=== PATIENT | male | born 1980 | race Caucasian/White ===

== ENCOUNTER 2017-11-12 16:03 | Inpatient (IN) | payer SELFPAY ==
[~2017-11-12] VITALS: Ht 175.3 cm; Wt 97.2 kg
[2017-11-12] VITALS (12 sets, daily range): BP systolic 126–146; BP diastolic 72–91
--- NOTE | 2017-11-12 16:19 | ED General ---
General Stated Complaint: COUGH/SOB/VOMITING Source of Information: Patient, Family Exam Limitations: No Limitations History of Present Illness Time Seen by Provider: 16:19 Initial Comments The patient is a 37-year-old white male who presents with a complaint of recurrent vomiting over the past 2 weeks. He had assumed he would eventually get better than this. There has been no fever. There has been no diarrhea. His arrival vital signs showed a heart rate of 150+. EKG showed this to appeared to be sinus on the basis of notching in the T-wave in lead 2. He has not been aware of pounding in his chest but reported dyspnea on minimal exertion. Timing/Duration: Other (2 weeks) Associated Systoms: Nausea/Vomiting, Shortness of Air, Weakness Allergies and Home Medications Allergies Coded Allergies: No Known Drug Allergies (Unverified , 11/12/17) Home Medications No Active Prescriptions or Reported Meds Constitutional: see HPI EENTM: no symptoms reported Respiratory: cough, short of breath Cardiovascular: see HPI Gastrointestinal: loss of appetite, nausea, vomiting Musculoskeletal: muscle weakness Skin: no symptoms reported Psychiatric/Neurological: No Symptoms Reported Hematologic/Lymphatic: No Symptoms Reported Immunological/Allergic: no symptoms reported Past Dtpnrxc-Jsxmky-Lvljki Hx Patient Social History Recent Foreign Travel: No Contact w/Someone Who Travel: No Physical Exam Vital Signs Vital Sign - Last 12Hours 11/12/17 11/12/17 16:45 23:43 Temp 97.9 Pulse 177 Resp 24 B/P (MAP) 128/76 (93) Pulse Ox 99 O2 Delivery Room Air O2 Flow Rate 2.00 Capillary Refill : General Appearance: Moderate Distress, Other (pale and diaphoretic) Eyes: Bilateral Eye Normal Inspection HEENT: Normal ENT Inspection Neck: Normal Inspection Respiratory: Other (hyperventilating) Cardiovascular: Tachycardia Gastrointestinal: Normal Bowel Sounds, No Organomegaly, No Pulsatile Mass, Non Tender, Soft Back: Normal Inspection, No CVA Tenderness, No Vertebral Tenderness Extremity: Normal Capillary Refill, Normal Inspection, Normal Range of Motion, Non Tender, No Calf Tenderness, No Pedal Edema Neurologic/Psychiatric: Alert, Oriented x3, No Motor/Sensory Deficits, Normal Mood/Affect Skin: Normal Color, Warm/Dry Lymphatic: No Adenopathy Focused Exam Evaluation Lactate Level Laboratory Tests 11/12/17 17:15: Lactic Acid Level 1.81 Lactic Acid Level Progress/Results/Core Measures Suspected Sepsis SIRS Temperature: Pulse: Respiratory Rate: Laboratory Tests 11/13/17 04:21: White Blood Count 18.2H 11/14/17 05:45: White Blood Count 12.1H 11/15/17 10:55: White Blood Count 7.1 Blood Pressure / Mean: Laboratory Tests 11/12/17 17:15: Lactic Acid Level 1.81 Laboratory Tests 11/12/17 16:20: Total Bilirubin 0.5 11/13/17 04:21: Platelet Count 299 11/14/17 00:30: Creatinine 0.68 11/14/17 05:45: Platelet Count 228, Creatinine 0.63 11/15/17 10:55: Creatinine 0.59L, Platelet Count 225, Total Bilirubin 0.6 Results/Orders Lab Results Laboratory Tests Test 11/13/17 14:03 11/13/17 15:10 11/13/17 16:07 11/13/17 16:13 Range/Units Glucometer 186 H 181 H 175 H 70-110 MG/DL Sodium Level 142 135-145 MMOL/L Potassium Level 3.9 3.6-5.0 MMOL/L Chloride Level 111 H 98-107 MMOL/L Carbon Dioxide Level 22 21-32 MMOL/L Anion Gap 9 5-14 MMOL/L Blood Urea Nitrogen 9 7-18 MG/DL Creatinine 0.73 0.60-1.30 MG/DL Estimat Glomerular Filtration Rate > 60 BUN/Creatinine Ratio 12 Glucose Level 145 H 70-105 MG/DL Calcium Level 10.0 8.5-10.1 MG/DL Test 11/13/17 17:29 11/13/17 18:29 11/13/17 19:28 11/13/17 20:27 Range/Units Glucometer 158 H 177 H 245 H 227 H 70-110 MG/DL Test 11/13/17 21:26 11/13/17 22:31 11/13/17 23:32 11/14/17 00:30 Range/Units Glucometer 205 H 184 H 191 H 70-110 MG/DL Sodium Level 141 135-145 MMOL/L Potassium Level 3.7 3.6-5.0 MMOL/L Chloride Level 110 H 98-107 MMOL/L Carbon Dioxide Level 23 21-32 MMOL/L Anion Gap 8 5-14 MMOL/L Blood Urea Nitrogen 7 7-18 MG/DL Creatinine 0.68 0.60-1.30 MG/DL Estimat Glomerular Filtration Rate > 60 BUN/Creatinine Ratio 10 Glucose Level 131 H 70-105 MG/DL Calcium Level 9.9 8.5-10.1 MG/DL Test 11/14/17 00:31 11/14/17 01:06 11/14/17 02:07 11/14/17 03:10 Range/Units Glucometer 141 H 133 H 160 H 144 H 70-110 MG/DL Test 11/14/17 03:37 11/14/17 04:35 11/14/17 05:03 11/14/17 05:45 Range/Units Glucometer 146 H 147 H 183 H 70-110 MG/DL White Blood Count 12.1 H 4.3-11.0 10^3/uL Red Blood Count 4.29 L 4.35-5.85 10^6/uL Hemoglobin 12.7 L 13.3-17.7 G/DL Hematocrit 36 L 40-54 % Mean Corpuscular Volume 83 80-99 FL Mean Corpuscular Hemoglobin 30 25-34 PG Mean Corpuscular Hemoglobin Concent 36 32-36 G/DL Red Cell Distribution Width 12.6 10.0-14.5 % Platelet Count 228 130-400 10^3/uL Mean Platelet Volume 10.2 7.4-10.4 FL Neutrophils (%) (Auto) 72 42-75 % Lymphocytes (%) (Auto) 18 12-44 % Monocytes (%) (Auto) 9 0-12 % Eosinophils (%) (Auto) 1 0-10 % Basophils (%) (Auto) 0 0-10 % Neutrophils # (Auto) 8.7 H 1.8-7.8 X 10^3 Lymphocytes # (Auto) 2.2 1.0-4.0 X 10^3 Monocytes # (Auto) 1.1 H 0.0-1.0 X 10^3 Eosinophils # (Auto) 0.1 0.0-0.3 10^3/uL Basophils # (Auto) 0.0 0.0-0.1 10^3/uL Sodium Level 142 135-145 MMOL/L Potassium Level 3.5 L 3.6-5.0 MMOL/L Chloride Level 109 H 98-107 MMOL/L Carbon Dioxide Level 24 21-32 MMOL/L Anion Gap 9 5-14 MMOL/L Blood Urea Nitrogen 5 L 7-18 MG/DL Creatinine 0.63 0.60-1.30 MG/DL Estimat Glomerular Filtration Rate > 60 BUN/Creatinine Ratio 8 Glucose Level 173 H 70-105 MG/DL Hemoglobin A1c 10.7 H 4.5-6.2 % Calcium Level 10.0 8.5-10.1 MG/DL Phosphorus Level 2.8 2.3-4.7 MG/DL Magnesium Level 1.1 L 1.8-2.4 MG/DL Test 11/14/17 06:18 11/14/17 07:01 11/14/17 08:12 11/14/17 10:28 Range/Units Glucometer 226 H 165 H 160 H 138 H 70-110 MG/DL Test 11/14/17 14:39 11/14/17 19:50 11/14/17 23:59 11/15/17 05:37 Range/Units Glucometer 272 H 228 H 282 H 242 H 70-110 MG/DL Test 11/15/17 10:36 11/15/17 10:55 Range/Units Glucometer 277 H 70-110 MG/DL White Blood Count 7.1 4.3-11.0 10^3/uL Red Blood Count 4.53 4.35-5.85 10^6/uL Hemoglobin 13.3 13.3-17.7 G/DL Hematocrit 38 L 40-54 % Mean Corpuscular Volume 83 80-99 FL Mean Corpuscular Hemoglobin 29 25-34 PG Mean Corpuscular Hemoglobin Concent 36 32-36 G/DL Red Cell Distribution Width 12.4 10.0-14.5 % Platelet Count 225 130-400 10^3/uL Mean Platelet Volume 10.4 7.4-10.4 FL Neutrophils (%) (Auto) 66 42-75 % Lymphocytes (%) (Auto) 22 12-44 % Monocytes (%) (Auto) 12 0-12 % Eosinophils (%) (Auto) 1 0-10 % Basophils (%) (Auto) 0 0-10 % Neutrophils # (Auto) 4.6 1.8-7.8 X 10^3 Lymphocytes # (Auto) 1.5 1.0-4.0 X 10^3 Monocytes # (Auto) 0.8 0.0-1.0 X 10^3 Eosinophils # (Auto) 0.1 0.0-0.3 10^3/uL Basophils # (Auto) 0.0 0.0-0.1 10^3/uL Sodium Level 141 135-145 MMOL/L Potassium Level 3.7 3.6-5.0 MMOL/L Chloride Level 103 98-107 MMOL/L Carbon Dioxide Level 28 21-32 MMOL/L Anion Gap 10 5-14 MMOL/L Blood Urea Nitrogen 10 7-18 MG/DL Creatinine 0.59 L 0.60-1.30 MG/DL Estimat Glomerular Filtration Rate > 60 BUN/Creatinine Ratio 17 Glucose Level 310 H 70-105 MG/DL Calcium Level 9.4 8.5-10.1 MG/DL Total Bilirubin 0.6 0.1-1.0 MG/DL Aspartate Amino Transf (AST/SGOT) 12 5-34 U/L Alanine Aminotransferase (ALT/SGPT) 15 0-55 U/L Alkaline Phosphatase 71 40-136 U/L Total Protein 6.1 L 6.4-8.2 GM/DL Albumin 2.9 L 3.2-4.5 GM/DL Micro Results Microbiology 11/13/17 MRSA Screen - Final, Complete MRSA not isolated My Orders Orders - MIKO MCINTYRE MD Diabetes Education (11/14/17 14:46) Cpoe Transfer Order Process (11/14/17 14:53) Insulin Aspart (Novolog) (Novolog (Charg (11/14/17 16:00) Ns Iv 1000 Ml (Sodium Chloride 0.9%) (11/14/17 15:36) Transfer - Room Transfer (11/14/17 16:49) Medications Given in ED Vital Signs/I&O Vital Sign - Last 12Hours 11/15/17 11/15/17 04:00 08:30 Temp 97.7 97.2 Pulse 88 85 Resp 16 16 B/P (MAP) 155/84 (107) 143/94 (110) Pulse Ox 95 97 O2 Delivery Room Air Room Air Capillary Refill : Departure Communication (Admissions) Progress Notes The white count is 33,000. Hemoglobin is 17. Blood sugar is 457 and CO2 is 7. These are consistent with diabetic ketoacidosis and consistent with his symptom complex as well. Discussed with Dr. Manzo at 1724 and the patient will be admitted to the ICU. Impression Impression: Primary Impression: diabetic ketoacidosis Disposition: 09 ADMITTED INPATIENT Condition: Stable/Unchanged Admissions Decision to Admit Reason: Admit from ER (General) Decision to Admit/Date: Nov 12, 2017 Time/Decision to Admit Time: 17:33 Departure-Patient Inst. Referrals: NO,LOCAL PHYSICIAN (PCP/Family) Primary Care Physician Scripts No Active Prescriptions or Reported Meds MIKO MCINTYRE MD Nov 12, 2017 16:19
[2017-11-12] MEDS ORDERED: NS IV 1000 ML 1,000 ML ONE ×3 (16:24→21:07)
[2017-11-12] MEDS ORDERED: ADENOSINE 6 MG/2 ML (ADENOCARD) VIAL IV ONE (16:25)
[2017-11-12] MEDS ORDERED: meTOprolol 5 MG/5 ML (LOPRESSOR) VIAL ONE (16:31)
[2017-11-12 16:45] LABS: BASOPHILS % (AUTO) 0 % (0-10); EOSINOPHILS % (AUTO) 0 % (0-10); HEMATOCRIT 50 % (40-54); HEMOGLOBIN 17.2 G/DL (13.3-17.7); LYMPHOCYTES # (AUTO) 1.2 X 10^3 (1.0-4.0); LYMPHOCYTES % (AUTO) 4 % (12-44); MEAN CORPUSCULAR HEMOGLOBIN 29 PG (25-34); MEAN CORPUSCULAR HGB CONC 35 G/DL (32-36); MEAN CORPUSCULAR VOLUME 84 FL (80-99); MEAN PLATELET VOLUME 11.1 FL (7.4-10.4); MONOCYTES # (AUTO) 3.3 X 10^3 (0.0-1.0); MONOCYTES % (AUTO) 10 % (0-12); NEUTROPHILS # (AUTO) 28.2 X 10^3 (1.8-7.8); NEUTROPHILS % (AUTO) 86 % (42-75); PLATELET COUNT 430 10^3/uL (130-400); RED BLOOD COUNT 5.91 10^6/uL (4.35-5.85); RED CELL DISTRIBUTION WIDTH 13.3 % (10.0-14.5)
[2017-11-12 16:49] LABS: WHITE BLOOD COUNT 32.7 10^3/uL (4.3-11.0)
[2017-11-12 17:07] LABS: ALBUMIN 4.1 GM/DL (3.2-4.5); BILIRUBIN,TOTAL 0.5 MG/DL (0.1-1.0); CALCIUM 11.7 MG/DL (8.5-10.1); CREATININE SERUM 1.58 MG/DL (0.60-1.30); POTASSIUM 4.3 MMOL/L (3.6-5.0)
[2017-11-12 17:08] LABS: BAND NEUTROPHILS 5 %; BASOPHILS % (MANUAL) 0 %; EOSINOPHILS % (MANUAL) 0 %; LYMPHOCYTES % (MANUAL) 5 %; MONOCYTES % (MANUAL) 9 %; NEUTROPHILS % (MANUAL) 81 %; RBC MORPH NORMAL
[2017-11-12] MEDS ORDERED: inSUlin REGULAR TPN/DRIP ONLY 250 UNITS in NORMAL SALINE 250 ML IV SCH (17:45)
--- NOTE | 2017-11-12 17:53 | Diagnostic Imaging Report ---
INDICATION: Cough and congestion, shortness of breath. COMPARISON: None. FINDINGS: Single view of the chest demonstrates clear lungs bilaterally. The heart is normal. There is no pneumothorax. Osseous structures normal. IMPRESSION: Negative chest. Dictated by: Dictated on workstation # [id number]
[2017-11-12] MEDS ORDERED: cefTRIAXone INJECTION 1,000 MG in NS (IVPB) 50 ML IV ONE (18:00)
[2017-11-12] MEDS ORDERED: NS (IVPB) 250 ML ONE (18:11)
[2017-11-12] MEDS ORDERED: inSUlin (REGULAR) HUMAN 1 UNIT/0.01 ML (CHARGE PER UNIT) ONE (18:12)
[2017-11-12] MEDS ORDERED: ONDANSETRON 4 MG/2 ML (SDV) Z0FRAN IVP ONE (18:30)
[2017-11-12] MEDS ORDERED: 1/2 NS W/KCL 20 MEQ/L 1,000 ML IV ONE (19:55)
[2017-11-12 20:30] LABS: CALCIUM 10.8 MG/DL (8.5-10.1); CREATININE SERUM 1.39 MG/DL (0.60-1.30); POTASSIUM 4.4 MMOL/L (3.6-5.0)
[2017-11-12] MEDS ORDERED: SODIUM BICARB 8.4% 50 MEQ/50 ML (ABBOTT) SYR ONE (21:06)
[2017-11-12] MEDS ORDERED: NS IV 1000 ML 1,000 ML IV SCH (21:15)
[2017-11-12] MEDS ORDERED: SODIUM BICARB 8.4% 50 MEQ/50 ML (ABBOTT) SYR IV ONE ×2 (21:15→21:30)
[2017-11-12] MEDS: REGULAR inSUlin DRIP 250 UNITS/NS 250 ML IV SCH ×2 (21:26)
[2017-11-12] MEDS: D5 1/2 NS W/KCL 20 MEQ/L 1,000 ML IV SCH (21:26)
[2017-11-12] MEDS: DEXTROSE 10% IV SOLUTION 1,000 ML IV SCH (21:26)
[2017-11-12] MEDS: 1/2 NS W/KCL 20 MEQ/L 1,000 ML IV SCH (21:26)
[2017-11-12] MEDS: POTASSIUM CL 10MEQ/50ML IVPB X 4 (TOTAL 40 MEQ) IV SCH ×2 (22:46→22:47)
[2017-11-13] VITALS (23 sets, daily range): BP systolic 109–166; BP diastolic 69–108
[2017-11-13] MEDS: D5 1/2 NS W/KCL 20 MEQ/L 1,000 ML IV SCH ×6 (00:26→21:59)
[2017-11-13] MEDS: 1/2 NS W/KCL 20 MEQ/L 1,000 ML IV SCH ×5 (01:53→21:30)
[2017-11-13 02:37] LABS: BUN/CREATININE RATIO 10; CALCIUM 10.5 MG/DL (8.5-10.1); CARBON DIOXIDE 15 MMOL/L (21-32); CHLORIDE 111 MMOL/L (98-107); CREATININE SERUM 1.23 MG/DL (0.60-1.30); GFR ESTIMATED > 60; GLUCOSE 243 MG/DL (70-105); POTASSIUM 3.4 MMOL/L (3.6-5.0); SODIUM 143 MMOL/L (135-145)
[2017-11-13 04:46] LABS: BASOPHILS % (AUTO) 0 % (0-10); EOSINOPHILS % (AUTO) 0 % (0-10); HEMATOCRIT 39 % (40-54); HEMOGLOBIN 13.8 G/DL (13.3-17.7); LYMPHOCYTES # (AUTO) 1.3 X 10^3 (1.0-4.0); LYMPHOCYTES % (AUTO) 7 % (12-44); MEAN CORPUSCULAR HEMOGLOBIN 29 PG (25-34); MEAN CORPUSCULAR HGB CONC 35 G/DL (32-36); MEAN CORPUSCULAR VOLUME 83 FL (80-99); MEAN PLATELET VOLUME 10.3 FL (7.4-10.4); MONOCYTES % (AUTO) 11 % (0-12); NEUTROPHILS # (AUTO) 14.8 X 10^3 (1.8-7.8); NEUTROPHILS % (AUTO) 81 % (42-75); PLATELET COUNT 299 10^3/uL (130-400); RED BLOOD COUNT 4.72 10^6/uL (4.35-5.85); WHITE BLOOD COUNT 18.2 10^3/uL (4.3-11.0)
[2017-11-13 05:08] LABS: MAGNESIUM 1.4 MG/DL (1.8-2.4); PHOSPHORUS 1.7 MG/DL (2.3-4.7)
[2017-11-13] MEDS ORDERED: ACETAMINOPHEN 325 MG TABLET/CAPLET (TYLENOL) ONE (05:25)
[2017-11-13] MEDS: ACETAMINOPHEN 325 MG TABLET/CAPLET (TYLENOL) PO PRN ×2 (05:28→14:00)
[2017-11-13] MEDS ORDERED: HYDROcodone/APAP 10 MG/325 MG (LORTAB) TAB PO PRN (05:30)
[2017-11-13] MEDS: POTASSIUM CL 10MEQ/50ML IVPB 50 ML IV SCH (05:30)
[2017-11-13] MEDS ORDERED: KCL 20 MEQ TAB (K-DUR) PO ONE (05:30)
[2017-11-13] MEDS: KCL 20 MEQ TAB (K-DUR) PO SCH (05:30)
[2017-11-13] MEDS: MAGNESIUM 1 GM/100 ML IVPB 100 ML IV SCH ×3 (05:30→06:48)
[2017-11-13 06:11] LABS: BUN/CREATININE RATIO 12; CARBON DIOXIDE 19 MMOL/L (21-32); CHLORIDE 112 MMOL/L (98-107); CREATININE SERUM 0.92 MG/DL (0.60-1.30); GFR ESTIMATED > 60; GLUCOSE 201 MG/DL (70-105); POTASSIUM 3.5 MMOL/L (3.6-5.0); SODIUM 145 MMOL/L (135-145)
[2017-11-13] MEDS ORDERED: INFLUENZA TRIvalent 2017-2018 0.5 ML/45 MCG SYR IM ONE (08:15)
[2017-11-13] MEDS: DEXTROSE 10% IV SOLUTION 1,000 ML IV SCH ×2 (08:17→17:51)
[2017-11-13 08:59] LABS: BUN/CREATININE RATIO 12; CARBON DIOXIDE 20 MMOL/L (21-32); CHLORIDE 113 MMOL/L (98-107); CREATININE SERUM 0.85 MG/DL (0.60-1.30); POTASSIUM 3.6 MMOL/L (3.6-5.0); SODIUM 141 MMOL/L (135-145)
[2017-11-13 09:00] LABS: CALCIUM 10.1 MG/DL (8.5-10.1); GFR ESTIMATED > 60; GLUCOSE 217 MG/DL (70-105)
--- NOTE | 2017-11-13 09:23 | Diagnostic Imaging Report ---
INDICATION: Diabetic ketoacidosis Comparison made to the previous study from 11/12/2017. FINDINGS: Lungs remain clear without focal infiltrate or consolidation. There is no effusion. There is no pneumothorax. Heart size and mediastinal contours appear appropriate without evidence of failure. There is no acute osseous abnormality. IMPRESSION: 1. No radiographic evidence of an acute cardiopulmonary process. Dictated by: Dictated on workstation # [id number]
--- NOTE | 2017-11-13 13:21 | History & Physical-Hospitalist ---
HPI History of Present Illness: HPI/Chief Complaint CC: New onset DKA with profound dehydration and tachycardia HPI: This is a 37-year-old white male that historically was very healthy and did not require any type of physician establishment who presents to the ER yesterday with reports of nausea and vomiting for the past 2 weeks and such significant declined that his brother insisted on bringing him to the ER patient was found to have tachycardia of 150 blood sugar 457 and bicarbonate of 7 with a white count of 33,000 indicating a profound severe presentation of DKA in need of insulin drip and IV fluid resuscitation. At this current time he remains afebrile but does not appear to be any type of infectious process and the elevated white count appears to be stress response from DKA. Overall he feels better but not the best still slightly nauseated but he is hungry so he would like to advance his diet. We will maintain insulin drip although bicarbonate is 20 I suspect that this is a long-standing acidosis for the last 2 weeks and will be very careful about discontinuing insulin drip before clearance of all acidosis has occurred while he is back to oral intake. 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) Alcohol Use: Denies Use Recreational Drug Use: No Smoking Status: Never a Smoker Physical Abuse Screen: No Sexual Abuse: No Recent Foreign Travel: No Contact w/other who traveled: No Recent Hopitalizations: No Recent Infectious Disease Expo: No Seasonal Allergies Seasonal Allergies: No Surgeries No Respiratory Yes Sleep Apnea Currently Using CPAP: Yes Cardiovascular No Neurological No Genitourinary No Gastrointestinal No Musculoskeletal No Endocrine History of Endocrine Disorders: No HEENT History of HEENT Disorders: No Cancer No Psychosocial History of Psychiatric Problem: No Integumentary History of Skin or Integumenta: No Blood Transfusions History of Blood Disorders: No Review of Systems Constitutional: see HPI, chills, dizziness, weakness EENTM: no symptoms reported Respiratory: no symptoms reported Cardiovascular: no symptoms reported Gastrointestinal: nausea, vomiting Genitourinary: decreased output Musculoskeletal: no symptoms reported Skin: no symptoms reported Psychiatric/Neurological: No Symptoms Reported All Other Systems Reviewed Negative Unless Noted: Yes Physical Exam Physical Exam Vital Signs Vital Sign - Last 12Hours 11/12/17 11/12/17 16:45 23:43 Temp 97.9 Pulse 177 Resp 24 B/P (MAP) 128/76 (93) Pulse Ox 99 O2 Delivery Room Air O2 Flow Rate 2.00 Capillary Refill : Less Than 3 Seconds General Appearance: No Apparent Distress, WD/WN, Chronically ill, Obese Eyes: Bilateral Eye Normal Inspection, Bilateral Eye PERRL HEENT: PERRL/EOMI, Normal ENT Inspection, Pharynx Normal Neck: Full Range of Motion, Normal Inspection, Non Tender, Supple, Carotid Bruit Respiratory: Chest Non Tender, Lungs Clear, Normal Breath Sounds, No Accessory Muscle Use, No Respiratory Distress Cardiovascular: Regular Rate, Rhythm, No Edema, No Gallop, No JVD, No Murmur, Normal Peripheral Pulses Gastrointestinal: Normal Bowel Sounds, No Organomegaly, No Pulsatile Mass, Non Tender, Soft Back: Normal Inspection, No CVA Tenderness, No Vertebral Tenderness Extremity: Normal Capillary Refill, Normal Inspection, Normal Range of Motion, Non Tender, No Calf Tenderness, No Pedal Edema Neurologic/Psychiatric: Alert, Oriented x3, No Motor/Sensory Deficits, Depressed Affect Skin: Normal Color, Warm/Dry Lymphatic: No Adenopathy Results Results/Procedures Lab Laboratory Tests 11/12/17 16:20 11/12/17 20:00 11/13/17 00:01 11/13/17 04:21 11/13/17 08:28 Assessment/Plan Admission Diagnosis Assessment: New onset diabetes and presenting as severe DKA with tachycardia and severe dehydration Assessment and Plan Plan: Advance diet Maintain insulin drip due to severity of acidosis and 2 weeks of severe dehydration with acidosis high risk for converting back to DKA Monitor labs Monitor potassium Monitor closely Clinical Quality Measures DVT/VTE Risk/Contraindication: Risk Factor Score Per Nursin RFS Level Per Nursing on Admit: 3=High KEREN MANZO DO Nov 13, 2017 13:21
[2017-11-13] MEDS: REGULAR inSUlin DRIP 250 UNITS/NS 250 ML IV SCH ×2 (14:43)
[2017-11-13 16:47] LABS: BUN/CREATININE RATIO 12; CARBON DIOXIDE 22 MMOL/L (21-32); CHLORIDE 111 MMOL/L (98-107); CREATININE SERUM 0.73 MG/DL (0.60-1.30); GFR ESTIMATED > 60; GLUCOSE 145 MG/DL (70-105); POTASSIUM 3.9 MMOL/L (3.6-5.0); SODIUM 142 MMOL/L (135-145)
[2017-11-14] VITALS (18 sets, daily range): BP systolic 135–168; BP diastolic 82–107
[2017-11-14] MEDS: DEXTROSE 10% IV SOLUTION 1,000 ML IV SCH ×2 (01:12→14:44)
[2017-11-14 01:15] LABS: BUN/CREATININE RATIO 10; CALCIUM 9.9 MG/DL (8.5-10.1); CARBON DIOXIDE 23 MMOL/L (21-32); CHLORIDE 110 MMOL/L (98-107); CREATININE SERUM 0.68 MG/DL (0.60-1.30); GFR ESTIMATED > 60; GLUCOSE 131 MG/DL (70-105); POTASSIUM 3.7 MMOL/L (3.6-5.0); SODIUM 141 MMOL/L (135-145)
[2017-11-14] MEDS: ACETAMINOPHEN 325 MG TABLET/CAPLET (TYLENOL) PO PRN (01:26)
[2017-11-14] MEDS: 1/2 NS W/KCL 20 MEQ/L 1,000 ML IV SCH ×4 (01:30→14:44)
[2017-11-14] MEDS: D5 1/2 NS W/KCL 20 MEQ/L 1,000 ML IV SCH ×4 (01:41→14:45)
[2017-11-14 05:58] LABS: BASOPHILS % (AUTO) 0 % (0-10); EOSINOPHILS # (AUTO) 0.1 10^3/uL (0.0-0.3); EOSINOPHILS % (AUTO) 1 % (0-10); HEMATOCRIT 36 % (40-54); HEMOGLOBIN 12.7 G/DL (13.3-17.7); LYMPHOCYTES # (AUTO) 2.2 X 10^3 (1.0-4.0); LYMPHOCYTES % (AUTO) 18 % (12-44); MEAN CORPUSCULAR HEMOGLOBIN 30 PG (25-34); MEAN CORPUSCULAR HGB CONC 36 G/DL (32-36); MEAN CORPUSCULAR VOLUME 83 FL (80-99); MEAN PLATELET VOLUME 10.2 FL (7.4-10.4); MONOCYTES # (AUTO) 1.1 X 10^3 (0.0-1.0); MONOCYTES % (AUTO) 9 % (0-12); NEUTROPHILS # (AUTO) 8.7 X 10^3 (1.8-7.8); NEUTROPHILS % (AUTO) 72 % (42-75); PLATELET COUNT 228 10^3/uL (130-400); RED BLOOD COUNT 4.29 10^6/uL (4.35-5.85); RED CELL DISTRIBUTION WIDTH 12.6 % (10.0-14.5); WHITE BLOOD COUNT 12.1 10^3/uL (4.3-11.0)
[2017-11-14 06:20] LABS: BUN/CREATININE RATIO 8; CARBON DIOXIDE 24 MMOL/L (21-32); CHLORIDE 109 MMOL/L (98-107); CREATININE SERUM 0.63 MG/DL (0.60-1.30); GFR ESTIMATED > 60; GLUCOSE 173 MG/DL (70-105); MAGNESIUM 1.1 MG/DL (1.8-2.4); PHOSPHORUS 2.8 MG/DL (2.3-4.7); POTASSIUM 3.5 MMOL/L (3.6-5.0); SODIUM 142 MMOL/L (135-145)
[2017-11-14] MEDS: POTASSIUM CL 10MEQ/50ML IVPB 50 ML IV SCH ×2 (06:36→08:02)
[2017-11-14] MEDS: MAGNESIUM 1 GM/100 ML IVPB 100 ML IV SCH ×5 (06:37→10:35)
[2017-11-14] MEDS: KCL 20 MEQ TAB (K-DUR) PO SCH (06:38)
[2017-11-14] MEDS ORDERED: KCL 20 MEQ TAB (K-DUR) PO ONE (06:45)
--- NOTE | 2017-11-14 07:41 | Diagnostic Imaging Report ---
INDICATION: DKA COMPARISON: 11/13/17 FINDINGS: Single view of the chest demonstrate clear lungs bilaterally. The heart is normal. No pneumothorax. The osseous structures normal. IMPRESSION: Negative chest. Dictated by: Dictated on workstation # [id number]
--- NOTE | 2017-11-14 07:43 | Pulmonary Consultation ---
History of Present Illness History of Present Illness Date of Consultation 11/14/17 07:38 Time Seen by Provider: 07:38 Date of Admission History of Present Illness 37yo with hx of JAIR presented to ED secondary to nausea and vomiting x 2 wks. Upon ED arrival pt was found to have DKA, dehydration, and tachycardia of 150. PT was admitted to ICU and placed on DKA protocol. I am consulted for ICU management. Pt has not seen a doctor in over 15 years and does not have a hx of diagnosed diabetes. He prior episodes like this. Allergies and Home Medications Allergies Coded Allergies: No Known Drug Allergies (Unverified , 11/12/17) Past Amnhxjr-Umexsu-Nqwcmh Hx Patient Social History Alcohol Use: Denies Use Recreational Drug Use: No Smoking Status: Never a Smoker Recent Foreign Travel: No Contact w/Someone Who Travel: No Recent Infectious Disease Expo: No Recent Hopitalizations: No Physical Abuse: No Sexual Abuse: No Seasonal Allergies Seasonal Allergies: No Surgeries History of Surgeries: No Respiratory History of Respiratory Disorde: Yes Respiratory Disorders: Sleep Apnea Currently Using CPAP: Yes Cardiovascular History of Cardiac Disorders: No Neurological History of Neurological Disord: No Genitourinary History of Genitourinary Disor: No Gastrointestinal History of Gastrointestinal Di: No Musculoskeletal History of Musculoskeletal Dis: No Endocrine History of Endocrine Disorders: No HEENT History of HEENT Disorders: No Cancer History of Cancer: No Psychosocial History of Psychiatric Problem: No Suicide Risk Score: 0 Integumentary History of Skin or Integumenta: No Blood Transfusions History of Blood Disorders: No Review of Systems Time Seen by Provider: 08:00 Constitutional: Sweats, Weakness, Malaise, No: Fever, Chills, Other Eyes: No: Pain, Vision change, Conjunctivae inflammation, Eyelid inflammation, Other, Redness ENT: No: Ear pain, Ear discharge, Nose pain, Nose discharge, Nose congestion, Mouth pain, Mouth swelling, Throat pain, Throat swelling, Other Respiratory: No: Cough, Dry, Shortness of breath, SOB with excertion, Wheezing , Hemoptysis, Pleuritic Pain, Sputum, Wheezing, Other Cardiovascular: No: Chest Pain, Palpitations, Orthopnea, Paroxysmal Noc. Dyspnea, Edema, Lt Headedness, Other Gastrointestinal: Nausea, No: Vomiting, Abdominal Pain, Diarrhea, Constipation , Melena, Hematochezia, Other Genitourinary: No Dysuria, Frequency, No Incontinence, No Hematuria, No Retention, No Other Musculoskeletal: No: other, neck pain, shoulder pain, arm pain, back pain, hand pain, leg pain, foot pain Neurological: Weakness Exam Exam Vital Signs Date Time Temp Pulse Resp B/P (MAP) Pulse Ox O2 Delivery O2 Flow Rate FiO2 11/14/17 06:00 110 20 149/94 (112) 96 Room Air 11/14/17 05:00 111 26 135/87 (103) 97 Room Air 11/14/17 04:00 111 25 139/85 (103) 96 Room Air 11/14/17 04:00 95 Room Air 11/14/17 03:00 117 21 153/89 (110) 96 Room Air 11/14/17 02:00 121 21 154/105 (121) 96 Room Air 11/14/17 01:00 118 11/14/17 01:00 118 25 153/96 (115) 95 Room Air 11/14/17 00:00 97.6 11/14/17 00:00 124 28 150/97 (114) 97 Room Air 11/14/17 00:00 97 Room Air 11/13/17 23:00 120 22 146/92 (110) 94 Room Air 11/13/17 22:00 122 19 149/90 (109) 97 Room Air 11/13/17 21:00 128 22 144/87 (106) 96 Room Air 11/13/17 20:05 96 Room Air 11/13/17 20:00 131 26 140/91 (107) 95 Room Air 11/13/17 20:00 98.8 11/13/17 19:00 135 11/13/17 19:00 135 20 109/69 (82) 97 Room Air 11/13/17 18:00 121 24 151/97 (115) 96 Room Air 11/13/17 17:00 115 13 159/104 (122) 95 Room Air 11/13/17 16:44 98.0 Room Air 11/13/17 16:41 Room Air 11/13/17 16:00 121 9 145/94 (111) 96 Nasal Cannula 2.00 11/13/17 15:00 124 10 166/105 (125) 95 Nasal Cannula 2.00 11/13/17 14:00 130 19 99 Nasal Cannula 2.00 11/13/17 13:00 123 9 133/85 (101) 94 Nasal Cannula 2.00 11/13/17 13:00 123 11/13/17 12:00 117 12 134/107 (116) 96 Nasal Cannula 2.00 11/13/17 11:59 Nasal Cannula 2.00 11/13/17 11:00 120 12 149/94 (112) 93 Nasal Cannula 2.00 11/13/17 10:00 118 22 137/90 (106) 97 Nasal Cannula 2.00 11/13/17 09:00 122 25 150/99 (116) 95 Nasal Cannula 2.00 11/13/17 08:00 122 11 159/97 (117) 97 Nasal Cannula 2.00 11/13/17 08:00 Nasal Cannula 2.00 I & O 11/14/17 07:00 Intake Total 4390 ml Output Total 1725 ml Balance 2665 ml General Appearance: No Apparent Distress, WD/WN, Chronically ill, Obese HEENT: PERRL/EOMI, Normal ENT Inspection, Pharynx Normal Neck: Full Range of Motion, Normal Inspection, Non Tender, Supple, Carotid Bruit Respiratory: Chest Non Tender, Lungs Clear, Normal Breath Sounds, No Accessory Muscle Use, No Respiratory Distress Cardiovascular: Regular Rate, Rhythm, No Edema, No Gallop, No JVD, No Murmur, Normal Peripheral Pulses Capillary Refill: Less Than 3 Seconds Extremity: Normal Capillary Refill, Normal Inspection, Normal Range of Motion, Non Tender, No Calf Tenderness, No Pedal Edema Neurologic/Psychiatric: Alert, Oriented x3, No Motor/Sensory Deficits, Depressed Affect Skin: Normal Color, Warm/Dry Lymphatic: No Adenopathy Results Lab Laboratory Tests 11/12/17 16:20 11/12/17 20:00 11/13/17 00:01 11/13/17 04:21 11/13/17 08:28 11/13/17 16:13 11/14/17 00:30 11/14/17 05:45 Assessment/Plan Assessment/Plan Acute DKA - no previous hx of DKA - new dx of diabetes -Will give 15 units of Sub Q Levemir and then D/C drip after 2hrs -Will also start premeal insulin, and SSI -Diabetic education Dehydration --Change IVF to NS at 150cc/hr Morbid obesity with JAIR -Continue CPAP care -PT has not seen a doctor in over 15years -I will f/u with patient as out patient for JAIR If pt does ok off insulin gtt pt can transfer to 4th floor. Will need to follow accu checks close. 255 Clinical Quality Measures DVT/VTE Risk/Contraindication: Risk Factor Score Per Nursin RFS Level Per Nursing on Admit: 3=High EDIL MERAZ DO Nov 14, 2017 07:43
[2017-11-14] MEDS ORDERED: NS 1000 ML IV BAG IV ONE (07:45)
[2017-11-14] MEDS ORDERED: inSUlin DETERMIR 1 UNIT/0.01 ML (LEVEMIR) CHARGE PER UNIT SQ NR (07:45)
[2017-11-14] MEDS ORDERED: NS IV 1000 ML 1,000 ML ONE ×2 (07:55→15:36)
[2017-11-14] MEDS ORDERED: NS IV 1000 ML 1,000 ML IV SCH (08:15)
[2017-11-14] MEDS: inSUlin (REGULAR) HUMAN 1 UNIT/0.01 ML (CHARGE PER UNIT) SC SCH ×4 (10:33→14:44)
--- NOTE | 2017-11-14 14:47 | Progress Note-Hospitalist ---
Standard Progress Note Progress Notes/Assess & Plan Date Seen 11/14/17 Time Seen by Provider: 14:42 Diagnosis Assessment: New onset diabetes and presenting as severe DKA with tachycardia and severe dehydration Assess & Plan/Chief Complaint Reports he is feeling much better. He was able to eat today. He no longer has ketones on his breath. He is CO2 is now 25 which is normal. He reports he is feeling like life might be worthwhile at this point. Physical exam: Color is good. Lungs are clear to auscultation. Respiratory rate is 10. CV his tachycardia has resolved. There is no pedal edema. Impression: Diabetic ketoacidosis now resolved. Plan: Transfer to the floor. Advance diet. Diabetes nurse consultation tomorrow Labs Laboratory Tests 11/12/17 16:20 11/12/17 20:00 11/13/17 00:01 11/13/17 04:21 11/13/17 08:28 11/13/17 16:13 11/14/17 00:30 11/14/17 05:45 MIKO MCINTYRE MD Nov 14, 2017 14:47
[2017-11-14] MEDS: inSUlin ASPART (NovoLOG) 1 UNIT/0.01 ML (CHARGE PER UNIT) SC SCH (17:16)
[2017-11-14] MEDS ORDERED: inSUlin DETERMIR 1 UNIT/0.01 ML (LEVEMIR) CHARGE PER UNIT SQ ONE (21:10)
[2017-11-14] MEDS: inSUlin DETERMIR 1 UNIT/0.01 ML (LEVEMIR) CHARGE PER UNIT SQ SCH (21:20)
[2017-11-15] VITALS: BP 157/99
[2017-11-15 04:00] VITALS: BP 155/84
[2017-11-15] MEDS: inSUlin ASPART (NovoLOG) 1 UNIT/0.01 ML (CHARGE PER UNIT) SC SCH ×2 (06:33→16:16)
[2017-11-15 08:30] VITALS: BP 143/94
[2017-11-15 11:10] LABS: BASOPHILS % (AUTO) 0 % (0-10); EOSINOPHILS # (AUTO) 0.1 10^3/uL (0.0-0.3); EOSINOPHILS % (AUTO) 1 % (0-10); HEMATOCRIT 38 % (40-54); HEMOGLOBIN 13.3 G/DL (13.3-17.7); LYMPHOCYTES # (AUTO) 1.5 X 10^3 (1.0-4.0); LYMPHOCYTES % (AUTO) 22 % (12-44); MEAN CORPUSCULAR HEMOGLOBIN 29 PG (25-34); MEAN CORPUSCULAR HGB CONC 36 G/DL (32-36); MEAN CORPUSCULAR VOLUME 83 FL (80-99); MEAN PLATELET VOLUME 10.4 FL (7.4-10.4); MONOCYTES # (AUTO) 0.8 X 10^3 (0.0-1.0); MONOCYTES % (AUTO) 12 % (0-12); NEUTROPHILS # (AUTO) 4.6 X 10^3 (1.8-7.8); NEUTROPHILS % (AUTO) 66 % (42-75); PLATELET COUNT 225 10^3/uL (130-400); RED BLOOD COUNT 4.53 10^6/uL (4.35-5.85); RED CELL DISTRIBUTION WIDTH 12.4 % (10.0-14.5); WHITE BLOOD COUNT 7.1 10^3/uL (4.3-11.0)
[2017-11-15 11:33] LABS: ALANINE AMINOTRANSFERASE 15 U/L (0-55); ALBUMIN 2.9 GM/DL (3.2-4.5); ALKALINE PHOSPHATASE 71 U/L (40-136); BILIRUBIN,TOTAL 0.6 MG/DL (0.1-1.0); BUN/CREATININE RATIO 17; CALCIUM 9.4 MG/DL (8.5-10.1); CARBON DIOXIDE 28 MMOL/L (21-32); CHLORIDE 103 MMOL/L (98-107); CREATININE SERUM 0.59 MG/DL (0.60-1.30); GFR ESTIMATED > 60; GLUCOSE 310 MG/DL (70-105); POTASSIUM 3.7 MMOL/L (3.6-5.0); SODIUM 141 MMOL/L (135-145); TOTAL PROTEIN 6.1 GM/DL (6.4-8.2)
--- NOTE | 2017-11-15 11:48 | Progress Note-Hospitalist ---
Progress Note HPI/CC on Admission CC: New onset DKA with profound dehydration and tachycardia HPI: This is a 37-year-old white male that historically was very healthy and did not require any type of physician establishment who presents to the ER yesterday with reports of nausea and vomiting for the past 2 weeks and such significant declined that his brother insisted on bringing him to the ER patient was found to have tachycardia of 150 blood sugar 457 and bicarbonate of 7 with a white count of 33,000 indicating a profound severe presentation of DKA in need of insulin drip and IV fluid resuscitation. At this current time he remains afebrile but does not appear to be any type of infectious process and the elevated white count appears to be stress response from DKA. Overall he feels better but not the best still slightly nauseated but he is hungry so he would like to advance his diet. We will maintain insulin drip although bicarbonate is 20 I suspect that this is a long-standing acidosis for the last 2 weeks and will be very careful about discontinuing insulin drip before clearance of all acidosis has occurred while he is back to oral intake. Progress Notes/Assess & Plan Date Seen 11/15/17 Time Seen by Provider: 11:00 Admission Dx/Process Assessment: New onset diabetes and presenting as severe DKA with tachycardia and severe dehydration Diagonsis/Assessment & Plan Patient doing well but sugars and to 40 range Diabetic education completed today Maintain on obstructive sleep apnea treatment Noted sore near his anal opening and that is draining and I've consulted Dr. Duong which likely was a contributing factor with a DKA considering this deep- seated abscess that likely spontaneously ruptured Reports feeling okay otherwise No fever, vital signs stable, pleasant, chronically ill, mother at bedside Regular rate and rhythm, clear to auscultation bilaterally No edema Anal ulcer draining purulent drainage Assessment: New onset diabetes and presenting as severe DKA with tachycardia and severe dehydration anal ulcer with purulent drainage consulting general surgery JAIR Plan: Consult Dr Duong Insulin regimen BUBBA CANADA DO Nov 15, 2017 11:48
[2017-11-15 12:00] VITALS: BP 158/85
[2017-11-15] MEDS: inSUlin ASPART (NovoLOG) 1 UNIT/0.01 ML (CHARGE PER UNIT) SC ONE ×2 (12:36→12:41)
--- NOTE | 2017-11-15 15:46 | CONSULTATION REPORT ---
DATE OF SERVICE: 11/15/2017 ADMITTING PHYSICIAN: Dr. Manzo. HISTORY OF PRESENT ILLNESS: The patient is a 37-year-old male who presented to [facility] Emergency Department with tachycardia, nausea and vomiting and signs of profound dehydration. He also had reported polydipsia and polyuria for the few days previous. He was found to have a blood sugar of 457, bicarbonate of 7, and white count of 33,000. He was found to be in diabetic ketoacidosis. He was admitted, started on IV fluid hydration as well as electrolyte correction and insulin drip. His white count has improved with this medical therapy. Upon further questioning, he reports he has had pain and swelling in the perianal region. On examination, there was found to be palpable mass along the right perianal region with opening with a small amount of necrotic debris surrounding the area. This may be consistent with a perianal abscess versus fistula or a combination of both. He is otherwise afebrile now with a normal white count. PAST MEDICAL HISTORY: Diabetes. PAST SURGICAL HISTORY: None. ALLERGIES: No known drug allergies. MEDICATIONS: None. SOCIAL HISTORY: Negative smoke, negative alcohol. FAMILY HISTORY: Mother, father, [id number] diabetes. VITAL SIGNS: Temperature 97.2, blood pressure 143/94, pulse 85, respirations 16, pulse ox 97% on room air. REVIEW OF SYSTEMS: Well-nourished male currently in no acute distress. He is not experiencing any shortness of breath or difficulty breathing. No chest pain, palpitations, diaphoresis. No nausea, vomiting. No diarrhea, constipation. Pain in the perianal region especially upon sitting with what he appears to be like a grape-like size nodule for the past week. No recent fever nor chills, with weight loss for the past 2 years due to diet and exercise. All other review of systems negative. PHYSICAL EXAMINATION: CHEST: Clear. Good breath sounds bilaterally. HEART: Regular, no murmurs. EXTREMITIES: No lower extremity edema, negative Homans' sign. HEENT: No scleral icterus. NECK: No cervical lymphadenopathy. ABDOMEN: Soft, nontender, nondistended. RECTAL: There is a perianal abscess which is palpable and approximately 1.5 cm in size and firm. There is an opening along the right lateral aspect of the anus with some necrotic debris surrounding area. The mass is also palpable upon rectal examination as well. ASSESSMENT AND PLAN: A 37-year-old male with perianal abscess due to a new onset diabetes. The lesion may represent a simple perianal abscess; however, due to his new onset diabetes and necrotic debris identified, we will recommend an anal exam under anesthesia as well as possible biopsies if appropriate as well as exploration for the possibility of an internal opening that may indicate a fistula and requires Seton suture placement. We will schedule this in the a.m. Job ID: [id number] DocumentID: [id number] Dictated Date: 11/15/2017 14:18:02 Journeyman Lineman Date: 11/15/2017 15:25:06 Dictated By: JUAREZ CASTORENA MD
[2017-11-15 16:00] VITALS: BP 157/83
[2017-11-15] MEDS: inSUlin DETERMIR 1 UNIT/0.01 ML (LEVEMIR) CHARGE PER UNIT SQ SCH (20:16)
[2017-11-15] MEDS ORDERED: inSUlin DETERMIR 1 UNIT/0.01 ML (LEVEMIR) CHARGE PER UNIT SQ SCH (21:00)
[2017-11-16 00:08] VITALS: BP_SYST 172; BP_SYST 174; BP_DIAS 102; BP_DIAS 98
[2017-11-16] MEDS: inSUlin ASPART (NovoLOG) 1 UNIT/0.01 ML (CHARGE PER UNIT) SC SCH ×3 (06:00→16:11)
[2017-11-16 06:44] LABS: BASOPHILS % (AUTO) 0 % (0-10); EOSINOPHILS # (AUTO) 0.1 10^3/uL (0.0-0.3); EOSINOPHILS % (AUTO) 1 % (0-10); HEMATOCRIT 38 % (40-54); HEMOGLOBIN 13.2 G/DL (13.3-17.7); LYMPHOCYTES # (AUTO) 1.9 X 10^3 (1.0-4.0); LYMPHOCYTES % (AUTO) 29 % (12-44); MEAN CORPUSCULAR HEMOGLOBIN 29 PG (25-34); MEAN CORPUSCULAR HGB CONC 35 G/DL (32-36); MEAN CORPUSCULAR VOLUME 83 FL (80-99); MEAN PLATELET VOLUME 10.9 FL (7.4-10.4); MONOCYTES # (AUTO) 0.7 X 10^3 (0.0-1.0); MONOCYTES % (AUTO) 10 % (0-12); NEUTROPHILS # (AUTO) 3.9 X 10^3 (1.8-7.8); NEUTROPHILS % (AUTO) 60 % (42-75); PLATELET COUNT 206 10^3/uL (130-400); RED BLOOD COUNT 4.55 10^6/uL (4.35-5.85); RED CELL DISTRIBUTION WIDTH 12.2 % (10.0-14.5); WHITE BLOOD COUNT 6.5 10^3/uL (4.3-11.0)
[2017-11-16 07:09] LABS: ALANINE AMINOTRANSFERASE 13 U/L (0-55); ALBUMIN 2.8 GM/DL (3.2-4.5); ALKALINE PHOSPHATASE 62 U/L (40-136); BILIRUBIN,TOTAL 0.6 MG/DL (0.1-1.0); BUN/CREATININE RATIO 16; CALCIUM 9.5 MG/DL (8.5-10.1); CARBON DIOXIDE 30 MMOL/L (21-32); CHLORIDE 102 MMOL/L (98-107); CREATININE SERUM 0.58 MG/DL (0.60-1.30); GFR ESTIMATED > 60; GLUCOSE 287 MG/DL (70-105); POTASSIUM 3.5 MMOL/L (3.6-5.0); SODIUM 143 MMOL/L (135-145); TOTAL PROTEIN 4.8 GM/DL (6.4-8.2)
[2017-11-16 08:30] VITALS: BP 165/98
--- NOTE | 2017-11-16 11:20 | Progress Note-Hospitalist ---
Progress Note HPI/CC on Admission CC: New onset DKA with profound dehydration and tachycardia HPI: This is a 37-year-old white male that historically was very healthy and did not require any type of physician establishment who presents to the ER yesterday with reports of nausea and vomiting for the past 2 weeks and such significant declined that his brother insisted on bringing him to the ER patient was found to have tachycardia of 150 blood sugar 457 and bicarbonate of 7 with a white count of 33,000 indicating a profound severe presentation of DKA in need of insulin drip and IV fluid resuscitation. At this current time he remains afebrile but does not appear to be any type of infectious process and the elevated white count appears to be stress response from DKA. Overall he feels better but not the best still slightly nauseated but he is hungry so he would like to advance his diet. We will maintain insulin drip although bicarbonate is 20 I suspect that this is a long-standing acidosis for the last 2 weeks and will be very careful about discontinuing insulin drip before clearance of all acidosis has occurred while he is back to oral intake. Progress Notes/Assess & Plan Date Seen 11/16/17 Time Seen by Provider: 10:30 Admission Dx/Process Assessment: New onset diabetes and presenting as severe DKA with tachycardia and severe dehydration Diagonsis/Assessment & Plan Patient doing well but sugars still elevated, hga1c 10.7 Maintain on obstructive sleep apnea treatment Dr Duong will perform debridement of the anal abscess today Reports feeling okay otherwise BP elevated so will start meds for that No fever, vital signs stable, pleasant, chronically ill Regular rate and rhythm, clear to auscultation bilaterally No edema Assessment: New onset diabetes and presenting as severe DKA with tachycardia and severe dehydration Anal ulcer with purulent drainage undergoing surgery today JAIR HTN new dx Plan: Consult Dr Duong is appreciated Insulin regimen Add BP meds BUBBA CANADA DO Nov 16, 2017 11:20
--- NOTE | 2017-11-16 11:50 | Progress Note-Pre Operative ---
Pre-Operative Progress Note H&P Reviewed The H&P was reviewed, patient examined and no changes noted. Date Seen by Provider: Nov 16, 2017 Time Seen by Provider: 11:30 Date H&P Reviewed: Nov 16, 2017 Time H&P Reviewed: 11:30 Pre-Operative Diagnosis: perinal abscess, possible fistula JUAREZ CASTORENA MD Nov 16, 2017 11:50
[2017-11-16] MEDS ORDERED: PROPOFOL INJECTION 50 ML IV ONE (12:10)
[2017-11-16] MEDS ORDERED: fentaNYL INJECTION 100 MCG/2 ML AMP ONE ×2 (12:10→13:54)
[2017-11-16] MEDS ORDERED: LIDOCAINE PF 2% 5 ML (XYLOCAINE) VIAL ONE (12:10)
[2017-11-16] MEDS ORDERED: MIDAZOLAM 2 MG/2 ML (VERSED) VIAL ONE (12:10)
[2017-11-16] MEDS: LACTATED RINGERS 1,000 ML IV PRN ×2 (13:15→15:00)
[2017-11-16] MEDS ORDERED: BUPIVACAINE 0.5% 30 ML (SENSORCAINE) VIAL ONE (14:08)
[2017-11-16] MEDS ORDERED: PHENYLEPHRINE 100 MCG/ML 10 ML (ANESTHESIA) SYR ONE (14:36)
[2017-11-16] MEDS ORDERED: SEVOFLURANE (ULTANE) 15 ML INHAL SOLN ONE (14:44)
[2017-11-16] MEDS ORDERED: morphine INJ 10 MG/ML 1ML (SYR OR VIAL) ONE (15:00)
--- NOTE | 2017-11-16 15:06 | Progress Note-Post Operative ---
Post-Operative Progess Note Surgeon (s)/Print Decorator (s) Surgeon JUAREZ CASTORENA MD Print Decorator: adolfo armenta HEALTH PROMOTER Pre-Operative Diagnosis perinal abscess, possible fistula Post-Operative Diagnosis perianal abscess and necrosis. Procedure & Operative Findings Date of Procedure 11/16/17 Procedure Performed/Findings incision, drainage, and debridement perianal abscess and necrosis. Anesthesia Type GET Estimated Blood Loss Estimated blood loss (mL): minimal Specimens/Packing Specimens Removed necrotic perianal necrosis and abscess. JUAREZ CASTORENA MD Nov 16, 2017 3:06 pm
[2017-11-16] MEDS: morphine INJ 10 MG/ML 1ML (SYR OR VIAL) IVP PRN ×2 (15:08→15:15)
[2017-11-16] MEDS ORDERED: ONDANSETRON 4 MG/2 ML (SDV) Z0FRAN IVP PRN ×2 (15:15→19:30)
[2017-11-16] MEDS ORDERED: HYDROmorphone (DILAUDID) 2 MG/ML VIAL IVP PRN (15:15)
[2017-11-16 16:00] VITALS: BP 148/84
[2017-11-16] MEDS: ACETAMINOPHEN 325 MG TABLET/CAPLET (TYLENOL) PO PRN (16:11)
[2017-11-16 19:25] VITALS: BP 171/94
--- NOTE | 2017-11-16 20:07 | OPERATIVE REPORT ---
DATE OF SERVICE: 11/16/2017 ADMITTING PHYSICIAN: Dr. Keren Manzo. PREOPERATIVE DIAGNOSES: New onset diabetes and diabetic ketoacidosis with a perianal abscess and necrosis. POSTOPERATIVE DIAGNOSES: New onset diabetes and diabetic ketoacidosis with a perianal abscess and necrosis. PROCEDURES: Anal exam under anesthesia, incision and drainage of abscess and debridement of necrotic tissue. SURGEON: Dr. Juarez Castorena. DOPE SPRAYER: Ethan Correa APRN. ANESTHESIA: General endotracheal. ESTIMATED BLOOD LOSS: 150 mL. FINDINGS: Necrotic skin and surrounding abscess cavity in the subcutaneous tissue, which was suprasphincteric. DISPOSITION: The patient tolerated the procedure well. INDICATIONS: The patient is a 37-year-old male who presented to the Emergency Department tachycardia, nausea, vomiting and sent to profound dehydration. He also had reported polydipsia and polyuria several days previous. He was found to have a blood sugar of 457 and a bicarbonate of 7, as well as a white count of 33,000 and found to be in diabetic ketoacidosis. He was admitted, started on IV fluid hydration as well as electrolyte correction and insulin drip. His white count improved with medical therapy. Upon further questioning, he reported pain and swelling in the perianal region and upon examination was found to have a palpable mass along the right perianal region with a central area of necrosis. This was consistent with a perianal abscess as well as the pain in all necrotic tissue as well as the possibility of a fistula or combination. DESCRIPTION OF PROCEDURE: The patient was brought to the operating room, laid supine on the table. After adequate IV pain and sedative medications and general endotracheal intubation, the patient was placed in lithotomy position. The perineum was then prepped and draped in standard surgical fashion. A 0.5% Marcaine with epinephrine was then used to anesthetize the pudendal nerves to relax external and internal anal sphincters. A speculum was then placed and the rectal mucosa examined with no fistulous tracts identified. The normal sphincter tone was felt and there was a palpable mass lateral; however, this was outside of the anorectal wall. Prostate gland was palpable and appeared normal. We then proceeded with incision and drainage as well as debridement of the abscess and necrotic tissue. The necrotic tissue was a central area approximately 2 x 1 cm in size. There was necrotic pus identified and this was suctioned out. The entire capsule was then debrided out using electrocautery as well as a sharp dissection using a 15 blade. All of this abscess was suprasphincteric. Good hemostasis was achieved using electrocautery. A one and quarter inch Lolly drain was then placed exiting outside of the incision site going posterolaterally. This was sutured to the skin using a 3-0 nylon sutures. The abscess cavity was then copiously irrigated and packed with iodoform gauze followed by ABD pad followed by a mesh pants. The patient tolerated the procedure well. We will start diabetic diet as well as pain control and while in hospital, continue with Cipro and Flagyl for treatment of previous infection as well as prophylaxis. We will also have him continue with this on oral regimen for one week. We also wanted him to pack until and allowed to close by secondary intention. Job ID: [id number] DocumentID: [id number] Dictated Date: 11/16/2017 15:18:48 Dental Ceramist Helper Date: 11/16/2017 20:06:16 Dictated By: JUAREZ CASTORENA MD MTDD
[2017-11-16] MEDS: CIPROFLOXACIN IV 400MG/200ML 200 ML IV SCH (20:48)
[2017-11-16] MEDS: metroNIDAZOLE 500MG/100ML IVPB 100 ML IV SCH (20:49)
[2017-11-16] MEDS: inSUlin DETERMIR 1 UNIT/0.01 ML (LEVEMIR) CHARGE PER UNIT SQ SCH (20:49)
[2017-11-17] VITALS: BP 138/77
[2017-11-17 04:00] VITALS: BP 157/89
[2017-11-17] MEDS: inSUlin ASPART (NovoLOG) 1 UNIT/0.01 ML (CHARGE PER UNIT) SC SCH ×3 (05:44→17:54)
[2017-11-17 06:54] LABS: BASOPHILS % (AUTO) 0 % (0-10); EOSINOPHILS # (AUTO) 0.1 10^3/uL (0.0-0.3); EOSINOPHILS % (AUTO) 1 % (0-10); HEMATOCRIT 33 % (40-54); HEMOGLOBIN 13.1 G/DL (13.3-17.7); LYMPHOCYTES # (AUTO) 1.9 X 10^3 (1.0-4.0); LYMPHOCYTES % (AUTO) 17 % (12-44); MEAN CORPUSCULAR HEMOGLOBIN 30 PG (25-34); MEAN CORPUSCULAR HGB CONC 39 G/DL (32-36); MEAN CORPUSCULAR VOLUME 75 FL (80-99); MEAN PLATELET VOLUME 10.5 FL (7.4-10.4); MONOCYTES # (AUTO) 1.2 X 10^3 (0.0-1.0); MONOCYTES % (AUTO) 11 % (0-12); NEUTROPHILS # (AUTO) 7.9 X 10^3 (1.8-7.8); NEUTROPHILS % (AUTO) 71 % (42-75); PLATELET COUNT 197 10^3/uL (130-400); RED BLOOD COUNT 4.43 10^6/uL (4.35-5.85); RED CELL DISTRIBUTION WIDTH 11.9 % (10.0-14.5); WHITE BLOOD COUNT 11.2 10^3/uL (4.3-11.0)
[2017-11-17 07:16] LABS: ALANINE AMINOTRANSFERASE 16 U/L (0-55); ALKALINE PHOSPHATASE 65 U/L (40-136); BILIRUBIN,TOTAL 0.5 MG/DL (0.1-1.0); BUN/CREATININE RATIO 12; CALCIUM 9.2 MG/DL (8.5-10.1); CARBON DIOXIDE 29 MMOL/L (21-32); CHLORIDE 97 MMOL/L (98-107); GFR ESTIMATED > 60; GLUCOSE 291 MG/DL (70-105); POTASSIUM 3.6 MMOL/L (3.6-5.0); SODIUM 138 MMOL/L (135-145); TOTAL PROTEIN 6.1 GM/DL (6.4-8.2)
[2017-11-17 08:00] VITALS: BP 149/98
[2017-11-17] MEDS: LOSARTAN 50 MG (COZAAR) TAB PO SCH (08:18)
[2017-11-17] MEDS: ACETAMINOPHEN 325 MG TABLET/CAPLET (TYLENOL) PO PRN (08:18)
[2017-11-17] MEDS: metroNIDAZOLE 500MG/100ML IVPB 100 ML IV SCH ×2 (08:18→20:39)
[2017-11-17] MEDS: CIPROFLOXACIN IV 400MG/200ML 200 ML IV SCH ×2 (08:18→21:37)
[2017-11-17] MEDS: amLODIPine 5 MG (NORVASC) TAB PO SCH (08:18)
--- NOTE | 2017-11-17 10:33 | Anesthesia-General Post-Op ---
General Patient Condition Mental Status/LOC: Same as Preop Cardiovascular: Satisfactory Nausea/Vomiting: Absent Respiratory: Satisfactory Pain: Controlled Complications: Absent Post Op Complications Complications None Follow Up Care/Instructions Patient Instructions None needed. Anesthesia/Patient Condition Patient Condition Patient is doing well, no complaints, stable vital signs, no apparent adverse anesthesia problems. No complications reported per nursing. WEN ROSALES CRNA Nov 17, 2017 10:33
[2017-11-17 12:00] VITALS: BP 143/91
--- NOTE | 2017-11-17 12:03 | Progress Note-Hospitalist ---
Progress Note HPI/CC on Admission CC: New onset DKA with profound dehydration and tachycardia HPI: This is a 37-year-old white male that historically was very healthy and did not require any type of physician establishment who presents to the ER yesterday with reports of nausea and vomiting for the past 2 weeks and such significant declined that his brother insisted on bringing him to the ER patient was found to have tachycardia of 150 blood sugar 457 and bicarbonate of 7 with a white count of 33,000 indicating a profound severe presentation of DKA in need of insulin drip and IV fluid resuscitation. At this current time he remains afebrile but does not appear to be any type of infectious process and the elevated white count appears to be stress response from DKA. Overall he feels better but not the best still slightly nauseated but he is hungry so he would like to advance his diet. We will maintain insulin drip although bicarbonate is 20 I suspect that this is a long-standing acidosis for the last 2 weeks and will be very careful about discontinuing insulin drip before clearance of all acidosis has occurred while he is back to oral intake. Progress Notes/Assess & Plan Date Seen 11/17/17 Time Seen by Provider: 11:00 Admission Dx/Process Assessment: New onset diabetes and presenting as severe DKA with tachycardia and severe dehydration Diagonsis/Assessment & Plan Patient doing well but sugars still elevated, hga1c 10.7 Maintained on obstructive sleep apnea treatment Dr Duong performed debridement of the anal abscess yesterday and has placed him on empiric abx Reports feeling okay otherwise BP elevated so will start meds for that yesterday Pt has no insurance so he will need assistance for abx and insulin at DC No fever, vital signs stable, pleasant, chronically ill Regular rate and rhythm, clear to auscultation bilaterally No edema Assessment: New onset diabetes and presenting as severe DKA with tachycardia and severe dehydration Anal ulcer with purulent drainage s/p surgery yesterday POD # 1 JAIR HTN new dx Plan: Consult Dr Duong is appreciated Insulin regimen Add BP meds Abx BUBBA CANADA DO Nov 17, 2017 12:03
--- NOTE | 2017-11-17 13:04 | Progress Note (SOAP) ---
Subjective Date Seen by Provider: Nov 17, 2017 Time Seen by Provider: 12:30 Subjective/Events-last exam doing well. no complaints. tolerating diet. no fever/chills. has not had BM since procedure yesterday. Objective Exam Vital Signs Date Time Temp Pulse Resp B/P (MAP) Pulse Ox O2 Delivery O2 Flow Rate FiO2 11/17/17 12:00 97.7 96 18 143/91 (108) 96 Nasal Cannula 2.00 11/17/17 08:00 98.7 111 18 149/98 (115) 99 Nasal Cannula 2.00 11/17/17 04:00 99.4 106 12 157/89 (111) 95 Room Air 11/17/17 00:00 98.2 116 20 138/77 (97) 96 Room Air 11/16/17 19:25 97.3 94 18 171/94 (119) 97 Nasal Cannula 2.00 11/16/17 16:00 97.8 85 18 148/84 (105) 98 Nasal Cannula 2.00 I & O 11/17/17 07:00 Intake Total 3640 ml Output Total 3950 ml Balance -310 ml Capillary Refill : Less Than 3 Seconds General Appearance: No Apparent Distress HEENT: PERRL/EOMI Neck: Full Range of Motion Respiratory: Chest Non Tender, Lungs Clear, Normal Breath Sounds Cardiovascular: Regular Rate, Rhythm Gastrointestinal: normal bowel sounds, non tender, soft, other (perianal wound intact. no redness/erythema.) Extremity: Normal Capillary Refill Neurologic/Psychiatric: Alert, Oriented x3 Skin: Normal Color Lymphatic: No Adenopathy Results Lab Laboratory Tests 11/16/17 16:04: Glucometer 242H 11/16/17 20:13: Glucometer 245H 11/17/17 00:27: Glucometer 454*H 11/17/17 04:04: Glucometer 309H 11/17/17 05:40: Glucometer 268H 11/17/17 05:41: White Blood Count 11.2H, Red Blood Count 4.43, Hemoglobin 13.1L, Hematocrit 33L , Mean Corpuscular Volume 75L, Mean Corpuscular Hemoglobin 30, Mean Corpuscular Hemoglobin Concent 39H, Red Cell Distribution Width 11.9, Platelet Count 197, Mean Platelet Volume 10.5H, Neutrophils (%) (Auto) 71, Lymphocytes (%) (Auto) 17 , Monocytes (%) (Auto) 11, Eosinophils (%) (Auto) 1, Basophils (%) (Auto) 0, Neutrophils # (Auto) 7.9H, Lymphocytes # (Auto) 1.9, Monocytes # (Auto) 1.2H, Eosinophils # (Auto) 0.1, Basophils # (Auto) 0.0, Sodium Level 138, Potassium Level 3.6, Chloride Level 97L, Carbon Dioxide Level 29, Anion Gap 12, Blood Urea Nitrogen 7, Creatinine 0.60, Estimat Glomerular Filtration Rate > 60, BUN/ Creatinine Ratio 12, Glucose Level 291H, Calcium Level 9.2, Total Bilirubin 0.5 , Aspartate Amino Transf (AST/SGOT) 12, Alanine Aminotransferase (ALT/SGPT) 16, Alkaline Phosphatase 65, Total Protein 6.1L, Albumin 3.0L 11/17/17 09:03: Glucometer 308H 11/17/17 11:21: Glucometer 346H Microbiology 11/12/17 Blood Culture - Preliminary, Resulted No growth 11/15/17 MRSA Screen - Final, Complete MRSA not isolated 11/16/17 Gram Stain - Final, Resulted 11/16/17 Anaerobic Culture, Resulted Pending 11/16/17 Surgical Culture - Preliminary, Resulted Strep, Beta Hemolytic Group A 11/16/17 Fungal Culture, Resulted Pending Assessment/Plan Assessment/Plan Assess & Plan/Chief Complaint new onset DKA. likely infection/sepsis related. s/p I&D and debridement perianal abscess. will recommend wet to dry BID and sitz bath BID and after every BM recommend PO abx for a week. will have him f/u in offc in one week to evaluate wound and remove sigifredo drain. Clinical Quality Measures DVT/VTE Risk/Contraindication: Risk Factor Score Per Nursin RFS Level Per Nursing on Admit: 3=High JUAREZ CASTORENA MD Nov 17, 2017 1:03 pm
[2017-11-17] MEDS ORDERED: METR500T PO (13:05)
[2017-11-17] MEDS ORDERED: HYDR-3816 PO (13:05)
[2017-11-17] MEDS ORDERED: CIPR-225 PO (13:05)
--- NOTE | 2017-11-17 13:08 | Discharge Inst-Surgical ---
D/C Lap Instructions-KIDO New, Converted, or Re-Newed RX: RX on Chart Follow Up Appt in 1 week Activity as tolerated Regular Diet, high fber, add stool softeners to promote soft stools daily. sitz bath BID and/or after BM's. pack wound wet to dry BID. Symptoms to Report: Fever over 101 degree F, Nausea/Vomiting Infection Signs and Symptoms to report: Increased redness, Foul odor of wound, Increased drainage Bathing instructions: May shower Operative Area Clean/Dry; Keep incision clean/dry If any problems/questions: Contact your physician or go to Emergency Room JUAREZ CASTORENA MD Nov 17, 2017 1:08 pm
[2017-11-17] MEDS: HYDROcodone/APAP 7.5 MG/325 MG (LORTAB, LORCET PLUS) TABLET PO PRN ×2 (13:15→21:24)
[2017-11-17] MEDS ORDERED: fentaNYL INJECTION 100 MCG/2 ML AMP IVP PRN (13:30)
[2017-11-17 15:50] VITALS: BP 130/73
[2017-11-17 19:45] VITALS: BP 157/94
[2017-11-17] MEDS: inSUlin DETERMIR 1 UNIT/0.01 ML (LEVEMIR) CHARGE PER UNIT SQ SCH (21:23)
[2017-11-18 00:07] VITALS: BP 144/88
[2017-11-18 04:01] VITALS: BP 144/86
[2017-11-18] MEDS: inSUlin ASPART (NovoLOG) 1 UNIT/0.01 ML (CHARGE PER UNIT) SC SCH ×6 (05:13→21:12)
[2017-11-18 08:00] VITALS: BP 130/77
[2017-11-18] MEDS: LOSARTAN 50 MG (COZAAR) TAB PO SCH (08:40)
[2017-11-18] MEDS: CIPROFLOXACIN IV 400MG/200ML 200 ML IV SCH ×2 (08:40→20:39)
[2017-11-18] MEDS: amLODIPine 5 MG (NORVASC) TAB PO SCH (08:40)
[2017-11-18] MEDS: metroNIDAZOLE 500MG/100ML IVPB 100 ML IV SCH ×2 (08:40→20:39)
[2017-11-18 09:29] LABS: BASOPHILS % (AUTO) 0 % (0-10); EOSINOPHILS # (AUTO) 0.1 10^3/uL (0.0-0.3); EOSINOPHILS % (AUTO) 1 % (0-10); HEMATOCRIT 34 % (40-54); HEMOGLOBIN 12.8 G/DL (13.3-17.7); LYMPHOCYTES # (AUTO) 1.9 X 10^3 (1.0-4.0); LYMPHOCYTES % (AUTO) 18 % (12-44); MEAN CORPUSCULAR HEMOGLOBIN 29 PG (25-34); MEAN CORPUSCULAR HGB CONC 38 G/DL (32-36); MEAN CORPUSCULAR VOLUME 78 FL (80-99); MEAN PLATELET VOLUME 10.2 FL (7.4-10.4); MONOCYTES # (AUTO) 1.3 X 10^3 (0.0-1.0); MONOCYTES % (AUTO) 12 % (0-12); NEUTROPHILS # (AUTO) 7.3 X 10^3 (1.8-7.8); NEUTROPHILS % (AUTO) 69 % (42-75); PLATELET COUNT 186 10^3/uL (130-400); RED BLOOD COUNT 4.35 10^6/uL (4.35-5.85); RED CELL DISTRIBUTION WIDTH 12.1 % (10.0-14.5); WHITE BLOOD COUNT 10.7 10^3/uL (4.3-11.0)
--- NOTE | 2017-11-18 09:40 | Progress Note-Hospitalist ---
Subjective HPI/CC On Admission Date Seen by Provider: Nov 18, 2017 Time Seen by Provider: 09:15 Subjective/Events-last exam Reports doing well. Some soreness at surgical site and near previous IV site. Otherwise no complaints. Objective Exam Vital Signs Vital Sign - Last 12Hours 11/12/17 11/12/17 16:45 23:43 Temp 97.9 Pulse 177 Resp 24 B/P (MAP) 128/76 (93) Pulse Ox 99 O2 Delivery Room Air O2 Flow Rate 2.00 Capillary Refill : Less Than 3 Seconds General Appearance: No Apparent Distress, WD/WN Respiratory: Lungs Clear, No Respiratory Distress Cardiovascular: Regular Rate, Rhythm, No Murmur Gastrointestinal: Normal Bowel Sounds, Non Tender, Soft Extremity: Non Tender, No Calf Tenderness Neurologic/Psychiatric: Alert, Oriented x3 Results/Procedures Lab Laboratory Tests 11/18/17 09:20 Assessment/Plan Assessment and Plan Assess & Plan/Chief Complaint DKA Diagnosis/Problems Diagnosis/Problems (1) Insulin dependent diabetes mellitus Assessment & Plan: presented in DKA now off gtt BS still elevated- will add SSI DM education ordered A1c 10.7 (2) Perianal abscess Assessment & Plan: s/p I&D 11/[address] Duong Continue on Cipro and Flagyl (3) Essential (primary) hypertension Assessment & Plan: On losartan and amlodipine (4) Microcytic anemia Status: Acute Assessment & Plan: like iatrogenic from frequent blood draws CHARLETTE Roy MD Nov 18, 2017 9:40 am
[2017-11-18 09:46] LABS: BUN/CREATININE RATIO 11; CALCIUM 9.2 MG/DL (8.5-10.1); CARBON DIOXIDE 26 MMOL/L (21-32); CHLORIDE 100 MMOL/L (98-107); CREATININE SERUM 0.57 MG/DL (0.60-1.30); GFR ESTIMATED > 60; GLUCOSE 258 MG/DL (70-105); POTASSIUM 3.8 MMOL/L (3.6-5.0); SODIUM 139 MMOL/L (135-145)
[2017-11-18] MEDS: ENOXAPARIN 40 MG/0.4 ML (LOVENOX) SYR SC SCH (11:39)
[2017-11-18 16:06] VITALS: BP 140/81
[2017-11-18] MEDS: HYDROcodone/APAP 7.5 MG/325 MG (LORTAB, LORCET PLUS) TABLET PO PRN (16:27)
[2017-11-18 19:41] VITALS: BP 135/82
[2017-11-18] MEDS: DOCUSATE SODIUM 100 MG (COLACE) CAP PO SCH (20:38)
[2017-11-18] MEDS: inSUlin DETERMIR 1 UNIT/0.01 ML (LEVEMIR) CHARGE PER UNIT SQ SCH (21:12)
[2017-11-19] MEDS: HYDROcodone/APAP 7.5 MG/325 MG (LORTAB, LORCET PLUS) TABLET PO PRN ×3 (00:47→16:44)
[2017-11-19 00:54] VITALS: BP 140/87
[2017-11-19 03:24] VITALS: BP 129/72
[2017-11-19] MEDS: inSUlin ASPART (NovoLOG) 1 UNIT/0.01 ML (CHARGE PER UNIT) SC SCH ×7 (05:38→21:17)
[2017-11-19 08:45] VITALS: BP 133/93
[2017-11-19] MEDS: CIPROFLOXACIN IV 400MG/200ML 200 ML IV SCH ×2 (08:56→21:13)
[2017-11-19] MEDS: metroNIDAZOLE 500MG/100ML IVPB 100 ML IV SCH ×2 (08:56→21:13)
[2017-11-19] MEDS: ENOXAPARIN 40 MG/0.4 ML (LOVENOX) SYR SC SCH (08:56)
[2017-11-19] MEDS: amLODIPine 5 MG (NORVASC) TAB PO SCH (08:57)
[2017-11-19] MEDS: DOCUSATE SODIUM 100 MG (COLACE) CAP PO SCH ×2 (08:57→21:13)
[2017-11-19] MEDS: LOSARTAN 50 MG (COZAAR) TAB PO SCH (08:57)
--- NOTE | 2017-11-19 10:17 | Progress Note-Hospitalist ---
Subjective HPI/CC On Admission Date Seen by Provider: Nov 19, 2017 Time Seen by Provider: 10:12 Subjective/Events-last exam Reports feeling well. Surgical site still sore. Does not have PCP as does not have insurance. Does plan to make an appt with [facility] for follow up though. Objective Exam Vital Signs Vital Sign - Last 12Hours 11/13/17 00:15 Temp 97.8 Capillary Refill : Less Than 3 SecondsLess Than 3 Seconds General Appearance: No Apparent Distress, WD/WN Neurologic/Psychiatric: Alert, Oriented x3, No Motor/Sensory Deficits Assessment/Plan Assessment and Plan Assess & Plan/Chief Complaint DKA Diagnosis/Problems Diagnosis/Problems (1) Insulin dependent diabetes mellitus Assessment & Plan: presented in DKA now off gtt BS still elevated- will add SSI Increased basal and prandial insulin given further needs with SSI DM education ordered A1c 10.7 Will need SW assistance for filling his prescriptions (2) Perianal abscess Assessment & Plan: s/p I&D 11/[address] Duong Continue on Cipro and Flagyl (3) Essential (primary) hypertension Assessment & Plan: On losartan and amlodipine, well controlled (4) Microcytic anemia Status: Acute Assessment & Plan: like iatrogenic from frequent blood draws CHARLETTE RAMSEY MD Nov 19, 2017 10:17
[2017-11-19 12:00] VITALS: BP 128/68
[2017-11-19 16:07] VITALS: BP 128/77
[2017-11-19 19:28] VITALS: BP 120/67
[2017-11-19] MEDS ORDERED: inSUlin DETERMIR 1 UNIT/0.01 ML (LEVEMIR) CHARGE PER UNIT SQ SCH (21:00)
[2017-11-20] VITALS: BP 129/77
[2017-11-20 04:00] VITALS: BP 136/82
[2017-11-20] MEDS: HYDROcodone/APAP 7.5 MG/325 MG (LORTAB, LORCET PLUS) TABLET PO PRN ×2 (05:28→11:24)
[2017-11-20] MEDS: inSUlin ASPART (NovoLOG) 1 UNIT/0.01 ML (CHARGE PER UNIT) SC SCH ×6 (05:29→16:41)
[2017-11-20 08:00] VITALS: BP 131/83
[2017-11-20] MEDS: DOCUSATE SODIUM 100 MG (COLACE) CAP PO SCH (08:40)
[2017-11-20] MEDS: CIPROFLOXACIN IV 400MG/200ML 200 ML IV SCH (08:40)
[2017-11-20] MEDS: metroNIDAZOLE 500MG/100ML IVPB 100 ML IV SCH (08:40)
[2017-11-20] MEDS: LOSARTAN 50 MG (COZAAR) TAB PO SCH (08:41)
[2017-11-20] MEDS: amLODIPine 5 MG (NORVASC) TAB PO SCH (08:41)
[2017-11-20] MEDS ORDERED: LOSA50TA36 PO (10:24)
[2017-11-20] MEDS ORDERED: AMLO5TAB2 PO (10:24)
[2017-11-20] MEDS ORDERED: INSU100I14 SQ (10:24)
[2017-11-20] MEDS ORDERED: INSU100I29 SQ (10:24)
[2017-11-20] MEDS: ENOXAPARIN 40 MG/0.4 ML (LOVENOX) SYR SC SCH (11:24)
[2017-11-20] MEDS ORDERED: INSU100V5 SQ (11:30)
[2017-11-20] MEDS ORDERED: INSU100V16 SQ (11:30)
[2017-11-20 12:00] VITALS: BP 119/80
[2017-11-20] MEDS ORDERED: HUM100VI15 SQ (15:22)
--- NOTE | 2017-11-20 16:14 | Discharge Summary-Hospitalist ---
Diagnosis/Chief Complaint Date of Admission Nov 12, 2017 at 17:27 Date of Discharge Discharge Date: Nov 20, 2017 Admission Diagnosis Assessment: New onset diabetes and presenting as severe DKA with tachycardia and severe dehydration Discharge Diagnosis DKA (1) Insulin dependent diabetes mellitus Assessment & Plan: presented in DKA now off gtt on bolus insulin DM education ordered A1c 10.7 Will need SW assistance for filling his prescriptions (2) Perianal abscess Assessment & Plan: s/p I&D 11/[address] Castorena Continue on Cipro and Flagyl (3) Essential (primary) hypertension Assessment & Plan: On losartan and amlodipine, well controlled (4) Microcytic anemia Status: Acute Assessment & Plan: like iatrogenic from frequent blood draws Discharge Summary Consultations Surgery- Dr Castorena Discharge Physical Examination Allergies: Coded Allergies: No Known Drug Allergies (Unverified , 11/12/17) Vitals & I&Os Vital Signs Date Time Temp Pulse Resp B/P (MAP) Pulse Ox O2 Delivery O2 Flow Rate FiO2 11/20/17 16:23 97.9 99 18 120/72 (88) 97 Room Air 11/18/17 08:00 2.00 Hospital Course Pt is a 37yoCM who presented in DKA. He was started on an insulin gtt initially but was transitioned to bolus insulin on 11/13. He was also found to have an perianal abscess and underwent I&D by Dr. Castorena. He was treated with Cipro and Flagyl and will finish that course as an outpatient. He was to be discharged on Novolog and Levemir but he was unable to afford these medications even with prescription assistance from the hospital. We discussed other optional and ultimately he agreed to Novolin 70/30. I discussed need for injecting with meals roughly 12 hours apart. He verbalized understanding. He is scheduled to follow up with [facility] on 11/30/17 at 1:20pm to establish care and is to follow up with Dr. Castorena in 1 week. Labs (last 24 hrs) Laboratory Tests 11/19/17 20:59: Glucometer 301H 11/20/17 05:17: Glucometer 239H 11/20/17 11:06: Glucometer 256H Microbiology 11/12/17 Blood Culture - Final, Complete No growth 11/16/17 Acid Fast Bacilli Culture (Ref Lab - Final, Complete 11/15/17 MRSA Screen - Final, Complete MRSA not isolated 11/16/17 Gram Stain - Final, Resulted 11/16/17 Anaerobic Culture - Preliminary, Resulted Prob Anaerobic Gram Neg Gene Probable Clostridium 11/16/17 Surgical Culture - Preliminary, Resulted Strep, Beta Hemolytic Group A Strep Or Related Genus 11/16/17 Fungal Culture, Resulted Pending Pending Labs Laboratory Tests 11/20/17 11:06: Glucometer 256 Discharge Home Medications: Active Scripts Active Novolin 70-30 100 Unit/ml Vial (Insulin NPH Hum/Reg Insulin Hm) 100 Unit/1 Ml Vial 24 Unit SQ BID Losartan Potassium 50 Mg Tablet 50 Mg PO DAILY Amlodipine Besylate 5 Mg Tablet 5 Mg PO DAILY Hydrocodon-Acetaminoph 7.5-325 (Hydrocodone/Acetaminophen) 1 Each Tablet 1-2 Each PO Q4H Flagyl (Metronidazole) 500 Mg Tablet 500 Mg PO BID Cipro (Ciprofloxacin HCl) 500 Mg Tablet 500 Mg PO BID Instructions to patient/family Please see electronic discharge instructions given to patient. Clinical Quality Measures DVT/VTE Risk/Contraindication: Risk Factor Score Per Nursin RFS Level Per Nursing on Admit: 3=High Copy Copies To 1: CESAR BLANC MD; JUAREZ CASTORENA MD, KATELYN M MD Nov 20, 2017 16:14
[2017-11-20 16:23] VITALS: BP 120/72
== END 2017-11-20 18:10 | disposition home or self-care (01) | DRG 988 ==
LOC: EDUNIT# 16:03 → ER 16:05 → ICU 17:27 → 4TH 11-14 15:33
PROVIDERS: ADMIT Internal Medicine; ATTEND Internal Medicine
PROC: 0DBQ0ZZ Excision of Anus, Open Approach (ICD-10-PCS; principal; 2017-11-16 13:41)
DX: E11.10 Type 2 diabetes mellitus with ketoacidosis without coma (principal); K61.0 Anal abscess; E86.0 Dehydration; D64.9 Anemia, unspecified; I10 Essential (primary) hypertension; R00.0 Tachycardia, unspecified; G47.33 Obstructive sleep apnea (adult) (pediatric); E66.01 Morbid (severe) obesity due to excess calories; Z68.31 Body mass index [BMI] 31.0-31.9, adult; Z79.4 Long term (current) use of insulin
CPT/HCPCS: 36415; 71010; 71045; 80048; 80053; 82962; 83036; 83605; 83735; 84100; 85007; 85025; 85027; 87040; 87070; 87075; 87077; 87081; 87101; 87116; 87205; 93005; 96374; 96375

== ENCOUNTER 2021-01-25 00:46 | Inpatient (IN) | payer SELFPAY ==
[~2021-01-25] VITALS: Ht 170 cm; Wt 78.0 kg
[~2021-01-25 00:46] MED LIST: AMLO-250 PO; CIPR-225 PO; HUM100VI15 SQ; HYDR-34 PO; INSU100I14 SQ; INSU100I29 SQ; INSU100V16 SQ; INSU100V5 SQ; LOSA50TA63 PO; METR500T PO
[2021-01-25 01:41] LABS: BASOPHILS % (AUTO) 0 % (0-10); EOSINOPHILS # (AUTO) 0.1 10^3/uL (0.0-0.3); EOSINOPHILS % (AUTO) 1 % (0-10); HEMATOCRIT 41 % (40-54); HEMOGLOBIN 13.9 g/dL (13.3-17.7); LYMPHOCYTES # (AUTO) 1.7 10^3/uL (1.0-4.0); LYMPHOCYTES % (AUTO) 32 % (12-44); MEAN CORPUSCULAR HEMOGLOBIN 29 pg (25-34); MEAN CORPUSCULAR HGB CONC 34 g/dL (32-36); MEAN CORPUSCULAR VOLUME 84 fL (80-99); MEAN PLATELET VOLUME 11.9 fL (9.0-12.2); MONOCYTES # (AUTO) 0.8 10^3/uL (0.0-1.0); MONOCYTES % (AUTO) 14 % (0-12); NEUTROPHILS # (AUTO) 2.9 10^3/uL (1.8-7.8); NEUTROPHILS % (AUTO) 53 % (42-75); PLATELET COUNT 145 10^3/uL (130-400); WHITE BLOOD COUNT 5.5 10^3/uL (4.3-11.0)
--- NOTE | 2021-01-25 01:49 | ED Neurological Problem ---
General Chief Complaint: Neuro-Stroke Like Symptoms Stated Complaint: SPOTTY VISION Nursing Triage Note: reports loss of peripheral vision x15min. denies injury/f.b. Nursing Sepsis Screen: No Definite Risk Source: patient Exam Limitations: no limitations (ROXANA ROSALES MED STUDENT) History of Present Illness Date Seen by Provider: Jan 25, 2021 Time Seen by Provider: 00:54 Initial Comments Patient presents to ED with complaints of sudden bilateral peripheral vision loss that began 15 minutes prior to his arrival. He first noticed the changes when he was playing video games. He describes it as a black curtain on the left side of bilateral eyes. His ROS is otherwise negative. He denies pain, weakness, vomiting, headache, speech changes, numbness, chest pain, shortness of air, and palpitations. Past medical history is remarkable for Type 2 DM. He was previously on metformin and insulin but has not taken any medication since 2018. Bedside fingerstick: 365 He denies history or a fib or other cardiac history. Timing/Duration: 1/2 hour Severity: severe Associated Symptoms: No confusion, No fever/chills, No nausea/vomiting, No numbness in legs/feet, No ringing in ears, No slurred speech, No trouble walking; vision changes; No weakness (ROXANA ROSALES MED STUDENT) Allergies and Home Medications Allergies Coded Allergies: No Known Drug Allergies (Unverified , 11/12/17) Patient Home Medication List Home Medication List Reviewed: Yes (ROXANA ROSALES MED STUDENT) Review of Systems Review of Systems Constitutional: No chills, No dizziness, No fever, No weakness Eyes: Denies Pain; Vision Changes (bilateral lateral "curtain" vision loss) Respiratory: No cough, No short of breath Cardiovascular: No chest pain, No palpitations, No syncope Gastrointestinal: no symptoms reported; No abdominal pain, No nausea, No vomiting Genitourinary: no symptoms reported Musculoskeletal: no symptoms reported Skin: no symptoms reported Psychiatric/Neurological: Denies Cognitive Dysfunction, Denies Headache, Denies Numbness, Denies Tingling (ROXANA ROSALES MED STUDENT) Past Fjamytr-Ufzoxe-Ynaevd Hx Past Med/Social Hx: Reviewed Nursing Past Med/Soc Hx (DELILAH CAVANAUGH MD) Patient Social History Alcohol Use: Denies Use Smoking Status: Never a Smoker 2nd Hand Smoke Exposure: No Recent Infectious Disease Expo: No Recent Hopitalizations: No (ROXANA ROSALES,MILAGROS STUDENT) Immunizations Up To Date Tetanus Booster (TDap): Unknown (ROXANA ROSALES MED STUDENT) Seasonal Allergies Seasonal Allergies: No (ROXANA ROSALES MED STUDENT) Past Medical History Surgeries: Yes (abcess) Respiratory: No Sleep Apnea Currently Using CPAP: Yes Cardiac: Yes Hypertension Neurological: No Genitourinary: No Gastrointestinal: No Musculoskeletal: No Endocrine: No HEENT: No Cancer: No Psychosocial: No Integumentary: No Blood Disorders: No (ROXANA ROSALES MED STUDENT) Physical Exam Vital Signs Vital Signs - First Documented 01/25/21 00:54 Temp 35.4 Pulse 140 Resp 18 B/P (MAP) 161/113 (129) Pulse Ox 97 O2 Delivery Room Air (DELILAH CAVANAUGH MD) Vital Signs Capillary Refill : Less Than 3 Seconds (ROXANA ROSALES MED STUDENT) Height, Weight, BMI Height: 5'9.00" Weight: 214lbs. 5.0oz. 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 (left homonymous hemianopia ); No abnormal gait, No aphasia, No facial droop, No motor weakness Crainal Nerves: normal hearing, normal speech, PERRL; No abnormal eye position, No abnormal pupil position, No abnormal speech, No facial asymmetry, No facial droop, No facial paresthesias, No facial weakness Coordination/Gait: normal finger to nose, normal gait; No ABN nose to finger (R), No ABN nose to finger (L) Motor/Sensory: no motor deficit, no pronator drift Skin: normal color, warm/dry (ROXANA ROSALES,MILAGROS STUDENT) Stroke Onset of Symptoms Date of Onset of Symptoms: Jan 25, 2021 (VENN,ROXANA,MED STUDENT) NIH Stroke Scale Assessment Level of Consciousness: 0=Alert (0), Level of Consciousness-Questions: 0=Answers both month/age (0), LOC Commands: 0=Performs both tasks (0), Visual Hall: 3=Bilateral Hemianopia (3), Facial Movement (Facial Paresis): 0=Normal symmetrical mnt (0), Motor Function-Arms Right: 0=No drift (0), Motor Function-Arms Left: 0=No drift (0), Motor Function-Legs Right: 0=No drift (0), Motor Function-Legs Left: 0=No drift (0), Limb Ataxia: 0=Absent (0), Sensory: 0=Normal:no loss (0), Best Language: 0=No aphasia (0), Dysarthria: 0=Normal (0), Extinction & Inattention: 0=No abnormality (0), Total: 3 Stroke Thrombolytic Exclusion Age 18 or Over: Yes Intracranial Neoplasm/Aneurysm: No Recent CPR: No Diabetic Hemorrhagic Retinopat: No Recent Obstetric Delivery: No Significant Hepatic Dysfunctio: No Improving Symptoms: No (ROXANA ROSALES,MED STUDENT) Progress/Results/Core Measures Results/Orders Lab Results Laboratory Tests Test 01/25/21 01:01 01/25/21 01:06 01/25/21 01:45 Range/Units Glucometer 365 H 70-110 MG/DL White Blood Count 5.5 4.3-11.0 10^3/uL Red Blood Count 4.87 4.30-5.52 10^6/uL Hemoglobin 13.9 13.3-17.7 g/dL Hematocrit 41 40-54 % Mean Corpuscular Volume 84 80-99 fL Mean Corpuscular Hemoglobin 29 25-34 pg Mean Corpuscular Hemoglobin Concent 34 32-36 g/dL Red Cell Distribution Width 12.4 10.0-14.5 % Platelet Count 145 130-400 10^3/uL Mean Platelet Volume 11.9 9.0-12.2 fL Immature Granulocyte % (Auto) 0 % Neutrophils (%) (Auto) 53 42-75 % Lymphocytes (%) (Auto) 32 12-44 % Monocytes (%) (Auto) 14 H 0-12 % Eosinophils (%) (Auto) 1 0-10 % Basophils (%) (Auto) 0 0-10 % Neutrophils # (Auto) 2.9 1.8-7.8 10^3/uL Lymphocytes # (Auto) 1.7 1.0-4.0 10^3/uL Monocytes # (Auto) 0.8 0.0-1.0 10^3/uL Eosinophils # (Auto) 0.1 0.0-0.3 10^3/uL Basophils # (Auto) 0.0 0.0-0.1 10^3/uL Immature Granulocyte # (Auto) 0.0 0.0-0.1 10^3/uL Prothrombin Time 15.2 H 12.2-14.7 SEC INR Comment 1.2 0.8-1.4 Activated Partial Thromboplast Time 27 24-35 SEC D-Dimer 0.37 0.00-0.49 UG/ML Sodium Level 135 135-145 MMOL/L Potassium Level 4.0 3.6-5.0 MMOL/L Chloride Level 100 98-107 MMOL/L Carbon Dioxide Level 22 21-32 MMOL/L Anion Gap 13 5-14 MMOL/L Blood Urea Nitrogen 14 7-18 MG/DL Creatinine 0.66 0.60-1.30 MG/DL Estimat Glomerular Filtration Rate > 60 BUN/Creatinine Ratio 21 Glucose Level 399 H 70-105 MG/DL Calcium Level 9.1 8.5-10.1 MG/DL Corrected Calcium 9.3 8.5-10.1 MG/DL Total Bilirubin 0.7 0.1-1.0 MG/DL Aspartate Amino Transf (AST/SGOT) 21 5-34 U/L Alanine Aminotransferase (ALT/SGPT) 42 0-55 U/L Alkaline Phosphatase 219 H 40-136 U/L Troponin I < 0.028 <0.028 NG/ML Total Protein 6.9 6.4-8.2 GM/DL Albumin 3.7 3.2-4.5 GM/DL Urine Color YELLOW Urine Clarity SL CLOUDY Urine pH 6.5 5-9 Urine Specific [place] <=1.005 1.016-1.022 Urine Protein NEGATIVE NEGATIVE Urine Glucose (UA) 3+ H NEGATIVE Urine Ketones NEGATIVE NEGATIVE Urine Nitrite NEGATIVE NEGATIVE Urine Bilirubin NEGATIVE NEGATIVE Urine Urobilinogen 1.0 < = 1.0 MG/DL Urine Leukocyte Esterase NEGATIVE NEGATIVE Urine RBC (Auto) TRACE-L NEGATIVE Urine RBC 0-2 /HPF Urine WBC NONE /HPF Urine Squamous Epithelial Cells NONE /HPF Urine Crystals NONE /LPF Urine Bacteria NEGATIVE /HPF Urine Casts NONE /LPF Urine Mucus NEGATIVE /LPF Urine Culture Indicated NO (DELILAH CAVANAUGH MD) My Orders Orders - DELILAH CAVANAUGH MD Cbc With Automated Diff (01/25/21:19) Protime With Inr (01/25/21:19) Partial Thromboplastin Time (01/25/21:19) Comprehensive Metabolic Panel (01/25/21:19) Fibrin Degradation Products (01/25/21:19) Troponin I (01/25/21:19) Ua Culture If Indicated (01/25/21:19) Chest 1 View, Ap/Pa Only (01/25/21:19) Ekg Tracing (01/25/21:19) Ed Iv/Invasive Line Start (01/25/21:19) Ed Iv/Invasive Line Start (01/25/21:19) Vital Signs Stroke Patient Q15M (01/25/21 01:19) Ct Head Wo-R/O Stroke (01/25/21:19) O2 (01/25/21:19) Monitor-Rhythm Ecg Trace Only (01/25/21:19) Dysphagia Screening Tool (01/25/21:19) Post Thrombolytic Adminstratio (01/25/21 01:19) Lipid Panel (01/26/21 06:00) Alteplase (Activase) (Activase Injection (01/25/21 02:00) Post Thrombolytic Adminstratio (01/25/21 01:48) Ct Head Wo (01/26/21 01:48) Ct Angio Head/Neck (01/25/21 01:48) Diltiazem Drip Pre-Mix (Cardizem Drip Pr (01/25/21 02:00) Iohexol Injection (Omnipaque 350 Mg/Ml 1 (01/25/21 02:15) Received Contrast (Hold Metformin- Contr (01/25/21 02:15) Sodium Chloride Flush (Catheter Flush Sy (01/25/21 02:15) Ns (Ivpb) (Sodium Chloride 0.9% Ivpb Bag (01/25/21 02:15) (DELILAH CAVANAUGH MD) Medications Given in ED Current Medications Medications Dose Ordered Sig/Jeanine Route Start Time Stop Time Status Last Admin Dose Admin Alteplase, Recombinant (0.9mg/ kg-max 90mg) with ... ONCE ONCE IV 01/25/21 02:00 01/25/21 02:01 DC 01/25/21 02:18 71.1 MG Iohexol 100 ml ONCE ONCE IV 01/25/21 02:15 01/25/21 02:16 DC 01/25/21 02:13 75 ML Sodium Chloride 10 ml NEEDED PRN IV 01/25/21 02:15 01/25/21 02:13 10 ML Sodium Chloride 100 ml ONCE ONCE IV 01/25/21 02:15 01/25/21 02:16 DC 01/25/21 02:13 80 ML (DELILAH CAVANAUGH MD) Vital Signs/I&O 01/25/21 00:54 Temp 35.4 Pulse 140 Resp 18 B/P (MAP) 161/113 (129) Pulse Ox 97 O2 Delivery Room Air (DELILAH CAVANAUGH MD) Blood Pressure Mean: 129 FSBG Bedside Testing Finger Stick Blood Glucose: 365 Blood Glucose Action Taken: Physician notified (ROXANA ROSALES,MED STUDENT) Progress Progress Note : Time: 01:45 Progress Note Stroke activation was paged during initial assessment. Patient seen to have a bilateral left hemianopsia consistent with stroke syndrome. Additionally, he was noted to have new onset A. fib with RVR. Initial noncontrast CT was unremarkable. Dr. Rogers, stroke neurologist at [facility], was consulted and recommended TPA as well as CT angiogram. I discussed risks and benefits of TPA with the patient. Risks included up to a 6% risk of life-threatening hemorrhage. Patient elected to proceed with TPA after discussion of risks and benefits. CT angiogram revealed no large vessel occlusions. Patient was started on Cardizem drip for treatment of the A. fib with RVR. He did have improvement of heart rate. He was ultimately admitted to the ICU. He reported modest improvement in his vision prior to admission. (DELILAH CAVANAUGH MD) Initial ECG Impression Date: Jan 25, 2021 Initial ECG Impression Time: 01:11 Initial ECG Rate: 136 Initial ECG Rhythm: A Fib/Flutter Initial ECG Impression: Atrial Fibrillation w/RVR Comment Atrial fibrillation with RVR. No ST elevation or depression. No abnormal intervals or axis deviation. (DELILAH CAVANAUGH MD) Diagnostic Imaging Diagonstic Imaging: CT Plain Films/CT/US/NM/MRI: head Comments CT head without contrast viewed by me. Stat rad report reviewed and discussed with radiologist. No acute findings appreciated. Diagonstic Imaging: CT Plain Films/CT/US/NM/MRI: other (Angiogram head and) Comments CT angiogram head and neck reviewed by me, stat rad report reviewed, and discussed with radiologist. No large vessel occlusions or other significant pathology identified. Diagonstic Imaging: Xray Plain Films/CT/US/NM/MRI: chest Comments Chest x-ray viewed by me and report not yet available. No acute abnormalities appreciated. (DELILAH CAVANAUGH MD) CT Read Date: Jan 25, 2021 CT Read Time: 01:45 (DELILAH CAVANAUGH MD) Departure Communication (Admissions) Time/Spoke to Admitting Phy: 02:40 Dr. Marie Time/Spoke to Consulting Phy: 02:45 CammierToan Ross (DELILAH CAVANAUGH MD) Impression Primary Impression: CVA (cerebral vascular accident) Qualified Codes: I63.9 - Cerebral infarction, unspecified Additional Impressions: Bilateral hemianopia Hyperglycemia Disposition: 09 ADMITTED INPATIENT Condition: Improved Admissions Decision to Admit Reason: Admit from ER (General) Decision to Admit/Date: Jan 25, 2021 Time/Decision to Admit Time: 01:45 (DELILAH CAVANAUGH MD) Departure-Patient Inst. Referrals: NO,LOCAL PHYSICIAN (PCP/Family) Primary Care Physician Medical Student Attestation and Attending Note: I have personally interviewed and examined this patient along with AMY Arreola. I have reviewed student documentation including history, physical, and assessments. I agree with the documentation except where otherwise noted. Exam: General: Alert, oriented, no acute distress, well developed HEENT: Normocephalic and atraumatic Heart: Regular rate and rhythm without murmur Lungs: Clear to auscultation bilaterally with normal effort Abdomen: Soft, nontender, nondistended, normal bowel sounds Neuropsych: eft-sided visual field cut bilaterally. No other focal neurologic deficits. Normal strength in the extremities. No facial droop. Normal speech. [id number] and [id number] normal. See NIH form. Skin: Warm and dry without rashes (DELILAH CAVANAUGH MD) ROXANA ROSALES,MED STUDENT Jan 25, 2021 01:49 DELILAH CAVANAUGH MD Jan 25, 2021 03:27
[2021-01-25 01:50] LABS: FIBRIN DEGRADATION PRODUCTS 0.37 UG/ML (0.00-0.49); INR 1.2 (0.8-1.4); PROTHROMBIN TIME PATIENT 15.2 SEC (12.2-14.7)
[2021-01-25 01:54] LABS: ALANINE AMINOTRANSFERASE 42 U/L (0-55); ALBUMIN 3.7 GM/DL (3.2-4.5); ALKALINE PHOSPHATASE 219 U/L (40-136); BILIRUBIN,TOTAL 0.7 MG/DL (0.1-1.0); BUN/CREATININE RATIO 21; CALCIUM 9.1 MG/DL (8.5-10.1); CARBON DIOXIDE 22 MMOL/L (21-32); CHLORIDE 100 MMOL/L (98-107); CREATININE SERUM 0.66 MG/DL (0.60-1.30); GFR ESTIMATED > 60; GLUCOSE 399 MG/DL (70-105); SODIUM 135 MMOL/L (135-145); TOTAL PROTEIN 6.9 GM/DL (6.4-8.2)
[2021-01-25 01:58] LABS: BILIRUBIN,URINE NEGATIVE (NEGATIVE); CLARITY,URINE SL CLOUDY; COLOR,URINE YELLOW; GLUCOSE, URINE (UA) 3+ (NEGATIVE); KETONES,URINE NEGATIVE (NEGATIVE); LEUKOCYTE ESTERASE ,URINE NEGATIVE (NEGATIVE); NITRITE,URINE NEGATIVE (NEGATIVE); PH,URINE 6.5 (5-9); PROTEIN,URINE NEGATIVE (NEGATIVE)
[2021-01-25] MEDS ORDERED: ALTEPLASE 100 MG/VIAL (ACTIVASE) IV ONE (02:00)
[2021-01-25] MEDS ORDERED: dilTIAZem DRIP PRE-MIX 125 ML IV SCH (02:00)
[2021-01-25 02:07] LABS: BACTERIA,URINE NEGATIVE /HPF; RBC,URINE 0-2 /HPF
[2021-01-25] MEDS ORDERED: IOHEXOL 350 MG/ML 100 ML (OMNIPAQUE 350) VIAL IV ONE (02:15)
[2021-01-25] MEDS ORDERED: NS 100 ML (IVPB) BAG IV ONE (02:15)
[2021-01-25] MEDS ORDERED: CATHETER FLUSH 10 ML SYR IV PRN (02:15)
[2021-01-25] MEDS ORDERED: HOLD METFORMIN - RECEIVED CONTRAST 20 ML VIAL IV SCH (02:15)
[2021-01-25 03:55] VITALS: BP 136/67
[2021-01-25] MEDS ORDERED: MILK OF MAGNESIA 400 MG/5 ML 30 ML UDC PO PRN (04:30)
[2021-01-25] MEDS: dilTIAZem DRIP PRE-MIX 125 ML IV SCH ×2 (04:45→12:21)
[2021-01-25] MEDS: niCARdipine 50 MG/NS 250 ML IV DRIP IV SCH ×4 (04:45→12:15)
--- NOTE | 2021-01-25 06:26 | Diagnostic Imaging Report ---
PROCEDURE: CT head wo r/o stroke. TECHNIQUE: Multiple contiguous axial images were obtained through the brain without the use of intravenous contrast. Auto Exposure Controls were utilized during the CT exam to meet ALARA standards for radiation dose reduction. INDICATION: Stroke neurodeficit. COMPARISON: None. FINDINGS: Ventricles are normal in size, shape and position. There is no midline shift or mass effect. There is no hemorrhage or evidence of acute ischemia. No extra-axial fluid collection or mass is seen. There is no dense vessel sign. The bony calvarium,. paranasal sinuses and mastoids are unremarkable. IMPRESSION: Negative CT head. Agree with preliminary report. Dictated by: Dictated on workstation # [id number]
--- NOTE | 2021-01-25 06:27 | Diagnostic Imaging Report ---
INDICATION: Aphasia, stroke COMPARISON: 11/14/2017 FINDINGS: Single view of the chest demonstrates clear lungs bilaterally. The heart is normal. There is no pneumothorax. The osseous structures normal. IMPRESSION: Negative chest Dictated by: Dictated on workstation # [id number]
--- NOTE | 2021-01-25 06:59 | Diagnostic Imaging Report ---
EXAMINATION: CT angiography head and neck with and without contrast. TECHNIQUE: After intravenous administration of contrast, thin section axial CT angiography of the head and neck was performed. Source data was reformatted into 3D MIP projections. All CT scans use one or more of the following dose optimizing techniques: automated exposure control, MA and/or KvP adjustment based on a patient size and exam type, or iterative reconstruction. HISTORY: Peripheral loss of vision COMPARISON: CT head 01/25/2021 FINDINGS: HEAD: Anterior circulation: The visualized portions of the internal carotid arteries are unremarkable without significant plaque or stenosis. The anterior and middle cerebral arteries show no stenosis or intraluminal filling defects. No anterior circulation aneurysms are present. Posterior circulation: The visualized distal vertebral arteries are patent to the vertebrobasilar junction. The basilar artery and both posterior cerebral arteries are widely patent without stenosis. No posterior circulation aneurysms are present. The ventricles and sulci are normal. No abnormal attenuation of brain parenchyma is present. No acute intracranial hemorrhage or abnormal extra-axial fluid collections are present. No abnormal meningeal or parenchymal enhancement. The calvarium is intact. The mastoid air cells are clear. The visualized paranasal sinuses are clear. The orbits are normal. NECK: Arch: Conventional branching of the aortic arch. The visualized subclavian arteries are patent without stenosis. Right: The right common carotid, internal carotid, and external carotid arteries are widely patent without stenosis or dissection. No significant calcified plaque. The estimated internal carotid stenosis by NASCET criteria is 0%. The right vertebral artery is patent to the level of the vertebrobasilar junction. Left: The left common carotid, internal carotid, and external carotid arteries are widely patent without stenosis or dissection. No significant calcified plaque. The estimated internal carotid stenosis by NASCET criteria is 0%. The left vertebral artery is patent to the level of the vertebrobasilar junction. Other: The visualized thyroid gland is unremarkable. The cervical soft tissues are unremarkable. The visualized upper lungs and mediastinum are normal. The cervical osseous structures are normal. IMPRESSION: 1. Normal vasculature in the head and neck without large vessel occlusion. 2. Agree with preliminary interpretation. Dictated by: Dictated on workstation # [id number]
[2021-01-25] MEDS: inSUlin ASPART (NovoLOG) 1 UNIT/0.01 ML (CHARGE PER UNIT) SC SCH ×4 (08:32→20:12)
--- NOTE | 2021-01-25 08:48 | Speech Therapy Progress Note ---
Therapy Progress Note ST to discharge evaluation order. Patient was screened with regular texture meal without difficulty. Patient is recommended to continue current diet level. Speech is clear as well as cognitive function. No further ST services are warranted at this time. SONALI MORGAN Jan 25, 2021 08:48
--- NOTE | 2021-01-25 11:09 | Consultation-Cardiology ---
HPI-Cardiology Cardiology Consultation Date of Consultation 01/25/21 Date of Admission Time Seen by Provider: 11:00 Indication: CVA HPI 40 years old gentleman with no significant past medical history, came into the emergency room for dizziness and sudden vision loss. He was diagnosed with acute CVA and received TPA in the emergency room. On my evaluation he was sitting in bed, still complaining of nausea, significant vision loss on the left eye. Home Medications & Allergies Allergies: Coded Allergies: No Known Drug Allergies (Unverified , 11/12/17) Home Medication List Reviewed: Yes VAF-Axmqmr-Npxgqv Hx Patient Social History Marital Status: Employed/Student: employed Recreational Drug Use: No Smoking Status: Never a Smoker 2nd Hand Smoke Exposure: No Recent Hopitalizations: No Have you traveled recently?: No Immunizations Up To Date Tetanus Booster (TDap): Unknown Past Medical History no significant history Family Medical History Family Medical Hx Non contributory Review of Systems-General Review of Systems Constitutional: see HPI; No chills; dizziness; No fever, No weakness EENTM: see HPI, blurred vision, double vision, vision loss Respiratory: see HPI; No cough, No short of breath Cardiovascular: see HPI; No chest pain, No edema, No Hx of Intervention, No palpitations, No syncope, No vascular heart diseas, No other Gastrointestinal: no symptoms reported, see HPI; No abdominal pain, No nausea, No vomiting Genitourinary: no symptoms reported, see HPI Musculoskeletal: no symptoms reported, see HPI Skin: no symptoms reported, see HPI Psychiatric/Neurological: No Symptoms Reported, See HPI Reviewed Test Results Reviewed Test Results Lab Laboratory Tests Test 01/25/21 01:01 01/25/21 01:06 01/25/21 01:45 01/25/21 06:14 Range/Units Glucometer 365 H 299 H 70-110 MG/DL White Blood Count 5.5 4.3-11.0 10^3/uL Red Blood Count 4.87 4.30-5.52 10^6/uL Hemoglobin 13.9 13.3-17.7 g/dL Hematocrit 41 40-54 % Mean Corpuscular Volume 84 80-99 fL Mean Corpuscular Hemoglobin 29 25-34 pg Mean Corpuscular Hemoglobin Concent 34 32-36 g/dL Red Cell Distribution Width 12.4 10.0-14.5 % Platelet Count 145 130-400 10^3/uL Mean Platelet Volume 11.9 9.0-12.2 fL Immature Granulocyte % (Auto) 0 % Neutrophils (%) (Auto) 53 42-75 % Lymphocytes (%) (Auto) 32 12-44 % Monocytes (%) (Auto) 14 H 0-12 % Eosinophils (%) (Auto) 1 0-10 % Basophils (%) (Auto) 0 0-10 % Neutrophils # (Auto) 2.9 1.8-7.8 10^3/uL Lymphocytes # (Auto) 1.7 1.0-4.0 10^3/uL Monocytes # (Auto) 0.8 0.0-1.0 10^3/uL Eosinophils # (Auto) 0.1 0.0-0.3 10^3/uL Basophils # (Auto) 0.0 0.0-0.1 10^3/uL Immature Granulocyte # (Auto) 0.0 0.0-0.1 10^3/uL Prothrombin Time 15.2 H 12.2-14.7 SEC INR Comment 1.2 0.8-1.4 Activated Partial Thromboplast Time 27 24-35 SEC D-Dimer 0.37 0.00-0.49 UG/ML Sodium Level 135 135-145 MMOL/L Potassium Level 4.0 3.6-5.0 MMOL/L Chloride Level 100 98-107 MMOL/L Carbon Dioxide Level 22 21-32 MMOL/L Anion Gap 13 5-14 MMOL/L Blood Urea Nitrogen 14 7-18 MG/DL Creatinine 0.66 0.60-1.30 MG/DL Estimat Glomerular Filtration Rate > 60 BUN/Creatinine Ratio 21 Glucose Level 399 H 70-105 MG/DL Calcium Level 9.1 8.5-10.1 MG/DL Corrected Calcium 9.3 8.5-10.1 MG/DL Total Bilirubin 0.7 0.1-1.0 MG/DL Aspartate Amino Transf (AST/SGOT) 21 5-34 U/L Alanine Aminotransferase (ALT/SGPT) 42 0-55 U/L Alkaline Phosphatase 219 H 40-136 U/L Troponin I < 0.028 <0.028 NG/ML Total Protein 6.9 6.4-8.2 GM/DL Albumin 3.7 3.2-4.5 GM/DL Urine Color YELLOW Urine Clarity SL CLOUDY Urine pH 6.5 5-9 Urine Specific [place] <=1.005 1.016-1.022 Urine Protein NEGATIVE NEGATIVE Urine Glucose (UA) 3+ H NEGATIVE Urine Ketones NEGATIVE NEGATIVE Urine Nitrite NEGATIVE NEGATIVE Urine Bilirubin NEGATIVE NEGATIVE Urine Urobilinogen 1.0 < = 1.0 MG/DL Urine Leukocyte Esterase NEGATIVE NEGATIVE Urine RBC (Auto) TRACE-L NEGATIVE Urine RBC 0-2 /HPF Urine WBC NONE /HPF Urine Squamous Epithelial Cells NONE /HPF Urine Crystals NONE /LPF Urine Bacteria NEGATIVE /HPF Urine Casts NONE /LPF Urine Mucus NEGATIVE /LPF Urine Culture Indicated NO Test 01/25/21 09:25 Range/Units Glucometer 413 *H 70-110 MG/DL Physical Exam Physical Exam Vital Signs Vital Signs - First Documented 01/25/21 00:54 Temp 35.4 Pulse 140 Resp 18 B/P (MAP) 161/113 (129) Pulse Ox 97 O2 Delivery Room Air Capillary Refill : Less Than 3 Seconds Height, Weight, BMI Height: 5'9.00" Weight: 214lbs. 5.0oz. 97.231015td; 27.23 BMI Method:Stated General Appearance: No Apparent Distress, WD/WN Eyes: Bilateral Eye Normal Inspection, Bilateral Eye PERRL, Bilateral Eye EOMI HEENT: PERRL/EOMI, TMs Normal, Normal ENT Inspection, Pharynx Normal, Moist Mucous Membranes Neck: Full Range of Motion, Normal Inspection, Non Tender, Supple, Carotid Bruit Respiratory: Chest Non Tender, Normal Breath Sounds, No Accessory Muscle Use, No Respiratory Distress Cardiovascular: No Edema, No Gallop, No JVD, No Murmur, Normal Peripheral Pulses, Irregularly Irregular Gastrointestinal: Normal Bowel Sounds, No Organomegaly, No Pulsatile Mass, Non Tender, Soft Back: Normal Inspection, No CVA Tenderness, No Vertebral Tenderness Extremity: Normal Capillary Refill, Normal Inspection, Normal Range of Motion, Non Tender, No Calf Tenderness, No Pedal Edema Neurologic/Psychiatric: Alert, Oriented x3, No Motor/Sensory Deficits, Normal Mood/Affect Skin: Normal Color, Warm/Dry Lymphatic: No Adenopathy A/P-Cardiology Admission Diagnosis Acute CVA Acute atrial fibrillation Diabetes mellitus Nausea and vomiting Assessment/Plan Acute CVA with blurred vision and left hemianopsia, received TPA in the emergency room, will need to start aspirin and oral anticoagulation once it is safe to be initiated Atrial fibrillation, new onset, rate is better controlled. Continue on diltiazem and monitor [id number] score of 3, yearly risk of stroke without oral anticoagulation is 3.2. Patient needs to be on oral anticoagulation. Nausea, no vomiting. Managed by primary care team Diabetes mellitus, poor control, managed by primary care team Clinical Quality Measures Stroke: Date of last known well: Jan 25, 2021 NURA PUGH MD Jan 25, 2021 11:09
[2021-01-25] MEDS: ACETAMINOPHEN 325 MG TABLET PO PRN ×2 (11:14→18:27)
[2021-01-25] MEDS: ONDANSETRON 4 MG/2 ML (SDV) Z0FRAN IVP PRN ×2 (13:09→20:09)
--- NOTE | 2021-01-25 14:52 | History & Physical-Hospitalist ---
History of Present Illness HPI/Chief Complaint Gaye Joseph is a 40 year old male with PMH T2DM who presented with vision changes. He reports that he was playing video games last night when he developed a left visual field deficit. He denies pain. He denies headache. He denies double vision. He denies weakness. He denies numbness. He denies fevers and chills. He denies chest pain. He denies dyspnea and cough. He denies abdominal pain, nausea, and vomiting. He has not been following with a physician. He has not been taking anything for his diabetes because of lack of insurance. Source: patient Exam Limitations: no limitations Date Seen 01/25/21 Time Seen by a Provider: 09:35 Attending Physician Edda Marie MD PCP No,Local Physician Referring Physician Date of Admission Jan 25, 2021 at 03:47 Home Medications & Allergies Home Medications Reviewed patient Home Medication Reconciliation performed by pharmacy medication reconciliations wind turbine service technician and/or nursing. Patients Allergies have been reviewed. Allergies Allergies Coded Allergies No Known Drug Allergies (Gilzhndxyb70/31/17) Past Ylfpcmy-Jyftew-Rovwgo Hx Past Med/Social Hx: Reviewed Nursing Past Med/Soc Hx Patient Social History Marrital Status: Employed/Student: employed Alcohol Use: Denies Use Recreational Drug Use: No Smoking Status: Never a Smoker 2nd Hand Smoke Exposure: No Recent Foreign Travel: No Contact w/other who traveled: No Recent Hopitalizations: No Recent Infectious Disease Expo: No Immunizations Up To Date Tetanus Booster (TDap): Unknown Seasonal Allergies Seasonal Allergies: No Past Medical History Respiratory: Sleep Apnea Currently Using CPAP: Yes Cardiac: Hypertension History of Blood Disorders: No Review of Systems Constitutional: no symptoms reported EENTM: vision loss (left sided) Cardiovascular: no symptoms reported Gastrointestinal: no symptoms reported Genitourinary: no symptoms reported Musculoskeletal: no symptoms reported Skin: no symptoms reported Psychiatric/Neurological: No Symptoms Reported Physical Exam Physical Exam Vital Signs Vital Signs - First Documented 01/25/21 00:54 Temp 35.4 Pulse 140 Resp 18 B/P (MAP) 161/113 (129) Pulse Ox 97 O2 Delivery Room Air Capillary Refill : Less Than 3 Seconds Height, Weight, BMI Height: 5'9.00" Weight: 214lbs. 5.0oz. 97.182994oq; 27.23 BMI Method:Stated General Appearance: No Apparent Distress, WD/WN HEENT: PERRL/EOMI, Pharynx Normal Neck: Normal Inspection, Supple Respiratory: Lungs Clear, Normal Breath Sounds, No Respiratory Distress Cardiovascular: No Murmur, Irregularly Irregular Gastrointestinal: Normal Bowel Sounds, Non Tender, Soft Extremity: Normal Inspection, Non Tender, No Pedal Edema Neurologic/Psychiatric: Alert, Oriented x3, Normal Mood/Affect, Other (left visual field deficit) Skin: Normal Color, Warm/Dry Results Results/Procedures Labs Laboratory Tests 01/25/21 01:06 Patient resulted labs reviewed. Imaging: Reviewed Imaging Report Assessment/Plan Admission Diagnosis Acute ischemic stroke Admission Status: Inpatient Order (span 2 midnights) Reason for Inpatient Admission: Acute ischemic stroke requiring further evaluation and monitoring New onset atrial fibrillation Assessment and Plan Acute ischemic stroke Bilateral hemianopsia Atrial fibrillation with RVR CT/CTA without evidence of stroke s/p tPA Started on Lipitor Begin ASA tomorrow Echo with pulmonary hypertension EKG revealed atrial fibrillation Cardiology consulted, appreciate assistance Begin Eliquis tomorrow T2DM with hyperglycemia Blood sugar ~400 Begin Levemir Sliding scale insulin Lack of insurance business and services instructor consulted, appreciate assistance Diagnosis/Problems Diagnosis/Problems (1) Acute ischemic stroke Status: Acute (2) Bilateral hemianopia Status: Acute (3) Atrial fibrillation with rapid ventricular response Status: Acute (4) Does not have health insurance Status: Acute Clinical Quality Measures Stroke: Date of last known well: Jan 25, 2021 ALEJA MENDENHALL MD Jan 25, 2021 14:52
[2021-01-25] MEDS ORDERED: TROPICAMIDE 1% OPH SOLN (MYDRIACYL) 3 ML BTL OU NR (17:00)
--- NOTE | 2021-01-25 18:42 | Diagnostic Imaging Report ---
PROCEDURE: CT head without contrast. TECHNIQUE: Multiple contiguous axial images were obtained through the brain without the use of intravenous contrast. Auto Exposure Controls were utilized during the CT exam to meet ALARA standards for radiation dose reduction. TECHNIQUE: CT of the abdomen without contrast. All CT scans use one or more of the following dose optimizing techniques: automated exposure control, MA and/or KvP adjustment based on patient size and exam type or iterative reconstruction. DATE: January 25, 2021. COMPARISON: CT angiography head and neck January 25, 2021. CT head without contrast January 25, 2021. INDICATION: 40-year-old male, headache following stroke and TPA administration. FINDINGS: There is abnormal low-attenuation in the right occipital lobe which would be consistent with provided history of recent stroke. There is no evidence of hemorrhagic transformation of infarct. There is no abnormal extra-axial fluid collection. There is no mass effect. There is no midline shift. The visualized portions of the paranasal sinuses, mastoid air cells, and middle ears are well-aerated. IMPRESSION: 1. Abnormal low-attenuation in the right occipital lobe which is consistent with provided history of stroke. This is more apparent since January 25, 2021 and could relate to evolutionary changes of infarct. No evidence of hemorrhagic transformation of infarct. Dictated by: Dictated on workstation # [id number]
[2021-01-26] MEDS: ONDANSETRON 4 MG/2 ML (SDV) Z0FRAN IVP PRN ×4 (02:32→18:26)
[2021-01-26] MEDS: dilTIAZem DRIP PRE-MIX 125 ML IV SCH ×2 (02:35→15:22)
[2021-01-26] MEDS: ACETAMINOPHEN 325 MG TABLET PO PRN ×2 (02:36→14:14)
[2021-01-26] MEDS: niCARdipine 50 MG/NS 250 ML IV DRIP IV SCH ×6 (03:12→20:50)
[2021-01-26 04:14] LABS: BASOPHILS % (AUTO) 0 % (0-10); EOSINOPHILS % (AUTO) 0 % (0-10)
[2021-01-26 04:16] LABS: HEMATOCRIT 42 % (40-54); HEMOGLOBIN 14.2 g/dL (13.3-17.7); LYMPHOCYTES # (AUTO) 1.2 10^3/uL (1.0-4.0); LYMPHOCYTES % (AUTO) 14 % (12-44); MEAN CORPUSCULAR HEMOGLOBIN 28 pg (25-34); MEAN CORPUSCULAR HGB CONC 34 g/dL (32-36); MEAN CORPUSCULAR VOLUME 84 fL (80-99); MEAN PLATELET VOLUME 11.7 fL (9.0-12.2); MONOCYTES # (AUTO) 0.8 10^3/uL (0.0-1.0); MONOCYTES % (AUTO) 9 % (0-12); NEUTROPHILS # (AUTO) 6.6 10^3/uL (1.8-7.8); NEUTROPHILS % (AUTO) 77 % (42-75); PLATELET COUNT 127 10^3/uL (130-400); WHITE BLOOD COUNT 8.6 10^3/uL (4.3-11.0)
[2021-01-26 04:39] LABS: BUN/CREATININE RATIO 23; CALCIUM 9.4 MG/DL (8.5-10.1); CARBON DIOXIDE 21 MMOL/L (21-32); CHLORIDE 99 MMOL/L (98-107); CHOLESTEROL 88 MG/DL (< 200); CREATININE SERUM 0.56 MG/DL (0.60-1.30); GFR ESTIMATED > 60; GLUCOSE 249 MG/DL (70-105); HDL CHOLESTEROL 27 MG/DL (40-60); MAGNESIUM 1.6 MG/DL (1.6-2.4); PHOSPHORUS 3.5 MG/DL (2.3-4.7); POTASSIUM 4.4 MMOL/L (3.6-5.0); SODIUM 134 MMOL/L (135-145); TRIGLYCERIDES 76 MG/DL (<150); VLDL CHOLESTEROL 15 MG/DL (5-40)
[2021-01-26] MEDS: KCL 20 MEQ TAB (K-DUR) PO SCH (05:26)
[2021-01-26] MEDS: POTASSIUM CL 10MEQ/50ML IVPB 50 ML IV SCH (05:26)
[2021-01-26] MEDS: MAGNESIUM 1 GM/100 ML IVPB 100 ML IV SCH ×3 (05:26→06:45)
[2021-01-26] MEDS: inSUlin ASPART (NovoLOG) 1 UNIT/0.01 ML (CHARGE PER UNIT) SC SCH ×6 (06:04→21:11)
[2021-01-26] MEDS ORDERED: LORazepam INJ 2 MG/ML (ATIVAN) VIAL IVP ONE (07:15)
[2021-01-26] MEDS ORDERED: GADOBUTROL 15 MMOL/15 ML (GADAVIST) VIAL IV ONE (07:15)
[2021-01-26] MEDS ORDERED: PROMETHAZINE INJ 25 MG/ML (PHENERGAN) AMP IVP ONE (07:15)
[2021-01-26] MEDS ORDERED: PROMETHAZINE INJ 25 MG/ML (PHENERGAN) AMP ONE (07:20)
[2021-01-26] MEDS ORDERED: LORazepam INJ 2 MG/ML (ATIVAN) VIAL ONE (07:21)
--- NOTE | 2021-01-26 08:00 | Diagnostic Imaging Report ---
INDICATION: Atrial fibrillation with rapid ventricular response. TECHNIQUE: Single view chest 3:39 AM. CORRELATION STUDY: 01/25/2021 FINDINGS: The heart size, mediastinal configuration and pulmonary vascularity are within normal limits. Right costophrenic angle incompletely imaged. The lungs are clear with no consolidating infiltrate. There is no significant effusion or pneumothorax. IMPRESSION: 1. Negative for acute abnormality of the chest. Dictated by: Dictated on workstation # [id number]
--- NOTE | 2021-01-26 08:14 | Diagnostic Imaging Report ---
PROCEDURE: CT head without contrast. TECHNIQUE: Multiple contiguous axial images were obtained through the brain without the use of intravenous contrast. Auto Exposure Controls were utilized during the CT exam to meet ALARA standards for radiation dose reduction. INDICATION: Stroke followup, 24 hours post tPA. CORRELATION STUDY: 01/25/2021 FINDINGS: Evolving infarct with low-attenuation along the medial aspect of the right occipital lobe. The remainder of the brain parenchyma is otherwise unchanged and unremarkable. No midline shift or mass effect. No findings to suggest intracranial hemorrhage. Basilar cisterns are maintained. Bony calvarium intact. Paranasal sinus and mastoid air cells generally clear. IMPRESSION: 1. Evolving infarct involving the medial right occipital lobe. No evidence for intracranial hemorrhage. Initial report was provided by [facility]. Dictated by: Dictated on workstation # [id number]
[2021-01-26] MEDS ORDERED: MECLIZINE 25 MG (ANTIVERT) TAB PO PRN (08:30)
--- NOTE | 2021-01-26 08:55 | Diagnostic Imaging Report ---
PROCEDURE: MR angiography neck with contrast. TECHNIQUE: Contrast-enhanced MR angiography of the neck was performed. Source data was reformatted into rotating MIP projection. INDICATION: CVA. COMPARISON: There are no prior MRA neck examinations available for comparison. FINDINGS: The CTA head and neck exam performed on 01/25/2021 failed to show any sign of a hemodynamically significant stenosis of either carotid system or of an injury to the vertebral or carotid systems. On this exam, there is still no evidence for a hemodynamically significant stenosis of the common or internal carotid arteries. The vertebral arteries are small but codominant. IMPRESSION: 1. There is no evidence for a hemodynamically significant stenosis of either carotid system. 2. The vertebral arteries are small but otherwise generally unremarkable. Dictated by: Dictated on workstation # [id number]
--- NOTE | 2021-01-26 08:59 | Diagnostic Imaging Report ---
PROCEDURE: MR imaging of the brain without contrast. TECHNIQUE: Multiplanar, multisequence MR imaging of the brain was performed without contrast. INDICATION: Headache status post tPA. Stroke followup. COMPARISON: CT head on 01/26/2021. CTA head and neck on 01/25/2021. FINDINGS: Acute/subacute ischemia is visualized in the right parieto-occipital region and lateral aspect of the right thalamus in the distribution of the right OFFICE SPECIALIST. Small foci of acute ischemia are also seen in the left occipital lobe and right parietal lobe. Associated petechial hemorrhage is present in the right parieto-occipital region without moe hemorrhagic conversion or significant mass effect. No acute hydrocephalus. The basilar cisterns are symmetric and unremarkable. The sellar and suprasellar regions have a normal appearance. The brainstem and posterior fossa are unremarkable. The paranasal sinuses and mastoid air cells demonstrate normal signal characteristics. The globes and orbits are symmetric and unremarkable. The scalp and calvarium have a normal appearance. IMPRESSION: 1. Acute/subacute ischemia involving the right parieto-occipital region, lateral aspect of the right thalamus, left occipital lobe, and right parietal lobe. Petechial hemorrhage is seen in the right parieto-occipital region without evidence of associated mass effect. Recommend continued followup as indicated. Calls to the number provided ( ) at 9:[address] Frazier were not answered. Dictated by: Dictated on workstation # [id number]
--- NOTE | 2021-01-26 09:03 | Diagnostic Imaging Report ---
PROCEDURE: MR angiography of the brain without the use of contrast. TECHNIQUE: 3D diwb-go-qjjkxs non contrast enhanced MR angiography of the head was performed. A source data was reformatted into rotating MIP projections. INDICATION: Headache after TPA. Follow-up stroke. COMPARISON: CTA head and neck on 01/25/2021. FINDINGS: There is appropriate flow-related enhancement within the intracranial segments of the internal carotid arteries. There is no significant stenosis. Carotid terminus unremarkable. There is appropriate flow-related enhancement within the anterior and middle cerebral artery branches. Posterior circulation demonstrates unremarkable vertebrals and basilar artery. The bilateral posterior inferior cerebral arteries and bilateral superior cerebellar arteries are patent. The posterior cerebral arteries appear unremarkable. There is no evidence of intracranial aneurysm formation. There is no evidence of vascular malformation. IMPRESSION: 1. Unremarkable MR angiogram of the head. There is no MR evidence of hemodynamically significant stenosis or vessel occlusion. No aneurysm formation or findings to suggest a vascular malformation demonstrated. Dictated by: Dictated on workstation # [id number]
--- NOTE | 2021-01-26 09:20 | Occ Therapy Progress Note ---
Therapy Progress Note Nursing notified of OT orders. Based on pt's current state, nursing states pt is not a good candidate for therapy today. Pt has intense migraine and is asleep. OT to complete evaluation tomorrow. CARLOTTA NUR OTR Jan 26, 2021 09:20
[2021-01-26] MEDS ORDERED: SCOPOLAMINE 1.5 MG (TRANSDERM-SCOP) PATCH TD ONE (10:00)
[2021-01-26] MEDS: ASPIRIN E.C. 81 MG (ECOTRIN) TAB PO SCH (10:41)
[2021-01-26] MEDS: APIXABAN 5 MG (ELIQUIS) TABLET PO SCH (10:41)
--- NOTE | 2021-01-26 13:15 | Progress Note - Hospitalist ---
Subjective HPI/CC On Admission Date Seen by Provider: Jan 26, 2021 Time Seen by Provider: 10:05 Gaye Joseph is a 40 year old male with PMH T2DM who presented with vision changes. He reports that he was playing video games last night when he developed a left visual field deficit. He denies pain. He denies headache. He denies d ouble vision. He denies weakness. He denies numbness. He denies fevers and chills. He denies chest pain. He denies dyspnea and cough. He denies abdominal pain, nausea, and vomiting. He has not been following with a physician. He has not been taking anything for his diabetes because of lack of insurance. Subjective/Events-last exam He is lethargic. He has been nauseous and vomiting, but denies nausea at this time. Objective Exam Vital Signs Vital Signs Date Time Temp Pulse Resp B/P (MAP) Pulse Ox O2 Delivery O2 Flow Rate FiO2 01/26/21 12:33 96 Room Air 01/26/21 11:49 36.6 01/26/21 11:00 105 28 151/65 (93) Capillary Refill : Less Than 3 Seconds General Appearance: No Apparent Distress, WD/WN Respiratory: Lungs Clear, Normal Breath Sounds, No Respiratory Distress Cardiovascular: No Edema, No Murmur, Irregularly Irregular Gastrointestinal: Normal Bowel Sounds, Soft Extremity: Normal Inspection, No Pedal Edema Neurologic/Psychiatric: Other (lethargic, responsive, cooperative) Skin: Normal Color, Warm/Dry Results/Procedures Lab Laboratory Tests 01/26/21 03:30 Patient resulted labs reviewed. Imaging: Reviewed Imaging Report Assessment/Plan Assessment and Plan Assess & Plan/Chief Complaint Acute ischemic stroke or right occipital lobe Bilateral hemianopsia Atrial fibrillation with RVR Initial CT without evidence of stroke s/p tPA Repeat CT with right occipital lobe stroke MRI showed right parieto-occipital, lateral right thalamic, left occipital stroke Start ASA Continue Lipitor Echo with pulmonary hypertension EKG revealed atrial fibrillation Cardiology consulted, appreciate assistance Begin Lovenox Nausea and vomiting Antiemetics as needed T2DM with hyperglycemia Blood sugar remains elevated Continue Levemir Sliding scale insulin Lack of insurance director of tax services consulted, appreciate assistance Diagnosis/Problems Diagnosis/Problems (1) Acute ischemic stroke Status: Acute (2) Bilateral hemianopia Status: Acute (3) Atrial fibrillation with rapid ventricular response Status: Acute (4) Does not have health insurance Status: Acute (5) Nausea and vomiting Status: Acute Clinical Quality Measures Stroke: Date of last known well: Jan 25, 2021 ALEJA MENDENHALL MD Jan 26, 2021 13:15
--- NOTE | 2021-01-26 13:18 | Physical Therapy Progress Note ---
Therapy Progress Note Based on pt's current state, nursing states pt is not a good candidate for therapy today. Pt has intense migraine and is asleep. PT to evaluate patient in CHARLES Hoff PT Jan 26, 2021 13:18
[2021-01-26] MEDS: ENOXAPARIN 80 MG/0.8 ML (LOVENOX) SYR SC SCH (14:06)
[2021-01-26] MEDS: D5 1/2 NS W/KCL 20 MEQ/L 1,000 ML IV SCH ×2 (14:07→23:36)
--- NOTE | 2021-01-26 15:48 | Diagnostic Imaging Report ---
EXAMINATION: CT head without contrast. TECHNIQUE: Multiple contiguous axial images were obtained through the brain without the use of intravenous contrast. All CT scans use one or more of the following dose optimizing techniques: automated exposure control, MA and/or KvP adjustment based on a patient size and exam type, or iterative reconstruction. HISTORY: Follow-up stroke. COMPARISON: 01/26/2021. FINDINGS: Stable appearance of the area of acute/subacute ischemia involving the right parieto-occipital region, lateral aspect of the right thalamus, right parietal lobe and left occipital lobe. No evidence of hemorrhagic conversion. No associated mass effect or midline shift. No evidence of acute hydrocephalus. No new areas of large acute territorial ischemia. The orbits are normal. Paranasal sinuses are normal. Mastoid air cells are clear. No soft tissue abnormality is seen. No osseus lesions or fractures are seen. IMPRESSION: 1. Expected evolution of the multifocal areas of acute/subacute ischemia involving the right parieto-occipital region, lateral aspect of the right thalamus, right parietal lobe, and left occipital lobe. No evidence of hemorrhagic conversion or mass effect. No new areas of large acute territorial ischemia. Dictated by: Dictated on workstation # [id number]
--- NOTE | 2021-01-26 17:32 | Cardiology Progress Note ---
Subjective Date Seen by Provider: Jan 26, 2021 Time Seen by Provider: 17:30 Subjective/Events-last exam Patient is laying down in bed, complaining of dizziness, nausea, overall mild improvement, no improvement in his vision Review of Systems General: No Chills, No Night Sweats, No Fatigue, No Malaise, No Appetite, No Other HEENT: No Head Aches; Visual Changes; No Eye Pain, No Ear Pain, No Dysphasia, No Sinus Congestion, No Post Nasal Drip, No Sore Throat, No Other Pulmonary: No Dyspnea, No Cough, No Pleuritic Chest Pain, No Other Cardiovascular: No: Chest Pain, Palpitations, Orthopnea, Paroxysmal Noc. Dyspnea, Edema, Lt Headedness, Other Objective-Cardiology Exam Last Set of Vital Signs Vital Signs 01/26/21 01/26/21 15:57 17:00 Temp 36.8 Pulse 98 Resp 27 B/P (MAP) 130/76 (94) Pulse Ox 96 O2 Delivery Room Air Capillary Refill : Less Than 3 Seconds I&O Intake and Output 01/26/21 00:00 Intake Total 3046.1 ml Output Total 1900 ml Balance 1146.1 ml Intake Oral 2850 ml IV Total 196.1 ml Output Urine Total 1900 ml # Voids 3 # Bowel Movements 1 # Emeses 2 Daily Weight Change No General: Alert, Oriented X3, Cooperative HEENT: Atraumatic, PERRLA Neck: Supple Lungs: Clear to Auscultation, Normal Air Movement Heart: Normal S1, Normal S2, Other (irregular rhythm, atrial fibrillation) Abdomen: Normal Bowel Sounds, Soft Extremities: No Clubbing, No Cyanosis Skin: No Rashes, No Breakdown Neuro: Normal Speech Psych/Mental Status: Mental Status NL Results Lab Laboratory Tests 01/26/21 03:30 A/P-Cardiology Admission Diagnosis Acute CVA Acute atrial fibrillation Diabetes mellitus Nausea and vomiting Assessment/Plan Acute CVA multiple infarct on CT and MRI, stroke in evolution. Received TPA in the emergency room. There is some small petechial hemorrhage noted on the MRI. Managed by primary care team Atrial fibrillation, new onset, rate is better controlled. Continue on diltiazem and monitor [id number] score of 3, yearly risk of stroke without oral anticoagulation is 3.2. Patient needs to be on oral anticoagulation once deemed reasonable by Nausea, no vomiting. Managed by primary care team Diabetes mellitus, poor control, managed by primary care team Clinical Quality Measures Stroke: Date of last known well: Jan 25, 2021 NURA PUGH MD Jan 26, 2021 17:32
[2021-01-27] MEDS: ENOXAPARIN 80 MG/0.8 ML (LOVENOX) SYR SC SCH (01:44)
[2021-01-27] MEDS: ACETAMINOPHEN 325 MG TABLET PO PRN (01:44)
[2021-01-27 03:26] LABS: BASOPHILS % (AUTO) 0 % (0-10); EOSINOPHILS % (AUTO) 1 % (0-10)
[2021-01-27 03:29] LABS: HEMATOCRIT 39 % (40-54); HEMOGLOBIN 13.2 g/dL (13.3-17.7); LYMPHOCYTES # (AUTO) 1.4 10^3/uL (1.0-4.0); LYMPHOCYTES % (AUTO) 18 % (12-44); MEAN CORPUSCULAR HEMOGLOBIN 29 pg (25-34); MEAN CORPUSCULAR HGB CONC 34 g/dL (32-36); MEAN CORPUSCULAR VOLUME 84 fL (80-99); MEAN PLATELET VOLUME 11.1 fL (9.0-12.2); MONOCYTES # (AUTO) 0.9 10^3/uL (0.0-1.0); MONOCYTES % (AUTO) 11 % (0-12); NEUTROPHILS # (AUTO) 5.3 10^3/uL (1.8-7.8); NEUTROPHILS % (AUTO) 70 % (42-75); PLATELET COUNT 118 10^3/uL (130-400); WHITE BLOOD COUNT 7.6 10^3/uL (4.3-11.0)
[2021-01-27 03:55] LABS: BUN/CREATININE RATIO 15; CALCIUM 9.1 MG/DL (8.5-10.1); CARBON DIOXIDE 21 MMOL/L (21-32); CHLORIDE 100 MMOL/L (98-107); CREATININE SERUM 0.59 MG/DL (0.60-1.30); GFR ESTIMATED > 60; MAGNESIUM 1.6 MG/DL (1.6-2.4); PHOSPHORUS 3.4 MG/DL (2.3-4.7); POTASSIUM 4.2 MMOL/L (3.6-5.0); SODIUM 132 MMOL/L (135-145)
[2021-01-27 04:04] LABS: GLUCOSE 278 MG/DL (70-105)
[2021-01-27] MEDS: MAGNESIUM 1 GM/100 ML IVPB 100 ML IV SCH ×3 (04:28→06:00)
[2021-01-27] MEDS: POTASSIUM CL 10MEQ/50ML IVPB 50 ML IV SCH (04:35)
[2021-01-27] MEDS: KCL 20 MEQ TAB (K-DUR) PO SCH (04:36)
[2021-01-27] MEDS: inSUlin ASPART (NovoLOG) 1 UNIT/0.01 ML (CHARGE PER UNIT) SC SCH ×5 (04:36→10:50)
[2021-01-27] MEDS: niCARdipine 50 MG/NS 250 ML IV DRIP IV SCH ×2 (06:38)
[2021-01-27] MEDS: ASPIRIN E.C. 81 MG (ECOTRIN) TAB PO SCH (08:15)
[2021-01-27] MEDS ORDERED: NS IV 1000 ML 1,000 ML IV SCH (08:30)
[2021-01-27] MEDS: APIXABAN 5 MG (ELIQUIS) TABLET PO SCH (08:44)
--- NOTE | 2021-01-27 09:04 | Physical Therapy Evaluation ---
PT Evaluation-General Medical Diagnosis Admission Date Jan 25, 2021 at 03:47 Medical Diagnosis: CVA Onset Date: Jan 25, 2021 Therapy Diagnosis Therapy Diagnosis: impaired mobility Height/Weight Height (Feet): 5 Height (Inches): 9.00 Weight (Pounds): 214 Weight (Ounces): 5.0 Precautions Precautions/Isolations: Aspiration, Fall Prevention, Standard Precautions, Pressure Ulcer Referral Physician: Martin Reason for Referral: Evaluation/Treatment Medical History Pertinent Medical History: HTN Additional Medical History sleep apnea Prior Prior Level of Function SCALE: Activities may be completed with or without assistive devices. 3-Rgutwfxefr-bpgmjvk completes the activity by him/herself with no assistance from a helper. 5-Set-up or Clean-up Assistance-helper sets up or cleans up; patient completes activity. Lorton assists only prior to or following the activity. 4-Supervision or Touching Assistance-helper provides verbal cues and/or touching/steadying and/or contact guard assistance as patient completes activity. Assistance may be provided throughout the activity or intermittently. 3-Partial/Moderate Assistance-helper does LESS THAN HALF the effort. Lorton lifts, holds or supports trunk or limbs, but provides less than half the effort. 2-Substantial/Maximal Assistance-helper does MORE THAN HALF the effort. Lorton lifts or holds trunk or limbs and provides more than half the effort. 9-Ufeebvtur-nidwci does ALL the effort. Patient does none of the effort to complete the activity. Or, the assistance of 2 or more helpers is required for the patient to complete the activity. If activity was not attempted, code reason: 7-Patient Refused. 9-Not Applicable-not attempted and the patient did not perform the activity before the current illness, exacerbation or injury. 10-Not Attempted due to Environmental Limitations-(lack of equipment, weather restraints, etc.). 88-Not Attempted due to Medical Conditions or Safety Concerns. Bed Mobility: 6 Transfers (B,C,W/C): 6 Gait: 6 Stairs: 6 Indoor Mobility (Ambulation): Independent Stairs: Independent PT Evaluation-Current Subjective Patient sitting EOB pre tx, agrees to PT, he had a severe headache yesterday but says he doesn't have one now and doesnt have any pain, patient states his main issue now is his vision Pt/Family Goals to be independent at home Objective Patient Orientation: Person, Place, Situation Attachments: IV ROM/Strength ROM Lower Extremities WNL Strength Lower Extremities LLE (hip flexion 3+/5, knee flexion 4/5, knee extension 4/5, dorsiflexion 4+/5), RLE (hip flexion 3+/5, knee flexion 4/5, knee extension 4/5, dorsiflexion 4+/5) Neuromuscular (Tone, Coordination, Reflexes) Patient has good tracking on the right side, fair on the left he tends to lose track due to his visual impairments but is still able to attempt to track, do esn't seem to have neglect, peripheral vision is of course impaired on the left side Sensory Hearing: Functional Sensation Right Lower Extremit: Intact Sensation Left Lower Extremity: Intact Transfers Roll Left to Right (QC): 6 Sit to Lying (QC): 6 Lying to Sitting/Side of Bed(Q: 6 Sit to Stand (QC): 4 Chair/Qdb-gz-Smubd Xfer(QC): 4 SBA with sit to stand and transfers Gait Does the Patient Walk?: Yes Mode of Locomotion: Walk Anticipated Mode of Locomotion: Walk Walk 10 feet (QC): 4 Walk 50 ft with 2 Turns(QC): 4 Distance: 50' Gait Assistive Device: None Comments/Gait Description SBA, slow, wide ANGLE but steady, bumps into things occasionally on the left side due to impaired vision Balance Sitting Static: Normal Sitting Dynamic: Normal Standing Static: Good Standing Dynamic: Good Assessment/Needs patient has impaired mobility and vision, needs SBA to ambulate about his room Rehab Potential: Fair PT Detention Goals Deputy K 9 Goals PT Deputy K 9 Goals Time Frame: Feb 03, 2021 Roll Left & Right (QC): 6 Sit to Lying (QC): 6 Lying-Sitting on Side/Bed(QC): 6 Sit to Stand (QC): 6 Chair/Nfw-bw-Xfzug Xfer(QC): 5 Toilet Transfer (QC): 5 Walk 10 feet (QC): 5 Walk 50ft with 2 Turns (QC): 5 Walk 150 ft (QC): 5 PT Plan Problem List Problem List: Activity Tolerance, Functional Strength, Safety, Balance, Gait, Transfer, ROM Treatment/Plan Treatment Plan: Continue Plan of Care Treatment Plan: Education, Functional Activity Lisa, Functional Strength, Gait, Safety, Therapeutic Exercise, Transfers Treatment Duration: Feb 03, 2021 Frequency: 6 times per week Estimated Hrs Per Day: .25 hour per day Patient and/or Family Agrees t: Yes Safety Risks/Education Patient Education: Gait Training, Transfer Techniques, Correct Positioning, Safety Issues Teaching Recipient: Patient Teaching Methods: Demonstration, Discussion Response to Teaching: Reinforcement Needed Discharge Recommendations Plan Patient will perform bed mobility and transfer training, balance and endurance training, functional strengthening, stair training, gait training, and education to improve functional mobility and independence at home Therapy Discharge Recommendati: Home & Family Time/GCodes Time In: 822 Time Out: 833 Total Billed Treatment Time: 11 Total Billed Treatment 1 visit EVL 11' KATHY BRAND PT Jan 27, 2021 09:04
[2021-01-27] MEDS ORDERED: ATOR80TA76 PO (10:22)
[2021-01-27] MEDS ORDERED: ASPI-1238 PO (10:22)
--- NOTE | 2021-01-27 10:33 | Discharge Summary ---
Discharge Summary Hospital Course Was the Problem List Reviewed?: Yes Problems/Dx: (1) Acute ischemic stroke Status: Acute (2) Bilateral hemianopia Status: Acute (3) Atrial fibrillation with rapid ventricular response Status: Acute (4) Does not have health insurance Status: Acute (5) Nausea and vomiting Status: Acute Hospital Course Date of Admission: Jan 25, 2021 at 03:47 Admission Diagnosis : Acute ischemic stroke Family Physician/Provider: No,Local Physician Date of Discharge: 01/27/21 Discharge Diagnosis: Acute ischemic stroke, paroxysmal atrial fibrillation Hospital Course: Gaye Joseph is a 40-year-old male with past medical history of diabetes who presented with vision loss and was admitted with acute ischemic stroke. His initial CT scan showed no acute abnormalities, but due to his symptoms he was given TPA. Subsequent brain imaging revealed acute strokes involving the right parieto-occipital region, lateral aspect of the right thalamus, left occipital lobe, and right parietal lobe. The MRI showed petechial hemorrhage. Repeat CT head did not show any hemorrhage. He was found to be in atrial fibrillation was started on IV Cardizem. He was started on therapeutic Lovenox 24 hours after being given TPA. He was transitioned to oral Cardizem and Eliquis. He was started on aspirin and Lipitor for stroke. He also had uncontrolled type II diabetes with hemoglobin A1c 10.9% and he was started on insulin. His course was complicated by nausea and vomiting which resolved prior to discharge. He was discharged to inpatient rehabilitation. He should follow up with cardiology and establish care with a primary care physician. Labs and Pending Lab Test: Laboratory Tests 01/26/21 10:43: Glucometer 218H 01/26/21 12:28: Glucometer 227H 01/26/21 15:52: Glucometer 212H 01/26/21 20:53: Glucometer 172H 01/27/21 03:18: White Blood Count 7.6, Red Blood Count 4.62, Hemoglobin 13.2L, Hematocrit 39L, Mean Corpuscular Volume 84, Mean Corpuscular Hemoglobin 29, Mean Corpuscular Hemoglobin Concent 34, Red Cell Distribution Width 12.4, Platelet Count 118L, Mean Platelet Volume 11.1, Immature Granulocyte % (Auto) 0, Neutrophils (%) (Auto) 70, Lymphocytes (%) (Auto) 18, Monocytes (%) (Auto) 11, Eosinophils (%) (Auto) 1, Basophils (%) (Auto) 0, Neutrophils # (Auto) 5.3, Lymphocytes # (Auto) 1.4, Monocytes # (Auto) 0.9, Eosinophils # (Auto) 0.0, Basophils # (Auto) 0.0, Immature Granulocyte # (Auto) 0.0, Sodium Level 132L, Potassium Level 4.2, Chloride Level 100, Carbon Dioxide Level 21, Anion Gap 11, Blood Urea Nitrogen 9, Creatinine 0.59L, Estimat Glomerular Filtration Rate > 60, BUN/Creatinine Ratio 15, Glucose Level 278H, Calcium Level 9.1, Phosphorus Level 3.4, Magnesium Level 1.6 Microbiology 01/25/21 MRSA Screen - Final, Complete MRSA not isolated Home Meds Active No Active Prescriptions or Reported Medications Assessment/Pt Instructions Take medications as prescribed. Begin taking Aspirin and Lipitor for stroke. Begin taking Cardizem and Eliquis for atrial fibrillation. You are being discharged to inpatient rehab. Follow up with Cardiology as scheduled. You need to establish care at [facility] with a primary care doctor. Discharge Planning: <30 minutes discharge planning Discharge Instructions Discharge Diet: ADA Diet Activity as Tolerated: Yes Consultations Cardiology Discharge Physical Examination Vital Signs Vital Signs Date Time Temp Pulse Resp B/P (MAP) Pulse Ox O2 Delivery O2 Flow Rate FiO2 01/27/21 09:00 114 21 123/74 (90) 100 Room Air 01/27/21 07:43 37.3 General Appearance: No Apparent Distress, WD/WN HEENT: PERRL/EOMI, Pharynx Normal Respiratory: Lungs Clear, Normal Breath Sounds, No Respiratory Distress Cardiovascular: No Edema, No Murmur, Irregularly Irregular Gastrointestinal: Normal Bowel Sounds, Non Tender, Soft Extremity: Normal Inspection, Non Tender, No Pedal Edema Skin: Normal Color, Warm/Dry Neurologic/Psychiatric: Alert, Oriented x3, No Motor/Sensory Deficits, Normal Mood/Affect, Other (left visual field deficit to midline) Allergies: Coded Allergies: No Known Drug Allergies (Unverified , 11/12/17) Discharge Summary Date of Admission Jan 25, 2021 at 03:47 Date of Discharge Discharge Date: Jan 27, 2021 Discharge Time: 10:30 Admission Diagnosis Acute ischemic stroke Discharge Diagnosis Acute ischemic stroke (1) Acute ischemic stroke Status: Acute (2) Bilateral hemianopia Status: Acute (3) Atrial fibrillation with rapid ventricular response Status: Acute (4) Does not have health insurance Status: Acute (5) Nausea and vomiting Status: Acute Clinical Quality Measures Stroke: Date of last known well: Jan 25, 2021 ALEJA MENDENHALL MD Jan 27, 2021 10:28
--- NOTE | 2021-01-27 10:38 | Occupational Therapy Eval ---
OT Evaluation-General/PLF Medical Diagnosis Admission Date Jan 25, 2021 at 03:47 Medical Diagnosis: CVA Onset Date: Jan 25, 2021 Therapy Diagnosis Therapy Diagnosis: Decreased ADL skills Height/Weight Height (Feet): 5 Height (Inches): 9.00 Weight (Pounds): 214 Weight (Ounces): 5.0 Precautions Precautions/Isolations: Aspiration, Fall Prevention, Standard Precautions, Pressure Ulcer Weight Bear Status Weight Bearing Restriction: Weight Bearing/Tolerated Referral Physician: Martin Referral Reason: Activity Tolerance, Self Care, Evaluation/Treatment, Strengthening/ROM Medical History Pertinent Medical History: Atrial Fib, HTN Additional Medical History Hyperglycemia, DM Current History Pt. at home. Began experiencing visual changes. Came to ER. At first, CT unremarkable. Pt. given TPA. Follow up test did show acute/subacute ischemia involving right thalamus, Left Occipital lobe, Right parietal lobe. Patechial hemorrhage noted. Reviewed History: Yes Social History Home: Apartment Current Living Status: Other Family (brother) Entry Into Home: Stairs With Railing Pt. lives in apartment on second level. He states that there are "quite a few" steps to get into front door. ADL-Prior Level of Function SCALE: Activities may be completed with or without assistive devices. 2-Eplgrcigog-swmcjzc completes the activity by him/herself with no assistance from a helper. 5-Set-up or Clean-up Assistance-helper sets up or cleans up; patient completes activity. [place] assists only prior to or following the activity. 4-Supervision or Touching Assistance-helper provides verbal cues and/or touching/steadying and/or contact guard assistance as patient completes activity. Assistance may be provided throughout the activity or intermittently. 3-Partial/Moderate Assistance-helper does LESS THAN HALF the effort. Independence lifts, holds or supports trunk or limbs, but provides less than half the effort. 2-Substantial/Maximal Assistance-helper does MORE THAN HALF the effort. Independence lifts or holds trunk or limbs and provides more than half the effort. 1-Dhrggjrke-kckfoj does ALL the effort. Patient does none of the effort to complete the activity. Or, the assistance of 2 or more helpers is required for the patient to complete the activity. If activity was not attempted, code reason: 7-Patient Refused. 9-Not Applicable-not attempted and the patient did not perform the activity before the current illness, exacerbation or injury. 10-Not Attempted due to Environmental Limitations-(lack of equipment, weather restraints, etc.). 88-Not Attempted due to Medical Conditions or Safety Concerns. ADL PLOF Comments Pt. fully independent with daily tasks. 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 Pt. lives with his brother, who is disabled but can assist per pt. Pt. does not use an assistive device. Self Care: Independent Functional Cognition: Independent DME/Equipment: Tub/Shower Occupation: senior living Drive Self: Yes OT Current Status Subjective No pain reported. Mental Status/Objective Patient Orientation: Person, Place, Time, Situation Current Glasses/Contacts: Yes Hand Dominance: Right Upper Extremity ROM Pt. is able to flex bilateral shoulders to approximately 150 degrees. Does not fully have complete shoulder flexion in bilateral UE, but states that this is "not new." Upper Extremity Coordination Intact Upper Extremity Sensation intact Upper Extremity Strength 3+/5 left UE 4/5 right UE ADL-Treatment Eating (QC): 5 (Per pt. He has finished breakfast tray when OT came in room. OT does get him new Sprite Zero and pt. requires for OT to open top of bottle.) On/Off Footwear (QC): 4 (SBA seated on side of bed to doff/don slipper socks.) Toileting Hygiene (QC): 4 (Pt. reports that he was slightly incontinent of bowel earlier in pants. However, with SBA he transferred to toilet and was able to perform justina cleanse.) Other Treatments Pt. is able to transfer from supine-sit with SBA. OT assessed pt. for deficits following CVA. Pt. does have slightly limited ROM in bilateral shoulders, but reports that this has been ongoing. Pt. reports that he is having difficulty with visual changes, and seeing out of "left side." Upon evaluation, it is noted that pt. is aware of left side, attends to left side, but is unable to see peripherally from midline fully to left side. He has began using cognitive strategies of awareness and turning head to attend to things on his left. Pt. demonstrates significant field cut issues on left. Pt. is able to stand at bedside with SBA. Reports slight light headedness with this. No LOB noted. Pt. is able to sit back down, and lay self back in supine position. Pt. does verbalize concern for PLOF. 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 He needs further assessment and treatment for visual field deficits to assist in returning to full prior level. All needs met in room. Education OT Patient Education: Correct positioning, Modified ADL techniques, Progress toward Goal/Update tx plan, Purpose of tx/functional activities, Reviewed precautions, Rehab process, Transfer techniques Teaching Recipient: Patient Teaching Methods: Demonstration, Discussion Response to Teaching: Verbalize Understanding, Return Demonstration OT Plant General Manager Goals Halfway Goals Time Frame: Feb 10, 2021 Eating (QC): 6 Oral Hygiene (QC): 6 Toileting Hygiene (QC): 6 Shower/Bathe Self (QC): 5 Upper Body Dressing (QC): 6 Lower Body Dressing (QC): 6 On/Off Footwear (QC): 6 Additional Goals: 1-Demonstrate ADL Tasks, 2-Verbalize Understanding, 3-ImproveStrength/Lisa 1=Demonstrate adherence to instructed precautions during ADL tasks. 2=Patient will verbalize/demonstrate understanding of assistive devices/modifications for ADL. 3=Patient will improve strength/tolerance for activity to enable patient to perform ADL's. Pt. will demonstrate increased visual field on left side, and will be set up with appropriate resources and further assessments at discharge. OT Education/Plan Problem List/Assessment Assessment: Decreased Activ Tolerance, Impaired I ADL's, Impaired Self-Care Skills Decreased vision Discharge Recommendations Plan/Recommendations: Continue POC Therapy Discharge Recommendati: Home & Family, Post Acute OT Treatment Plan/Plan of Care Treatment,Training & Education: Yes Patient would benefit from OT for education, treatment and training to promote independence in ADL's, mobility, safety and/or upper extremity function for ADL's. Plan of Care: ADL Retraining, Functional Mobility, Group Exercise/Act as Ind, UE Funct Exercise/Act, Visual/Perceptual Retrain Treatment Duration: Feb 10, 2021 Frequency: 5 times per week Estimated Hrs Per Day: .5 hour per day Agreement: Yes Rehab Potential: Good Time/GCodes Start Time: 09:35 Stop Time: 09:55 Total Time Billed (hr/min): 20 Billed Treatment Time 1, SHIRLEY BOX OT Jan 27, 2021 10:38
[2021-01-27] MEDS ORDERED: metFORMIN 500 MG (GLUCOPHAGE) TAB PO ONE (10:45)
--- NOTE | 2021-01-27 16:50 | Progress Note - Cardiology ---
Cardiology SOAP Progress Note Subjective: No cp or palp or syncope or shortness of breath Has lost vision in the left visual field of both eyes No n/v/d Some gen malaise Objective: I&O/Vital Signs 01/27/21 01/27/21 01/27/21 01/27/21 05:00 06:00 06:43 07:00 Pulse 93 120 114 104 Resp 23 24 24 B/P (MAP) 146/77 (100) 149/72 (97) 144/82 (102) Pulse Ox 97 95 95 O2 Delivery Room Air Room Air Room Air 01/27/21 01/27/21 01/27/21 01/27/21 07:43 07:55 08:00 09:00 Temp 37.3 Pulse 105 114 Resp 22 21 B/P (MAP) 135/72 (93) 123/74 (90) Pulse Ox 97 100 O2 Delivery Room Air Room Air Room Air 01/27/21 01/27/21 10:00 11:08 Pulse 105 Resp 10 B/P (MAP) 142/92 (109) Pulse Ox 97 O2 Delivery Room Air 01/26/21 23:59 Intake Total 625 ml Output Total 850 ml Balance -225 ml Weight (Pounds): 214 Weight (Ounces): 5.0 Weight (Calculated Kilograms): [id number] Constitutional: AAO x 3, well-developed, well-nourished Respiratory: No accessory muscle use; other (good bilat air entry) Cardiovascular: irregularly irregular, S1 and S2, systolic murmur (faint SCARLET at card base) Gastrointestional: No tender; soft; No guarding, No rebound; audible bowel sounds Extremities: No clubbing, No cyanosis, No significant edema Neurologic/Psychiatric: oriented x 3, other (able to move all limbs, report L- sided visual field loss in both eyes) Skin: warm/dry; No cool, No rash on exposed areas, No ulcerations on exposed areas Results/Procedures: Labs Laboratory Tests 01/26/21 20:53: Glucometer 172H 01/27/21 03:18: White Blood Count 7.6, Red Blood Count 4.62, Hemoglobin 13.2L, Hematocrit 39L, Mean Corpuscular Volume 84, Mean Corpuscular Hemoglobin 29, Mean Corpuscular Hemoglobin Concent 34, Red Cell Distribution Width 12.4, Platelet Count 118L, Mean Platelet Volume 11.1, Immature Granulocyte % (Auto) 0, Neutrophils (%) (Auto) 70, Lymphocytes (%) (Auto) 18, Monocytes (%) (Auto) 11, Eosinophils (%) (Auto) 1, Basophils (%) (Auto) 0, Neutrophils # (Auto) 5.3, Lymphocytes # (Auto) 1.4, Monocytes # (Auto) 0.9, Eosinophils # (Auto) 0.0, Basophils # (Auto) 0.0, Immature Granulocyte # (Auto) 0.0, Sodium Level 132L, Potassium Level 4.2, Chloride Level 100, Carbon Dioxide Level 21, Anion Gap 11, Blood Urea Nitrogen 9, Creatinine 0.59L, Estimat Glomerular Filtration Rate > 60, BUN/Creatinine Ratio 15, Glucose Level 278H, Calcium Level 9.1, Phosphorus Level 3.4, Magnesium Level 1.6 01/27/21 10:41: Glucometer 251H Microbiology 01/25/21 MRSA Screen - Final, Complete MRSA not isolated Laboratory Tests 01/26/21 03:30 01/27/21 03:18 A/P: Assessment: Acute CVA multiple infarct on CT and MRI, stroke in evolution. Received TPA in the emergency room. There is some small petechial hemorrhage noted on the MRI but not on subsequent imaging. Managed by primary care team Atrial fibrillation, new onset, rate is better controlled. Continue on diltiazem and monitor [id number] score of 3, yearly risk of stroke without oral anticoagulation is 3.2. Patient needs to be on oral anticoagulation once deemed reasonable by Nausea, no vomiting. Managed by primary care team Diabetes mellitus, poor control, managed by primary care team Plan: * I discussed the case this morning with Dr Ross * Dr Salazar is the primary care physician in this case who has been managing patient's stroke and who should decide if pt can go on oral anticoagulation. I called Dr Salazar and told him that OAC would be needed from a cardiac standpoint because this was a thromboembolic stroke, likely orginating in the left atrium from patient's A Fib. Dr Salazar states that he has investigated th e issue of petechial hemorrhages reported on an MRI and has discussed this with the radiologists who did not feel that this was any hemorrhagic stroke. Subsequent CT head did not show any hemorrhage whatsoever. Dr Salazar says he has started Eliquis. Clinical Quality Measures Stroke: Date of last known well: Jan 25, 2021 BELLA RAMIREZ MD FACP FAC CCDS Jan 27, 2021 16:50
[2021-01-28] MEDS ORDERED: metFORMIN 500 MG (GLUCOPHAGE) TAB PO SCH (07:00)
--- NOTE | 2021-01-28 21:36 | Physician Query Clarification ---
PQ-Link Manifestation-Etiology Admission/Discharge Admission Date: Jan 25, 2021 at 03:47 Discharge Date: Jan 27, 2021 at 11:10 ALEJA Shearer MD The medical record reflects the following clinical scenario: History/Risk Factors: 40 y/o male patient admitted with acute ischemic stroke, received TPA in the emergency room. There is some small petechial hemorrhage noted on the MRI but not on subsequent imaging, atrial fibrillation, new onset, rate is better controlled. Clinical Findings: Petechial hemorrhages reported on an MRI Treatment: IV TPA, diltiazem Question: Can you specify if the Hemorrhage is due to/associated with administration of TPA ? Please document a response in the Progress Note or Discharge Summary. 1. Yes - Hemorrhage is due to/associated with administration of TPA. 2. No - Hemorrhage is not due to/associated with administration of TPA. 3. Other, with explanation of the clinical findings. 4. Clinically undetermined, no explanation for the clinical findings. PHYSICIAN RESPONSE Manifestation due to/assoic: No Please remember a lack of response to the above will prompt a phone page by CDI/Coding staff. In responding to this query, please exercise your independent professional judgment. The purpose of this communication is to more accurately reflect the complexity of your patients condition. The fact that a question is asked does not imply that any particular answer is desired or expected. Thank you for your timely response to this clarification. Requestors name: [ ] Phone # [ ] THIS PHYSICIAN QUERY FORM IS A PERMANENT PART OF THE MEDICAL RECORD JOSE MARIA RODRIGUEZ Jan 28, 2021 21:36 ALEJA MENDENHALL MD Feb 02, 2021 20:17
== END 2021-01-27 11:10 | DRG 63 ==
LOC: EDUNIT# 00:46 → ER 00:48 → ICU 03:47
PROVIDERS: ADMIT Family Medicine; ATTEND Family Medicine
DX: I63.9 Cerebral infarction, unspecified (principal); H53.47 Heteronymous bilateral field defects; R29.703 NIHSS score 3; E11.65 Type 2 diabetes mellitus with hyperglycemia; R11.2 Nausea with vomiting, unspecified; I48.0 Paroxysmal atrial fibrillation; I10 Essential (primary) hypertension; G47.39 Other sleep apnea; I27.20 Pulmonary hypertension, unspecified
CPT/HCPCS: 36415; 70450; 70496; 70498; 70544; 70548; 70551; 71045; 80048; 80053; 80061; 81000; 82962; 83036; 83735; 84100; 84484; 85025; 85379; 85610; 85730; 87081; 93005; 93041; 93306; 96365; 96367

== ENCOUNTER 2021-01-27 10:31 | Inpatient (IN) | payer SELFPAY ==
[~2021-01-27] VITALS: Ht 170 cm; Wt 78.0 kg
[~2021-01-27 10:31] MED LIST changes: +ASPI-1238 PO; +ATOR80TA76 PO
[2021-01-27] MEDS ORDERED: MELATONIN 3 MG TABLET PO PRN (12:00)
[2021-01-27] MEDS ORDERED: ACETAMINOPHEN 325 MG TABLET PO PRN ×2 (12:00→12:30)
[2021-01-27] MEDS ORDERED: CATHETER FLUSH 10 ML SYR IV PRN (12:00)
[2021-01-27] MEDS ORDERED: LACTULOSE SYRUP 10GM/15ML (ENULOSE) 30ML UDC PO PRN (12:00)
[2021-01-27] MEDS ORDERED: DOCUSATE SODIUM 100 MG (COLACE) CAP PO PRN (12:00)
[2021-01-27] MEDS ORDERED: diphenhydrAMINE 25 MG TAB (BENADRYL) PO PRN (12:00)
[2021-01-27] MEDS ORDERED: CALCIUM CARBONATE 500 MG (TUMS) TAB.CHEW PO PRN (12:00)
[2021-01-27] MEDS ORDERED: LOPERAMIDE 2 MG (IMODIUM) TABLET PO PRN (12:00)
[2021-01-27] MEDS ORDERED: MILK OF MAGNESIA 400 MG/5 ML 30 ML UDC PO PRN (12:00)
[2021-01-27] MEDS ORDERED: ONDANSETRON 4 MG (ZOFRAN) ORAL DISSOLVE TAB PO PRN (12:00)
[2021-01-27] MEDS ORDERED: BISACODYL 10 MG SUPP (DULCOLAX) PR PRN (12:00)
[2021-01-27] MEDS ORDERED: MECLIZINE 25 MG (ANTIVERT) TAB PO PRN (12:00)
[2021-01-27] MEDS ORDERED: guaiFENesin/CODEINE (ROBITUSSIN AC) 10ML UDC PO PRN (12:00)
[2021-01-27] MEDS ORDERED: ENOXAPARIN 40 MG/0.4 ML (LOVENOX) SYR SC SCH (12:00)
[2021-01-27] MEDS ORDERED: ONDANSETRON 4 MG/2 ML (SDV) Z0FRAN IVP PRN (12:00)
[2021-01-27] MEDS ORDERED: ALPRAZolam 0.25 MG (XANAX) TAB PO PRN (12:00)
[2021-01-27] MEDS ORDERED: FLEET ENEMA ADULT 1 EA BTL PR PRN (12:00)
--- NOTE | 2021-01-27 12:00 | Physical Therapy Evaluation ---
PT Evaluation-General Medical Diagnosis Admission Date Jan 27, 2021 at 11:00 Medical Diagnosis: CVA Onset Date: Jan 25, 2021 Therapy Diagnosis Therapy Diagnosis: impaired mobility Height/Weight Height (Feet): 5 Height (Inches): 9.00 Weight (Pounds): 214 Weight (Ounces): 5.0 Precautions Precautions/Isolations: Aspiration, Fall Prevention, Standard Precautions, Pressure Ulcer Referral Physician: Keren Manzo DO Reason for Referral: Evaluation/Treatment Medical History Pertinent Medical History: HTN Additional Medical History sleep apnea Reviewed History: Yes Social History Home: Apartment Current Living Status: Alone Entry Into Home: Stairs With Railing PT Steps Into Home: 12 Prior Prior Level of Function SCALE: Activities may be completed with or without assistive devices. 4-Nvspcujafg-ohajwru completes the activity by him/herself with no assistance from a helper. 5-Set-up or Clean-up Assistance-helper sets up or cleans up; patient completes activity. [place] assists only prior to or following the activity. 4-Supervision or Touching Assistance-helper provides verbal cues and/or touching/steadying and/or contact guard assistance as patient completes activity. Assistance may be provided throughout the activity or intermittently. 3-Partial/Moderate Assistance-helper does LESS THAN HALF the effort. [place] lifts, holds or supports trunk or limbs, but provides less than half the effort. 2-Substantial/Maximal Assistance-helper does MORE THAN HALF the effort. [place] lifts or holds trunk or limbs and provides more than half the effort. 6-Trnxmufue-jcgzdf does ALL the effort. Patient does none of the effort to c omplete the activity. Or, the assistance of 2 or more helpers is required for the patient to complete the activity. If activity was not attempted, code reason: 7-Patient Refused. 9-Not Applicable-not attempted and the patient did not perform the activity before the current illness, exacerbation or injury. 10-Not Attempted due to Environmental Limitations-(lack of equipment, weather restraints, etc.). 88-Not Attempted due to Medical Conditions or Safety Concerns. Bed Mobility: 6 Transfers (B,C,W/C): 6 Gait: 6 Stairs: 6 Indoor Mobility (Ambulation): Independent Stairs: Independent PT Evaluation-Current Subjective Pt laying in bed pre tx. Pt consented to PT. Pt complains of nausea and dizziness during ambulation. Pt had no pain complaints, but noted chief complaint of impaired vision L. Pt/Family Goals to be independent at home Objective Patient Orientation: Person, Place, Situation ROM/Strength ROM Lower Extremities WNL Strength Lower Extremities LLE (hip flexion 3+/5, knee flexion 4/5, knee extension 4/5, dorsiflexion 4+/5), RLE (hip flexion 3+/5, knee flexion 4/5, knee extension 4/5, dorsiflexion 4+/5) Neuromuscular (Tone, Coordination, Reflexes) Patient has good tracking on the right side, fair on the left he tends to lose track due to his visual impairments but is still able to attempt to track, doesn't seem to have neglect, peripheral vision is of course impaired on the left side Sensory Hearing: Functional Sensation Right Lower Extremit: Intact Sensation Left Lower Extremity: Intact Transfers Roll Left & Right (QC): 6 Sit to Lying (QC): 6 Lying to Sitting/Side of Bed(Q: 6 Sit to Stand (QC): 4 Chair/Pmx-jk-Ftwzy Xfer(QC): 4 Toilet Transfer (QC): 4 Car Transfer (QC): 4 Patient performs bed mobility and supine <-> sit with independence, sit <-> stand and transfers with SBA, car transfer SBA. Occasional cues for obstacles or safety. Gait Does the Patient Walk?: Yes Mode of Locomotion: Walk Anticipated Mode of Locomotion: Walk Walk 10 feet (QC): 4 Walk 50 ft with 2 Turns(QC): 4 Walk 150 ft (QC): 4 Walking 10ft/uneven surface-QC: 4 Distance: 200', 120', 300' Gait Assistive Device: None Comments/Gait Description Patient can ambulate 300' without an assistive device with SBA (including 50' with at least 2 turns of 90 degrees and 10' over an uneven surface). Patient needs occasional cues for obstacles due to his impaired vision. Wheelchair Training Does the Pt Use a Wheelchair?: No Wheel 50 ft with 2 turns (QC): 9 Wheel 150 ft (QC): 9 Stairs #of Steps: 4 1 Step (curb) (QC): 4 4 Steps (QC): 88 12 Steps (QC): 88 Patient went up and down 4 steps using 2 handrails with CGA, cues for foot placement, he did stumble once but was able to catch himself Balance Sitting Static: Normal Sitting Dynamic: Normal Standing Static: Good Standing Dynamic: Good Picking up an Object (QC): 4 Treatment Hip abd/add with GTB, Hip flexion, SAQ, ankle pumps 2x 15 ; Bilateral SLS 2x 30 sec; bicep curls, vertical press 1x 15 Assessment/Needs Patient has impaired mobility, patient in bed post tx with nurse call, phone, tray, all needs met. Patient needs somebody with him when up due to his impaired vision. Rehab Potential: Fair PT Short Term Goals Short Term Goals Time Frame: Feb 03, 2021 Roll Left & Right: 6 Sit to lyin Lying to sitting on side of be: 6 Sit to stand: 5 Chair/yhk-fo-ojlun transfer: 5 Walk 10 feet: 5 Walk 50 feet with two turns: 5 Walk 150 feet: 5 PT Truck Caterer Goals Truck Caterer Goals PT Jail Goals Time Frame: Feb 17, 2021 Roll Left & Right (QC): 6 Sit to Lying (QC): 6 Lying-Sitting on Side/Bed(QC): 6 Sit to Stand (QC): 6 Chair/Aro-qq-Fhkux Xfer(QC): 6 Toilet Transfer (QC): 6 Car Transfer (QC): 6 Does the Patient Walk: Yes Walk 10 feet (QC): 6 Walk 50ft with 2 Turns (QC): 6 Walk 150 ft (QC): 6 Walking 10ft on Uneven Surface: 6 1 Step (curb) (QC): 6 4 Steps (QC): 6 12 Steps (QC): 6 Picking up an Object (QC): 6 Wheel 50 feet with 2 turns (QC: 9 Wheel 150 feet: 9 PT Plan Problem List Problem List: Activity Tolerance, Functional Strength, Safety, Balance, Gait, Transfer, ROM Treatment/Plan Treatment Plan: Continue Plan of Care Treatment Plan: Education, Functional Activity Lisa, Functional Strength, Group Therapy, Gait, Safety, Therapeutic Exercise, Transfers Treatment Duration: Feb 17, 2021 Frequency: At least 5 of 7 days/Wk (IRF) Estimated Hrs Per Day: 1.5 hours per day Patient and/or Family Agrees t: Yes Safety Risks/Education Patient Education: Gait Training, Transfer Techniques, Steps, Correct Positioning, Safety Issues Teaching Recipient: Patient Teaching Methods: Demonstration, Discussion Response to Teaching: Reinforcement Needed Discharge Recommendations Plan Patient will perform bed mobility and transfer training, balance and endurance training, functional strengthening, stair training, gait training, and education, to improve functional mobility and independence at home. Therapy Discharge Recommendati: Home & Family, Post Acute PT Time/GCodes Time In: 1100 Time Out: 1200 Total Billed Treatment Time: 50 Total Billed Treatment 1 visit EVM 10' EX 40' (only charge 2 units) PT eval from [id number], OT eval from [id number], co-treat from [id number], PT from [id number] KATHY BRAND PT Jan 27, 2021 12:00
--- NOTE | 2021-01-27 12:01 | PM&R Post Admission Assessment ---
PM&R HP Date of Visit: Jan 27, 2021 Time of Visit: 12:00 History of Present Illness CC: CVA HPI: This is a 40yoWM who has a h/o DM and has no physician who presented to the ER with loss of vision while playing a video game. W/u ensued and patient was ultimately given tPa and dx with new onset AF w/RVR. Patient has since remained with residual of stroke with bilateral hemianopsia. His DM is OOC with HGa1C of 10.4. BP remained stable. No dysphagia and no voiding issues. Patient does not smoke. He lives with his brother and is not and has no children. He works part-time. Past Wcdkjie-Xplerh-Nilamx Hx Past Med/Social Hx: Reviewed Nursing Past Med/Soc Hx, Reviewed and Corrections made Patient Social History Marrital Status: single Employed/Student: employed Alcohol Use: Denies Use Smoking Status: Never a Smoker 2nd Hand Smoke Exposure: No Recent Hopitalizations: No Immunizations Up To Date Tetanus Booster (TDap): Unknown Seasonal Allergies Seasonal Allergies: No Past Medical History Respiratory: Sleep Apnea Currently Using CPAP: Yes Cardiac: Atrial Fibrillation, Hypertension Neurological: Stroke Endocrine: Diabetes, Non-Insulin dep History of Blood Disorders: No PM&R Allergy/Meds/Data Review Allergies Coded Allergies: No Known Drug Allergies (Unverified , 11/12/17) Home Medications Scheduled Aspirin (Aspirin EC), 81 MG PO DAILY Atorvastatin Calcium (Atorvastatin Calcium), 80 MG PO DAILY Discontinued Medications Amlodipine Besylate (Amlodipine Besylate), 5 MG PO DAILY Discontinued Reason: No Longer Taking Ciprofloxacin HCl (Cipro), 500 MG PO BID Discontinued Reason: No Longer Taking Hydrocodone Bit/Acetaminophen (Lortab 7.5 Mg Tablet), 1-2 EACH PO Q4H Discontinued Reason: No Longer Taking Insulin NPH Hum/Reg Insulin Hm (Novolin 70-30 100 Unit/ml Vial), 24 UNIT SQ BID Discontinued Reason: No Longer Taking Losartan Potassium (Losartan Potassium), 50 MG PO DAILY Discontinued Reason: No Longer Taking Metronidazole (Flagyl), 500 MG PO BID Discontinued Reason: No Longer Taking Current Medications Current Medications Reviewed Review of Systems Constitutional: see HPI, malaise, weakness EENTM: blurred vision, double vision, vision loss Respiratory: no symptoms reported Cardiovascular: no symptoms reported Gastrointestinal: no symptoms reported Genitourinary: no symptoms reported Musculoskeletal: no symptoms reported Skin: no symptoms reported Psychiatric/Neurological: No Symptoms Reported All Other Systems Reviewed Negative Unless Noted: Yes Physical Exam Physical Exam Vital Signs Capillary Refill : Height, Weight, BMI Height: 5'9.00" Weight: 214lbs. 5.0oz. [id number]; 27.23 BMI Method:Stated General Appearance: No Apparent Distress, WD/WN Eyes: Bilateral Eye Normal Inspection, Bilateral Eye PERRL HEENT: PERRL/EOMI, Normal ENT Inspection, Pharynx Normal, Other (bilateral hemianopsia) Neck: Full Range of Motion, Normal Inspection, Non Tender, Supple, Carotid Bruit Respiratory: Chest Non Tender, Lungs Clear, Normal Breath Sounds, No Accessory Muscle Use, No Respiratory Distress Cardiovascular: No Edema, No Gallop, No JVD, No Murmur, Normal Peripheral Pulses, Irregularly Irregular, Tachycardia Gastrointestinal: Normal Bowel Sounds, No Organomegaly, No Pulsatile Mass, Non Tender, Soft Back: Normal Inspection, No CVA Tenderness, No Vertebral Tenderness Extremity: Normal Capillary Refill, Normal Inspection, Normal Range of Motion, Non Tender, No Calf Tenderness, No Pedal Edema Neurologic/Psychiatric: Alert, Oriented x3, No Motor/Sensory Deficits, Normal Mood/Affect, Motor Weakness (generalized 4/5) Skin: Normal Color, Warm/Dry Lymphatic: No Adenopathy PM&R Medical Assessment & Plan REHAB/MEDICAL ASSESSMENT AND PLAN: REHAB IMPAIRMENT GROUP: CVA ETIOLOGIC DIAGNOSIS: CVA The comorbidities that impact the patients function and/or functional outcome by: DM OOC, deficits in social support, vision loss REHAB PLAN: The patient is being admitted to our comprehensive inpatient rehabilitation facility and can tolerate the intensity of service consisting of at least: 180 minutes of therapy a day, 5 out of 7 days a week Rehab treatment will consist of: PT OT will focus on regaining function while using AD in order to regain enough independence to return to live at home The patient/family has a good understanding of our discharge process and will benefit from an interdisciplinary inpatient rehabilitation program. The patient has potential to make improvement and is in need of at least two of the following multidisciplinary therapies including but not limited to physical, occupational, speech, and prosthetics and orthotics. Additionally the patient will need services from respiratory, nutritional services, wound care, psychology, etc. (Customize this to each patient). Given the patients complex condition and risk of further medical complications, rehabilitation services cannot be safely or effectively provided at a lower level of care such as a long-term facility. BARRIERS TO DISCHARGE: Vision loss ESTIMATED LOS: 7 days DISPOSITION: Home RELEVANT CHANGES SINCE PREADMISSION SCREENING: I have compared the patients medical and functional status at the time of the preadmission screening and there are: no changes PROGNOSIS: Good REHABILITATION GOALS: 1. PT OT will focus on regaining function while using AD in order to regain enough independence to return to live at home All the above goals were reviewed with the patient and he/she is in agreement. By signing this document, I acknowledge that I have personally performed a full physical examination on this patient within 24 hours of admission to this inpatient rehabilitation facility and have determined the patient to be able to tolerate the above course of treatment at an intensive level for a reasonable period of time. I will be completing a detailed individualized Plan of Care for this patient by day #4 of the patients stay based upon the Preadmission Screen, the Post-Admission Evaluation, and the therapy evaluations. Admission Dx/Comorbidities: (1) CVA (cerebral vascular accident) Status: Acute ICD Codes: I63.9 - Cerebral infarction, unspecified (2) Atrial fibrillation with rapid ventricular response Status: Acute ICD Codes: I48.91 - Unspecified atrial fibrillation (3) Bilateral hemianopia Status: Acute ICD Codes: H53.47 - Heteronymous bilateral field defects (4) Insulin dependent diabetes mellitus ICD Codes: E11.9 - Type 2 diabetes mellitus without complications; Z79.4 - [facility] (current) use of insulin (5) Essential (primary) hypertension ICD Codes: I10 - Essential (primary) hypertension Assessment/Plan Assessment and Plan Assess & Plan/Chief Complaint Assessment: s/p acute ischemic stroke with residual bilateral hemianopsia s/p tPa Atrial fibrillation with RVR consulted Cardiology T2DM with hyperglycemia hga1c 10.9 Lack of insurance Plan: OAC Rate control AF Appreciate Cardiology DM management BUBBA CANADA DO Jan 27, 2021 12:01
[2021-01-27] MEDS: inSUlin ASPART (NovoLOG) 1 UNIT/0.01 ML (CHARGE PER UNIT) SC SCH ×3 (12:19→21:13)
[2021-01-27 12:30] VITALS: BP 140/67
[2021-01-27] MEDS ORDERED: FLU QUADRIvalent (3YOA+) 60 mcg/0.5 ml 2020-21 (AFLURIA) IM ONE (13:00)
--- NOTE | 2021-01-27 14:35 | Occupational Therapy Eval ---
OT Evaluation-General/PLF Medical Diagnosis Admission Date Jan 27, 2021 at 11:00 Medical Diagnosis: CVA Onset Date: Jan 25, 2021 Therapy Diagnosis Therapy Diagnosis: Decreased ADL skills Height/Weight Height (Feet): 5 Height (Inches): 9.00 Weight (Pounds): 214 Weight (Ounces): 5.0 Precautions Precautions/Isolations: Aspiration, Fall Prevention, Standard Precautions, Pressure Ulcer Weight Bear Status Weight Bearing Restriction: Weight Bearing/Tolerated Referral Physician: Dr. Salazar Referral Reason: Activity Tolerance, Self Care, Evaluation/Treatment, Strengthening/ROM Medical History Pertinent Medical History: Atrial Fib, HTN Additional Medical History Hyperglycemia, DM Current History pt. at home and began having visual issues. Came to ER. CT at first was negative. Second test showed patechial hemorrhage. Pt. had acute/subacute ischemia involving right thalamus, left occipital lobe, right parietal lobe. Pt. given TPA prior to second testing. Reviewed History: Yes Social History Home: Apartment Current Living Status: Other Family (Brother) Entry Into Home: Stairs With Railing Steps Into Home: 12 Pt. lives in second floor apartment. ADL-Prior Level of Function SCALE: Activities may be completed with or without assistive devices. 5-Xkuobmuhav-nqzpwbv completes the activity by him/herself with no assistance from a helper. 5-Set-up or Clean-up Assistance-helper sets up or cleans up; patient completes activity. [place] assists only prior to or following the activity. 4-Supervision or Touching Assistance-helper provides verbal cues and/or touching/steadying and/or contact guard assistance as patient completes activity. Assistance may be provided throughout the activity or intermittently. 3-Partial/Moderate Assistance-helper does LESS THAN HALF the effort. [place] lifts, holds or supports trunk or limbs, but provides less than half the effort. 2-Substantial/Maximal Assistance-helper does MORE THAN HALF the effort. [place] lifts or holds trunk or limbs and provides more than half the effort. 9-Yaricpjym-gmusdr does ALL the effort. Patient does none of the effort to complete the activity. Or, the assistance of 2 or more helpers is required for the patient to complete the activity. If activity was not attempted, code reason: 7-Patient Refused. 9-Not Applicable-not attempted and the patient did not perform the activity before the current illness, exacerbation or injury. 10-Not Attempted due to Environmental Limitations-(lack of equipment, weather restraints, etc.). 88-Not Attempted due to Medical Conditions or Safety Concerns. ADL PLOF Comments Pt. states that he was fully independent with daily tasks. 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 He does not use an assistive device. He lives with his brother who is disabled, but can assist him if needed. Self Care: Independent Functional Cognition: Independent DME/Equipment: Tub/Shower Occupation: [employer] Self: Yes OT Current Status Subjective Pt. does not report pain, but does report nausea during first and second treatment session, and has had nausea patch. Mental Status/Objective Patient Orientation: Person, Place, Time, Situation Attachments: IV Current Glasses/Contacts: Yes Hand Dominance: Left Upper Extremity ROM Pt. has some limited ROM in bilateral shoulders, but states that this was previous to CVA. He is able to exhibit approximately 150 degrees actively. Pt. has full AROM in all other joints. Upper Extremity Coordination Intact Upper Extremity Strength Right- 4/5 throughout Left- 3+/5 throughout ADL-Treatment Eating (QC): 5 (Set up) Oral Hygiene (QC): 7 Shower/Bathe Self (QC): 4 (SBA/CGA in stance during showering.) Upper Body Dressing (QC): 88 (Street clothing not available.) Lower Body Dressing (QC): 4 (SBA to doff scrub pants.) On/Off Footwear (QC): 4 Toileting Hygiene (QC): 4 Other Treatments Pt. is able to ambulate with CGA without assistive device. Pt. seen several times this date. At first session, OT/PT co-treated due to need of skilled assist x 2 for visual assessment during mobility. OT assessed vision while PT assessed mobility. At second treatment session, pt. states that he is slightly shaky and not feeling well. Nursing aware. Telemetry is checked and BP/HR is checked several times during treatment. First time it is 140/82, HR- 118. Second time it is 144/80 and HR is 109. Pt. eats and states that he feels better. Nursing reports pt. had insulin before eating earlier. Pt. agrees to shower. Please see QC above. Note that pt. has significant field cut on left side. He is aware of left side and attends to left side. However, his deficit is from midline throughout full visual field on left side. OT will complete full visual assessment at later time. After shower and ADLs, pt. ambulates back to bed with CGA. All needs met. Education OT Patient Education: Correct positioning, Modified ADL techniques, Progress toward Goal/Update tx plan, Purpose of tx/functional activities, Reviewed precautions, Rehab process, Transfer techniques Teaching Recipient: Patient Teaching Methods: Demonstration, Discussion Response to Teaching: Verbalize Understanding, Return Demonstration OT Epoxy Specialist Goals Epoxy Specialist Goals Time Frame: Feb 10, 2021 Eating (QC): 6 Oral Hygiene (QC): 6 Toileting Hygiene (QC): 6 Shower/Bathe Self (QC): 5 Upper Body Dressing (QC): 6 Lower Body Dressing (QC): 6 On/Off Footwear (QC): 6 Additional Goals: 1-Demonstrate ADL Tasks, 2-Verbalize Understanding, 3- ImproveStrength/Lisa 1=Demonstrate adherence to instructed precautions during ADL tasks. 2=Patient will verbalize/demonstrate understanding of assistive devices/modifications for ADL. 3=Patient will improve strength/tolerance for activity to enable patient to perform ADL's. Pt. will demonstrate increased vision to left side during functional task. OT Education/Plan Problem List/Assessment Assessment: Decreased Activ Tolerance, Impaired I ADL's, Impaired Self-Care Skills, Visual-Perceptual Deficit Discharge Recommendations Plan/Recommendations: Continue POC Therapy Discharge Recommendati: Home & Family, Post Acute OT Treatment Plan/Plan of Care Treatment,Training & Education: Yes Patient would benefit from OT for education, treatment and training to promote independence in ADL's, mobility, safety and/or upper extremity function for ADL's. Plan of Care: ADL Retraining, Functional Mobility, Group Exercise/Act as Ind, UE Funct Exercise/Act, Visual/Perceptual Retrain Treatment Duration: Feb 10, 2021 Frequency: At least 5 of 7 days/Wk (IRF) Estimated Hrs Per Day: 1.5 hours per day Agreement: Yes Rehab Potential: Good Time/GCodes Start Time: 11:10 Stop Time: 14:20 Total Time Billed (hr/min): 90 Billed Treatment Time 2635-4954 1, EVM x 10minutes 2780-3009 FA x [id number] with PT. Please see above note for designated roles. 4740-0980 1, ADL x 70minutes SHIRLEY FELIZ OT Jan 27, 2021 14:35
--- NOTE | 2021-01-27 14:47 | ST Cognitive Linguistic Eval ---
Speech Evaluation-General Medical Diagnosis CVA Onset Date: Jan 27, 2021 Therapy Diagnosis Therapy Diagnosis: Cognitive-communication Referral Referring Physician: Dr. Manzo Medical History Pertinent Medical History: HTN Reviewed History: Yes Social History Current Living Status: Alone Speech PLF-Current Status Prior Level of Function Patient lives alone where he is independent for his daily needs. Subjective Patient was pleasant and cooperative with the cognitive assessment. Language Eval: Auditory Comprehends Simple Yes/No Ques: Functional Indent/Objects Multiple Hall: Functional Ident/Pics in Multiple Hall: Functional Follows 1-Step Commands: Functional Follows Complex Directions: Functional Follows General Conversations: Functional Language Eval: Verbal Language Completes Spontaneous Greeting: Functional Produces Auto, Serial Info: Functional Imitates Simple Words/Phrases: Functional Word Finding: Functional Requests Basic Needs: Functional States Basic Personal Info: Functional Expresses Complex Ideas: Functional Cognitive Patient Orientation Patient is alert and oriented x3 Objective Cognitive Domain Attention: WNL Memory: WNL Problem Solving: Functional Executive Functions: WNL Visuospatial Skills: WNL Composite Severity Rating: WNL Clock Drawing Severity Rating: WNL Objective Formal/Standardized Tests [facility] Mental Status ([facility]) Results 29/30, within normal range of function Oral Motor/Speech Production Within Normal Limits Impression The patient was admitted to the hospital via ED with a CVA. Patient was admitted to the ARU following ICU and acute admissions. Patient was assessed at bedside with the [facility] with a score of 29/30 obtained. The patient's score is within normal range of function and does not indicate cognitive therapy is needed. The patient's speech is clear and he isn't having difficulty with swallowing. No further ST services are warranted at this time. Speech Patient Assess Expression of Ideas/Wants: Expression (4) Understanding Verbal Content: Understands (4) Brief Interview-Mental Status: Yes Repetition of Three Words: Three (3) Temporal Orientation: Year: Correct (3) Temporal Orientation: Month: Accurate within 5 days(2) Temporal Orientation: Day: Correct (1) Recall : Wear to say "Sock": Yes, no cue required (2) Recall : Color: Yes, after cueing (1) Recall : Bed: Yes, no cue required (2) Memory/Recall Ability: Current season, That he or she is in a hsp/hsp unit Speech-Plan Patient/Family Goals Patient/Family Goals: Patient plans on returning to his home upon discharge. Treatment Plan Speech Therapy Treatment Plan: Discontinue ST Treatment Duration: Jan 27, 2021 Frequency: 1 time per week Estimated Hrs Per Day: .25 hour per day Rehab Potential: Good Barriers to Learning: None identified Pt/Family Agrees to Plan: Yes Safety Risks/Education Teaching Recipient: Patient Teaching Methods: Discussion Response to Teaching: Verbalize Understanding Education Topics Provided: Safety within his room, communication of wants/needs Time Speech Therapy Time In: 14:30 Speech Therapy Time Out: 14:45 Total Billed Time: 15 Billed Treatment Time 1, SPSNDCOMP SONALI Napier Jan 27, 2021 14:47
--- NOTE | 2021-01-27 15:27 | Physical Therapy Daily Note ---
PT Daily Note-Current Subjective Pt asleep in bed upon arrival. Pt difficult to awaken. Pt agrees to PT. Mental Status Patient Orientation: Person, Place, Situation Attachments: IV Transfers SCALE: Activities may be completed with or without assistive devices. 6-Qlhjoxwjqf-eimfycu completes the activity by him/herself with no assistance from a helper. 5-Set-up or Clean-up Assistance-helper sets up or cleans up; patient completes activity. [place] assists only prior to or following the activity. 4-Supervision or Touching Assistance-helper provides verbal cues and/or touching/steadying and/or contact guard assistance as patient completes activity. Assistance may be provided throughout the activity or intermittently. 3-Partial/Moderate Assistance-helper does LESS THAN HALF the effort. [place] lifts, holds or supports trunk or limbs, but provides less than half the effort. 2-Substantial/Maximal Assistance-helper does MORE THAN HALF the effort. [place] lifts or holds trunk or limbs and provides more than half the effort. 1-Sdrabyxhr-wixjgp does ALL the effort. Patient does none of the effort to complete the activity. Or, the assistance of 2 or more helpers is required for the patient to complete the activity. If activity was not attempted, code reason: 7-Patient Refused. 9-Not Applicable-not attempted and the patient did not perform the activity before the current illness, exacerbation or injury. 10-Not Attempted due to Environmental Limitations-(lack of equipment, weather restraints, etc.). 88-Not Attempted due to Medical Conditions or Safety Concerns. Weight Bearing Full Weight Bearing Full Weight Bearing Exercises Supine Ex: Ankle pumps, Quad Set, Glut sets, Heel Slides, Straight leg raise, Hip abd/add Supine Reps: 15 Treatments Pt completes Supine Ex in bed. Pt resting Supine with all needs met, call light in hand. Assessment Current Status: Fair Progress Pt very fatigued by this point in afternoon. PT Shelter Goals Shelter Goals Roll Left & Right (QC): 6 Sit to Lying (QC): 6 Lying-Sitting on Side/Bed(QC): 6 Sit to Stand (QC): 6 Chair/Nxf-zn-Xdtwg Xfer(QC): 6 Toilet Transfer (QC): 6 Car Transfer (QC): 6 Does the Patient Walk: Yes Walk 10 feet (QC): 6 Walk 50ft with 2 Turns (QC): 6 Walk 150 ft (QC): 6 Walking 10ft on Uneven Surface: 6 1 Step (curb) (QC): 6 4 Steps (QC): 6 12 Steps (QC): 6 Picking up an Object (QC): 6 Does the Pt use WC or Scooter?: No Wheel 50 feet with 2 turns (QC: 9 Type: N/A Wheel 150 feet: 9 Type: N/A PT Plan Problem List Problem List: Activity Tolerance, Safety Treatment/Plan Treatment Plan: Continue Plan of Care Treatment Duration: Feb 17, 2021 Frequency: At least 5 of 7 days/Wk (IRF) Estimated Hrs Per Day: 1.5 hours per day Patient and/or Family Agrees t: Yes Safety Risks/Education Patient Education: Correct Positioning, Safety Issues Teaching Recipient: Patient Teaching Methods: Discussion Response to Teaching: Verbalize Understanding Time/GCodes Time In: 1515 Time Out: 1540 Total Billed Treatment Time: 25 Total Billed Treatment 1, EX x2 (25m) ACOSTA SCHWARZ SATELLITE TV INSTALLER Jan 27, 2021 15:27
[2021-01-27 17:16] VITALS: BP 128/72
[2021-01-27] MEDS: SENNA W/DOCUSATE (SENOKOT S) TABLET PO SCH (21:10)
[2021-01-27] MEDS: APIXABAN 5 MG (ELIQUIS) TABLET PO SCH (21:10)
[2021-01-27] MEDS: polyethylene glycoL POWDER 17 GM (MIRALAX) PACK PO SCH (21:11)
[2021-01-28 05:29] VITALS: BP 120/86
[2021-01-28 05:53] LABS: BASOPHILS % (AUTO) 0 % (0-10); EOSINOPHILS # (AUTO) 0.1 10^3/uL (0.0-0.3); EOSINOPHILS % (AUTO) 1 % (0-10); HEMATOCRIT 37 % (40-54); HEMOGLOBIN 12.5 g/dL (13.3-17.7); LYMPHOCYTES # (AUTO) 1.7 10^3/uL (1.0-4.0); LYMPHOCYTES % (AUTO) 27 % (12-44); MEAN CORPUSCULAR HEMOGLOBIN 28 pg (25-34); MEAN CORPUSCULAR HGB CONC 34 g/dL (32-36); MEAN CORPUSCULAR VOLUME 84 fL (80-99); MONOCYTES # (AUTO) 0.7 10^3/uL (0.0-1.0); MONOCYTES % (AUTO) 12 % (0-12); NEUTROPHILS # (AUTO) 3.7 10^3/uL (1.8-7.8); NEUTROPHILS % (AUTO) 59 % (42-75); PLATELET COUNT 117 10^3/uL (130-400); WHITE BLOOD COUNT 6.2 10^3/uL (4.3-11.0)
--- NOTE | 2021-01-28 06:04 | Individualized Plan of Care ---
Individualized Plan of Care Rehab Nursing IPOC Order Admission Date Jan 27, 2021 at 11:00 Current Orders Orders Admission Arrival Bed Request (01/27/21 11:43) Code/Resuscitation (01/27/21 11:55) Accucheck Achs ACHS (01/27/21 11:55) Incentive Spirometry (Nursing) Q2H (01/27/21 11:55) Sequential Compression Device .admit (01/27/21 11:55) Telemetry (01/27/21 11:55) Weight Bearing As Tolerated (01/27/21 11:55) Cho 60g/M 1snack (16-1999 Raúl) (01/27/21 Lunch) Acetaminophen Tablet/Caplet (Tylenol T (01/27/21 12:00) Aspirin Enteric Coated Tablet (Ecotrin T (01/28/21 09:00) Atorvastatin Tablet (Lipitor Tablet) (01/28/21 09:00) Meclizine Tablet (Antivert Tablet) (01/27/21 12:00) Magnesium Hydroxide Oral Susp (Mom Oral (01/27/21 12:00) Ondansetron Injection (Zofran Injectio (01/27/21 12:00) Sodium Chloride Flush (Catheter Flush Sy (01/27/21 12:00) Diltiazem Tablet (Cardizem Tablet) (01/27/21 12:00) Insulin Aspart (Novolog) (Novolog (Charg (01/27/21 12:00) Insulin Determir (Per Unit) (Levemir (Pe (01/28/21 09:00) Metformin Tablet (Glucophage Tablet) (01/28/21 07:00) Consult Cardiology (01/27/21 11:55) Telemetry Nursing Assessment ( (01/27/21 11:55) Admission Order(Inpt,Obs,Sdc) (01/27/21 11:55) Vital Signs: Per Unit Policy ( (01/27/21 11:55) Chris Jones (01/27/21 11:55) Sequential Compression Device .admit (01/27/21 11:55) Assistant Professor Of Sociology-Inpt Rehab Con (01/27/21 11:55) Rehab Nursing Orders-Ipoc (01/27/21 11:55) Physical Therapy Rehab Orders (01/27/21 11:55) Occupational Therapy Rehab Ord (01/27/21 11:55) Speech Therapy Rehab Orders (01/27/21 11:55) Cbc With Automated Diff (01/28/21 06:00) Comprehensive Metabolic Panel (01/28/21 06:00) Intake & Output 06,14,22 (01/27/21 11:55) Precautions (Aru) (01/27/21 11:55) Weekly Weight WEEK (01/27/21 11:55) Rehab-Intensity Of Therapy (01/27/21 11:55) Initiate Admission Nursing Pro .admission (01/27/21 11:55) Alprazolam Tablet (Xanax Tablet) (01/27/21 12:00) Calcium Carbonate Chew Tablet (Antacid C (01/27/21 12:00) Diphenhydramine Tablet (Benadryl Tablet) (01/27/21 12:00) Docusate Sodium Capsule (Colace Capsule) (01/27/21 12:00) Bisacodyl Suppository (Dulcolax Supposit (01/27/21 12:00) Lactulose Oral Solution (Enulose Oral So (01/27/21 12:00) Na Phos/Na Biphos Enema (Fleet Enema Todd (01/27/21 12:00) Guaifenesin/Codeine Syrup (Robitussin Ac (01/27/21 12:00) Loperamide Tablet (Imodium Tablet) (01/27/21 12:00) Enoxaparin Injection (Lovenox Injection) (01/27/21 12:00) Melatonin Tablet (Melatonin Tablet) (01/27/21 12:00) Polyethylene Glycol Powder Pkt (Miralax (01/27/21 21:00) Ondansetron Oral Dissolve Tab (Zofran (01/27/21 12:00) Senna S Tablet (Senokot S Tablet) (01/27/21 21:00) Initiate Admission Nursing Pro .admission (01/27/21 11:55) Apixaban Tablet (Eliquis Tablet) (01/27/21 21:00) Acetaminophen Tablet/Caplet (Tylenol T (01/27/21 12:30) Flu Quad (3yoa+) (Afluria Quad 2 (01/27/21 13:00) Patient Visit (01/27/21 ) Speech Sound Lang Comp (01/27/21 ) Patient Visit (01/27/21 ) Pt Eval Moderate Complexity (01/27/21 ) Exercise Therap, Ea 15 Min (01/27/21 ) Patient Visit (01/27/21 ) Exercise Therap, Ea 15 Min (01/27/21 ) Insulin Aspart (Novolog) (Novolog (Charg (01/27/21 21:00) Insulin Determir (Per Unit) (Levemir (Pe (01/28/21 09:00) Exercise Therap, Ea 15 Min (01/27/21 ) Patient Visit (01/28/21 ) Gait Training, Ea 15 Min (01/28/21 ) Exercise Therap, Ea 15 Min (01/28/21 ) Ex Neuromuscular, Ea 15 Min (01/28/21 ) Patient Visit (01/28/21 ) Gait Training, Ea 15 Min (01/28/21 ) Ex Neuromuscular, Ea 15 Min (01/28/21 ) Rehab Nursing Orders: Ongoing Assess. of Cognitive Status, Ongoing Assess. of Function Status, Bladder Management, Bladder Scan, Bladder Training, Bowel Management, Bowel Training, Disease Management & Educaiton, DVT Prophylaxis, Fall Prevention, Fluid/Electrolyte/Nutrition Mgmt, Infection Prevention, Medication Management & Education, Management of Risks & Complications, Management of Skin Intergrity, Nutrition Management, Pain Management, Patient/Family Support, Safety Management Intensity of Therapy to be met Patient to be seen: Min.3h per day/5 of 7d PT IPOC Problem List: Activity Tolerance, Functional Strength, Safety, Balance, Gait, Transfer, ROM Treatment Plan: Continue Plan of Care Education, Functional Activity Lias, Functional Strength, Group Therapy, Gait, Safety, Therapeutic Exercise, Transfers Treatment Duration: Feb 17, 2021 Frequency: At least 5 of 7 days/Wk (IRF) Estimated Hrs Per Day: 1.5 hours per day OT IPOC Problems: Decreased Activ Tolerance, Impaired I ADL's, Impaired Self-Care Skills, Visual-Perceptual Deficit OT Treatment, Training and Edu: Yes Plan of Care: ADL Retraining, Functional Mobility, Group Exercise/Act as Ind, UE Funct Exercise/Act, Visual/Perceptual Retrain Treatment Duration: Feb 10, 2021 Frequency: At least 5 of 7 days/Wk (IRF) Estimated Hrs Per Day: 1.[address] IPOC Speech Therapy Treatment Plan: Discontinue ST Treatment Duration: Jan 27, 2021 Frequency: 1 time per week Estimated Hrs Per Day: .25 hour per day Assistant Professor Of Sociology/Case Mgmt Assistant Professor Of Sociology/Case Managemen: Discharge Planning Dietitian/Tow Motor Driver Dietitian/Tow Motor Driver to monitor nutritional status and make changes and/or recommendations as needed and work with speech pathology on dietary upgrades as the occur. Physician IPOC Medical Issues being managed closely and that require the 24 hour availability of a physician: Recent CVA with elevated glucose and vision loss will require close monitoring for decompensation and at risk for extension Medical Issues: Bowel/Bladder Function, DVT Prophylaxis, Falls Precautions, Fluid/Electrolyte/Nutrition Balance, Infection Protection, Pain Management Brief Synthesis of Preadmission Screen, Post-Admission Evaluation, and Therapy Evaluations: PT OT will help patient navigate with vision loss and help prevent falls and increase ADL independence with use of AD Medical Prognosis: Good Anticipated Length of Stay: 7 days BUBBA CANADA DO Jan 28, 2021 06:04
--- NOTE | 2021-01-28 06:04 | PM&R Progress Note ---
Subjective HPI/CC On Admission Date Seen by Provider: Jan 28, 2021 Time Seen by Provider: 08:15 Subjective/Events-last exam 01/28/21: Patient doing well Vision loss is frustrating Glucose 202 this am AF noted BM yesterday Left eye flashes Review of Systems General: Fatigue, Malaise HEENT: Visual Changes Neurological: Weakness, Incoordination Objective Exam Vital Signs Vital Signs Date Time Temp Pulse Resp B/P (MAP) Pulse Ox O2 Delivery O2 Flow Rate FiO2 01/29/21 00:45 87 01/28/21 20:30 Room Air 01/28/21 15:55 36.6 16 106/68 (81) 95 Capillary Refill : General Appearance: No Apparent Distress, WD/WN HEENT: PERRL/EOMI, Normal ENT Inspection, Pharynx Normal, Other (bilateral hemianopsia) Neck: Full Range of Motion, Normal Inspection, Non Tender, Supple, Carotid Bruit Respiratory: Chest Non Tender, Lungs Clear, Normal Breath Sounds, No Accessory Muscle Use, No Respiratory Distress Cardiovascular: No Edema, No Gallop, No JVD, No Murmur, Normal Peripheral Pulses, Irregularly Irregular, Tachycardia Gastrointestinal: Normal Bowel Sounds, No Organomegaly, No Pulsatile Mass, Non Tender, Soft Back: Normal Inspection, No CVA Tenderness, No Vertebral Tenderness Extremity: Normal Capillary Refill, Normal Inspection, Normal Range of Motion, Non Tender, No Calf Tenderness, No Pedal Edema Neurologic/Psychiatric: Alert, Oriented x3, No Motor/Sensory Deficits, Normal Mood/Affect, Motor Weakness (generalized 4/5) Skin: Normal Color, Warm/Dry Lymphatic: No Adenopathy Results/Procedures Lab Patient resulted labs reviewed. FIM Transfers Therapy Code Descriptions/Definitions Functional [place] Measure: 0=Not Assessed/NA 4=Minimal Assistance 1=Total Assistance 5=Supervision or Setup 2=Maximal Assistance 6=Modified [place] 3=Moderate Assistance 7=Complete IndependenceSCALE: Activities may be completed with or without assistive devices. 9-Vqxnskibop-kuvaqyl completes the activity by him/herself with no assistance from a helper. 5-Set-up or Clean-up Assistance-helper sets up or cleans up; patient completes activity. [place] assists only prior to or following the activity. 4-Supervision or Touching Assistance-helper provides verbal cues and/or touching/steadying and/or contact guard assistance as patient completes activity. Assistance may be provided throughout the activity or intermittently. 3-Partial/Moderate Assistance-helper does LESS THAN HALF the effort. [place] lifts, holds or supports trunk or limbs, but provides less than half the effort. 2-Substantial/Maximal Assistance-helper does MORE THAN HALF the effort. [place] lifts or holds trunk or limbs and provides more than half the effort. 8-Pkcxrmcwd-nktzet does ALL the effort. Patient does none of the effort to complete the activity. Or, the assistance of 2 or more helpers is required for the patient to complete the activity. If activity was not attempted, code reason: 7-Patient Refused. 9-Not Applicable-not attempted and the patient did not perform the activity before the current illness, exacerbation or injury. 10-Not Attempted due to Environmental Limitations-(lack of equipment, weather restraints, etc.). 88-Not Attempted due to Medical Conditions or Safety Concerns. Roll Left to Right (QC): 6 Sit to Lying (QC): 6 Sit to Stand (QC): 4 Chair/Moh-ch-Hgewj Xfer(QC): 4 Car Transfer (QC): 4 Gait Training Does the Patient Walk?: Yes Walk 10 feet (QC): 4 Walk 50 ft with 2 Turns(QC): 4 Walk 150 ft (QC): 4 Walking 10ft/uneven surface-QC: 4 Gait Assistive Device: None Wheelchair Training Does the Pt Use a Wheelchair?: No Wheel 50 ft with 2 turns (QC): 9 Wheel 150 ft (QC): 9 Stair Training #of Steps: 4 1 Step (curb) (QC): 4 4 Steps (QC): 88 12 Steps (QC): 88 Balance Picking up an Object (QC): 4 ADL-Treatment Eating (QC): 5 (Set up) Oral Hygiene (QC): 7 Shower/Bathe Self (QC): 4 (SBA/CGA in stance during showering.) Upper Body Dressing (QC): 88 (Street clothing not available.) Lower Body Dressing (QC): 4 (SBA to doff scrub pants.) On/Off Footwear (QC): 4 Toileting Hygiene (QC): 4 Assessment/Plan Assessment and Plan Assess & Plan/Chief Complaint Assessment: s/p acute ischemic stroke with residual bilateral hemianopsia s/p tPa Atrial fibrillation with RVR consulted Cardiology T2DM with hyperglycemia hga1c 10.9 Lack of insurance Plan: OAC Rate control AF Appreciate Cardiology DM management 01/28/21: Monitor glucose IRF protocol (1) CVA (cerebral vascular accident) Status: Acute (2) Atrial fibrillation with rapid ventricular response Status: Acute (3) Bilateral hemianopia Status: Acute (4) Insulin dependent diabetes mellitus (5) Essential (primary) hypertension BUBBA CANADA DO Jan 28, 2021 06:04
[2021-01-28 06:15] LABS: ALANINE AMINOTRANSFERASE 26 U/L (0-55); ALBUMIN 3.1 GM/DL (3.2-4.5); ALKALINE PHOSPHATASE 129 U/L (40-136); BUN/CREATININE RATIO 21; CALCIUM 8.6 MG/DL (8.5-10.1); CARBON DIOXIDE 22 MMOL/L (21-32); CHLORIDE 106 MMOL/L (98-107); CREATININE SERUM 0.52 MG/DL (0.60-1.30); GFR ESTIMATED > 60; GLUCOSE 202 MG/DL (70-105); POTASSIUM 3.9 MMOL/L (3.6-5.0); SODIUM 137 MMOL/L (135-145); TOTAL PROTEIN 5.6 GM/DL (6.4-8.2)
[2021-01-28] MEDS: metFORMIN 500 MG (GLUCOPHAGE) TAB PO SCH (07:04)
[2021-01-28] MEDS: inSUlin ASPART (NovoLOG) 1 UNIT/0.01 ML (CHARGE PER UNIT) SC SCH ×7 (07:05→20:47)
[2021-01-28] MEDS: ASPIRIN E.C. 81 MG (ECOTRIN) TAB PO SCH (08:22)
[2021-01-28] MEDS: APIXABAN 5 MG (ELIQUIS) TABLET PO SCH ×2 (08:22→20:48)
[2021-01-28] MEDS: polyethylene glycoL POWDER 17 GM (MIRALAX) PACK PO SCH ×2 (08:22→19:38)
[2021-01-28] MEDS: SENNA W/DOCUSATE (SENOKOT S) TABLET PO SCH ×2 (08:23→20:42)
--- NOTE | 2021-01-28 11:57 | Physical Therapy Daily Note ---
PT Daily Note-Current Subjective Patient seated in chair prior to tx. Patient agreed to therapy, and noted no noticeable pain, but was tired due to lack of sleep the night before. Appearance Patient left seated in chair in room post tx, with tray nearby and call button in reach. Mental Status Patient Orientation: Person, Place, Time, Situation Transfers SCALE: Activities may be completed with or without assistive devices. 0-Onkjvosydk-tgrsyks completes the activity by him/herself with no assistance from a helper. 5-Set-up or Clean-up Assistance-helper sets up or cleans up; patient completes activity. [place] assists only prior to or following the activity. 4-Supervision or Touching Assistance-helper provides verbal cues and/or touching/steadying and/or contact guard assistance as patient completes activity. Assistance may be provided throughout the activity or intermittently. 3-Partial/Moderate Assistance-helper does LESS THAN HALF the effort. [place] lifts, holds or supports trunk or limbs, but provides less than half the effort. 2-Substantial/Maximal Assistance-helper does MORE THAN HALF the effort. [place] lifts or holds trunk or limbs and provides more than half the effort. 2-Yjoviagzs-igujvt does ALL the effort. Patient does none of the effort to com plete the activity. Or, the assistance of 2 or more helpers is required for the patient to complete the activity. If activity was not attempted, code reason: 7-Patient Refused. 9-Not Applicable-not attempted and the patient did not perform the activity before the current illness, exacerbation or injury. 10-Not Attempted due to Environmental Limitations-(lack of equipment, weather restraints, etc.). 88-Not Attempted due to Medical Conditions or Safety Concerns. Sit to Stand (QC): 4 Chair/Yaa-js-Eubbb Xfer(QC): 4 SBA Weight Bearing Full Weight Bearing Full Weight Bearing Gait Training Does the Patient Walk?: Yes Distance: 800' ; 100' Walk 10 feet (QC): 4 Walk 50 ft with 2 Turns(QC): 4 Walk 150 ft (QC): 4 Gait Persons Needed: 1 Gait Assistive Device: None Patient continues to walk with WBOS, and notes difficulty with balance due to PMH of deconditioning he says from an infection several years ago. Patient was able to ambulate down long hallway without the need for rest any rest break. Exercises Standing: Hip Abduction (Bilateral 2# cuff weights on ankles), Hamstring curls (Bilateral 2# cuff weights on ankles), Heel/toe raises (Bilateral 2# cuff weights on ankles), 3 way Ex=Flex, Abd, Ext (Hip extension with bilateral 2# cuff weights), Stepping over objects (Mini cones 10 reps), Unilateral stance (30 seconds 1x each) Standing Reps: 15 Patient was able to step over mini cones without faltering balance. Patient is unable to perform SLS bilaterally without parallel bar support >50% of the time. Patient tolerated sean toss while standing on airex pad well, and demonstrated good coordination with ball catching, with little difficulty when ball was tossed on left side. NuStep Minutes: 15 NuStep Workload: 4 Treatments Balance, LE strengthening, dynamic stability, endurance, Gait training Assessment Current Status: Fair Progress Patient continues to demonstrate increased endurance with gait, but will benefit from further balance training. PT Short Term Goals Short Term Goals Time Frame: Feb 03, 2021 Roll Left & Right: 6 Sit to lyin Lying to sitting on side of be: 6 Sit to stand: 5 Chair/auh-uy-bucrb transfer: 5 Walk 10 feet: 5 Walk 50 feet with two turns: 5 Walk 150 feet: 5 PT Shank Sorter Goals Shank Sorter Goals PT Shank Sorter Goals Time Frame: Feb 17, 2021 Roll Left & Right (QC): 6 Sit to Lying (QC): 6 Lying-Sitting on Side/Bed(QC): 6 Sit to Stand (QC): 6 Chair/Hdv-de-Uwjqx Xfer(QC): 6 Toilet Transfer (QC): 6 Car Transfer (QC): 6 Does the Patient Walk: Yes Walk 10 feet (QC): 6 Walk 50ft with 2 Turns (QC): 6 Walk 150 ft (QC): 6 Walking 10ft on Uneven Surface: 6 1 Step (curb) (QC): 6 4 Steps (QC): 6 12 Steps (QC): 6 Picking up an Object (QC): 6 Wheel 50 feet with 2 turns (QC: 9 Wheel 150 feet: 9 PT Plan Problem List Problem List: Activity Tolerance, Functional Strength, Safety, Balance, Gait, Transfer, ROM Treatment/Plan Treatment Plan: Continue Plan of Care Treatment Plan: Education, Functional Activity Lisa, Functional Strength, Group Therapy, Gait, Safety, Therapeutic Exercise, Transfers Treatment Duration: Feb 17, 2021 Frequency: At least 5 of 7 days/Wk (IRF) Estimated Hrs Per Day: 1.5 hours per day Patient and/or Family Agrees t: Yes Safety Risks/Education Patient Education: Gait Training, Transfer Techniques, Correct Positioning, Safety Issues Teaching Recipient: Patient Teaching Methods: Demonstration, Discussion Response to Teaching: Reinforcement Needed Time/GCodes Time In: 1100 Time Out: 1200 Total Billed Treatment Time: 60 Total Billed Treatment 1 visit: GT: 15 Ther Ex: 15 NM 30' KATHY BRAND PT Jan 28, 2021 11:57
--- NOTE | 2021-01-28 12:06 | Occupational Ther Daily Note ---
OT Current Status-Daily Note Subjective No pain reported. Pt. states that he is feeling better from yesterday. Appearance Pt. up in chair in room. Agrees to work with OT. Mental Status/Objective Patient Orientation: Person, Place, Time, Situation ADL-Treatment Therapy Code Descriptions/Definitions Functional [place] Measure: 0=Not Assessed/NA 4=Minimal Assistance 1=Total Assistance 5=Supervision or Setup 2=Maximal Assistance 6=Modified [place] 3=Moderate Assistance 7=Complete IndependenceSCALE: Activities may be completed with or without assistive devices. 1-Zivfkimbtb-deaefna completes the activity by him/herself with no assistance from a helper. 5-Set-up or Clean-up Assistance-helper sets up or cleans up; patient completes activity. [place] assists only prior to or following the activity. 4-Supervision or Touching Assistance-helper provides verbal cues and/or touching/steadying and/or contact guard assistance as patient completes activity. Assistance may be provided throughout the activity or intermittently. 3-Partial/Moderate Assistance-helper does LESS THAN HALF the effort. [place] lifts, holds or supports trunk or limbs, but provides less than half the effort. 2-Substantial/Maximal Assistance-helper does MORE THAN HALF the effort. [place] lifts or holds trunk or limbs and provides more than half the effort. 8-Bgvrgicyw-emxzbu does ALL the effort. Patient does none of the effort to complete the activity. Or, the assistance of 2 or more helpers is required for the patient to complete the activity. If activity was not attempted, code reason: 7-Patient Refused. 9-Not Applicable-not attempted and the patient did not perform the activity before the current illness, exacerbation or injury. 10-Not Attempted due to Environmental Limitations-(lack of equipment, weather restraints, etc.). 88-Not Attempted due to Medical Conditions or Safety Concerns. Shower/Bathe Self (QC): 7 Upper Body Dressing (QC): 10 (Street clothing not present yet. Pt's brother is supposed to bring.) Lower Body Dressing (QC): 10 Other Treatment Pt. up in chair. Declines showering but agrees to work with OT. Pt. stood with CGA and ambulated with CGA to therapy gym. Pt. does not use an assistive device. OT completed visual assessment with pt., called the Brain Injury Battery Assessment for Adults. This test is for an overall view of deficits related to visual changes from brain injury or stroke. It is used to demonstrate an approximate level of function to better serve pt. in their t herapeutic needs. It should not be used to determine specific medical information without consult from eye physician specialist. Pt. is recommended to follow up with eye care physician at discharge. Pt. plans to do so. Pt. wears glasses for distance and declines wearing them at this time. At evaluation, pt demonstrated the following... visual acuity right eye-20/125 visual acuity left eye- 20/100 visual acuity overall- 20/100 Reading acuity- 20/40 Contrast sensitivity of 5% Upper visual field loss across both planes Hemianopsia in left visual field, from midline through left plane Pt. indicates that with both eyes he has noticeable difficulty with vision. When looking to left he begins having double vision that is minor. With one eye patched, he is able to fluidly scan with eyes and does not see double. Pt. educated about possible patching if he feels this affects him greatly. At this time he does not want to do that. Pt. is educated about utilizing strategies for left sided scanning and awareness. Pt. seems to already be doing this, and does in fact turn his head to look to left at whole area, such as his table or food tray. Therapy will continue to address visual needs to increase all independence, as well as modify his environment if needed for return home. Education OT Patient Education: Correct positioning, Modified ADL techniques, Progress toward Goal/Update tx plan, Purpose of tx/functional activities, Reviewed precautions, Rehab process, Transfer techniques Teaching Recipient: Patient Teaching Methods: Demonstration, Discussion Response to Teaching: Verbalize Understanding, Return Demonstration OT Playground Aide Goals Playground Aide Goals Time Frame: Feb 10, 2021 Eating (QC): 6 Oral Hygiene (QC): 6 Toileting Hygiene (QC): 6 Shower/Bathe Self (QC): 5 Upper Body Dressing (QC): 6 Lower Body Dressing (QC): 6 On/Off Footwear (QC): 6 Additional Goals: 1-Demonstrate ADL Tasks, 2-Verbalize Understanding, 3- ImproveStrength/Lisa 1=Demonstrate adherence to instructed precautions during ADL tasks. 2=Patient will verbalize/demonstrate understanding of assistive devices/modifi cations for ADL. 3=Patient will improve strength/tolerance for activity to enable patient to perform ADL's. OT Education/Plan Problem List/Assessment Assessment: Decreased Activ Tolerance, Impaired I ADL's, Impaired Self-Care Skills, Visual-Perceptual Deficit Discharge Recommendations Plan/Recommendations: Continue POC Therapy Discharge Recommendati: Home & Family Treatment Plan/Plan of Care Treatment,Training & Education: Yes Patient would benefit from OT for education, treatment and training to promote independence in ADL's, mobility, safety and/or upper extremity function for ADL's. Plan of Care: ADL Retraining, Functional Mobility, Group Exercise/Act as Ind, UE Funct Exercise/Act, Visual/Perceptual Retrain Treatment Duration: Feb 10, 2021 Frequency: At least 5 of 7 days/Wk (IRF) Estimated Hrs Per Day: 1.5 hours per day Agreement: Yes Rehab Potential: Fair Time/GCodes Start Time: 10:00 Stop Time: 11:00 Total Time Billed (hr/min): 60 Billed Treatment Time 1, FA x 4 SHIRLEY FELIZ OT Jan 28, 2021 12:06
--- NOTE | 2021-01-28 13:59 | Occupational Ther Daily Note ---
OT Current Status-Daily Note Subjective No pain reported. Appearance Pt. up in chair. He has just finished eating. Agrees to work with OT. Mental Status/Objective Patient Orientation: Person, Place, Time, Situation ADL-Treatment Therapy Code Descriptions/Definitions Functional [place] Measure: 0=Not Assessed/NA 4=Minimal Assistance 1=Total Assistance 5=Supervision or Setup 2=Maximal Assistance 6=Modified [place] 3=Moderate Assistance 7=Complete IndependenceSCALE: Activities may be completed with or without assistive devices. 6-Aldonwjhzt-xnxynfg completes the activity by him/herself with no assistance from a helper. 5-Set-up or Clean-up Assistance-helper sets up or cleans up; patient completes activity. [place] assists only prior to or following the activity. 4-Supervision or Touching Assistance-helper provides verbal cues and/or touching/steadying and/or contact guard assistance as patient completes activity. Assistance may be provided throughout the activity or intermittently. 3-Partial/Moderate Assistance-helper does LESS THAN HALF the effort. [place] lifts, holds or supports trunk or limbs, but provides less than half the effort. 2-Substantial/Maximal Assistance-helper does MORE THAN HALF the effort. [place] lifts or holds trunk or limbs and provides more than half the effort. 4-Mlqwhxcmi-eyturi does ALL the effort. Patient does none of the effort to complete the activity. Or, the assistance of 2 or more helpers is required for the patient to complete the activity. If activity was not attempted, code reason: 7-Patient Refused. 9-Not Applicable-not attempted and the patient did not perform the activity before the current illness, exacerbation or injury. 10-Not Attempted due to Environmental Limitations-(lack of equipment, weather restraints, etc.). 88-Not Attempted due to Medical Conditions or Safety Concerns. Eating (QC): 6 Upper Body Dressing (QC): 5 Lower Body Dressing (QC): 4 On/Off Footwear: 4 Other Treatment Pt's brother has brought him clothing. He agrees to put it on. Pt. is able to don shirt after set up, and underwear/shorts with SBA for standing balance. Pt. is able to change slipper socks to regular socks and don tennis shoes with SBA. Pt. ambulates with CGA to therapy gym. Participates in fine motor/visual task. OT places multiple playing cards on pt's left side on table. Pt. is able to scan and turn head to left to find all cards. Pt. is able to also sort them in appropriate suits, in appropriate order. He verbalizes that he just turns his head slightly to the left to visualize with right side. He states that he does not notice a difference in fine motor coordination. OT pulls up activity on computer, as pt. uses his computer at home. Pt. had difficulty manipulating laptop, as he uses a mouse and regular computer at home. However, he verbalizes that he does not have difficulty with reading text on screen, or seeing the whole word. He does verbalize that he is aware of head rotation to see better. Pt. ambulates back to room with CGA. All needs met up in chair. Education OT Patient Education: Correct positioning, Modified ADL techniques, Progress toward Goal/Update tx plan, Purpose of tx/functional activities, Reviewed pre cautions, Rehab process, Transfer techniques Teaching Recipient: Patient Teaching Methods: Demonstration, Discussion Response to Teaching: Verbalize Understanding, Return Demonstration OT [facility]ci Goals Fci Goals Time Frame: Feb 10, 2021 Eating (QC): 6 Oral Hygiene (QC): 6 Toileting Hygiene (QC): 6 Shower/Bathe Self (QC): 5 Upper Body Dressing (QC): 6 Lower Body Dressing (QC): 6 On/Off Footwear (QC): 6 Additional Goals: 1-Demonstrate ADL Tasks, 2-Verbalize Understanding, 3- ImproveStrength/Lisa 1=Demonstrate adherence to instructed precautions during ADL tasks. 2=Patient will verbalize/demonstrate understanding of assistive devices/modifications for ADL. 3=Patient will improve strength/tolerance for activity to enable patient to perform ADL's. OT Education/Plan Problem List/Assessment Assessment: Decreased Activ Tolerance Discharge Recommendations Plan/Recommendations: Continue POC Treatment Plan/Plan of Care Treatment,Training & Education: Yes Patient would benefit from OT for education, treatment and training to promote independence in ADL's, mobility, safety and/or upper extremity function for ADL's. Plan of Care: ADL Retraining, Functional Mobility, Group Exercise/Act as Ind, UE Funct Exercise/Act, Visual/Perceptual Retrain Treatment Duration: Feb 10, 2021 Frequency: At least 5 of 7 days/Wk (IRF) Estimated Hrs Per Day: 1.5 hours per day Agreement: Yes Rehab Potential: Fair Time/GCodes Start Time: 13:20 Stop Time: 13:50 Total Time Billed (hr/min): 30 Billed Treatment Time 1, ADL x 15minutes, FA x 15minutes SHIRLEY FELIZ OT Jan 28, 2021 13:59
--- NOTE | 2021-01-28 15:26 | Physical Therapy Daily Note ---
PT Daily Note-Current Subjective Pt seated upright in chair pre tx. Patient consented to therapy, and denied pain complaints. Appearance Patient seated upright in chair post tx. Call button and table tray placed within reach. Mental Status Patient Orientation: Person, Place, Time, Normal For Age Transfers SCALE: Activities may be completed with or without assistive devices. 5-Jcngplzdxk-nxsroob completes the activity by him/herself with no assistance from a helper. 5-Set-up or Clean-up Assistance-helper sets up or cleans up; patient completes activity. [place] assists only prior to or following the activity. 4-Supervision or Touching Assistance-helper provides verbal cues and/or touching/steadying and/or contact guard assistance as patient completes activity . Assistance may be provided throughout the activity or intermittently. 3-Partial/Moderate Assistance-helper does LESS THAN HALF the effort. [place] lifts, holds or supports trunk or limbs, but provides less than half the effort. 2-Substantial/Maximal Assistance-helper does MORE THAN HALF the effort. [place] lifts or holds trunk or limbs and provides more than half the effort. 6-Gqhtobien-oajway does ALL the effort. Patient does none of the effort to complete the activity. Or, the assistance of 2 or more helpers is required for the patient to complete the activity. If activity was not attempted, code reason: 7-Patient Refused. 9-Not Applicable-not attempted and the patient did not perform the activity before the current illness, exacerbation or injury. 10-Not Attempted due to Environmental Limitations-(lack of equipment, weather restraints, etc.). 88-Not Attempted due to Medical Conditions or Safety Concerns. Sit to Stand (QC): 6 Patient able to sit <> stand without any difficulty. Weight Bearing Full Weight Bearing Full Weight Bearing Gait Training Does the Patient Walk?: Yes Distance: 200' x2 Walk 10 feet (QC): 4 Walk 50 ft with 2 Turns(QC): 4 Walk 150 ft (QC): 4 Gait Persons Needed: 1 SBA utilized; Patient demonstrated steady gait, but continues to hesitate slightly during gait pattern with doorways and people on the L side. Patient pushed 3 doors open on his own without difficulty. Stair Training #of Steps: 6 1 Step (curb) (QC): 4 4 Steps (QC): 4 Patient noted he had "bad knees" from previous weight 3 years prior, and did not have a good or bad knee to assist with smooth stepping. Patient noted he has to navigate several steps to access apartment. SBA utilized. Neuromuscular Progressed patient to stepping over tall cones and big blue bolster; 20 reps. Patient was steady with exercise; demonstrated excessive knee flexion bilaterally to clear cone, but continued to have stability with balance. Added Soccer Ball Kicking, 2x 20 reps. Patient alternated kicking ball that was rolled to him. Patient maintained balance with required weight shift, and utilized 1 rest break in between sets. Treatments Gait training, endurance, visual tracking, balance, dynamic stability Assessment Current Status: Good Progress Patient continues to demonstrate stability with balance and gait. PT Short Term Goals Short Term Goals Time Frame: Feb 03, 2021 Roll Left & Right: 6 Sit to lyin Lying to sitting on side of be: 6 Sit to stand: 5 Chair/liv-bv-onehi transfer: 5 Walk 10 feet: 5 Walk 50 feet with two turns: 5 Walk 150 feet: 5 PT Half-Way Goals Application Security Specialist Goals PT Half-Way Goals Time Frame: Feb 17, 2021 Roll Left & Right (QC): 6 Sit to Lying (QC): 6 Lying-Sitting on Side/Bed(QC): 6 Sit to Stand (QC): 6 Chair/Wpr-sa-Auudc Xfer(QC): 6 Toilet Transfer (QC): 6 Car Transfer (QC): 6 Does the Patient Walk: Yes Walk 10 feet (QC): 6 Walk 50ft with 2 Turns (QC): 6 Walk 150 ft (QC): 6 Walking 10ft on Uneven Surface: 6 1 Step (curb) (QC): 6 4 Steps (QC): 6 12 Steps (QC): 6 Picking up an Object (QC): 6 Wheel 50 feet with 2 turns (QC: 9 Wheel 150 feet: 9 PT Plan Problem List Problem List: Activity Tolerance, Functional Strength, Safety, Balance, Gait, Transfer, ROM Treatment/Plan Treatment Plan: Continue Plan of Care Treatment Plan: Education, Functional Activity Lisa, Functional Strength, Group Therapy, Gait, Safety, Therapeutic Exercise, Transfers Treatment Duration: Feb 17, 2021 Frequency: At least 5 of 7 days/Wk (IRF) Estimated Hrs Per Day: 1.5 hours per day Patient and/or Family Agrees t: Yes Safety Risks/Education Patient Education: Gait Training, Steps, Correct Positioning, Safety Issues Teaching Recipient: Patient Teaching Methods: Demonstration, Discussion Response to Teaching: Reinforcement Needed Time/GCodes Time In: 1430 Time Out: 1500 Total Billed Treatment Time: 30 Total Billed Treatment 1 visit: GT: 15' NM: 15' CASSIE ARAGON PT Jan 28, 2021 15:26
[2021-01-28 15:55] VITALS: BP 106/68
--- NOTE | 2021-01-28 16:59 | Progress Note - Cardiology ---
Cardiology SOAP Progress Note Subjective: No shortness of breath No cp or palp or syncope No n/v/d Gen malaise and weakness L-sided vision loss in both eyes Objective: I&O/Vital Signs 01/28/21 01/28/21 01/28/21 01/28/21 05:29 06:32 08:00 12:16 Temp 37.0 Pulse 92 102 102 Resp 18 B/P (MAP) 120/86 (97) Pulse Ox 97 O2 Delivery Room Air Room Air 01/28/21 15:55 Temp 36.6 Pulse 81 Resp 16 B/P (MAP) 106/68 (81) Pulse Ox 95 01/28/21 00:00 Intake Total 1200 ml Output Total 1000 ml Balance 200 ml Weight (Pounds): 214 Weight (Ounces): 5.0 Weight (Calculated Kilograms): 97.836410 Constitutional: AAO x 3, well-developed, well-nourished Respiratory: No accessory muscle use; other (good bilateral air entry) Cardiovascular: regular rate-rhythm, S1 and S2, systolic murmur (soft SCARLET at card basee) Gastrointestional: No tender; soft; No guarding, No rebound; audible bowel sounds Extremities: No clubbing, No cyanosis, No significant edema Neurologic/Psychiatric: oriented x 3, other (Bilateral, left-sided vision loss, moves all limbs) Skin: warm/dry; No cool, No rash on exposed areas, No ulcerations on exposed areas Results/Procedures: Labs Laboratory Tests 01/27/21 21:10: Glucometer 188H 01/28/21 05:15: White Blood Count 6.2, Red Blood Count 4.40, Hemoglobin 12.5L, Hematocrit 37L, Mean Corpuscular Volume 84, Mean Corpuscular Hemoglobin 28, Mean Corpuscular Hemoglobin Concent 34, Red Cell Distribution Width 12.4, Platelet Count 117L, Mean Platelet Volume 12.0, Immature Granulocyte % (Auto) 0, Neutrophils (%) (Auto) 59, Lymphocytes (%) (Auto) 27, Monocytes (%) (Auto) 12, Eosinophils (%) (Auto) 1, Basophils (%) (Auto) 0, Neutrophils # (Auto) 3.7, Lymphocytes # (Auto) 1.7, Monocytes # (Auto) 0.7, Eosinophils # (Auto) 0.1, Basophils # (Auto) 0.0, Immature Granulocyte # (Auto) 0.0, Sodium Level 137, Potassium Level 3.9, Chloride Level 106, Carbon Dioxide Level 22, Anion Gap 9, Blood Urea Nitrogen 11, Creatinine 0.52L, Estimat Glomerular Filtration Rate > 60, BUN/Creatinine Ratio 21, Glucose Level 202H, Calcium Level 8.6, Corrected Calcium 9.3, Total Bilirubin 1.0, Aspartate Amino Transf (AST/SGOT) 24, Alanine Aminotransferase (ALT/SGPT) 26, Alkaline Phosphatase 129, Total Protein 5.6L, Albumin 3.1L 01/28/21 10:55: Glucometer 153H 01/28/21 15:25: Glucometer 141H Laboratory Tests 01/28/21 05:15 A/P: Assessment: Acute CVA; multiple infarct on CT and MR. Received TPA in the emergency room on 01-25-21. Some small petechial hemorrhage reported on the MRI but not on subsequent imaging. Managed by primary care team. Primary care team started Eliquis on 01/27/21 Atrial fibrillation, new onset, rate is currently controlled Diabetes mellitus, poor control, managed by primary care team Plan: * Continue rate control * Primary care team to continue stroke prophylaxis if deemed safe from the standpoint of recent stroke * Monitor labs EBLLA RAMIREZ MD [facility] Jan 28, 2021 16:59
[2021-01-29 05:35] VITALS: BP 118/60
--- NOTE | 2021-01-29 05:36 | PM&R Progress Note ---
Subjective HPI/CC On Admission Date Seen by Provider: Jan 29, 2021 Time Seen by Provider: 11:00 Subjective/Events-last exam 01/29/21: Patient doing well Sugars reviewed No pain reported 01/28/21: Patient doing well Vision loss is frustrating Glucose 202 this am AF noted BM yesterday Left eye flashes Review of Systems General: Fatigue, Malaise Neurological: Weakness Objective Exam Vital Signs Vital Signs Date Time Temp Pulse Resp B/P (MAP) Pulse Ox O2 Delivery O2 Flow Rate FiO2 01/30/21 08:39 Room Air 01/30/21 07:00 98 01/30/21 05:22 36.6 18 138/74 (95) 97 Capillary Refill : General Appearance: No Apparent Distress, WD/WN HEENT: PERRL/EOMI, Normal ENT Inspection, Pharynx Normal, Other (bilateral hemianopsia) Neck: Full Range of Motion, Normal Inspection, Non Tender, Supple, Carotid Bruit Respiratory: Chest Non Tender, Lungs Clear, Normal Breath Sounds, No Accessory Muscle Use, No Respiratory Distress Cardiovascular: No Edema, No Gallop, No JVD, No Murmur, Normal Peripheral Pulses, Irregularly Irregular, Tachycardia Gastrointestinal: Normal Bowel Sounds, No Organomegaly, No Pulsatile Mass, Non Tender, Soft Back: Normal Inspection, No CVA Tenderness, No Vertebral Tenderness Extremity: Normal Capillary Refill, Normal Inspection, Normal Range of Motion, Non Tender, No Calf Tenderness, No Pedal Edema Neurologic/Psychiatric: Alert, Oriented x3, No Motor/Sensory Deficits, Normal Mood/Affect, Motor Weakness (generalized 4/5) Skin: Normal Color, Warm/Dry Lymphatic: No Adenopathy Results/Procedures Lab Patient resulted labs reviewed. FIM Transfers Therapy Code Descriptions/Definitions Functional [place] Measure: 0=Not Assessed/NA 4=Minimal Assistance 1=Total Assistance 5=Supervision or Setup 2=Maximal Assistance 6=Modified [place] 3=Moderate Assistance 7=Complete IndependenceSCALE: Activities may be completed with or without assistive devices. 6-Eclopchfez-lojfqdd completes the activity by him/herself with no assistance from a helper. 5-Set-up or Clean-up Assistance-helper sets up or cleans up; patient completes activity. [place] assists only prior to or following the activity. 4-Supervision or Touching Assistance-helper provides verbal cues and/or touching/steadying and/or contact guard assistance as patient completes activity. Assistance may be provided throughout the activity or intermittently. 3-Partial/Moderate Assistance-helper does LESS THAN HALF the effort. [place] lifts, holds or supports trunk or limbs, but provides less than half the effort. 2-Substantial/Maximal Assistance-helper does MORE THAN HALF the effort. [place] lifts or holds trunk or limbs and provides more than half the effort. 0-Kasmaqzfs-csmtxo does ALL the effort. Patient does none of the effort to complete the activity. Or, the assistance of 2 or more helpers is required for the patient to complete the activity. If activity was not attempted, code reason: 7-Patient Refused. 9-Not Applicable-not attempted and the patient did not perform the activity before the current illness, exacerbation or injury. 10-Not Attempted due to Environmental Limitations-(lack of equipment, weather restraints, etc.). 88-Not Attempted due to Medical Conditions or Safety Concerns. Roll Left to Right (QC): 6 Sit to Lying (QC): 6 Sit to Stand (QC): 6 Chair/Gtk-yb-Vbhid Xfer(QC): 4 Car Transfer (QC): 4 Gait Training Does the Patient Walk?: Yes Distance: 200' x2 Walk 10 feet (QC): 4 Walk 50 ft with 2 Turns(QC): 4 Walk 150 ft (QC): 4 Walking 10ft/uneven surface-QC: 4 Gait Persons Needed: 1 Gait Assistive Device: None Wheelchair Training Does the Pt Use a Wheelchair?: No Wheel 50 ft with 2 turns (QC): 9 Wheel 150 ft (QC): 9 Stair Training #of Steps: 6 1 Step (curb) (QC): 4 4 Steps (QC): 4 12 Steps (QC): 88 Balance Picking up an Object (QC): 4 ADL-Treatment Eating (QC): 6 Oral Hygiene (QC): 7 Shower/Bathe Self (QC): 7 Upper Body Dressing (QC): 5 Lower Body Dressing (QC): 4 On/Off Footwear (QC): 4 Toileting Hygiene (QC): 4 Assessment/Plan Assessment and Plan Assess & Plan/Chief Complaint Assessment: s/p acute ischemic stroke with residual bilateral hemianopsia s/p tPa Atrial fibrillation with RVR consulted Cardiology T2DM with hyperglycemia hga1c 10.9 Lack of insurance Plan: OAC Rate control AF Appreciate Cardiology DM management 01/28/21: Monitor glucose IRF protocol 01/29/21: Monitor sugar Transition to OHA (1) CVA (cerebral vascular accident) Status: Acute (2) Atrial fibrillation with rapid ventricular response Status: Acute (3) Bilateral hemianopia Status: Acute (4) Insulin dependent diabetes mellitus (5) Essential (primary) hypertension BUBBA [place] 19, 2021 05:36
[2021-01-29] MEDS: inSUlin ASPART (NovoLOG) 1 UNIT/0.01 ML (CHARGE PER UNIT) SC SCH ×7 (07:02→21:27)
[2021-01-29] MEDS: metFORMIN 500 MG (GLUCOPHAGE) TAB PO SCH (07:02)
[2021-01-29] MEDS: SENNA W/DOCUSATE (SENOKOT S) TABLET PO SCH ×2 (07:28→21:07)
[2021-01-29] MEDS: APIXABAN 5 MG (ELIQUIS) TABLET PO SCH ×2 (07:29→20:50)
[2021-01-29] MEDS: ASPIRIN E.C. 81 MG (ECOTRIN) TAB PO SCH (07:29)
[2021-01-29] MEDS: polyethylene glycoL POWDER 17 GM (MIRALAX) PACK PO SCH ×2 (07:29→19:31)
--- NOTE | 2021-01-29 09:54 | Physical Therapy Daily Note ---
PT Daily Note-Current Subjective Patient was seated upright in chair pre tx. Patient consented to therapy, and denied any pain complaints. Patient noted no noticeable changes in vision, and stated he was tired due to difficulty sleeping at night. Appearance Patient left post tx seated in chair, with tray table nearby and call button within reach. Mental Status Patient Orientation: Person, Place, Time, Situation Transfers SCALE: Activities may be completed with or without assistive devices. 9-[place]-cemstwv completes the activity by him/herself with no assistance from a helper. 5-Set-up or Clean-up Assistance-helper sets up or cleans up; patient completes activity. [place] assists only prior to or following the activity. 4-Supervision or Touching Assistance-helper provides verbal cues and/or touching/steadying and/or contact guard assistance as patient completes activity. Assistance may be provided throughout the activity or intermittently. 3-Partial/Moderate Assistance-helper does LESS THAN HALF the effort. [place] lifts, holds or supports trunk or limbs, but provides less than half the effort. 2-Substantial/Maximal Assistance-helper does MORE THAN HALF the effort. [place] lifts or holds trunk or limbs and provides more than half the effort. 1-Ftebtiari-bqmdfo does ALL the effort. Patient does none of the effort to complete the activity. Or, the assistance of 2 or more helpers is required for the patient to complete the activity. If activity was not attempted, code reason: 7-Patient Refused. 9-Not Applicable-not attempted and the patient did not perform the activity before the current illness, exacerbation or injury. 10-Not Attempted due to Environmental Limitations-(lack of equipment, weather restraints, etc.). 88-Not Attempted due to Medical Conditions or Safety Concerns. Sit to Stand (QC): 4 SBA utilized Weight Bearing Full Weight Bearing Full Weight Bearing Gait Training Does the Patient Walk?: Yes Distance: 800' ; 120' Walk 10 feet (QC): 4 Walk 50 ft with 2 Turns(QC): 4 Walk 150 ft (QC): 4 Gait Persons Needed: 1 Gait Assistive Device: None SBA utilized. Patient demonstrates steady gait, with no falters. Patient family member brought tennis shoes, which patient notes helps him to feel more balanced with walking. Stair Training Stair Training: Handrails/: 1 handrail #of Steps: 20 1 Step (curb) (QC): 4 4 Steps (QC): 4 12 Steps (QC): 4 Stairs: Pattern: Reciprocal Patient ascended 20 steps and descended 20 steps; patient used handrail on L going down and R going up, similar to his at-home set up. CGA utilized. Patient was steady with steps, but began to fatigue toward end of 20 stair ascent. Required a 3-5 second rest break before final 2 steps. Exercises Standing: Hip Abduction (2# bilateral ankle cuffs), Hamstring curls (2# bilateral cuff weights, 2 sets each side), 3 way Ex=Flex, Abd, Ext (Ext; 2# bilateral cuff weights), Mini squats Standing Reps: 15 (10 reps; patient noted soreness in hip) Patient required 2 rest breaks in between steps, noted slight SOB post hamstring curls and hip abductions. He attributed it to increased workload and difficulty exercising with mask. Patient utilize moderate support from parallel bars with all standing exercises. NuStep Minutes: 15 NuStep Workload: 4 Treatments Gait training, LE strengthening, balance, endurance. Assessment Current Status: Good Progress Patient continues to demonstrate improvements in balance and endurance. Improvement in foot clearance with ascenting steps compared to box steps completed at prior treatment. PT Short Term Goals Short Term Goals Time Frame: Feb 03, 2021 Roll Left & Right: 6 Sit to lyin Lying to sitting on side of be: 6 Sit to stand: 5 Chair/cqf-yt-ybkkc transfer: 5 Walk 10 feet: 5 Walk 50 feet with two turns: 5 Walk 150 feet: 5 PT Farm Demonstrator Goals Snf Goals PT Snf Goals Time Frame: Feb 17, 2021 Roll Left & Right (QC): 6 Sit to Lying (QC): 6 Lying-Sitting on Side/Bed(QC): 6 Sit to Stand (QC): 6 Chair/Prw-xj-Cmayp Xfer(QC): 6 Toilet Transfer (QC): 6 Car Transfer (QC): 6 Does the Patient Walk: Yes Walk 10 feet (QC): 6 Walk 50ft with 2 Turns (QC): 6 Walk 150 ft (QC): 6 Walking 10ft on Uneven Surface: 6 1 Step (curb) (QC): 6 4 Steps (QC): 6 12 Steps (QC): 6 Picking up an Object (QC): 6 Wheel 50 feet with 2 turns (QC: 9 Wheel 150 feet: 9 PT Plan Problem List Problem List: Activity Tolerance, Functional Strength, Safety, Balance, Gait, Transfer, ROM Treatment/Plan Treatment Plan: Continue Plan of Care Treatment Plan: Education, Functional Activity Lisa, Functional Strength, Group Therapy, Gait, Safety, Therapeutic Exercise, Transfers Treatment Duration: Feb 17, 2021 Frequency: At least 5 of 7 days/Wk (IRF) Estimated Hrs Per Day: 1.5 hours per day Patient and/or Family Agrees t: Yes Safety Risks/Education Patient Education: Gait Training, Transfer Techniques, Steps, Correct Positioning, Safety Issues Teaching Recipient: Patient Teaching Methods: Demonstration, Discussion Response to Teaching: Reinforcement Needed Time/GCodes Time In: 0900 Time Out: 1000 Total Billed Treatment Time: 60 Total Billed Treatment 1 visit: FA: 30 GT: 30 KATHY BRAND PT Jan 29, 2021 09:54
--- NOTE | 2021-01-29 11:54 | Physical Therapy Daily Note ---
PT Daily Note-Current Subjective Patient was seated in rehab gym pre tx. Co-treated with OT to work on dynamic stability and balance with sitting and standing. Patient complained of no pain, but noted mild fatigue and SOB throughout session. Appearance Patient left post tx sitting upright in chair, with call button in reach and tray beside him. Mental Status Patient Orientation: Person, Place, Time, Situation, Normal For Age Transfers SCALE: Activities may be completed with or without assistive devices. 7-Tsihogxnuv-rjochbg completes the activity by him/herself with no assistance from a helper. 5-Set-up or Clean-up Assistance-helper sets up or cleans up; patient completes activity. [place] assists only prior to or following the activity. 4-Supervision or Touching Assistance-helper provides verbal cues and/or touching/steadying and/or contact guard assistance as patient completes acti vity. Assistance may be provided throughout the activity or intermittently. 3-Partial/Moderate Assistance-helper does LESS THAN HALF the effort. [place] lifts, holds or supports trunk or limbs, but provides less than half the effort. 2-Substantial/Maximal Assistance-helper does MORE THAN HALF the effort. [place] lifts or holds trunk or limbs and provides more than half the effort. 2-Gjzzhtera-bsepoi does ALL the effort. Patient does none of the effort to complete the activity. Or, the assistance of 2 or more helpers is required for the patient to complete the activity. If activity was not attempted, code reason: 7-Patient Refused. 9-Not Applicable-not attempted and the patient did not perform the activity before the current illness, exacerbation or injury. 10-Not Attempted due to Environmental Limitations-(lack of equipment, weather restraints, etc.). 88-Not Attempted due to Medical Conditions or Safety Concerns. Sit to Stand (QC): 4 Chair/Qca-er-Fcxem Xfer(QC): 4 SBA utilized Weight Bearing Full Weight Bearing Full Weight Bearing Gait Training Does the Patient Walk?: Yes Distance: 120' Walk 10 feet (QC): 4 Walk 50 ft with 2 Turns(QC): 4 Gait Persons Needed: 1 Gait Assistive Device: None SBA utilized Balance Picking up an Object (QC): 4 Special Test Comments SBA utilized Neuromuscular Soccer ball kicking: SBA used with standing balance; patient demonstrated steady weight shifts with kicking, without LOB, 20 reps x2. Bending forward for objects: small cones placed around floor, pt bent forward to pickle sorter, SBA utilized, 10reps. Patient noted he felt stable with forward movement, and was able to pickle sorter objects while demonstrating steady balance. Ring toss: SBA utilized with standing balance, patient instructed to pickle sorter rings. No LOB noted with forward movement, 20reps. Treatments LE strengthening, dynamic and static balance, endurance, gait training Assessment Current Status: Good Progress, Fair Progress Patient required a few more rest breaks secondary to increased SOB with therapeutic exercise. PT Short Term Goals Short Term Goals Time Frame: Feb 03, 2021 Roll Left & Right: 6 Sit to lyin Lying to sitting on side of be: 6 Sit to stand: 5 Chair/wzs-yg-ifpum transfer: 5 Walk 10 feet: 5 Walk 50 feet with two turns: 5 Walk 150 feet: 5 PT Client Application Support Engineer Goals Senior Living Goals PT Client Application Support Engineer Goals Time Frame: Feb 17, 2021 Roll Left & Right (QC): 6 Sit to Lying (QC): 6 Lying-Sitting on Side/Bed(QC): 6 Sit to Stand (QC): 6 Chair/Jjd-su-Klebu Xfer(QC): 6 Toilet Transfer (QC): 6 Car Transfer (QC): 6 Does the Patient Walk: Yes Walk 10 feet (QC): 6 Walk 50ft with 2 Turns (QC): 6 Walk 150 ft (QC): 6 Walking 10ft on Uneven Surface: 6 1 Step (curb) (QC): 6 4 Steps (QC): 6 12 Steps (QC): 6 Picking up an Object (QC): 6 Wheel 50 feet with 2 turns (QC: 9 Wheel 150 feet: 9 PT Plan Problem List Problem List: Activity Tolerance, Functional Strength, Safety, Balance, Gait, Transfer, ROM Treatment/Plan Treatment Plan: Continue Plan of Care Treatment Plan: Education, Functional Activity Lisa, Functional Strength, Group Therapy, Gait, Safety, Therapeutic Exercise, Transfers Treatment Duration: Feb 17, 2021 Frequency: At least 5 of 7 days/Wk (IRF) Estimated Hrs Per Day: 1.5 hours per day Patient and/or Family Agrees t: Yes Safety Risks/Education Patient Education: Gait Training, Transfer Techniques, Correct Positioning, Safety Issues Teaching Recipient: Patient Teaching Methods: Demonstration, Discussion Response to Teaching: Reinforcement Needed Time/GCodes Time In: 1120 Time Out: 1150 Total Billed Treatment Time: 30 Total Billed Treatment 1 visit: Ther ex: 30 KATHY BRAND PT Jan 29, 2021 11:54
[2021-01-29 11:57] VITALS: BP 127/65
--- NOTE | 2021-01-29 11:59 | Occupational Ther Daily Note ---
OT Current Status-Daily Note Subjective No pain reported. Pt. does verbalize being tired throughout. Mental Status/Objective Patient Orientation: Person, Place, Time, Situation ADL-Treatment Therapy Code Descriptions/Definitions Functional [place] Measure: 0=Not Assessed/NA 4=Minimal Assistance 1=Total Assistance 5=Supervision or Setup 2=Maximal Assistance 6=Modified [place] 3=Moderate Assistance 7=Complete IndependenceSCALE: Activities may be completed with or without assistive devices. 7-Yeahaajifl-gokgmrj completes the activity by him/herself with no assistance from a helper. 5-Set-up or Clean-up Assistance-helper sets up or cleans up; patient completes activity. [place] assists only prior to or following the activity. 4-Supervision or Touching Assistance-helper provides verbal cues and/or touching/steadying and/or contact guard assistance as patient completes activity. Assistance may be provided throughout the activity or intermittently. 3-Partial/Moderate Assistance-helper does LESS THAN HALF the effort. [place] lifts, holds or supports trunk or limbs, but provides less than half the effort. 2-Substantial/Maximal Assistance-helper does MORE THAN HALF the effort. [place] lifts or holds trunk or limbs and provides more than half the effort. 0-Ctsxufdiy-rxaxds does ALL the effort. Patient does none of the effort to complete the activity. Or, the assistance of 2 or more helpers is required for the patient to complete the activity. If activity was not attempted, code reason: 7-Patient Refused. 9-Not Applicable-not attempted and the patient did not perform the activity before the current illness, exacerbation or injury. 10-Not Attempted due to Environmental Limitations-(lack of equipment, weather restraints, etc.). 88-Not Attempted due to Medical Conditions or Safety Concerns. Eating (QC): 6 Shower/Bathe Self (QC): 5 Upper Body Dressing (QC): 5 Lower Body Dressing (QC): 4 On/Off Footwear: 5 Toileting Hygiene (QC): 4 Toilet Transfer (QC): 4 Other Treatment Pt. up in chair. Agrees to work with OT. Pt. completed showering task and dressing tasks. He is able to do this with SBA/set up. After ADLs, pt. ambulated with CGA to therapy gym. Pt. tolerated fine motor tasks, as well as visualization task with reading and writing. Pt. seems to be doing better today with this. Pt. able to read article and write legibly regarding article. Pt. verbalizes that he is not having double vision this date with reading. Does still verbalize left field cut. PT did come in and completed co-treatment with OT to work on dynamic standing balance/endurance with reach and visualization/scanning. PT stood with pt. to make sure he didn't lose balance while OT assessed UE and movement in all planes. Participated in reaching activity, as well as UE stretch. Tolerated treatment well. All needs met. Education OT Patient Education: Correct positioning, Exercise program, Modified ADL techniques, Progress toward Goal/Update tx plan, Purpose of tx/functional activities, Reviewed precautions, Rehab process, Transfer techniques Teaching Recipient: Patient Teaching Methods: Demonstration, Discussion Response to Teaching: Verbalize Understanding, Return Demonstration OT [facility] Goals Compressor Mechanic Bus Goals Time Frame: Feb 10, 2021 Eating (QC): 6 Oral Hygiene (QC): 6 Toileting Hygiene (QC): 6 Shower/Bathe Self (QC): 5 Upper Body Dressing (QC): 6 Lower Body Dressing (QC): 6 On/Off Footwear (QC): 6 Additional Goals: 1-Demonstrate ADL Tasks, 2-Verbalize Understanding, 3- ImproveStrength/Lisa 1=Demonstrate adherence to instructed precautions during ADL tasks. 2=Patient will verbalize/demonstrate understanding of assistive devices/modifications for ADL. 3=Patient will improve strength/tolerance for activity to enable patient to perform ADL's. OT Education/Plan Problem List/Assessment Assessment: Decreased Activ Tolerance Discharge Recommendations Plan/Recommendations: Continue POC Treatment Plan/Plan of Care Treatment,Training & Education: Yes Patient would benefit from OT for education, treatment and training to promote independence in ADL's, mobility, safety and/or upper extremity function for ADL's. Plan of Care: ADL Retraining, Functional Mobility, Group Exercise/Act as Ind, UE Funct Exercise/Act, Visual/Perceptual Retrain Treatment Duration: Feb 10, 2021 Frequency: At least 5 of 7 days/Wk (IRF) Estimated Hrs Per Day: 1.5 hours per day Agreement: Yes Rehab Potential: Good Time/GCodes Start Time: 10:15 Stop Time: 11:45 Total Time Billed (hr/min): 90 Billed Treatment Time [id number] 1, ADL x 45minutes, FA x 20minutes [id number] FA x 25minutes- Co-treatment with PT. SHIRLEY FELIZ OT Jan 29, 2021 11:59
--- NOTE | 2021-01-29 15:27 | Progress Note - Cardiology ---
Cardiology SOAP Progress Note Subjective: Gen malaise and weakness Shortness of breath as before No cp or palp or syncope No n/v/d Objective: I&O/Vital Signs 01/29/21 01/29/21 01/29/21 01/29/21 05:35 07:00 08:00 11:57 Temp 36.4 Pulse 87 101 110 Resp 16 18 B/P (MAP) 118/60 (79) 127/65 (85) Pulse Ox 99 97 O2 Delivery Room Air Room Air Room Air 01/29/21 12:30 Pulse 108 01/29/21 00:00 Intake Total 1300 ml Output Total 1000 ml Balance 300 ml Weight (Pounds): 214 Weight (Ounces): 5.0 Weight (Calculated Kilograms): 97.004587 Constitutional: AAO x 3, well-developed, well-nourished Respiratory: No accessory muscle use; other (good bilateral air entry) Cardiovascular: regular rate-rhythm, S1 and S2, systolic murmur (soft SCARLET at card basee) Gastrointestional: No tender; soft; No guarding, No rebound; audible bowel sounds Extremities: No clubbing, No cyanosis, No significant edema Neurologic/Psychiatric: oriented x 3, other (Bilateral, left-sided vision loss, moves all limbs) Skin: warm/dry; No cool, No rash on exposed areas, No ulcerations on exposed areas Results/Procedures: Labs Laboratory Tests 01/28/21 20:18: Glucometer 277H 01/29/21 06:05: Glucometer 183H 01/29/21 10:52: Glucometer 91 Laboratory Tests 01/28/21 05:15 A/P: Assessment: Acute CVA; multiple infarct on CT and MR. Received TPA in the emergency room on 01-25-21. Some small petechial hemorrhage reported on the MRI but not on subsequent imaging. Managed by primary care team. Primary care team started Eliquis on 01/27/21 Atrial fibrillation, new onset, rate is currently controlled Diabetes mellitus, poor control, managed by primary care team Plan: * Still in A Fib, but rate is controlled. Continue rate control * Primary care team to continue stroke prophylaxis if deemed safe from the standpoint of recent stroke * Monitor labs BELLA RAMIREZ MD FACP FAC CCDS Jan 29, 2021 15:27
[2021-01-29 17:57] VITALS: BP 120/67
[2021-01-29 23:44] VITALS: BP 127/73
[2021-01-30 05:22] VITALS: BP 138/74
[2021-01-30] MEDS: inSUlin ASPART (NovoLOG) 1 UNIT/0.01 ML (CHARGE PER UNIT) SC SCH ×5 (05:22→22:02)
[2021-01-30] MEDS: metFORMIN 500 MG (GLUCOPHAGE) TAB PO SCH (06:54)
[2021-01-30] MEDS: SENNA W/DOCUSATE (SENOKOT S) TABLET PO SCH ×2 (07:21→20:26)
[2021-01-30] MEDS: ASPIRIN E.C. 81 MG (ECOTRIN) TAB PO SCH (07:22)
[2021-01-30] MEDS: APIXABAN 5 MG (ELIQUIS) TABLET PO SCH ×2 (07:22→20:24)
[2021-01-30] MEDS: polyethylene glycoL POWDER 17 GM (MIRALAX) PACK PO SCH ×2 (09:27→20:25)
--- NOTE | 2021-01-30 10:15 | Physical Therapy Daily Note ---
PT Daily Note-Current Subjective Pt. agrees to Rx, states he is feeling stronger just still so limited by his left vision cut "peripheral" Pt. explains his medical history and feels he is still weakened from his 2018 illness. Pain Location: No Pain Reported Mental Status Patient Orientation: Normal For Age Transfers SCALE: Activities may be completed with or without assistive devices. 2-Xmehngsfnt-iyrartz completes the activity by him/herself with no assistance from a helper. 5-Set-up or Clean-up Assistance-helper sets up or cleans up; patient completes activity. [place] assists only prior to or following the activity. 4-Supervision or Touching Assistance-helper provides verbal cues and/or touching/steadying and/or contact guard assistance as patient completes activity. Assistance may be provided throughout the activity or intermittently. 3-Partial/Moderate Assistance-helper does LESS THAN HALF the effort. [place] lifts, holds or supports trunk or limbs, but provides less than half the effort. 2-Substantial/Maximal Assistance-helper does MORE THAN HALF the effort. [place] lifts or holds trunk or limbs and provides more than half the effort. 9-Aprewwuar-eeouws does ALL the effort. Patient does none of the effort to complete the activity. Or, the assistance of 2 or more helpers is required for the patient to complete the activity. If activity was not attempted, code reason: 7-Patient Refused. 9-Not Applicable-not attempted and the patient did not perform the activity before the current illness, exacerbation or injury. 10-Not Attempted due to Environmental Limitations-(lack of equipment, weather restraints, etc.). 88-Not Attempted due to Medical Conditions or Safety Concerns. all TRFs Mod I Weight Bearing Full Weight Bearing Full Weight Bearing Gait Training Does the Patient Walk?: Yes Gait Assistive Device: None 200ft x 2 , retro, 360 deg turns , sidestepping 12 feet , guarded no LOB Exercises Supine Ex: Bridging, Ankle pumps, Pelvic tilt, Rolling, Glut sets, Heel Slides, Scooting, Straight leg raise, Hip abd/add (sidelying) Supine Reps: 15 Treatments ther ex introducing core exercises with pt. fatiguing quickly, bridging with stability focus and instructed in pelv tilt and mini crunch, very weak Assessment Current Status: Good Progress gives full effort PT Short Term Goals Short Term Goals Time Frame: Feb 03, 2021 Roll Left & Right: 6 Sit to lyin Lying to sitting on side of be: 6 Sit to stand: 5 Chair/rsw-bk-fagkg transfer: 5 Walk 10 feet: 5 Walk 50 feet with two turns: 5 Walk 150 feet: 5 PT Field Auto Appraiser Goals Field Auto Appraiser Goals PT Field Auto Appraiser Goals Time Frame: Feb 17, 2021 Roll Left & Right (QC): 6 Sit to Lying (QC): 6 Lying-Sitting on Side/Bed(QC): 6 Sit to Stand (QC): 6 Chair/Wgp-mi-Sgznz Xfer(QC): 6 Toilet Transfer (QC): 6 Car Transfer (QC): 6 Does the Patient Walk: Yes Walk 10 feet (QC): 6 Walk 50ft with 2 Turns (QC): 6 Walk 150 ft (QC): 6 Walking 10ft on Uneven Surface: 6 1 Step (curb) (QC): 6 4 Steps (QC): 6 12 Steps (QC): 6 Picking up an Object (QC): 6 Wheel 50 feet with 2 turns (QC: 9 Wheel 150 feet: 9 PT Plan Treatment/Plan Treatment Plan: Continue Plan of Care Treatment Plan: Education, Functional Activity Lisa, Functional Strength, Group Therapy, Gait, Safety, Therapeutic Exercise, Transfers Treatment Duration: Feb 17, 2021 Frequency: At least 5 of 7 days/Wk (IRF) Estimated Hrs Per Day: 1.5 hours per day Patient and/or Family Agrees t: Yes Safety Risks/Education Patient Education: Gait Training, Transfer Techniques, Correct Positioning, Disease Process, Safety Issues Teaching Recipient: Patient Teaching Methods: Demonstration, Discussion Response to Teaching: Verbalize Understanding, Return Demonstration, Reinforcement Needed Time/GCodes Time In: 835 Time Out: 855 Total Billed Treatment Time: 20 Total Billed Treatment 1,EX 20m ADDISON SOFIA PHLEBOTOMY TECH Jan 30, 2021 10:15
--- NOTE | 2021-01-30 11:03 | PM&R Progress Note ---
Subjective HPI/CC On Admission Date Seen by Provider: Jan 30, 2021 Time Seen by Provider: 10:00 Subjective/Events-last exam 01/30/21: Patient doing well Mother at bedside Sugar 77 Decreased insulin Left vision loss 01/29/21: Patient doing well Sugars reviewed No pain reported 01/28/21: Patient doing well Vision loss is frustrating Glucose 202 this am AF noted BM yesterday Left eye flashes Review of Systems General: Fatigue, Malaise Objective Exam Vital Signs Vital Signs Date Time Temp Pulse Resp B/P (MAP) Pulse Ox O2 Delivery O2 Flow Rate FiO2 01/31/21 13:00 90 01/31/21 11:18 128/78 (95) 01/31/21 08:00 Room Air 01/31/21 06:02 36.4 18 98 Capillary Refill : General Appearance: No Apparent Distress, WD/WN HEENT: PERRL/EOMI, Normal ENT Inspection, Pharynx Normal, Other (bilateral hemianopsia) Neck: Full Range of Motion, Normal Inspection, Non Tender, Supple, Carotid Bruit Respiratory: Chest Non Tender, Lungs Clear, Normal Breath Sounds, No Accessory Muscle Use, No Respiratory Distress Cardiovascular: No Edema, No Gallop, No JVD, No Murmur, Normal Peripheral Pulses, Irregularly Irregular, Tachycardia Gastrointestinal: Normal Bowel Sounds, No Organomegaly, No Pulsatile Mass, Non Tender, Soft Back: Normal Inspection, No CVA Tenderness, No Vertebral Tenderness Extremity: Normal Capillary Refill, Normal Inspection, Normal Range of Motion, Non Tender, No Calf Tenderness, No Pedal Edema Neurologic/Psychiatric: Alert, Oriented x3, No Motor/Sensory Deficits, Normal Mood/Affect, Motor Weakness (generalized 4/5) Skin: Normal Color, Warm/Dry Lymphatic: No Adenopathy Results/Procedures Lab Patient resulted labs reviewed. FIM Transfers Therapy Code Descriptions/Definitions Functional [place] Measure: 0=Not Assessed/NA 4=Minimal Assistance 1=Total Assistance 5=Supervision or Setup 2=Maximal Assistance 6=Modified [place] 3=Moderate Assistance 7=Complete IndependenceSCALE: Activities may be completed with or without assistive devices. 4-Iunmjqmsnt-jmbdgep completes the activity by him/herself with no assistance from a helper. 5-Set-up or Clean-up Assistance-helper sets up or cleans up; patient completes activity. [place] assists only prior to or following the activity. 4-Supervision or Touching Assistance-helper provides verbal cues and/or touching/steadying and/or contact guard assistance as patient completes activity. Assistance may be provided throughout the activity or intermittently. 3-Partial/Moderate Assistance-helper does LESS THAN HALF the effort. [place] lifts, holds or supports trunk or limbs, but provides less than half the effort. 2-Substantial/Maximal Assistance-helper does MORE THAN HALF the effort. [place] lifts or holds trunk or limbs and provides more than half the effort. 3-Lakwurusz-qaneaj does ALL the effort. Patient does none of the effort to complete the activity. Or, the assistance of 2 or more helpers is required for the patient to complete the activity. If activity was not attempted, code reason: 7-Patient Refused. 9-Not Applicable-not attempted and the patient did not perform the activity before the current illness, exacerbation or injury. 10-Not Attempted due to Environmental Limitations-(lack of equipment, weather restraints, etc.). 88-Not Attempted due to Medical Conditions or Safety Concerns. Roll Left to Right (QC): 6 Sit to Lying (QC): 6 Sit to Stand (QC): 4 Chair/Pkr-fv-Nckae Xfer(QC): 4 Car Transfer (QC): 4 Gait Training Does the Patient Walk?: Yes Distance: 120' Walk 10 feet (QC): 4 Walk 50 ft with 2 Turns(QC): 4 Walk 150 ft (QC): 4 Walking 10ft/uneven surface-QC: 4 Gait Persons Needed: 1 Gait Assistive Device: None Wheelchair Training Does the Pt Use a Wheelchair?: No Wheel 50 ft with 2 turns (QC): 9 Wheel 150 ft (QC): 9 Stair Training Stair Training: Handrails/: 1 handrail #of Steps: 20 1 Step (curb) (QC): 4 4 Steps (QC): 4 12 Steps (QC): 4 Stairs: Pattern: Reciprocal Balance Picking up an Object (QC): 4 ADL-Treatment Eating (QC): 6 Oral Hygiene (QC): 7 Shower/Bathe Self (QC): 5 Upper Body Dressing (QC): 5 Lower Body Dressing (QC): 4 On/Off Footwear (QC): 5 Toileting Hygiene (QC): 4 Toilet Transfer (QC): 4 Assessment/Plan Assessment and Plan Assess & Plan/Chief Complaint Assessment: s/p acute ischemic stroke with residual bilateral hemianopsia s/p tPa Atrial fibrillation with RVR consulted Cardiology T2DM with hyperglycemia hga1c 10.9 Lack of insurance Plan: OAC Rate control AF Appreciate Cardiology DM management 01/28/21: Monitor glucose IRF protocol 01/29/21: Monitor sugar Transition to OHA 01/30/21: Monitor closely Insulin decreased (1) CVA (cerebral vascular accident) Status: Acute (2) Atrial fibrillation with rapid ventricular response Status: Acute (3) Bilateral hemianopia Status: Acute (4) Insulin dependent diabetes mellitus (5) Essential (primary) hypertension BUBBA CANADA DO Jan 30, 2021 11:03
--- NOTE | 2021-01-30 14:40 | Progress Note - Cardiology ---
Cardiology SOAP Progress Note Subjective: Vision loss as before No cp or palp or syncope No shortness of breath Some gen malaise No n/v/d Objective: I&O/Vital Signs 01/30/21 01/30/21 01/30/21 01/30/21 05:22 07:00 08:39 12:30 Temp 36.6 Pulse 99 98 86 Resp 18 B/P (MAP) 138/74 (95) Pulse Ox 97 O2 Delivery Room Air Room Air 01/30/21 00:00 Intake Total 650 ml Balance 650 ml Weight (Pounds): 214 Weight (Ounces): 5.0 Weight (Calculated Kilograms): 97.510573 Constitutional: AAO x 3, well-developed, well-nourished Respiratory: No accessory muscle use; other (good bilateral air entry) Cardiovascular: regular rate-rhythm, S1 and S2, systolic murmur (soft SCARLET at card basee) Gastrointestional: No tender; soft; No guarding, No rebound; audible bowel sounds Extremities: No clubbing, No cyanosis, No significant edema Neurologic/Psychiatric: oriented x 3, other (Bilateral, left-sided vision loss, moves all limbs) Skin: warm/dry; No cool, No rash on exposed areas, No ulcerations on exposed areas Results/Procedures: Labs Laboratory Tests 01/29/21 15:36: Glucometer 192H 01/29/21 21:25: Glucometer 221H 01/30/21 05:15: Glucometer 77 01/30/21 10:44: Glucometer 123H A/P: Assessment: Acute CVA; multiple infarct on CT and MR. Received TPA in the emergency room on 01-25-21. Some small petechial hemorrhage reported on the MRI but not on subsequent imaging. Managed by primary care team. Primary care team started Eliquis on 01/27/21 Atrial fibrillation, newly diagnosed, rate is currently controlled Diabetes mellitus, poor control, managed by primary care team Plan: * Monitor labs from time to time * I spoke with him and his father and brother and answered their CV-related questions BELLA RAMIREZ MD FACP [facility] Jan 30, 2021 14:40
[2021-01-30 17:15] VITALS: BP 125/66
[2021-01-31 00:15] VITALS: BP 136/78
[2021-01-31 06:02] VITALS: BP 137/80
[2021-01-31] MEDS: inSUlin ASPART (NovoLOG) 1 UNIT/0.01 ML (CHARGE PER UNIT) SC SCH ×4 (06:16→21:19)
[2021-01-31] MEDS: metFORMIN 500 MG (GLUCOPHAGE) TAB PO SCH (06:23)
[2021-01-31] MEDS: ASPIRIN E.C. 81 MG (ECOTRIN) TAB PO SCH (07:10)
[2021-01-31] MEDS: APIXABAN 5 MG (ELIQUIS) TABLET PO SCH ×2 (07:10→21:19)
[2021-01-31] MEDS: SENNA W/DOCUSATE (SENOKOT S) TABLET PO SCH ×2 (07:10→21:19)
[2021-01-31] MEDS: polyethylene glycoL POWDER 17 GM (MIRALAX) PACK PO SCH ×2 (09:16→21:20)
[2021-01-31 11:18] VITALS: BP 128/78
--- NOTE | 2021-01-31 14:21 | PM&R Progress Note ---
Subjective HPI/CC On Admission Date Seen by Provider: Jan 31, 2021 Time Seen by Provider: 15:00 Subjective/Events-last exam 01/31/21: Patient feels good Wants to go downstairs and spend some time downstairs with his brother No pain reported 01/30/21: Patient doing well Mother at bedside Sugar 77 Decreased insulin Left vision loss 01/29/21: Patient doing well Sugars reviewed No pain reported 01/28/21: Patient doing well Vision loss is frustrating Glucose 202 this am AF noted BM yesterday Left eye flashes Review of Systems General: Fatigue, Malaise HEENT: Visual Changes Objective Exam Vital Signs Vital Signs Date Time Temp Pulse Resp B/P (MAP) Pulse Ox O2 Delivery O2 Flow Rate FiO2 01/31/21 17:37 36.8 103 20 121/74 (90) 97 Room Air Capillary Refill : General Appearance: No Apparent Distress, WD/WN HEENT: PERRL/EOMI, Normal ENT Inspection, Pharynx Normal, Other (bilateral hemianopsia) Neck: Full Range of Motion, Normal Inspection, Non Tender, Supple, Carotid Bruit Respiratory: Chest Non Tender, Lungs Clear, Normal Breath Sounds, No Accessory Muscle Use, No Respiratory Distress Cardiovascular: No Edema, No Gallop, No JVD, No Murmur, Normal Peripheral Pulses, Irregularly Irregular, Tachycardia Gastrointestinal: Normal Bowel Sounds, No Organomegaly, No Pulsatile Mass, Non Tender, Soft Back: Normal Inspection, No CVA Tenderness, No Vertebral Tenderness Extremity: Normal Capillary Refill, Normal Inspection, Normal Range of Motion, Non Tender, No Calf Tenderness, No Pedal Edema Neurologic/Psychiatric: Alert, Oriented x3, No Motor/Sensory Deficits, Normal Mood/Affect, Motor Weakness (generalized 4/5) Skin: Normal Color, Warm/Dry Lymphatic: No Adenopathy Results/Procedures Lab Patient resulted labs reviewed. FIM Transfers Therapy Code Descriptions/Definitions Functional [place] Measure: 0=Not Assessed/NA 4=Minimal Assistance 1=Total Assistance 5=Supervision or Setup 2=Maximal Assistance 6=Modified [place] 3=Moderate Assistance 7=Complete IndependenceSCALE: Activities may be completed with or without assistive devices. 1-Lucrbjkvpf-ewnraem completes the activity by him/herself with no assistance from a helper. 5-Set-up or Clean-up Assistance-helper sets up or cleans up; patient completes activity. [place] assists only prior to or following the activity. 4-Supervision or Touching Assistance-helper provides verbal cues and/or touching/steadying and/or contact guard assistance as patient completes activity. Assistance may be provided throughout the activity or intermittently. 3-Partial/Moderate Assistance-helper does LESS THAN HALF the effort. [place] lifts, holds or supports trunk or limbs, but provides less than half the effort. 2-Substantial/Maximal Assistance-helper does MORE THAN HALF the effort. [place] lifts or holds trunk or limbs and provides more than half the effort. 1-Vdjzovfxi-ugzppu does ALL the effort. Patient does none of the effort to complete the activity. Or, the assistance of 2 or more helpers is required for the patient to complete the activity. If activity was not attempted, code reason: 7-Patient Refused. 9-Not Applicable-not attempted and the patient did not perform the activity before the current illness, exacerbation or injury. 10-Not Attempted due to Environmental Limitations-(lack of equipment, weather restraints, etc.). 88-Not Attempted due to Medical Conditions or Safety Concerns. Roll Left to Right (QC): 6 Sit to Lying (QC): 6 Sit to Stand (QC): 4 Chair/Gqw-kv-Qiinx Xfer(QC): 4 Car Transfer (QC): 4 Gait Training Does the Patient Walk?: Yes Distance: 120' Walk 10 feet (QC): 4 Walk 50 ft with 2 Turns(QC): 4 Walk 150 ft (QC): 4 Walking 10ft/uneven surface-QC: 4 Gait Persons Needed: 1 Gait Assistive Device: None Wheelchair Training Does the Pt Use a Wheelchair?: No Wheel 50 ft with 2 turns (QC): 9 Wheel 150 ft (QC): 9 Stair Training Stair Training: Handrails/: 1 handrail #of Steps: 20 1 Step (curb) (QC): 4 4 Steps (QC): 4 12 Steps (QC): 4 Stairs: Pattern: Reciprocal Balance Picking up an Object (QC): 4 ADL-Treatment Eating (QC): 6 Oral Hygiene (QC): 7 Shower/Bathe Self (QC): 5 Upper Body Dressing (QC): 5 Lower Body Dressing (QC): 4 On/Off Footwear (QC): 5 Toileting Hygiene (QC): 4 Toilet Transfer (QC): 4 Assessment/Plan Assessment and Plan Assess & Plan/Chief Complaint Assessment: s/p acute ischemic stroke with residual bilateral hemianopsia s/p tPa Atrial fibrillation with RVR consulted Cardiology T2DM with hyperglycemia hga1c 10.9 Lack of insurance Plan: OAC Rate control AF Appreciate Cardiology DM management 01/28/21: Monitor glucose IRF protocol 01/29/21: Monitor sugar Transition to OHA 01/30/21: Monitor closely Insulin decreased 01/31/21: Labs tomorrow Monitor closely (1) CVA (cerebral vascular accident) Status: Acute (2) Atrial fibrillation with rapid ventricular response Status: Acute (3) Bilateral hemianopia Status: Acute (4) Insulin dependent diabetes mellitus (5) Essential (primary) hypertension BUBBA CANA[place] DO Jan 31, 2021 14:21
[2021-01-31 17:37] VITALS: BP 121/74
[2021-02-01 00:30] VITALS: BP 120/72
[2021-02-01 05:43] LABS: BASOPHILS % (AUTO) 0 % (0-10); EOSINOPHILS # (AUTO) 0.1 10^3/uL (0.0-0.3); EOSINOPHILS % (AUTO) 2 % (0-10); HEMATOCRIT 39 % (40-54); HEMOGLOBIN 12.9 g/dL (13.3-17.7); LYMPHOCYTES # (AUTO) 1.6 10^3/uL (1.0-4.0); LYMPHOCYTES % (AUTO) 29 % (12-44); MEAN CORPUSCULAR HEMOGLOBIN 29 pg (25-34); MEAN CORPUSCULAR HGB CONC 33 g/dL (32-36); MEAN CORPUSCULAR VOLUME 86 fL (80-99); MEAN PLATELET VOLUME 12.3 fL (9.0-12.2); MONOCYTES # (AUTO) 0.5 10^3/uL (0.0-1.0); MONOCYTES % (AUTO) 9 % (0-12); NEUTROPHILS # (AUTO) 3.4 10^3/uL (1.8-7.8); NEUTROPHILS % (AUTO) 60 % (42-75); PLATELET COUNT 124 10^3/uL (130-400); WHITE BLOOD COUNT 5.7 10^3/uL (4.3-11.0)
[2021-02-01 06:00] VITALS: BP 134/65
[2021-02-01 06:00] LABS: ALBUMIN 3.4 GM/DL (3.2-4.5)
[2021-02-01 06:01] LABS: CHLORIDE 107 MMOL/L (98-107); POTASSIUM 4.3 MMOL/L (3.6-5.0); SODIUM 140 MMOL/L (135-145)
[2021-02-01 06:02] LABS: CALCIUM 9.1 MG/DL (8.5-10.1)
[2021-02-01 06:03] LABS: GLUCOSE 200 MG/DL (70-105)
[2021-02-01 06:04] LABS: CARBON DIOXIDE 23 MMOL/L (21-32)
[2021-02-01 06:06] LABS: ALKALINE PHOSPHATASE 128 U/L (40-136)
[2021-02-01 06:07] LABS: CREATININE SERUM 0.52 MG/DL (0.60-1.30); GFR ESTIMATED > 60
[2021-02-01 06:08] LABS: BUN/CREATININE RATIO 21
[2021-02-01 06:09] LABS: ALANINE AMINOTRANSFERASE 29 U/L (0-55)
[2021-02-01] MEDS: metFORMIN 500 MG (GLUCOPHAGE) TAB PO SCH (06:23)
[2021-02-01] MEDS: inSUlin ASPART (NovoLOG) 1 UNIT/0.01 ML (CHARGE PER UNIT) SC SCH ×4 (06:23→21:11)
[2021-02-01] MEDS: SENNA W/DOCUSATE (SENOKOT S) TABLET PO SCH ×2 (08:04→21:11)
[2021-02-01] MEDS: APIXABAN 5 MG (ELIQUIS) TABLET PO SCH ×2 (08:04→21:05)
[2021-02-01] MEDS: ASPIRIN E.C. 81 MG (ECOTRIN) TAB PO SCH (08:04)
[2021-02-01] MEDS: polyethylene glycoL POWDER 17 GM (MIRALAX) PACK PO SCH ×2 (09:00→21:11)
[2021-02-01] MEDS ORDERED: glyBURIDE 2.5 MG (MICRONASE) TAB PO ONE (10:30)
--- NOTE | 2021-02-01 10:34 | PM&R Progress Note ---
Subjective HPI/CC On Admission Date Seen by Provider: Feb 01, 2021 Time Seen by Provider: 10:45 Subjective/Events-last exam 02/01/21: Pt doing really well Sugars are up a bit so I did start Glyburide 2.5 daily Overall doing really well HgbA1C 10.9 01/31/21: Patient feels good Wants to go downstairs and spend some time downstairs with his brother No pain reported 01/30/21: Patient doing well Mother at bedside Sugar 77 Decreased insulin Left vision loss 01/29/21: Patient doing well Sugars reviewed No pain reported 01/28/21: Patient doing well Vision loss is frustrating Glucose 202 this am AF noted BM yesterday Left eye flashes Review of Systems General: Fatigue, Malaise Neurological: Weakness Objective Exam Vital Signs Vital Signs Date Time Temp Pulse Resp B/P (MAP) Pulse Ox O2 Delivery O2 Flow Rate FiO2 02/02/21 01:00 82 02/01/21 21:00 18 139/63 (88) 97 Room Air 02/01/21 17:45 35.7 Capillary Refill : General Appearance: No Apparent Distress, WD/WN HEENT: PERRL/EOMI, Normal ENT Inspection, Pharynx Normal, Other (bilateral hemianopsia) Neck: Full Range of Motion, Normal Inspection, Non Tender, Supple, Carotid Bruit Respiratory: Chest Non Tender, Lungs Clear, Normal Breath Sounds, No Accessory Muscle Use, No Respiratory Distress Cardiovascular: No Edema, No Gallop, No JVD, No Murmur, Normal Peripheral Pulses, Irregularly Irregular, Tachycardia Gastrointestinal: Normal Bowel Sounds, No Organomegaly, No Pulsatile Mass, Non Tender, Soft Back: Normal Inspection, No CVA Tenderness, No Vertebral Tenderness Extremity: Normal Capillary Refill, Normal Inspection, Normal Range of Motion, Non Tender, No Calf Tenderness, No Pedal Edema Neurologic/Psychiatric: Alert, Oriented x3, No Motor/Sensory Deficits, Normal Mood/Affect, Motor Weakness (generalized 4/5) Skin: Normal Color, Warm/Dry Lymphatic: No Adenopathy Results/Procedures Lab Patient resulted labs reviewed. FIM Transfers Therapy Code Descriptions/Definitions Functional [place] Measure: 0=Not Assessed/NA 4=Minimal Assistance 1=Total Assistance 5=Supervision or Setup 2=Maximal Assistance 6=Modified [place] 3=Moderate Assistance 7=Complete IndependenceSCALE: Activities may be completed with or without assistive devices. 7-Zzldonomrz-vfqhuem completes the activity by him/herself with no assistance from a helper. 5-Set-up or Clean-up Assistance-helper sets up or cleans up; patient completes activity. [place] assists only prior to or following the activity. 4-Supervision or Touching Assistance-helper provides verbal cues and/or touching/steadying and/or contact guard assistance as patient completes activity. Assistance may be provided throughout the activity or intermittently. 3-Partial/Moderate Assistance-helper does LESS THAN HALF the effort. [place] lifts, holds or supports trunk or limbs, but provides less than half the effort. 2-Substantial/Maximal Assistance-helper does MORE THAN HALF the effort. [place] lifts or holds trunk or limbs and provides more than half the effort. 6-Trumfttpf-mpwafr does ALL the effort. Patient does none of the effort to complete the activity. Or, the assistance of 2 or more helpers is required for the patient to complete the activity. If activity was not attempted, code reason: 7-Patient Refused. 9-Not Applicable-not attempted and the patient did not perform the activity before the current illness, exacerbation or injury. 10-Not Attempted due to Environmental Limitations-(lack of equipment, weather restraints, etc.). 88-Not Attempted due to Medical Conditions or Safety Concerns. Roll Left to Right (QC): 6 Sit to Lying (QC): 6 Sit to Stand (QC): 4 Chair/Gve-kt-Rvsmm Xfer(QC): 4 Car Transfer (QC): 4 Gait Training Does the Patient Walk?: Yes Distance: 120' Walk 10 feet (QC): 4 Walk 50 ft with 2 Turns(QC): 4 Walk 150 ft (QC): 4 Walking 10ft/uneven surface-QC: 4 Gait Persons Needed: 1 Gait Assistive Device: None Wheelchair Training Does the Pt Use a Wheelchair?: No Wheel 50 ft with 2 turns (QC): 9 Wheel 150 ft (QC): 9 Stair Training Stair Training: Handrails/: 1 handrail #of Steps: 20 1 Step (curb) (QC): 4 4 Steps (QC): 4 12 Steps (QC): 4 Stairs: Pattern: Reciprocal Balance Picking up an Object (QC): 4 ADL-Treatment Eating (QC): 6 Oral Hygiene (QC): 7 Shower/Bathe Self (QC): 5 Upper Body Dressing (QC): 5 Lower Body Dressing (QC): 4 On/Off Footwear (QC): 5 Toileting Hygiene (QC): 4 Toilet Transfer (QC): 4 Assessment/Plan Assessment and Plan Assess & Plan/Chief Complaint Assessment: s/p acute ischemic stroke with residual bilateral hemianopsia s/p tPa Atrial fibrillation with RVR consulted Cardiology T2DM with hyperglycemia hga1c 10.9 Lack of insurance Plan: OAC Rate control AF Appreciate Cardiology DM management 01/28/21: Monitor glucose IRF protocol 01/29/21: Monitor sugar Transition to OHA 01/30/21: Monitor closely Insulin decreased 01/31/21: Labs tomorrow Monitor closely 02/01/21: Monitor closely Glyburide (1) CVA (cerebral vascular accident) Status: Acute (2) Atrial fibrillation with rapid ventricular response Status: Acute (3) Bilateral hemianopia Status: Acute (4) Insulin dependent diabetes mellitus (5) Essential (primary) hypertension BUBBA [place]NA[place] DO Feb 01, 2021 10:34
--- NOTE | 2021-02-01 10:51 | Progress Note - Cardiology ---
Cardiology SOAP Progress Note Objective: I&O/Vital Signs 02/02/21 02/02/21 02/02/21 02/02/21 01:00 06:02 06:31 08:00 Temp 37.3 Pulse 82 93 89 Resp 18 B/P (MAP) 132/75 (94) Pulse Ox 96 O2 Delivery Room Air Room Air 02/02/21 08:20 Pulse 102 B/P (MAP) 146/76 (99) 02/02/21 00:00 Intake Total 1240 ml Balance 1240 ml Weight (Pounds): 214 Weight (Ounces): 5.0 Weight (Calculated Kilograms): 97.946180 Constitutional: AAO x 3, well-developed, well-nourished Respiratory: No accessory muscle use; other (good bilateral air entry) Cardiovascular: regular rate-rhythm, S1 and S2, systolic murmur (soft SCARLET at card basee) Gastrointestional: No tender; soft; No guarding, No rebound; audible bowel sounds Extremities: No clubbing, No cyanosis, No significant edema Neurologic/Psychiatric: oriented x 3, other (Bilateral, left-sided vision loss, moves all limbs) Skin: warm/dry; No cool, No rash on exposed areas, No ulcerations on exposed areas Results/Procedures: Labs Laboratory Tests 02/01/21 16:33: Glucometer 99 02/01/21 20:54: Glucometer 155H 02/02/21 05:49: Glucometer 127H 02/02/21 11:04: Glucometer 69L A/P: Assessment: Acute CVA; multiple infarct on CT and MR. Received TPA in the emergency room on 01-25-21. Some small petechial hemorrhage reported on the MRI but not on subsequent imaging. Managed by primary care team. Primary care team started Eliquis on 01/27/21 Atrial fibrillation, newly diagnosed, rate is currently controlled Diabetes mellitus, poor control, managed by primary care team Plan: * Monitor labs from time to time * Change Cardizem to long-acting THOR SCHNEIDER Feb 01, 2021 10:51
--- NOTE | 2021-02-01 11:34 | Physical Therapy Daily Note ---
PT Daily Note-Current Subjective Pt agreeable and denies pain. Mental Status Patient Orientation: Person, Place, Situation Transfers SCALE: Activities may be completed with or without assistive devices. 3-Ljxhislyum-ftbqslj completes the activity by him/herself with no assistance fr om a helper. 5-Set-up or Clean-up Assistance-helper sets up or cleans up; patient completes activity. [place] assists only prior to or following the activity. 4-Supervision or Touching Assistance-helper provides verbal cues and/or touching/steadying and/or contact guard assistance as patient completes activity. Assistance may be provided throughout the activity or intermittently. 3-Partial/Moderate Assistance-helper does LESS THAN HALF the effort. [place] lifts, holds or supports trunk or limbs, but provides less than half the effort. 2-Substantial/Maximal Assistance-helper does MORE THAN HALF the effort. [place] lifts or holds trunk or limbs and provides more than half the effort. 7-Zgpgfjujn-wokpku does ALL the effort. Patient does none of the effort to complete the activity. Or, the assistance of 2 or more helpers is required for the patient to complete the activity. If activity was not attempted, code reason: 7-Patient Refused. 9-Not Applicable-not attempted and the patient did not perform the activity before the current illness, exacerbation or injury. 10-Not Attempted due to Environmental Limitations-(lack of equipment, weather restraints, etc.). 88-Not Attempted due to Medical Conditions or Safety Concerns. Pt (I) with all mobility Weight Bearing Full Weight Bearing Full Weight Bearing Gait Training Pt amb through halls and doorways x approximately 1200ft. Pt able to pass through doorways and halls without deviating or running into obstacles. Stair Training #of Steps: 12 mod (I) Exercises NuStep Minutes: 20 NuStep Workload: 4 Treatments Treatment included: catching/bouncing ball, catching ball from all angles, eye tracking, focus on object retrieve letters on board, peripheral vision drill with straw and toothpick. Assessment Current Status: Good Progress Pt josselyn very well. Pt lacks peripheral vision (L) of center. Pt able to compensate well with peripheral vision exercises. Pt in care of OT post therapy session, PT Short Term Goals Short Term Goals Time Frame: Feb 03, 2021 Roll Left & Right: 6 Sit to lyin Lying to sitting on side of be: 6 Sit to stand: 5 Chair/qka-mf-kxerp transfer: 5 Walk 10 feet: 5 Walk 50 feet with two turns: 5 Walk 150 feet: 5 PT Shelter Goals Child Welfare Consultant Goals PT Shelter Goals Time Frame: Feb 17, 2021 Roll Left & Right (QC): 6 Sit to Lying (QC): 6 Lying-Sitting on Side/Bed(QC): 6 Sit to Stand (QC): 6 Chair/Unc-rk-Kurwo Xfer(QC): 6 Toilet Transfer (QC): 6 Car Transfer (QC): 6 Does the Patient Walk: Yes Walk 10 feet (QC): 6 Walk 50ft with 2 Turns (QC): 6 Walk 150 ft (QC): 6 Walking 10ft on Uneven Surface: 6 1 Step (curb) (QC): 6 4 Steps (QC): 6 12 Steps (QC): 6 Picking up an Object (QC): 6 Wheel 50 feet with 2 turns (QC: 9 Wheel 150 feet: 9 PT Plan Treatment/Plan Treatment Plan: Continue Plan of Care Treatment Plan: Education, Functional Activity Lisa, Functional Strength, Group Therapy, Gait, Safety, Therapeutic Exercise, Transfers Treatment Duration: Feb 17, 2021 Frequency: At least 5 of 7 days/Wk (IRF) Estimated Hrs Per Day: 1.5 hours per day Patient and/or Family Agrees t: Yes Time/GCodes Time In: 900 Time Out: 1000 Total Billed Treatment Time: 60 Total Billed Treatment 1, ther ex 30', gait 30' AMRI CRUZ CPTA Feb 01, 2021 11:34
--- NOTE | 2021-02-01 13:28 | Occupational Ther Daily Note ---
OT Current Status-Daily Note Subjective No pain reported. Pt. states that he is feeling good, but still has left sided field cut. Appearance Pt. up in chair. Agrees to work with OT. Mental Status/Objective Patient Orientation: Person, Place, Time, Situation ADL-Treatment Therapy Code Descriptions/Definitions Functional [place] Measure: 0=Not Assessed/NA 4=Minimal Assistance 1=Total Assistance 5=Supervision or Setup 2=Maximal Assistance 6=Modified [place] 3=Moderate Assistance 7=Complete IndependenceSCALE: Activities may be completed with or without assistive devices. 1-Vourwhtrle-kupolkm completes the activity by him/herself with no assistance from a helper. 5-Set-up or Clean-up Assistance-helper sets up or cleans up; patient completes activity. [place] assists only prior to or following the activity. 4-Supervision or Touching Assistance-helper provides verbal cues and/or touching/steadying and/or contact guard assistance as patient completes activity. Assistance may be provided throughout the activity or intermittently. 3-Partial/Moderate Assistance-helper does LESS THAN HALF the effort. [place] lifts, holds or supports trunk or limbs, but provides less than half the effort. 2-Substantial/Maximal Assistance-helper does MORE THAN HALF the effort. [place] lifts or holds trunk or limbs and provides more than half the effort. 7-Soexhziny-hbsqqz does ALL the effort. Patient does none of the effort to complete the activity. Or, the assistance of 2 or more helpers is required for the patient to complete the activity. If activity was not attempted, code reason: 7-Patient Refused. 9-Not Applicable-not attempted and the patient did not perform the activity before the current illness, exacerbation or injury. 10-Not Attempted due to Environmental Limitations-(lack of equipment, weather restraints, etc.). 88-Not Attempted due to Medical Conditions or Safety Concerns. Eating (QC): 6 Oral Hygiene (QC): 6 Shower/Bathe Self (QC): 6 Upper Body Dressing (QC): 6 Lower Body Dressing (QC): 6 On/Off Footwear: 6 Toileting Hygiene (QC): 6 Toilet Transfer (QC): 6 Other Treatment Pt. is able to shower and dress independently in room. After this, he is able to ambulate independently without assistive device to therapy gym. Pt tolerates series of fine motor tasks, UE strengthening tasks, and activities to promote left sided visual awareness. Pt. demonstrates little difficulty with any activity. He completes 15 minutes on arm bike at mod resistance to work on overall endurance. He completes card visualization activity with retrieving cards that are placed on left side, and visually putting them in correct order. He also works on dynamic standing balance in hallway while retrieving hodge bags that are placed in hallway on left side. He retrieves them with plc controls engineer and no difficulty. Pt. is able to attend to left side, and modify environment accordingly. He does not display poor balance nor does he hit things on left side accidentally when ambulating. Pt. ambulates to room after treatment and participates in UE activity with red theraband. Completes 3 bilateral UE exercises x 20 reps each, in all planes to increase overall strength. All needs met. Education OT Patient Education: Correct positioning, Exercise program, Modified ADL techniques, Progress toward Goal/Update tx plan, Purpose of tx/functional activities, Reviewed precautions, Rehab process, Transfer techniques Teaching Recipient: Patient Teaching Methods: Demonstration, Discussion Response to Teaching: Verbalize Understanding, Return Demonstration OT Care Home Goals Care Home Goals Time Frame: Feb 10, 2021 Eating (QC): 6 Oral Hygiene (QC): 6 Toileting Hygiene (QC): 6 Shower/Bathe Self (QC): 5 Upper Body Dressing (QC): 6 Lower Body Dressing (QC): 6 On/Off Footwear (QC): 6 Additional Goals: 1-Demonstrate ADL Tasks, 2-Verbalize Understanding, 3-Improve Strength/Lisa 1=Demonstrate adherence to instructed precautions during ADL tasks. 2=Patient will verbalize/demonstrate understanding of assistive devices/modifications for ADL. 3=Patient will improve strength/tolerance for activity to enable patient to pe rform ADL's. OT Education/Plan Problem List/Assessment Assessment: Decreased Activ Tolerance Discharge Recommendations Plan/Recommendations: Continue POC Therapy Discharge Recommendati: Home & Family Treatment Plan/Plan of Care Treatment,Training & Education: Yes Patient would benefit from OT for education, treatment and training to promote independence in ADL's, mobility, safety and/or upper extremity function for ADL's. Plan of Care: ADL Retraining, Functional Mobility, Group Exercise/Act as Ind, UE Funct Exercise/Act, Visual/Perceptual Retrain Treatment Duration: Feb 10, 2021 Frequency: At least 5 of 7 days/Wk (IRF) Estimated Hrs Per Day: 1.5 hours per day Agreement: Yes Rehab Potential: Good Time/GCodes Start Time: 10:00 Stop Time: 11:30 Total Time Billed (hr/min): 90 Billed Treatment Time 1, ADL x 30minutes, Ex x 15minutes, FA x 45minutes SHIRLEY FELIZ OT Feb 01, 2021 13:27
--- NOTE | 2021-02-01 14:21 | Physical Therapy Daily Note ---
PT Daily Note-Current Subjective Pt denies pain. Pt agreeable and without complaint. Nursing did interrupt treatment to say his HI was 140-150 per telemetry. Pt HI was monitored for remainder of treatment. Mental Status Patient Orientation: Person, Place, Situation Transfers SCALE: Activities may be completed with or without assistive devices. 4-Tjjissporv-ijgytgq completes the activity by him/herself with no assistance from a helper. 5-Set-up or Clean-up Assistance-helper sets up or cleans up; patient completes activity. [place] assists only prior to or following the activity. 4-Supervision or Touching Assistance-helper provides verbal cues and/or rey jose raul/steadying and/or contact guard assistance as patient completes activity. Assistance may be provided throughout the activity or intermittently. 3-Partial/Moderate Assistance-helper does LESS THAN HALF the effort. [place] lifts, holds or supports trunk or limbs, but provides less than half the effort. 2-Substantial/Maximal Assistance-helper does MORE THAN HALF the effort. [place] lifts or holds trunk or limbs and provides more than half the effort. 6-Cmsfiqtyg-sddjvu does ALL the effort. Patient does none of the effort to complete the activity. Or, the assistance of 2 or more helpers is required for the patient to complete the activity. If activity was not attempted, code reason: 7-Patient Refused. 9-Not Applicable-not attempted and the patient did not perform the activity before the current illness, exacerbation or injury. 10-Not Attempted due to Environmental Limitations-(lack of equipment, weather restraints, etc.). 88-Not Attempted due to Medical Conditions or Safety Concerns. Weight Bearing Full Weight Bearing Full Weight Bearing Gait Training Pt amb in hallways and through doorways at good speed and (I) for all. Pt did not have any episodes of deviation of path or running into obstacles. Exercises Seated Therapy Exercises: Ankle pumps, Long arc quads Seated Reps: 20 Standing: Heel/toe raises, 3 way Ex=Flex, Abd, Ext, Marching Standing Reps: 20 NuStep Minutes: 5 NuStep Workload: 5 Treatments Stoop and recover cones x 10 on the floor in hallway for dynamic balance/functional activity. Assessment Current Status: Good Progress Excellent performance. Pt HI monitored fluctuated with activity 105-119bpm. Pt back to room, friends present for visit. All needs met. PT Short Term Goals Short Term Goals Time Frame: Feb 03, 2021 Roll Left & Right: 6 Sit to lyin Lying to sitting on side of be: 6 Sit to stand: 5 Chair/izy-pv-nxtla transfer: 5 Walk 10 feet: 5 Walk 50 feet with two turns: 5 Walk 150 feet: 5 PT Mcfp Goals Medical Billing Coordinator Goals PT Mcfp Goals Time Frame: Feb 17, 2021 Roll Left & Right (QC): 6 Sit to Lying (QC): 6 Lying-Sitting on Side/Bed(QC): 6 Sit to Stand (QC): 6 Chair/Juk-yg-Swaul Xfer(QC): 6 Toilet Transfer (QC): 6 Car Transfer (QC): 6 Does the Patient Walk: Yes Walk 10 feet (QC): 6 Walk 50ft with 2 Turns (QC): 6 Walk 150 ft (QC): 6 Walking 10ft on Uneven Surface: 6 1 Step (curb) (QC): 6 4 Steps (QC): 6 12 Steps (QC): 6 Picking up an Object (QC): 6 Wheel 50 feet with 2 turns (QC: 9 Wheel 150 feet: 9 PT Plan Treatment/Plan Treatment Plan: Continue Plan of Care Treatment Plan: Education, Functional Activity Lisa, Functional Strength, Group Therapy, Gait, Safety, Therapeutic Exercise, Transfers Treatment Duration: Feb 17, 2021 Frequency: At least 5 of 7 days/Wk (IRF) Estimated Hrs Per Day: 1.5 hours per day Patient and/or Family Agrees t: Yes Time/GCodes Time In: 1330 Time Out: 1400 Total Billed Treatment Time: 30 Total Billed Treatment 1, ther ex x15min, gait x15min MARI CRUZ CPTJohan Feb 01, 2021 14:21
[2021-02-01 17:45] VITALS: BP 148/67
--- NOTE | 2021-02-01 18:46 | Progress Note - Cardiology ---
Cardiology SOAP Progress Note Subjective: Gen malaise and weakness is better No shortness of breath No cp or palp or syncope No n/v/d Objective: I&O/Vital Signs 02/01/21 02/01/21 02/01/21 08:00 12:55 17:45 Temp 35.7 Pulse 116 102 Resp 18 B/P (MAP) 148/67 (94) Pulse Ox 99 O2 Delivery Room Air Room Air 02/01/21 00:00 Intake Total 800 ml Balance 800 ml Weight (Pounds): 214 Weight (Ounces): 5.0 Weight (Calculated Kilograms): 97.623430 Constitutional: AAO x 3, well-developed, well-nourished Respiratory: No accessory muscle use; other (good bilateral air entry) Cardiovascular: regular rate-rhythm, S1 and S2, systolic murmur (soft SCARLET at card basee) Gastrointestional: No tender; soft; No guarding, No rebound; audible bowel sounds Extremities: No clubbing, No cyanosis, No significant edema Neurologic/Psychiatric: oriented x 3, other (Bilateral, left-sided vision loss, moves all limbs) Skin: warm/dry; No cool, No rash on exposed areas, No ulcerations on exposed areas Results/Procedures: Labs Laboratory Tests 01/31/21 21:04: Glucometer 211H 02/01/21 04:57: White Blood Count 5.7, Red Blood Count 4.50, Hemoglobin 12.9L, Hematocrit 39L, Mean Corpuscular Volume 86, Mean Corpuscular Hemoglobin 29, Mean Corpuscular Hemoglobin Concent 33, Red Cell Distribution Width 12.2, Platelet Count 124L, Mean Platelet Volume 12.3H, Immature Granulocyte % (Auto) 0, Neutrophils (%) (Auto) 60, Lymphocytes (%) (Auto) 29, Monocytes (%) (Auto) 9, Eosinophils (%) (Auto) 2, Basophils (%) (Auto) 0, Neutrophils # (Auto) 3.4, Lymphocytes # (Auto) 1.6, Monocytes # (Auto) 0.5, Eosinophils # (Auto) 0.1, Basophils # (Auto) 0.0, Immature Granulocyte # (Auto) 0.0, Sodium Level 140, Potassium Level 4.3, Chloride Level 107, Carbon Dioxide Level 23, Anion Gap 10, Blood Urea Nitrogen 11, Creatinine 0.52L, Estimat Glomerular Filtration Rate > 60, BUN/Creatinine R atio 21, Glucose Level 200H, Calcium Level 9.1, Corrected Calcium 9.6, Total Bilirubin 1.0, Aspartate Amino Transf (AST/SGOT) 18, Alanine Aminotransferase (ALT/SGPT) 29, Alkaline Phosphatase 128, Total Protein 6.0L, Albumin 3.4 02/01/21 10:58: Glucometer 135H 02/01/21 16:33: Glucometer 99 A/P: Assessment: Acute CVA; multiple infarct on CT and MR. Received TPA in the emergency room on 01-25-21. Some small petechial hemorrhage reported on the MRI but not on subsequent imaging. Managed by primary care team. Primary care team started Eliquis on 01/27/21 Atrial fibrillation, newly diagnosed, rate is currently controlled Diabetes mellitus, poor control, managed by primary care team Plan: * Monitor labs from time to time * Change Cardizem to long-acting BELLA RAMIREZ MD FACP FAC CCDS Feb 01, 2021 18:46
[2021-02-01 21:00] VITALS: BP 139/63
[2021-02-02] MEDS: inSUlin ASPART (NovoLOG) 1 UNIT/0.01 ML (CHARGE PER UNIT) SC SCH ×4 (06:00→20:17)
[2021-02-02 06:02] VITALS: BP 132/75
[2021-02-02] MEDS: glyBURIDE 2.5 MG (MICRONASE) TAB PO SCH (06:54)
[2021-02-02] MEDS: metFORMIN 500 MG (GLUCOPHAGE) TAB PO SCH (06:55)
[2021-02-02] MEDS: APIXABAN 5 MG (ELIQUIS) TABLET PO SCH ×2 (08:19→20:13)
[2021-02-02] MEDS: ASPIRIN E.C. 81 MG (ECOTRIN) TAB PO SCH (08:19)
[2021-02-02 08:20] VITALS: BP 146/76
--- NOTE | 2021-02-02 09:11 | PM&R Progress Note ---
Subjective HPI/CC On Admission Date Seen by Provider: Feb 02, 2021 Time Seen by Provider: 09:15 Subjective/Events-last exam 02/02/21: Pt ready for DC Transition to oral hyperglycemic agent and will DC insulin at DC Ready for DC tomorrow 02/01/21: Pt doing really well Sugars are up a bit so I did start Glyburide 2.5 daily Overall doing really well HgbA1C 10.9 01/31/21: Patient feels good Wants to go downstairs and spend some time downstairs with his brother No pain reported 01/30/21: Patient doing well Mother at bedside Sugar 77 Decreased insulin Left vision loss 01/29/21: Patient doing well Sugars reviewed No pain reported 01/28/21: Patient doing well Vision loss is frustrating Glucose 202 this am AF noted BM yesterday Left eye flashes Review of Systems HEENT: Visual Changes Objective Exam Vital Signs Vital Signs Date Time Temp Pulse Resp B/P (MAP) Pulse Ox O2 Delivery O2 Flow Rate FiO2 02/03/21 01:00 95 02/02/21 20:00 Room Air 02/02/21 18:00 37.3 18 138/72 (94) 97 Capillary Refill : General Appearance: No Apparent Distress, WD/WN HEENT: PERRL/EOMI, Normal ENT Inspection, Pharynx Normal, Other (bilateral hemianopsia) Neck: Full Range of Motion, Normal Inspection, Non Tender, Supple, Carotid Bruit Respiratory: Chest Non Tender, Lungs Clear, Normal Breath Sounds, No Accessory Muscle Use, No Respiratory Distress Cardiovascular: No Edema, No Gallop, No JVD, No Murmur, Normal Peripheral Pulses, Irregularly Irregular, Tachycardia Gastrointestinal: Normal Bowel Sounds, No Organomegaly, No Pulsatile Mass, Non Tender, Soft Back: Normal Inspection, No CVA Tenderness, No Vertebral Tenderness Extremity: Normal Capillary Refill, Normal Inspection, Normal Range of Motion, Non Tender, No Calf Tenderness, No Pedal Edema Neurologic/Psychiatric: Alert, Oriented x3, No Motor/Sensory Deficits, Normal Mood/Affect, Motor Weakness (generalized 4/5) Skin: Normal Color, Warm/Dry Lymphatic: No Adenopathy Results/Procedures Lab Patient resulted labs reviewed. FIM Transfers Therapy Code Descriptions/Definitions Functional [place] Measure: 0=Not Assessed/NA 4=Minimal Assistance 1=Total Assistance 5=Supervision or Setup 2=Maximal Assistance 6=Modified [place] 3=Moderate Assistance 7=Complete IndependenceSCALE: Activities may be completed with or without assistive devices. 1-Jpkbxkgoyt-cmcyyva completes the activity by him/herself with no assistance from a helper. 5-Set-up or Clean-up Assistance-helper sets up or cleans up; patient completes activity. [place] assists only prior to or following the activity. 4-Supervision or Touching Assistance-helper provides verbal cues and/or touching/steadying and/or contact guard assistance as patient completes activity. Assistance may be provided throughout the activity or intermittently. 3-Partial/Moderate Assistance-helper does LESS THAN HALF the effort. [place] lifts, holds or supports trunk or limbs, but provides less than half the effort. 2-Substantial/Maximal Assistance-helper does MORE THAN HALF the effort. [place] lifts or holds trunk or limbs and provides more than half the effort. 5-Szzqrtvew-wqchjw does ALL the effort. Patient does none of the effort to complete the activity. Or, the assistance of 2 or more helpers is required for the patient to complete the activity. If activity was not attempted, code reason: 7-Patient Refused. 9-Not Applicable-not attempted and the patient did not perform the activity before the current illness, exacerbation or injury. 10-Not Attempted due to Environmental Limitations-(lack of equipment, weather restraints, etc.). 88-Not Attempted due to Medical Conditions or Safety Concerns. Roll Left to Right (QC): 6 Sit to Lying (QC): 6 Sit to Stand (QC): 4 Chair/Bxl-sp-Ezuqt Xfer(QC): 4 Car Transfer (QC): 4 Gait Training Does the Patient Walk?: Yes Distance: 120' Walk 10 feet (QC): 4 Walk 50 ft with 2 Turns(QC): 4 Walk 150 ft (QC): 4 Walking 10ft/uneven surface-QC: 4 Gait Persons Needed: 1 Gait Assistive Device: None Wheelchair Training Does the Pt Use a Wheelchair?: No Wheel 50 ft with 2 turns (QC): 9 Wheel 150 ft (QC): 9 Stair Training Stair Training: Handrails/: 1 handrail #of Steps: 12 1 Step (curb) (QC): 4 4 Steps (QC): 4 12 Steps (QC): 4 Stairs: Pattern: Reciprocal Balance Picking up an Object (QC): 4 ADL-Treatment Eating (QC): 6 Oral Hygiene (QC): 6 Shower/Bathe Self (QC): 6 Upper Body Dressing (QC): 6 Lower Body Dressing (QC): 6 On/Off Footwear (QC): 6 Toileting Hygiene (QC): 6 Toilet Transfer (QC): 6 Assessment/Plan Assessment and Plan Assess & Plan/Chief Complaint Assessment: s/p acute ischemic stroke with residual bilateral hemianopsia s/p tPa Atrial fibrillation with RVR consulted Cardiology T2DM with hyperglycemia hga1c 10.9 Lack of insurance Plan: OAC Rate control AF Appreciate Cardiology DM management 01/28/21: Monitor glucose IRF protocol 01/29/21: Monitor sugar Transition to OHA 01/30/21: Monitor closely Insulin decreased 01/31/21: Labs tomorrow Monitor closely 02/01/21: Monitor closely Glyburide 02/02/21: Monitor sugar Fall risk (1) CVA (cerebral vascular accident) Status: Acute (2) Atrial fibrillation with rapid ventricular response Status: Acute (3) Bilateral hemianopia Status: Acute (4) Insulin dependent diabetes mellitus (5) Essential (primary) hypertension BUBBA CANA[place] DO Feb 02, 2021 09:11
[2021-02-02] MEDS: polyethylene glycoL POWDER 17 GM (MIRALAX) PACK PO SCH ×2 (09:13→19:20)
[2021-02-02] MEDS: SENNA W/DOCUSATE (SENOKOT S) TABLET PO SCH ×2 (09:13→19:21)
--- NOTE | 2021-02-02 10:49 | Occupational Ther Daily Note ---
OT Current Status-Daily Note Subjective No pain reported. Appearance Pt. up in chair. Agrees to work with OT. Mental Status/Objective Patient Orientation: Person, Place, Time, Situation Attachments: IV ADL-Treatment Therapy Code Descriptions/Definitions Functional [place] Measure: 0=Not Assessed/NA 4=Minimal Assistance 1=Total Assistance 5=Supervision or Setup 2=Maximal Assistance 6=Modified [place] 3=Moderate Assistance 7=Complete IndependenceSCALE: Activities may be completed with or without assistive devices. 4-Kfizzkgngq-xmnpjli completes the activity by him/herself with no assistance from a helper. 5-Set-up or Clean-up Assistance-helper sets up or cleans up; patient completes activity. [place] assists only prior to or following the activity. 4-Supervision or Touching Assistance-helper provides verbal cues and/or touching/steadying and/or contact guard assistance as patient completes activity. Assistance may be provided throughout the activity or intermittently. 3-Partial/Moderate Assistance-helper does LESS THAN HALF the effort. [place] lifts, holds or supports trunk or limbs, but provides less than half the effort. 2-Substantial/Maximal Assistance-helper does MORE THAN HALF the effort. [place] lifts or holds trunk or limbs and provides more than half the effort. 8-Ygviveyid-xzgtek does ALL the effort. Patient does none of the effort to complete the activity. Or, the assistance of 2 or more helpers is required for the patient to complete the activity. If activity was not attempted, code reason: 7-Patient Refused. 9-Not Applicable-not attempted and the patient did not perform the activity before the current illness, exacerbation or injury. 10-Not Attempted due to Environmental Limitations-(lack of equipment, weather restraints, etc.). 88-Not Attempted due to Medical Conditions or Safety Concerns. Eating (QC): 6 Oral Hygiene (QC): 6 Shower/Bathe Self (QC): 6 Upper Body Dressing (QC): 6 Lower Body Dressing (QC): 6 On/Off Footwear: 6 Toileting Hygiene (QC): 6 Toilet Transfer (QC): 6 Other Treatment Pt. completed shower/dressing this a.m. fully independently. Also worked on series of fine motor activities, UE strengthening activity with arm bike x 15 minutes at mod resistance, and visual perceptual activities for increased visual scan, occular motor movement, and awareness of left side. Pt. able to complete all tasks with no difficulty. Pt. does still verbalize left sided field cut, but is aware and is very efficient at scanning to left and compensating independently. No difficulty with tasks noted. Pt. and OT talked about follow up with pt's eye at discharge for acuity and visual field deficit. Pt. verbalizes understanding. All needs are met back in room. Pt. up ad edie. Notified nursing. Education OT Patient Education: Correct positioning, Exercise program, Modified ADL techniques, Progress toward Goal/Update tx plan, Purpose of tx/functional activities, Reviewed precautions, Rehab process, Transfer techniques Teaching Recipient: Patient Teaching Methods: Demonstration, Discussion Response to Teaching: Verbalize Understanding, Return Demonstration OT [employer] Intern Goals [facility] Goals Time Frame: Feb 10, 2021 Eating (QC): 6 Oral Hygiene (QC): 6 Toileting Hygiene (QC): 6 Shower/Bathe Self (QC): 5 Upper Body Dressing (QC): 6 Lower Body Dressing (QC): 6 On/Off Footwear (QC): 6 Additional Goals: 1-Demonstrate ADL Tasks, 2-Verbalize Understanding, 3- ImproveStrength/Lisa 1=Demonstrate adherence to instructed precautions during ADL tasks. 2=Patient will verbalize/demonstrate understanding of assistive devices/mo difications for ADL. 3=Patient will improve strength/tolerance for activity to enable patient to perform ADL's. OT Education/Plan Discharge Recommendations Plan/Recommendations: Continue POC Therapy Discharge Recommendati: Home & Family Treatment Plan/Plan of Care Treatment,Training & Education: Yes Patient would benefit from OT for education, treatment and training to promote independence in ADL's, mobility, safety and/or upper extremity function for ADL's. Plan of Care: ADL Retraining, Functional Mobility, Group Exercise/Act as Ind, UE Funct Exercise/Act, Visual/Perceptual Retrain Treatment Duration: Feb 10, 2021 Frequency: At least 5 of 7 days/Wk (IRF) Estimated Hrs Per Day: 1.5 hours per day Agreement: Yes Rehab Potential: Good Time/GCodes Start Time: 09:00 Stop Time: 10:30 Total Time Billed (hr/min): 90 Billed Treatment Time 1, ADL x 30minutes, Ex x 15minutes, FA x 45minutes SHIRLEY FELIZ OT Feb 02, 2021 10:49
--- NOTE | 2021-02-02 11:11 | Physical Therapy Daily Note ---
PT Daily Note-Current Subjective Pt. in bed and readily agrees to therapy. States he hopes to go home tomorrow. He denies pain. Mental Status Patient Orientation: Person, Place, Time, Situation Transfers SCALE: Activities may be completed with or without assistive devices. 6-Onrsmivajj-vwcsdxf completes the activity by him/herself with no assistance from a helper. 5-Set-up or Clean-up Assistance-helper sets up or cleans up; patient completes activity. [place] assists only prior to or following the activity. 4-Supervision or Touching Assistance-helper provides verbal cues and/or touching/steadying and/or contact guard assistance as patient completes act ivity. Assistance may be provided throughout the activity or intermittently. 3-Partial/Moderate Assistance-helper does LESS THAN HALF the effort. [place] lifts, holds or supports trunk or limbs, but provides less than half the effort. 2-Substantial/Maximal Assistance-helper does MORE THAN HALF the effort. [place] lifts or holds trunk or limbs and provides more than half the effort. 7-Sdhtigtyk-dzswwy does ALL the effort. Patient does none of the effort to complete the activity. Or, the assistance of 2 or more helpers is required for the patient to complete the activity. If activity was not attempted, code reason: 7-Patient Refused. 9-Not Applicable-not attempted and the patient did not perform the activity before the current illness, exacerbation or injury. 10-Not Attempted due to Environmental Limitations-(lack of equipment, weather restraints, etc.). 88-Not Attempted due to Medical Conditions or Safety Concerns. Roll Left & Right (QC): 6 Sit to Lying (QC): 6 Lying to Sitting/Side of Bed(Q: 6 Sit to Stand (QC): 6 Chair/Yvd-ow-Uhoxn Xfer(QC): 6 Toilet Transfer (QC): 6 Car Transfer (QC): 6 Weight Bearing Full Weight Bearing Full Weight Bearing Gait Training Does the Patient Walk?: Yes Distance: x 1000 ft Walk 10 feet (QC): 6 Walk 50 ft with 2 Turns(QC): 6 Walk 150 ft (QC): 6 Walking 10ft/uneven surface-QC: 6 Gait Assistive Device: None Wheelchair Training Does the Pt Use a Wheelchair?: No Wheel 50 ft with 2 turns (QC): 9 Wheel 150 ft (QC): 9 Stair Training Stair Training: Handrails/: 1 handrail #of Steps: 12 1 Step (curb) (QC): 6 4 Steps (QC): 6 12 Steps (QC): 6 Stairs: Pattern: Reciprocal Balance Picking up an Object (QC): 6 Exercises Standing: Heel/toe raises, Mini squats, Side steps Standing Reps: 20 NuStep Minutes: 20 NuStep Workload: 5 Treatments gait, transfers, LE exercises Assessment Current Status: Good Progress Pt. scores at (I) for all transfers and ambulation. He did very well with LE strengthening exercises but did fatigue with standing activities. Pt. feels ready for discharge tomorrow. Pt. seated in gym post session with OT present for transfer of care. PT Short Term Goals Short Term Goals Time Frame: Feb 03, 2021 Roll Left & Right: 6 Sit to lyin Lying to sitting on side of be: 6 Sit to stand: 5 Chair/lpi-vx-knist transfer: 5 Walk 10 feet: 5 Walk 50 feet with two turns: 5 Walk 150 feet: 5 PT Senior Living Goals Shank Carrier Goals PT Shank Carrier Goals Time Frame: Feb 17, 2021 Roll Left & Right (QC): 6 Sit to Lying (QC): 6 Lying-Sitting on Side/Bed(QC): 6 Sit to Stand (QC): 6 Chair/Cqo-ca-Paugo Xfer(QC): 6 Toilet Transfer (QC): 6 Car Transfer (QC): 6 Does the Patient Walk: Yes Walk 10 feet (QC): 6 Walk 50ft with 2 Turns (QC): 6 Walk 150 ft (QC): 6 Walking 10ft on Uneven Surface: 6 1 Step (curb) (QC): 6 4 Steps (QC): 6 12 Steps (QC): 6 Picking up an Object (QC): 6 Wheel 50 feet with 2 turns (QC: 9 Wheel 150 feet: 9 PT Plan Treatment/Plan Treatment Plan: Continue Plan of Care Treatment Plan: Education, Functional Activity Lisa, Functional Strength, Group Therapy, Gait, Safety, Therapeutic Exercise, Transfers Treatment Duration: Feb 17, 2021 Frequency: At least 5 of 7 days/Wk (IRF) Estimated Hrs Per Day: 1.5 hours per day Patient and/or Family Agrees t: Yes Time/GCodes Time In: 0815 Time Out: 0900 Total Billed Treatment Time: 45 Total Billed Treatment 1, GT 10', Ex 35' QUETA LIMA PT Feb 02, 2021 11:11
--- NOTE | 2021-02-02 11:54 | Progress Note - Cardiology ---
Cardiology SOAP Progress Note Subjective: Sitting up in recliner eating lunch No c/o CP, palpitations, SOB Objective: I&O/Vital Signs 02/03/21 02/03/21 02/03/21 01:00 05:46 08:00 Temp 36.8 Pulse 95 85 Resp 18 B/P (MAP) 139/74 (95) Pulse Ox 98 O2 Delivery Room Air Room Air 02/03/21 00:00 Intake Total 2100 ml Balance 2100 ml Weight (Pounds): 214 Weight (Ounces): 5.0 Weight (Calculated Kilograms): 97.308769 Constitutional: AAO x 3, well-developed, well-nourished Respiratory: No accessory muscle use; other (good bilateral air entry) Cardiovascular: regular rate-rhythm, S1 and S2, systolic murmur (soft SCARLET at card basee) Gastrointestional: No tender; soft; No guarding, No rebound; audible bowel sounds Extremities: No clubbing, No cyanosis, No significant edema Neurologic/Psychiatric: oriented x 3, other (Bilateral, left-sided vision loss, moves all limbs) Skin: warm/dry; No cool, No rash on exposed areas, No ulcerations on exposed areas Results/Procedures: Labs Laboratory Tests 02/02/21 11:04: Glucometer 69L 02/02/21 14:54: Glucometer 61L 02/02/21 16:05: Glucometer 126H 02/02/21 20:12: Glucometer 171H 02/03/21 05:22: Glucometer 156H A/P: Assessment: Acute CVA; multiple infarct on CT and MR. Received TPA in the emergency room on 01-25-21. Some small petechial hemorrhage reported on the MRI but not on subsequent imaging. Managed by primary care team. Primary care team started Eliquis on 01/27/21 Atrial fibrillation, newly diagnosed, rate is currently controlled Diabetes mellitus, poor control, managed by primary care team Plan: * Monitor labs from time to time * Continue current medication regimen THOR SCHNEIDER Feb 02, 2021 11:54
[2021-02-02] MEDS ORDERED: APIX5TAB PO (11:57)
[2021-02-02] MEDS ORDERED: DILT240C91 PO (11:57)
--- NOTE | 2021-02-02 13:14 | Progress Note - Cardiology ---
Cardiology SOAP Progress Note Subjective: No shortness of breath No cp or palp or syncope No n/v/d Gen weakness Objective: I&O/Vital Signs 02/02/21 02/02/21 02/02/21 02/02/21 06:02 06:31 08:00 08:20 Temp 37.3 Pulse 93 89 102 Resp 18 B/P (MAP) 132/75 (94) 146/76 (99) Pulse Ox 96 O2 Delivery Room Air Room Air 02/02/21 12:06 Pulse 64 02/02/21 00:00 Intake Total 1240 ml Balance 1240 ml Weight (Pounds): 214 Weight (Ounces): 5.0 Weight (Calculated Kilograms): [id number] Constitutional: AAO x 3, well-developed, well-nourished Respiratory: No accessory muscle use; other (good bilateral air entry) Cardiovascular: regular rate-rhythm, S1 and S2, systolic murmur (soft SCARLET at card basee) Gastrointestional: No tender; soft; No guarding, No rebound; audible bowel sounds Extremities: No clubbing, No cyanosis, No significant edema Neurologic/Psychiatric: oriented x 3, other (Bilateral, left-sided vision loss, moves all limbs) Skin: warm/dry; No cool, No rash on exposed areas, No ulcerations on exposed areas Results/Procedures: Labs Laboratory Tests 02/01/21 16:33: Glucometer 99 02/01/21 20:54: Glucometer 155H 02/02/21 05:49: Glucometer 127H 02/02/21 11:04: Glucometer 69L Laboratory Tests 02/01/21 04:57 A/P: Assessment: Acute CVA; multiple infarct on CT and MR. Received TPA in the emergency room on 01-25-21. Some small petechial hemorrhage reported on the MRI but not on subsequent imaging. Managed by primary care team. Primary care team started Eliquis on 01/27/21 Atrial fibrillation, newly diagnosed, rate is currently controlled Diabetes mellitus, poor control, managed by primary care team Plan: * Continue current medication regimen * Monitor labs from time to time BELLA RAMIREZ MD FACP [facility] Feb 02, 2021 13:14
--- NOTE | 2021-02-02 13:59 | Physical Therapy Daily Note ---
PT Daily Note-Current Subjective Pt. up in chair and readily agrees to therapy. Mental Status Patient Orientation: Person, Place, Time, Situation Transfers SCALE: Activities may be completed with or without assistive devices. 6-Pgxvpcplfw-pdbcunj completes the activity by him/herself with no assistance from a helper. 5-Set-up or Clean-up Assistance-helper sets up or cleans up; patient completes activity. [place] assists only prior to or following the activity. 4-Supervision or Touching Assistance-helper provides verbal cues and/or touching/steadying and/or contact guard assistance as patient completes activity. Assistance may be provided throughout the activity or intermittently. 3-Partial/Moderate Assistance-helper does LESS THAN HALF the effort. [place] lifts, holds or supports trunk or limbs, but provides less than half the effort. 2-Substantial/Maximal Assistance-helper does MORE THAN HALF the effort. [place] lifts or holds trunk or limbs and provides more than half the effort. 6-Hnmnclybt-cnynxf does ALL the effort. Patient does none of the effort to complete the activity. Or, the assistance of 2 or more helpers is required for the patient to complete the activity. If activity was not attempted, code reason: 7-Patient Refused. 9-Not Applicable-not attempted and the patient did not perform the activity before the current illness, exacerbation or injury. 10-Not Attempted due to Environmental Limitations-(lack of equipment, weather restraints, etc.). 88-Not Attempted due to Medical Conditions or Safety Concerns. Sit to Stand (QC): 6 Weight Bearing Full Weight Bearing Full Weight Bearing Gait Training Does the Patient Walk?: Yes Distance: 1000 ft Walk 150 ft (QC): 6 Gait Assistive Device: None smooth and steady gait without AD Exercises Standing: Sit to Stand Standing Reps: 15 NuStep Minutes: 15 NuStep Workload: 5 Neuromuscular obstacle course in gym consisting of stepping over bolsters, up/down curb steps x 3 trips. Ball toss with patient standing. Balance activities on AirEx pad: EC 2 x 10 sec, head turns, arm lifts. Tandem walking in // bars x 4 trips. Assessment Current Status: Excellent Progress Pt. did very well with balance activities, minimal use of UE needed to maintain balance. Pt. was fatigued post session and needed periodic rest breaks during session. Pt. returned to room post session, all needs met. Possible D/C home tomorrow. PT Short Term Goals Short Term Goals Time Frame: Feb 03, 2021 Roll Left & Right: 6 Sit to lyin Lying to sitting on side of be: 6 Sit to stand: 5 Chair/ffd-we-ynljq transfer: 5 Walk 10 feet: 5 Walk 50 feet with two turns: 5 Walk 150 feet: 5 PT [facility] Goals [facility] Goals PT Multimedia Coordinator Goals Time Frame: Feb 17, 2021 Roll Left & Right (QC): 6 Sit to Lying (QC): 6 Lying-Sitting on Side/Bed(QC): 6 Sit to Stand (QC): 6 Chair/Uin-ud-Gvyhm Xfer(QC): 6 Toilet Transfer (QC): 6 Car Transfer (QC): 6 Does the Patient Walk: Yes Walk 10 feet (QC): 6 Walk 50ft with 2 Turns (QC): 6 Walk 150 ft (QC): 6 Walking 10ft on Uneven Surface: 6 1 Step (curb) (QC): 6 4 Steps (QC): 6 12 Steps (QC): 6 Picking up an Object (QC): 6 Wheel 50 feet with 2 turns (QC: 9 Wheel 150 feet: 9 PT Plan Treatment/Plan Treatment Plan: Continue Plan of Care Treatment Plan: Education, Functional Activity Lisa, Functional Strength, Group Therapy, Gait, Safety, Therapeutic Exercise, Transfers Treatment Duration: Feb 17, 2021 Frequency: At least 5 of 7 days/Wk (IRF) Estimated Hrs Per Day: 1.5 hours per day Patient and/or Family Agrees t: Yes Time/GCodes Time In: 1330 Time Out: 1415 Total Billed Treatment Time: 45 Total Billed Treatment 1, GT 10', NM 20', Ex 15' QUETA LIMA PT Feb 02, 2021 13:59
[2021-02-02 18:00] VITALS: BP 138/72
[2021-02-03 05:46] VITALS: BP 139/74
[2021-02-03] MEDS: inSUlin ASPART (NovoLOG) 1 UNIT/0.01 ML (CHARGE PER UNIT) SC SCH ×2 (06:07→11:23)
[2021-02-03] MEDS: metFORMIN 500 MG (GLUCOPHAGE) TAB PO SCH (06:09)
[2021-02-03] MEDS: glyBURIDE 2.5 MG (MICRONASE) TAB PO SCH (06:09)
[2021-02-03] MEDS ORDERED: GLBR2.5T PO (06:19)
[2021-02-03] MEDS ORDERED: METF-397 PO (06:19)
[2021-02-03] MEDS ORDERED: ATOR80TA76 PO (06:19)
[2021-02-03] MEDS ORDERED: ASPI-1238 PO (06:19)
[2021-02-03] MEDS ORDERED: LANC1COM6 MC (06:22)
[2021-02-03] MEDS ORDERED: BLOO1EAC87 MC (06:22)
--- NOTE | 2021-02-03 06:23 | Discharge Summary ---
Diagnosis/Chief Complaint Date of Admission Jan 27, 2021 at 11:00 Date of Discharge Discharge Date: Feb 03, 2021 Discharge Diagnosis Assessment: s/p acute ischemic stroke with residual bilateral hemianopsia s/p tPa Atrial fibrillation with RVR consulted Cardiology T2DM with hyperglycemia hga1c 10.9 Lack of insurance Plan: OAC Rate control AF Appreciate Cardiology DM management 01/28/21: Monitor glucose IRF protocol 01/29/21: Monitor sugar Transition to OHA 01/30/21: Monitor closely Insulin decreased 01/31/21: Labs tomorrow Monitor closely 02/01/21: Monitor closely Glyburide 02/02/21: Monitor sugar Fall risk (1) CVA (cerebral vascular accident) Status: Acute (2) Atrial fibrillation with rapid ventricular response Status: Acute (3) Bilateral hemianopia Status: Acute (4) Insulin dependent diabetes mellitus (5) Essential (primary) hypertension Discharge Summary Discharge Physical Examination Allergies: Coded Allergies: No Known Drug Allergies (Unverified , 11/12/17) Vitals & I&Os Vital Signs Date Time Temp Pulse Resp B/P (MAP) Pulse Ox O2 Delivery O2 Flow Rate FiO2 02/03/21 14:29 36.8 87 18 139/74 98 Room Air General Appearance: Alert, Oriented X3, Cooperative Respiratory: Clear to Auscultation Cardiovascular: Regular Rate Neuro: Normal Gait, Normal Speech, Strength at 5/5 X4 Ext Psych/Mental Status: Mental Status NL Hospital Course Was the Problem List Reviewed?: Yes Hospital course: Pt had an uneventful inpatient rehab hospital course, he was admitted, maintained on oral anticoagulants and baby aspirin and statin therapy, Blood sugars were managed with insulin that transitioned over to Glyburide. Overall he was deemed stable for discharge although his vision loss likely will remain from the stroke. He was otherwise able to function and remain independent at discharge. Labs (last 24 hrs) Laboratory Tests 01/27/21 16:16: Glucometer 240H 01/27/21 21:10: Glucometer 188H 01/28/21 05:15: White Blood Count 6.2, Red Blood Count 4.40, Hemoglobin 12.5L, Hematocrit 37L, Mean Corpuscular Volume 84, Mean Corpuscular Hemoglobin 28, Mean Corpuscular Hemoglobin Concent 34, Red Cell Distribution Width 12.4, Platelet Count 117L, Mean Platelet Volume 12.0, Immature Granulocyte % (Auto) 0, Neutrophils (%) (Auto) 59, Lymphocytes (%) (Auto) 27, Monocytes (%) (Auto) 12, Eosinophils (%) (Auto) 1, Basophils (%) (Auto) 0, Neutrophils # (Auto) 3.7, Lymphocytes # (Auto) 1.7, Monocytes # (Auto) 0.7, Eosinophils # (Auto) 0.1, Basophils # (Auto) 0.0, Immature Granulocyte # (Auto) 0.0, Sodium Level 137, Potassium Level 3.9, Chloride Level 106, Carbon Dioxide Level 22, Anion Gap 9, Blood Urea Nitrogen 11, Creatinine 0.52L, Estimat Glomerular Filtration Rate > 60, BUN/Creatinine Ratio 21, Glucose Level 202H, Calcium Level 8.6, Corrected Calcium 9.3, Total Bilirubin 1.0, Aspartate Amino Transf (AST/SGOT) 24, Alanine Aminotransferase (ALT/SGPT) 26, Alkaline Phosphatase 129, Total Protein 5.6L, Albumin 3.1L 01/28/21 10:55: Glucometer 153H 01/28/21 15:25: Glucometer 141H 01/28/21 20:18: Glucometer 277H 01/29/21 06:05: Glucometer 183H 01/29/21 10:52: Glucometer 91 01/29/21 15:36: Glucometer 192H 01/29/21 21:25: Glucometer 221H 01/30/21 05:15: Glucometer 77 01/30/21 10:44: Glucometer 123H 01/30/21 15:57: Glucometer 233H 01/30/21 21:56: Glucometer 181H 01/31/21 05:42: Glucometer 87 01/31/21 11:07: Glucometer 135H 01/31/21 16:48: Glucometer 212H 01/31/21 21:04: Glucometer 211H 02/01/21 04:57: White Blood Count 5.7, Red Blood Count 4.50, Hemoglobin 12.9L, Hematocrit 39L, Mean Corpuscular Volume 86, Mean Corpuscular Hemoglobin 29, Mean Corpuscular Hemoglobin Concent 33, Red Cell Distribution Width 12.2, Platelet Count 124L, Mean Platelet Volume 12.3H, Immature Granulocyte % (Auto) 0, Neutrophils (%) (Auto) 60, Lymphocytes (%) (Auto) 29, Monocytes (%) (Auto) 9, Eosinophils (%) (Auto) 2, Basophils (%) (Auto) 0, Neutrophils # (Auto) 3.4, Lymphocytes # (Auto) 1.6, Monocytes # (Auto) 0.5, Eosinophils # (Auto) 0.1, Basophils # (Auto) 0.0, Immature Granulocyte # (Auto) 0.0, Sodium Level 140, Potassium Level 4.3, Chloride Level 107, Carbon Dioxide Level 23, Anion Gap 10, Blood Urea Nitrogen 11, Creatinine 0.52L, Estimat Glomerular Filtration Rate > 60, BUN/Creatinine Ratio 21, Glucose Level 200H, Calcium Level 9.1, Corrected Calcium 9.6, Total Bilirubin 1.0, Aspartate Amino Transf (AST/SGOT) 18, Alanine Aminotransferase (ALT/SGPT) 29, Alkaline Phosphatase 128, Total Protein 6.0L, Albumin 3.4 02/01/21 10:58: Glucometer 135H 02/01/21 16:33: Glucometer 99 02/01/21 20:54: Glucometer 155H 02/02/21 05:49: Glucometer 127H 02/02/21 11:04: Glucometer 69L 02/02/21 14:54: Glucometer 61L 02/02/21 16:05: Glucometer 126H 02/02/21 20:12: Glucometer 171H 02/03/21 05:22: Glucometer 156H Pending Labs Laboratory Tests 01/27/21 16:16: Glucometer 240 01/27/21 21:10: Glucometer 188 01/28/21 05:15: White Blood Count 6.2, Red Blood Count 4.40, Hemoglobin 12.5, Hematocrit 37, Mean Corpuscular Volume 84, Mean Corpuscular Hemoglobin 28, Mean Corpuscular Hemoglobin Concent 34, Red Cell Distribution Width 12.4, Platelet Count 117, Mean Platelet Volume 12.0, Immature Granulocyte % (Auto) 0, Neutrophils (%) (Auto) 59, Lymphocytes (%) (Auto) 27, Monocytes (%) (Auto) 12, Eosinophils (%) (Auto) 1, Basophils (%) (Auto) 0, Neutrophils # (Auto) 3.7, Lymphocytes # (Auto) 1.7, Monocytes # (Auto) 0.7, Eosinophils # (Auto) 0.1, Basophils # (Auto) 0.0, Immature Granulocyte # (Auto) 0.0, Sodium Level 137, Potassium Level 3.9, Chloride Level 106, Carbon Dioxide Level 22, Anion Gap 9, Blood Urea Nitrogen 11, Creatinine 0.52, Estimat Glomerular Filtration Rate > 60, BUN/Creatinine R atio 21, Glucose Level 202, Calcium Level 8.6, Corrected Calcium 9.3, Total Bilirubin 1.0, Aspartate Amino Transf (AST/SGOT) 24, Alanine Aminotransferase (ALT/SGPT) 26, Alkaline Phosphatase 129, Total Protein 5.6, Albumin 3.1 01/28/21 10:55: Glucometer 153 01/28/21 15:25: Glucometer 141 01/28/21 20:18: Glucometer 277 01/29/21 06:05: Glucometer 183 01/29/21 10:52: Glucometer 91 01/29/21 15:36: Glucometer 192 01/29/21 21:25: Glucometer 221 01/30/21 05:15: Glucometer 77 01/30/21 10:44: Glucometer 123 01/30/21 15:57: Glucometer 233 01/30/21 21:56: Glucometer 181 01/31/21 05:42: Glucometer 87 01/31/21 11:07: Glucometer 135 01/31/21 16:48: Glucometer 212 01/31/21 21:04: Glucometer 211 02/01/21 04:57: White Blood Count 5.7, Red Blood Count 4.50, Hemoglobin 12.9, Hematocrit 39, Mean Corpuscular Volume 86, Mean Corpuscular Hemoglobin 29, Mean Corpuscular Hemoglobin Concent 33, Red Cell Distribution Width 12.2, Platelet Count 124, Mean Platelet Volume 12.3, Immature Granulocyte % (Auto) 0, Neutrophils (%) (Auto) 60, Lymphocytes (%) (Auto) 29, Monocytes (%) (Auto) 9, Eosinophils (%) (Auto) 2, Basophils (%) (Auto) 0, Neutrophils # (Auto) 3.4, Lymphocytes # (Auto) 1.6, Monocytes # (Auto) 0.5, Eosinophils # (Auto) 0.1, Basophils # (Auto) 0.0, Immature Granulocyte # (Auto) 0.0, Sodium Level 140, Potassium Level 4.3, Chloride Level 107, Carbon Dioxide Level 23, Anion Gap 10, Blood Urea Nitrogen 11, Creatinine 0.52, Estimat Glomerular Filtration Rate > 60, BUN/Creatinine Ratio 21, Glucose Level 200, Calcium Level 9.1, Corrected Calcium 9.6, Total Bilirubin 1.0, Aspartate Amino Transf (AST/SGOT) 18, Alanine Aminotransferase (ALT/SGPT) 29, Alkaline Phosphatase 128, Total Protein 6.0, Albumin 3.4 02/01/21 10:58: Glucometer 135 02/01/21 16:33: Glucometer 99 02/01/21 20:54: Glucometer 155 02/02/21 05:49: Glucometer 127 02/02/21 11:04: Glucometer 69 02/02/21 14:54: Glucometer 61 02/02/21 16:05: Glucometer 126 02/02/21 20:12: Glucometer 171 02/03/21 05:22: Glucometer 156 Discharge Home Medications: Active Scripts Active Lancet 30G-Glucose Test Strip (Lancets/Blood Glucose Strips) 1 Each Combo..pkg Each MC DAILY Blood Glucose Meter (Blood-Glucose Meter) 1 Each Each Each MC DAILY Glyburide 2.5 Mg Tablet 2.5 Mg PO DAILY@0630 Metformin HCl 500 Mg Tablet 500 Mg PO DAILY@07 Aspirin EC (Aspirin) 81 Mg Tablet.dr 81 Mg PO DAILY Atorvastatin Calcium 80 Mg Tablet 80 Mg PO DAILY Diltiazem 24Hr ER (Diltiazem HCl) 240 Mg Cap.er.24h 240 Mg PO DAILY Eliquis (Apixaban) 5 Mg Tablet 5 Mg PO BID Instructions to patient/family Please see electronic discharge instructions given to patient. Diagnosis/Problems Diagnosis/Problems (1) CVA (cerebral vascular accident) Status: Acute (2) Atrial fibrillation with rapid ventricular response Status: Acute (3) Bilateral hemianopia Status: Acute (4) Insulin dependent diabetes mellitus (5) Essential (primary) hypertension BUBBA CANADA DO Feb 03, 2021 06:23
[2021-02-03] MEDS: ASPIRIN E.C. 81 MG (ECOTRIN) TAB PO SCH (08:19)
[2021-02-03] MEDS: APIXABAN 5 MG (ELIQUIS) TABLET PO SCH (08:19)
[2021-02-03] MEDS: polyethylene glycoL POWDER 17 GM (MIRALAX) PACK PO SCH (08:20)
[2021-02-03] MEDS: SENNA W/DOCUSATE (SENOKOT S) TABLET PO SCH (08:21)
--- NOTE | 2021-02-03 08:33 | Therapy Team Discharge Summary ---
Therapy Discharge Summary Discharge Recommendations Date of Discharge 02-03-21 Therapy D/C Recommendations: Home w/ Family Support Occupational Therapy Pt. seen by Occupational therapy to work on overall strength and independence with daily tasks. Pt. has met all goals of independence with bathing, dressing, toileting, grooming, eating, etc... He remains to have left sided field cut in vision. Pt. is recommended to follow up with eye professional, for further assessment of overall acuity and left visual field. Pt. verbalizes understanding of this and plans to do so. Pt. discharging home with brother. No further equipment needed. No further OT needed at this time. No Skilled OT Needs ID'd PT Publicity Director Goals Publicity Director Goals PT Publicity Director Goals Time Frame: Feb 17, 2021 Roll Left to Right (QC): 6 Sit to Lying (QC): 6 Lying-Sitting on Side/Bed(QC): 6 Sit to Stand (QC): 6 Chair/Pas-vf-Kytlp Xfer(QC): 6 Car Transfer (QC): 6 Does the Patient Walk: Yes Walk 10 feet (QC): 6 Walk 10ft-Uneven Surface(QC): 6 Walk 50ft with 2 Turns (QC): 6 Walk 150 ft (QC): 6 Wheel 50 feet with 2 turns (QC: 9 1 Step (curb) (QC): 6 4 Steps (QC): 6 12 Steps (QC): 6 Picking up an Object (QC): 6 OT Chcf Goals Chcf Goals Time Frame: Feb 10, 2021 Eating (QC): 6 (met) Oral Hygiene (QC): 6 (met) Shower/Bathe Self (QC): 5 (met) Upper Body Dressing (QC): 6 (met) Lower Body Dressing (QC): 6 (met) On/Off Footwear (QC): 6 (met) Toileting Hygiene (QC): 6 (met) Toilet/Commode Transfer (QC): 6 (met) Additional Goals: 1-Demonstrate ADL Tasks, 2-Verbalize Understanding, 3-ImproveStrength/Lisa 1=Demonstrate adherence to instructed precautions during ADL tasks. 2=Patient will verbalize/demonstrate understanding of assistive devices/modifications for ADL. 3=Patient will improve strength/tolerance for activity to enable patient to perform ADL's. SHIRLEY FELIZ OT Feb 03, 2021 08:33
--- NOTE | 2021-02-03 09:48 | Therapy Team Discharge Summary ---
Therapy Discharge Summary Discharge Recommendations Date of Discharge Therapy D/C Recommendations: Home w/ Family Support Physical Therapy This patient admitted to ARU post acute hospital stay due to a CVA. His PLOF was indep with all mobility and living alone with a job. Upon admission to this unit, he was indep with bed mobility and SBA with transfers, gait and steps. Treatment has consisted of funcitonal strength, gait, balance, activity tolerance and safety. He has made excellent progress and is indep with bed mobility, transfers, gait and steps. He has met all goals. He is to discharge this date. Occupational Therapy No Skilled OT Needs ID'd PT Prison Goals Prison Goals PT Prison Goals Time Frame: Feb 17, 2021 Roll Left to Right (QC): 6 Sit to Lying (QC): 6 Lying-Sitting on Side/Bed(QC): 6 Sit to Stand (QC): 6 Chair/Gya-gx-Oonkq Xfer(QC): 6 Car Transfer (QC): 6 Does the Patient Walk: Yes Walk 10 feet (QC): 6 Walk 10ft-Uneven Surface(QC): 6 Walk 50ft with 2 Turns (QC): 6 Walk 150 ft (QC): 6 Wheel 50 feet with 2 turns (QC: 9 1 Step (curb) (QC): 6 4 Steps (QC): 6 12 Steps (QC): 6 Picking up an Object (QC): 6 All goals met. Pt is indep with mobility. OT Bale Sewer Goals Bale Sewer Goals Time Frame: Feb 10, 2021 Eating (QC): 6 (met) Oral Hygiene (QC): 6 (met) Shower/Bathe Self (QC): 5 (met) Upper Body Dressing (QC): 6 (met) Lower Body Dressing (QC): 6 (met) On/Off Footwear (QC): 6 (met) Toileting Hygiene (QC): 6 (met) Toilet/Commode Transfer (QC): 6 (met) Additional Goals: 1-Demonstrate ADL Tasks, 2-Verbalize Understanding, 3- ImproveStrength/Lisa 1=Demonstrate adherence to instructed precautions during ADL tasks. 2=Patient will verbalize/demonstrate understanding of assistive devices/modifications for ADL. 3=Patient will improve strength/tolerance for activity to enable patient to perform ADL's. CASSIE ARAGON PT Feb 03, 2021 09:48
--- NOTE | 2021-02-03 09:57 | Progress Note - Cardiology ---
Cardiology SOAP Progress Note Objective: I&O/Vital Signs Weight (Pounds): 214 Weight (Ounces): 5.0 Weight (Calculated Kilograms): 97.893947 Constitutional: AAO x 3, well-developed, well-nourished Respiratory: No accessory muscle use; other (good bilateral air entry) Cardiovascular: regular rate-rhythm, S1 and S2, systolic murmur (soft SCARLET at card basee) Gastrointestional: No tender; soft; No guarding, No rebound; audible bowel sounds Extremities: No clubbing, No cyanosis, No significant edema Neurologic/Psychiatric: oriented x 3, other (Bilateral, left-sided vision loss, moves all limbs) Skin: warm/dry; No cool, No rash on exposed areas, No ulcerations on exposed areas Results/Procedures: Labs A/P: Assessment: Acute CVA; multiple infarct on CT and MR. Received TPA in the emergency room on 01-25-21. Some small petechial hemorrhage reported on the MRI but not on subsequent imaging. Managed by primary care team. Primary care team started Eliquis on 01/27/21 Atrial fibrillation, newly diagnosed, rate is currently controlled Diabetes mellitus, poor control, managed by primary care team Plan: * Continue current medication regimen * Out pt f/u advised * Home today THOR SCHNEIDER Feb 03, 2021 09:57
[2021-02-03 14:29] VITALS: BP 139/74
--- NOTE | 2021-02-03 16:43 | Progress Note - Cardiology ---
Cardiology SOAP Progress Note Subjective: No cp or palp or syncope Gen malaise has improved. No shortness of breath No n/v/d Objective: I&O/Vital Signs 02/03/21 02/03/21 02/03/21 02/03/21 05:46 06:39 08:00 12:32 Temp 36.8 Pulse 85 97 87 Resp 18 B/P (MAP) 139/74 (95) Pulse Ox 98 O2 Delivery Room Air Room Air 02/03/21 14:29 Temp 36.8 Pulse 87 Resp 18 B/P (MAP) 139/74 Pulse Ox 98 O2 Delivery Room Air 02/03/21 00:00 Intake Total 2100 ml Balance 2100 ml Weight (Pounds): 214 Weight (Ounces): 5.0 Weight (Calculated Kilograms): 97.024963 Constitutional: AAO x 3, well-developed, well-nourished Respiratory: No accessory muscle use; other (good bilateral air entry) Cardiovascular: regular rate-rhythm, S1 and S2, systolic murmur (soft SCARLET at card basee) Gastrointestional: No tender; soft; No guarding, No rebound; audible bowel sounds Extremities: No clubbing, No cyanosis, No significant edema Neurologic/Psychiatric: oriented x 3, other (Bilateral, left-sided vision loss, moves all limbs) Skin: warm/dry; No cool, No rash on exposed areas, No ulcerations on exposed areas Results/Procedures: Labs Laboratory Tests 02/02/21 20:12: Glucometer 171H 02/03/21 05:22: Glucometer 156H A/P: Assessment: Acute CVA; multiple infarct on CT and MR. Received TPA in the emergency room on 01-25-21. Some small petechial hemorrhage reported on the MRI but not on sub sequent imaging. Managed by primary care team. Primary care team started Eliquis on 01/27/21 Atrial fibrillation, newly diagnosed, rate is currently controlled Diabetes mellitus, poor control, managed by primary care team Plan: * Continue current medication regimen * Out pt f/u advised * Home today BELLA RAMIREZ MD FACP [facility] Feb 03, 2021 16:43
== END 2021-02-03 15:04 | disposition home or self-care (01) | DRG 57 ==
PROVIDERS: ADMIT Internal Medicine; ATTEND Internal Medicine
DX: I69.398 Other sequelae of cerebral infarction (principal); H53.47 Heteronymous bilateral field defects; E11.65 Type 2 diabetes mellitus with hyperglycemia; Z79.4 Long term (current) use of insulin; I48.91 Unspecified atrial fibrillation; G47.30 Sleep apnea, unspecified; I10 Essential (primary) hypertension
CPT/HCPCS: 36415; 80053; 82962; 85025

== ENCOUNTER 2021-07-16 12:27 | Emergency (ER) | payer SELFPAY ==
[~2021-07-16] VITALS: Ht 170.1 cm; Wt 80.0 kg
[~2021-07-16 12:27] MED LIST changes: +APIX5TAB PO; +BLOO1EAC87 MC; +DILT240C91 PO; +GLBR2.5T PO; +LANC1COM6 MC; +METF-397 PO
[2021-07-16] MEDS ORDERED: NS IV 500 ML 500 ML IV SCH (12:45)
[2021-07-16] MEDS ORDERED: meTOprolol 5 MG/5 ML (LOPRESSOR) VIAL IV ONE (12:45)
[2021-07-16] MEDS ORDERED: fentaNYL INJ 100 MCG/2 ML AMP IVP ONE ×3 (12:45→18:00)
[2021-07-16 12:50] LABS: BASOPHILS % (AUTO) 0 % (0-10); HEMOGLOBIN 13.3 g/dL (13.3-17.7); MEAN CORPUSCULAR HEMOGLOBIN 29 pg (25-34); MEAN PLATELET VOLUME 12.5 fL (9.0-12.2)
[2021-07-16 12:52] LABS: EOSINOPHILS # (AUTO) 0.1 10^3/uL (0.0-0.3); EOSINOPHILS % (AUTO) 1 % (0-10); HEMATOCRIT 40 % (40-54); LYMPHOCYTES # (AUTO) 1.3 10^3/uL (1.0-4.0); LYMPHOCYTES % (AUTO) 23 % (12-44); MEAN CORPUSCULAR HGB CONC 34 g/dL (32-36); MEAN CORPUSCULAR VOLUME 86 fL (80-99); MONOCYTES # (AUTO) 0.6 10^3/uL (0.0-1.0); MONOCYTES % (AUTO) 10 % (0-12); NEUTROPHILS # (AUTO) 3.6 10^3/uL (1.8-7.8); NEUTROPHILS % (AUTO) 64 % (42-75); PLATELET COUNT 109 10^3/uL (130-400); WHITE BLOOD COUNT 5.6 10^3/uL (4.3-11.0)
--- NOTE | 2021-07-16 12:58 | ED Lower Extremity ---
General Chief Complaint: Lower Extremity Stated Complaint: FALL L HIP Source: patient Exam Limitations: no limitations (LANDRY MILLER APRN) History of Present Illness Date Seen by Provider: Jul 16, 2021 Time Seen by Provider: 12:30 Initial Comments To ER by EMS with reports of left hip pain that occurred after he was walking down the street when he tripped landing on the left hip. He did not Hit his head. He is on Eliquis for atrial fibrillation as well as diltiazem. History of CVA and type 2 DM Onset: just prior to arrival Severity: moderate Pain/Injury Location: left hip Method of Injury: unknown Modifying Factors: Improves With Movement (LANDRY MILLER APRN) Allergies and Home Medications Allergies Coded Allergies: No Known Drug Allergies (Unverified , 11/12/17) Patient Home Medication List Home Medication List Reviewed: Yes (LANDRY MILLER APRN) Apixaban (Eliquis) 5 Mg Tablet, 5 MG PO BID Prescribed by: THOR SCHNEIDER on 02/02/211156 Aspirin (Aspirin EC) 81 Mg Tablet.dr, 81 MG PO DAILY Prescribed by: BUBBA CANADA on 02/03/21618 Atorvastatin Calcium (Atorvastatin Calcium) 80 Mg Tablet, 80 MG PO DAILY Prescribed by: BUBBA CANADA on 02/03/21618 Blood-Glucose Meter (Blood Glucose Meter) 1 Each Each, EACH MC DAILY, (DME) Prescribed by: BUBBA CANADA on 02/03/21621 Diltiazem HCl (Diltiazem 24Hr ER) 240 Mg Cap.er.24h, 240 MG PO DAILY Prescribed by: THOR SCHNEIDER on 02/02/21 1157 Glyburide (Glyburide) 2.5 Mg Tablet, 2.5 MG PO DAILY@0630 Prescribed by: BUBBA CANADA on 02/03/21618 Lancets/Blood Glucose Strips (Lancet 30G-Glucose Test Strip) 1 Each Combo..pkg, EACH MC DAILY, (DME) Prescribed by: BUBBA CANADA on 02/03/21621 Metformin HCl (Metformin HCl) 500 Mg Tablet, 500 MG PO DAILY@07 Prescribed by: BUBBA CANADA on 02/03/21618 Review of Systems Constitutional: see HPI EENTM: see HPI Respiratory: no symptoms reported Cardiovascular: no symptoms reported Genitourinary: no symptoms reported Musculoskeletal: see HPI Skin: no symptoms reported Psychiatric/Neurological: No Symptoms Reported (LANDRY MILLER APRN) Past Yjwqakq-Adyqmx-Xphnrk Hx Immunizations Up To Date Tetanus Booster (TDap): Unknown (LANDRY MILLER APRN) Seasonal Allergies Seasonal Allergies: No (LANDRY MILLER APRN) Past Medical History Surgeries: Yes (abcess) Respiratory: No Sleep Apnea Currently Using CPAP: Yes Cardiac: Yes Atrial Fibrillation, Hypertension Neurological: No Stroke Genitourinary: No Gastrointestinal: No Musculoskeletal: No Endocrine: No Diabetes, Non-Insulin dep HEENT: No Cancer: No Psychosocial: No Integumentary: No Blood Disorders: No (LANDRY MILLER APRN) Physical Exam Vital Signs Vital Signs - First Documented 07/16/21 12:36 Temp 36.3 Pulse 111 Resp 18 B/P (MAP) 180/87 (118) Pulse Ox 96 O2 Delivery Room Air (DELILAH CAVANAUGH MD) Vital Signs Capillary Refill : (LANDRY MILLER APRN) Height, Weight, BMI Height: 5'9.00" Weight: 214lbs. 5.0oz. 97.262347ld; 26.98 BMI Method:Stated General Appearance: WD/WN, no apparent distress Neck: non-tender, full range of motion Cardiovascular: regular rate, rhythm, no murmur Respiratory: no respiratory distress, no accessory muscle use Gastrointestinal: normal bowel sounds, non tender, soft Hips: bilateral hip non-tender, bilateral hip normal inspection; left hip limited range of motion, left hip other (Normal appearance nontender to palpation but with any movement he does have significant pain.) Legs: bilateral leg non-tender, bilateral leg normal inspection, bilateral leg normal range of motion Knees: bilateral knee non-tender, bilateral knee normal inspection, bilateral knee normal range of motion Ankles: bilateral ankle non-tender, bilateral ankle normal inspection, bilateral ankle normal range of motion Feet: bilateral foot non-tender, bilateral foot normal inspection, bilateral foot normal range of motion Neurologic/Psychiatric: alert, normal mood/affect, oriented x 3 Skin: normal color, warm/dry (LANDRY MILLER APRN) Progress/Results/Core Measures Results/Orders Lab Results Laboratory Tests Test 07/16/21 12:45 Range/Units White Blood Count 5.6 4.3-11.0 10^3/uL Red Blood Count 4.59 4.30-5.52 10^6/uL Hemoglobin 13.3 13.3-17.7 g/dL Hematocrit 40 40-54 % Mean Corpuscular Volume 86 80-99 fL Mean Corpuscular Hemoglobin 29 25-34 pg Mean Corpuscular Hemoglobin Concent 34 32-36 g/dL Red Cell Distribution Width 12.7 10.0-14.5 % Platelet Count 109 L 130-400 10^3/uL Mean Platelet Volume 12.5 H 9.0-12.2 fL Immature Granulocyte % (Auto) 1 % Neutrophils (%) (Auto) 64 42-75 % Lymphocytes (%) (Auto) 23 12-44 % Monocytes (%) (Auto) 10 0-12 % Eosinophils (%) (Auto) 1 0-10 % Basophils (%) (Auto) 0 0-10 % Neutrophils # (Auto) 3.6 1.8-7.8 10^3/uL Lymphocytes # (Auto) 1.3 1.0-4.0 10^3/uL Monocytes # (Auto) 0.6 0.0-1.0 10^3/uL Eosinophils # (Auto) 0.1 0.0-0.3 10^3/uL Basophils # (Auto) 0.0 0.0-0.1 10^3/uL Immature Granulocyte # (Auto) 0.1 0.0-0.1 10^3/uL Percent Immature Platelet Fraction 7.9 H 0.0-7.6 % Prothrombin Time 18.4 H 12.2-14.7 SEC INR Comment 1.5 H 0.8-1.4 Sodium Level 141 135-145 MMOL/L Potassium Level 4.0 3.6-5.0 MMOL/L Chloride Level 106 98-107 MMOL/L Carbon Dioxide Level 23 21-32 MMOL/L Anion Gap 12 5-14 MMOL/L Blood Urea Nitrogen 9 7-18 MG/DL Creatinine 0.55 L 0.60-1.30 MG/DL Estimat Glomerular Filtration Rate 163 BUN/Creatinine Ratio 16 Glucose Level 220 H 70-105 MG/DL Calcium Level 9.5 8.5-10.1 MG/DL Corrected Calcium 10.0 8.5-10.1 MG/DL Magnesium Level 1.5 L 1.6-2.4 MG/DL Total Bilirubin 1.2 H 0.1-1.0 MG/DL Aspartate Amino Transf (AST/SGOT) 37 H 5-34 U/L Alanine Aminotransferase (ALT/SGPT) 57 H 0-55 U/L Alkaline Phosphatase 205 H 40-136 U/L B-Type Natriuretic Peptide 239.1 H <100.0 PG/ML Total Protein 6.6 6.4-8.2 GM/DL Albumin 3.4 3.2-4.5 GM/DL Serum Alcohol < 10 <10 MG/DL (DELILAH CAVANAUGH MD) Vital Signs/I&O 07/16/21 07/16/21 12:36 18:28 Temp 36.3 Pulse 111 78 Resp 18 20 B/P (MAP) 180/87 (118) 171/84 Pulse Ox 96 99 O2 Delivery Room Air Nasal Cannula (DELILAH CAVANAUGH MD) Diagnostic Imaging Diagonstic Imaging: Xray Comments NAME: EMILY CHA MED REC#: [id number] PT STATUS: REG ER : 1980 PHYSICIAN: LANDRY MILLER APRN ADMIT DATE: 07/16/21/ER Draft Date of Exam:07/16/21 CT EXTREMITY LOWER LEFT WO Exam: CT left hip without contrast. Date: July 16, 2021. Indication: 41-year-old male, left hip pain after fall. Comparison: Radiographs July 16, 2021. Findings: There is a nondisplaced left intertrochanteric femur fracture. Femoral head is normally positioned within the acetabulum. There is no joint space loss of the left hip, subchondral cystic change, or osteophyte formation. There is no identified sizable focal fluid collection or hematoma. Impression: 1. Nondisplaced left intertrochanteric femur fracture. Dictated on workstation # [id number] Dict: 07/16/21 1420 Trans: 07/16/21 1429 [facility] [id number] Interpreted by: SILVIO ANAYA MD Electronically signed by: NAME: EMILY CHA MED REC#: [id number] PT STATUS: REG ER : 1980 PHYSICIAN: LANDRY MILLER APRN ADMIT DATE: 07/16/21/ER Signed Date of Exam:07/16/21 CHEST 1 VIEW, AP/PA ONLY INDICATION: Left hip pain Frontal chest obtained at 1:39 p.m. Comparison made to 01/26/2021. Heart is borderline in size. Mediastinal silhouette is unremarkable. There is mild central vascular prominence. There is no focal infiltrate or pneumothorax or pleural fluid. IMPRESSION: Borderline heart size and mild central vascular prominence with no acute process in the chest. Dictated by: Dictated on workstation # [id number] Dict: 07/16/21 1354 Trans: 07/16/21 1544 CVB Interpreted by: ERIC VAZQUEZ MD Electronically signed by: ERIC VAZQUEZ MD 07/16/21 1544 NAME: EMILY CHA [facility] REC#: [id number] PT STATUS: REG ER : 1980 PHYSICIAN: LANDRY MILLER APRN ADMIT DATE: 07/16/21/ER Signed Date of Exam:07/16/21 PELVIS WITH LEFT HIP 2-3 VIEWS INDICATION: Left hip pain. AP pelvis and AP and oblique views of the left hip are obtained. FINDINGS: There are mild degenerative changes of both hips. There is no acute fracture or dislocation. There is no overt lytic or blastic lesion. IMPRESSION: Mild degenerative findings with no acute bony abnormality. Dictated by: Dictated on workstation # [id number] Dict: 07/16/21 1357 Trans: 07/16/21 1544 [id number] Interpreted by: ERIC VAZQUEZ MD Electronically signed by: ERIC VAZQUEZ MD 07/16/21 1544 (LANDRY MILLER APRN) Departure Communication (Admissions) EKG shows atrial fibrillation rate of [address] segment changes 1613-we do not have any orthopedic coverage here this weekend. [facility] does not either. Martine and Kristian in [place] are both on diversion. I spoke with [employer] Dr. Rush Booker from orthopedics has accepted the patient. (LANDRY MILLER APRN) Impression Primary Impression: Intertrochanteric fracture of left hip Disposition: 02 XFER SHT-TRM HOSP Condition: Stable Departure-Patient Inst. Referrals: NO,LOCAL PHYSICIAN (PCP/Family) Primary Care Physician ATTENDING PHYSICIAN NOTE: I was physically present as attending physician in the emergency department during the care of this patient, but I was not directly involved in the decision making or delivery of care for this patient. (DELILAH CAVANAUGH MD) LANDRY MILLER APRN Jul 16, 2021 12:58 DELILAH CAVANAUGH MD Jul 17, 2021 07:33
[2021-07-16 13:00] LABS: ALBUMIN 3.4 GM/DL (3.2-4.5)
[2021-07-16 13:02] LABS: CALCIUM 9.5 MG/DL (8.5-10.1)
[2021-07-16 13:03] LABS: TOTAL PROTEIN 6.6 GM/DL (6.4-8.2)
[2021-07-16 13:05] LABS: BILIRUBIN,TOTAL 1.2 MG/DL (0.1-1.0); INR 1.5 (0.8-1.4); PROTHROMBIN TIME PATIENT 18.4 SEC (12.2-14.7)
[2021-07-16 13:07] LABS: CREATININE SERUM 0.55 MG/DL (0.60-1.30)
[2021-07-16 13:09] LABS: MAGNESIUM 1.5 MG/DL (1.6-2.4)
--- NOTE | 2021-07-16 13:57 | Diagnostic Imaging Report ---
INDICATION: Left hip pain Frontal chest obtained at 1:39 p.m. Comparison made to 01/26/2021. Heart is borderline in size. Mediastinal silhouette is unremarkable. There is mild central vascular prominence. There is no focal infiltrate or pneumothorax or pleural fluid. IMPRESSION: Borderline heart size and mild central vascular prominence with no acute process in the chest. Dictated by: Dictated on workstation # [id number]
--- NOTE | 2021-07-16 14:00 | Diagnostic Imaging Report ---
INDICATION: Left hip pain. AP pelvis and AP and oblique views of the left hip are obtained. FINDINGS: There are mild degenerative changes of both hips. There is no acute fracture or dislocation. There is no overt lytic or blastic lesion. IMPRESSION: Mild degenerative findings with no acute bony abnormality. Dictated by: Dictated on workstation # [id number]
--- NOTE | 2021-07-16 14:29 | Diagnostic Imaging Report ---
Exam: CT left hip without contrast. Date: July 16, 2021. Indication: 41-year-old male, left hip pain after fall. Comparison: Radiographs July 16, 2021. Findings: There is a nondisplaced left intertrochanteric femur fracture. Femoral head is normally positioned within the acetabulum. There is no joint space loss of the left hip, subchondral cystic change, or osteophyte formation. There is no identified sizable focal fluid collection or hematoma. Impression: 1. Nondisplaced left intertrochanteric femur fracture. Dictated by: Dictated on workstation # [id number]
[2021-07-16] MEDS ORDERED: ONDANSETRON 4 MG/2 ML (SDV) Z0FRAN ONE (18:20)
[2021-07-16 18:28] VITALS: BP 171/84
[2021-07-16] MEDS ORDERED: ONDANSETRON 4 MG/2 ML (SDV) Z0FRAN IVP ONE (18:30)
== END 2021-07-16 18:27 | disposition short-term general hospital (02) ==
LOC: EDUNIT# 12:27 → ER 12:32
DX: S72.145A Nondisplaced intertrochanteric fracture of left femur, initial encounter for closed fracture (principal); G47.30 Sleep apnea, unspecified; I10 Essential (primary) hypertension; I48.91 Unspecified atrial fibrillation; E11.9 Type 2 diabetes mellitus without complications; Z86.73 Personal history of transient ischemic attack (TIA), and cerebral infarction without residual deficits; Z79.01 Long term (current) use of anticoagulants; Z79.82 Long term (current) use of aspirin; Z79.84 Long term (current) use of oral hypoglycemic drugs; Z79.899 Other long term (current) drug therapy; W01.0XXA Fall on same level from slipping, tripping and stumbling without subsequent striking against object, initial encounter
CPT/HCPCS: 71045; 73502; 73700; 80053; 83735; 83880; 85025; 85610; 93005; 99283; G0480; 36415; 80320

== ENCOUNTER 2023-08-19 13:12 | Inpatient (IN) | payer SELFPAY ==
[~2023-08-19] VITALS: Ht 170 cm; Wt 95.2 kg
[~2023-08-19 13:12] MED LIST changes: -INSU100I29 SQ; +INSU100I30 SQ
[2023-08-19] MEDS ORDERED: NS IV 1000 ML 1,000 ML IV STA (13:32)
--- NOTE | 2023-08-19 13:47 | ED Integumentary General ---
General Chief Complaint: Lower Extremity Stated Complaint: SORES ON LEGS Nursing Triage Note: PT AMB TO RM 6 PT HAS ULCERS BILATERAL ON AREAS BETWEEN ANKLE AND MID CALF. OPEN DRAINING, DEEP SCOOPED OUT WOUNDS. L LEG HAS CIRCUMFERENTIAL WOUNDS, PT RATES PAIN 6/10. WOUNDS REDDEND. History of Present Illness Date Seen by Provider: Aug 19, 2023 Time Seen by Provider: 13:28 Initial Comments Patient is a 43yo male to the ER with complaints of enlarging draining wounds to the bilateral LE. He states the skin lesions started about 2 weeks ago. He has had them periodically over the last 1.5y but never had any biopsies or referral to Derm. He states they normally get better on their own. In the last 10 days however, they have worsened. He has had increased pain. Taking tylenol. Anti- coagulated on eliquis with a history of CVA. States his a1C is below 7. History of thyroid disorder. Denies that the skin lesions come up anywhere other than his lower legs. They are draining. No fever, chills, decreased appetite, n/v/d or urinary complaints. Timing/Duration: getting worse, other (~10 days) Severity: severe Location: extremities (lowe) Possible Cause: no cause identified (unsure) Associated Symptoms: blisters, change in skin texture (drainage), rash Allergies and Home Medications Allergies Coded Allergies: No Known Drug Allergies (Unverified , 11/12/17) Patient Home Medication List Home Medication List Reviewed: Yes Apixaban (Eliquis) 5 Mg Tablet, 5 MG PO BID Prescribed by: THOR SCHNEIDER on 02/02/21 1157 Aspirin (Aspirin EC) 81 Mg Tablet.dr, 81 MG PO DAILY Prescribed by: BUBBA CANADA on 02/03/21618 Atorvastatin Calcium (Atorvastatin Calcium) 80 Mg Tablet, 80 MG PO DAILY Prescribed by: BUBBA CANADA on 02/03/21618 Blood-Glucose Meter (Blood Glucose Meter) 1 Each Each, EACH MC DAILY, (DME) Prescribed by: BUBBA CANADA on 02/03/21621 Diltiazem HCl (Diltiazem 24Hr ER) 240 Mg Cap.er.24h, 240 MG PO DAILY Prescribed by: THOR SCHNEIDER on 02/02/21 1157 Glyburide (Glyburide) 2.5 Mg Tablet, 2.5 MG PO DAILY@0630 Prescribed by: BUBBA CANADA on 02/03/21 06 Lancets/Blood Glucose Strips (Lancet 30G-Glucose Test Strip) 1 Each Combo..pkg, EACH MC DAILY, (DME) Prescribed by: BUBBA CANADA on 02/03/21621 Metformin HCl (Metformin HCl) 500 Mg Tablet, 500 MG PO DAILY@07 Prescribed by: BUBBA CANADA on 02/03/21618 Review of Systems Review of Systems Constitutional: see HPI EENTM: no symptoms reported Respiratory: no symptoms reported Cardiovascular: no symptoms reported Gastrointestinal: no symptoms reported Genitourinary: no symptoms reported Musculoskeletal: other (bilateral LE pain (distal lower leg)) Skin: other (lesions to the anterior lower legs bilaterally) All Other Systems Reviewed Negative Unless Noted: Yes Past Vowxsoo-Lokgzw-Uhmbmk Hx Patient Social History Tobacco Use?: No Substance use?: No Alcohol Use?: No Pt feels they are or have been: No Immunizations Up To Date Tetanus Booster (TDap): Unknown Seasonal Allergies Seasonal Allergies: No Past Medical History Surgery/Hospitalization HX: GRAVES DISEASE, DIABETIC, L HIP PINNING, Surgeries: Yes (abcess) Respiratory: No Sleep Apnea Currently Using CPAP: Yes Cardiac: Yes Atrial Fibrillation, Hypertension Neurological: No Stroke Genitourinary: No Gastrointestinal: No Musculoskeletal: No Endocrine: No Diabetes, Non-Insulin dep HEENT: No Cancer: No Psychosocial: No Integumentary: No Blood Disorders: No Physical Exam Vital Signs Vital Signs - First Documented 08/19/23 13:22 Temp 36.0 Pulse 113 Resp 18 B/P (MAP) 141/96 (111) Pulse Ox 98 Capillary Refill : Less Than 3 Seconds General Appearance: WD/WN, no apparent distress, thin HEENT: PERRL/EOMI Neck: normal inspection Cardiovascular: irregularly irregular (HR 112) Respiratory: lungs clear, normal breath sounds, no respiratory distress, no accessory muscle use Gastrointestinal: non tender, soft Extremities: normal range of motion Neurologic/Psychiatric: alert, normal mood/affect, oriented x 3 Skin: normal color, warm/dry Progress/Results/Core Measures Results/Orders Lab Results Laboratory Tests Test 08/19/23 13:22 08/19/23 13:36 08/19/23 13:50 Range/Units White Blood Count 11.9 H 4.3-11.0 10^3/uL Red Blood Count 6.08 H 4.30-5.52 10^6/uL Hemoglobin 18.3 H 13.3-17.7 g/dL Hematocrit 54 40-54 % Mean Corpuscular Volume 89 80-99 fL Mean Corpuscular Hemoglobin 30 25-34 pg Mean Corpuscular Hemoglobin Concent 34 32-36 g/dL Red Cell Distribution Width 13.1 10.0-14.5 % Platelet Count 200 130-400 10^3/uL Mean Platelet Volume 11.7 9.0-12.2 fL Immature Granulocyte % (Auto) 0 % Neutrophils (%) (Auto) 83 H 42-75 % Lymphocytes (%) (Auto) 7 L 12-44 % Monocytes (%) (Auto) 10 0-12 % Eosinophils (%) (Auto) 0 0-10 % Basophils (%) (Auto) 0 0-10 % Neutrophils # (Auto) 9.9 H 1.8-7.8 10^3/uL Lymphocytes # (Auto) 0.8 L 1.0-4.0 10^3/uL Monocytes # (Auto) 1.2 H 0.0-1.0 10^3/uL Eosinophils # (Auto) 0.0 0.0-0.3 10^3/uL Basophils # (Auto) 0.0 0.0-0.1 10^3/uL Immature Granulocyte # (Auto) 0.1 0.0-0.1 10^3/uL Neutrophils % (Manual) 88 % Lymphocytes % (Manual) 1 % Monocytes % (Manual) 2 % Eosinophils % (Manual) 1 % Basophils % (Manual) 0 % Band Neutrophils 0 % Reactive Lymphocytes 8 % Blood Morphology Comment NORMAL Erythrocyte Sedimentation Rate 8 0-15 MM/HR Prothrombin Time 17.4 H 12.2-14.7 SEC INR Comment 1.4 0.8-1.4 Activated Partial Thromboplast Time 33 24-35 SEC Sodium Level 138 135-145 MMOL/L Potassium Level 4.3 3.6-5.0 MMOL/L Chloride Level 101 98-107 MMOL/L Carbon Dioxide Level 24 21-32 MMOL/L Anion Gap 13 5-14 MMOL/L Blood Urea Nitrogen 12 7-18 MG/DL Creatinine 0.81 0.60-1.30 MG/DL Estimat Glomerular Filtration Rate 111 BUN/Creatinine Ratio 15 Glucose Level 206 H 70-105 MG/DL Calcium Level 9.9 8.5-10.1 MG/DL Corrected Calcium 9.9 8.5-10.1 MG/DL Total Bilirubin 2.1 H 0.1-1.0 MG/DL Aspartate Amino Transf (AST/SGOT) 15 5-34 U/L Alanine Aminotransferase (ALT/SGPT) 19 0-55 U/L Alkaline Phosphatase 140 H 40-136 U/L Total Protein 7.8 6.4-8.2 GM/DL Albumin 4.0 3.2-4.5 GM/DL Glucometer 192 H 70-110 MG/DL Lactic Acid Level 2.10 *H 0.50-2.00 MMOL/L My Orders Orders - MILLI YI MD Cbc And Automated Diff (08/19/23 13:32) Comprehensive Metabolic Panel (08/19/23 13:32) Blood Culture (08/19/23 13:32) Sputum Culture (08/19/23 13:32) Urinalysis (08/19/23 13:32) Urine Culture (08/19/23 13:32) Protime With Inr (08/19/23 13:32) Partial Thromboplastin Time (08/19/23 13:32) Chest 1 View, Ap/Pa Only (08/19/23 13:32) Ed Iv/Invasive Line Start (08/19/23 13:32) Ed Iv/Invasive Line Start (08/19/23 13:32) Vital Signs Adult Sepsis Patie Q15M (08/19/23 13:32) O2 (08/19/23 13:32) Remove Rings In Anticipation O (08/19/23 13:32) Lactic Acid Analyzer (08/19/23 13:32) Wound Culture (08/19/23 13:32) Ns Iv 1000 Ml (Ns Iv 1000 Ml) (08/19/23 13:32) Accucheck Stat ONCE (08/19/23 13:32) Erythrocyte Sedimentation Rate (08/19/23 13:35) Tibia/Fibula, Left, 2 Views (08/19/23 13:35) Piperacillin/Tazobactam (Piperacillin/Ta (08/19/23 14:00) Vancomycin Injection (Vancomycin Injecti (08/19/23 14:00) Manual Differential (08/19/23 13:22) Ed Admission (Communication) (08/19/23 15:26) Medications Given in ED Current Medications Medications Dose Ordered Sig/Jeanine Route Start Time Stop Time Status Last Admin Dose Admin Piperacillin Sod/ Tazobactam Sod 4.5 gm/Sodium Chloride 100 ml @ 200 mls/hr ONCE ONCE IV 08/19/23 14:00 08/19/23 14:29 DC 08/19/23 14:14 200 MLS/HR Vancomycin HCl 1000 mg/Sodium Chloride 250 ml @ 250 mls/hr ONCE ONCE IV 08/19/23 14:00 08/19/23 14:59 DC 08/19/23 14:35 250 MLS/HR Vital Signs/I&O 08/19/23 13:22 Temp 36.0 Pulse 113 Resp 18 B/P (MAP) 141/96 (111) Pulse Ox 98 Blood Pressure Mean: 111 FSBG Bedside Testing Finger Stick Blood Glucose: 192 Progress Progress Note : Time: 15:24 Progress Note Patient seen and evaluated by me. Eval today includes "sepsis protocol" - to include CBC, CMP, Coags, UA, Urine culture, wound culture left lower leg, CXR, left tibfib xray, blood cultures and lactic acid. Pertinent physical exam findings include WDWN male in NAD - HR slightly tachy (irregular) at 112 - afib. Lungs are clear. Ab soft. No focal neuro deficits appreciated. Bilat LE demonstrate ulcerative lesions with purulent drainage - left worse than right. Surrounding erythema. Tender to palpation with accompanying edema. Eschar noted to anterior ware of the left lower leg. No wounds to his feet. ddx includes sepsis, cellulitis, osteomyelitis. Patient's labs independently reviewed and interpreted by me. His CBC shows a mildly elevated total WBC of 11.9 with 83% segs, elevated Hgb of 18.3, HCT 54. normal platelets. ESR of 8. Chem with elevated glucose of 206. LA 2.10; coags with elevated PT of 17.4. His CXR is unremarkable. Left Tib fib xray shows no concerning evidence or periosteal elevation/concern for osteo. He has not provided a urine sample as of yet. Antibiotics have been hung - Zosyn and Vanc. He has declined pain medications. No deterioration in his condition throughout his stay in the ED. I spoke with Dr Murphy (resident on for [facility]) and she accepts for admission. Patient is comfortable with the plan ofcare. Diagnostic Imaging Diagonstic Imaging: Xray Plain Films/CT/US/NM/MRI: chest Comments [facility] [place] NAME: EMILY CHA [facility] REC#: [id number] PT STATUS: REG ER : 1980 PHYSICIAN: MILLI YI MD ADMIT DATE: 08/19/23/ER Signed Date of Exam:08/19/23 CHEST 1 VIEW, AP/PA ONLY INDICATION: Tachycardia, sepsis. COMPARISON: 07/16/2021. TECHNIQUE: Single radiograph of the chest dated 08/19/2023. FINDINGS: The cardiac silhouette is within normal limits in size. No significant pulmonary vascular congestion. The lungs are clear. No pleural effusion. No pneumothorax. No acute osseous abnormality. IMPRESSION: Stable-appearing examination without acute cardiopulmonary abnormality. Dictated by: Dictated on workstation # [id number] Dict: 08/19/23 1351 Trans: 08/19/231427 AS6 [id number] Interpreted by: DOMENICO MATHIS MD Electronically signed by: DOMENICO MATHIS MD 08/19/231427 Diagonstic Imaging: Xray Comments [facility] [employer] [facility] [place] [place] NAME: EMILY CHA [facility] REC#: [id number] PT STATUS: REG ER : 1980 PHYSICIAN: MILLI YI MD ADMIT DATE: 08/19/23/ER Signed Date of Exam:08/19/23 TIBIA/FIBULA, LEFT, 2 VIEWS INDICATION: Ulcers, gangrene, pain. COMPARISON: None available. TECHNIQUE: Three radiographs of the left tibia and fibula dated 08/19/2023. FINDINGS: No acute fracture or dislocation. No destructive osseous process. No suspicious radiopaque foreign body. Mild degenerative changes of the left knee. IMPRESSION: No acute osseous abnormality with mild degenerative changes present. No focal osseous destruction. If there is concern for underlying osteomyelitis, then follow-up radiographs in 10 to 14 days would be recommended. Alternatively, MRI could be considered. Dictated by: Dictated on workstation # [id number] Dict: 08/19/23 1352 Trans: 08/19/23 1428 AS6 [id number] Interpreted by: DOMENICO MATHIS MD Electronically signed by: DOMENICO MATHIS MD 08/19/23 1428 Sepsis Stage: Sepsis Possible Source: Skin/Soft Tissue Lactate Level 08/19/23 13:50: Lactic Acid Level 2.10*H Height, Weight, BMI Height: 5'9.00" Weight: 214lbs. 5.0oz. 97.138771jr; 27.00 BMI Method:Stated Time of Focused Exam: 15:54 Respiratory: Lungs Clear, Normal Breath Sounds, No Accessory Muscle Use, No Respiratory Distress Cardiovascular: Irregularly Irregular (HR 79) Capillary Refill: Less Than 3 Seconds Peripheral Pulses: 2+ Dorsalis Pedis (R), 2+ Left Dors-Pedis (L), 2+ Radial Pulses (R), 2+ Radial Pulses (L) Skin: normal color, warm/dry Lactic Acid Level Laboratory Tests Test 08/19/23 13:50 Lactic Acid Level 2.10 MMOL/L (0.50-2.00) *H Within 3hrs of presentation: Admin ABX, Blood cultures prior to ABX's, Focus exam, Lactate level Departure Communication (Admissions) Time/Spoke to Admitting Phy: 15:[address] Murphy (resident physician with [facility]) Impression Primary Impression: Sepsis Qualified Codes: A41.9 - Sepsis, unspecified organism Additional Impression: Cellulitis Qualified Codes: L03.116 - Cellulitis of left lower limb Disposition: ADMITTED INPATIENT Condition: Stable Admissions Decision to Admit Reason: Admit from ER (General) Decision to Admit/Date: Aug 19, 2023 Time/Decision to Admit Time: 15:21 Departure-Patient Inst. Referrals: [facility] (PCP/Family) Primary Care Physician Copy Copies To 1: LEONIE GONZALES KATHRYN M MD Aug 19, 2023 13:47
[2023-08-19 13:50] LABS: BASOPHILS % (AUTO) 0 % (0-10); EOSINOPHILS % (AUTO) 0 % (0-10); HEMATOCRIT 54 % (40-54); HEMOGLOBIN 18.3 g/dL (13.3-17.7); LYMPHOCYTES # (AUTO) 0.8 10^3/uL (1.0-4.0); LYMPHOCYTES % (AUTO) 7 % (12-44); MEAN CORPUSCULAR HEMOGLOBIN 30 pg (25-34); MEAN CORPUSCULAR HGB CONC 34 g/dL (32-36); MEAN CORPUSCULAR VOLUME 89 fL (80-99); MEAN PLATELET VOLUME 11.7 fL (9.0-12.2); MONOCYTES # (AUTO) 1.2 10^3/uL (0.0-1.0); MONOCYTES % (AUTO) 10 % (0-12); NEUTROPHILS # (AUTO) 9.9 10^3/uL (1.8-7.8); NEUTROPHILS % (AUTO) 83 % (42-75); PLATELET COUNT 200 10^3/uL (130-400); WHITE BLOOD COUNT 11.9 10^3/uL (4.3-11.0)
[2023-08-19] MEDS ORDERED: VANCOMYCIN INJECTION 1,000 MG in NS (IVPB) 250 ML 250 ML IV ONE (14:00)
[2023-08-19] MEDS ORDERED: PIPERACILLIN/Tazobactam 4.5 GM in NS (IVPB) 100 ML 100 ML IV ONE (14:00)
[2023-08-19 14:01] LABS: POTASSIUM 4.3 MMOL/L (3.6-5.0)
--- NOTE | 2023-08-19 14:01 | Diagnostic Imaging Report ---
INDICATION: Tachycardia, sepsis. COMPARISON: 07/16/2021. TECHNIQUE: Single radiograph of the chest dated 08/19/2023. FINDINGS: The cardiac silhouette is within normal limits in size. No significant pulmonary vascular congestion. The lungs are clear. No pleural effusion. No pneumothorax. No acute osseous abnormality. IMPRESSION: Stable-appearing examination without acute cardiopulmonary abnormality. Dictated by: Dictated on workstation # [id number]
[2023-08-19 14:02] LABS: CALCIUM 9.9 MG/DL (8.5-10.1)
[2023-08-19 14:03] LABS: INR 1.4 (0.8-1.4); PROTHROMBIN TIME PATIENT 17.4 SEC (12.2-14.7); TOTAL PROTEIN 7.8 GM/DL (6.4-8.2)
--- NOTE | 2023-08-19 14:03 | Diagnostic Imaging Report ---
INDICATION: Ulcers, gangrene, pain. COMPARISON: None available. TECHNIQUE: Three radiographs of the left tibia and fibula dated 08/19/2023. FINDINGS: No acute fracture or dislocation. No destructive osseous process. No suspicious radiopaque foreign body. Mild degenerative changes of the left knee. IMPRESSION: No acute osseous abnormality with mild degenerative changes present. No focal osseous destruction. If there is concern for underlying osteomyelitis, then follow-up radiographs in 10 to 14 days would be recommended. Alternatively, MRI could be considered. Dictated by: Dictated on workstation # [id number]
[2023-08-19 14:05] LABS: BILIRUBIN,TOTAL 2.1 MG/DL (0.1-1.0)
[2023-08-19 14:07] LABS: CREATININE SERUM 0.81 MG/DL (0.60-1.30)
[2023-08-19 14:22] LABS: ERYTHROCYTE SEDIMENTATION RATE 8 MM/HR (0-15)
[2023-08-19 14:31] LABS: BAND NEUTROPHILS 0 %; BASOPHILS % (MANUAL) 0 %; EOSINOPHILS % (MANUAL) 1 %; LYMPHOCYTES % (MANUAL) 1 %; MONOCYTES % (MANUAL) 2 %; NEUTROPHILS % (MANUAL) 88 %; RBC MORPH NORMAL; REACTIVE LYMPHOCYTES 8 %
--- NOTE | 2023-08-19 15:44 | History & Physical-Hospitalist ---
JERRY BRANDON MD,RESIDENT 08/19/23 1543: History of Present Illness HPI/Chief Complaint CC: Draining BL LE wounds HPI: Pt is a 43 male with a medical history significant for T2DM and Afib, who presented to the ED due to worsening lower extremity wounds bilaterally. He reports that he suffers from chronic diabetic wounds and that for the last 2 wee ks the ones of his legs have been looking progressively worse with increased purulent drainage and pain. He reports that this has occurred intermittently over the last year. He has not taken any medication for the pain as he does not like to take pain medication. He denies fevers, chills, cough, SOB, CP, abdominal pain, N/V/D. He received zosyn and vancomycin in the ED as well as IVF. He will be admitted for further management. Source: patient Exam Limitations: no limitations Date Seen 08/19/23 Time Seen by a Provider: 20:15 Attending Physician [place]/[facility] PCP Admitting Physician: Attending Physician: Referring Physician Date of Admission Home Medications & Allergies Home Medications Reviewed patient Home Medication Reconciliation performed by pharmacy medication reconciliations information systems technician and/or nursing. Patients Allergies have been reviewed. Allergies Allergies Coded Allergies No Known Drug Allergies ([id number]/31/17) Past Pgvwzic-Nckrkg-Tgngma Hx Patient Social History Tobacco Use?: No Substance use?: No Alcohol Use?: No Pt feels they are or have been: No Immunizations Up To Date Tetanus Booster (TDap): Unknown Seasonal Allergies Seasonal Allergies: No Current Status Advance Directives: No Communicates: Verbally Primary Language: [place]ese Preferred Spoken Language: [place]ese Is interpretation needed?: No Implanted or Applied Medical D: Orthopedic hardware Past Medical History Sleep Apnea Currently Using CPAP: Yes Atrial Fibrillation, Hypertension Stroke Diabetes, Non-Insulin dep Blood Disorders: No Review of Systems Constitutional: no symptoms reported Respiratory: no symptoms reported Cardiovascular: no symptoms reported Gastrointestinal: no symptoms reported Musculoskeletal: no symptoms reported Skin: rash, other (draining leg wounds) Psychiatric/Neurological: No Symptoms Reported Physical Exam Physical Exam Vital Signs Vital Signs - First Documented 08/19/23 08/19/23 13:22 16:00 Temp 36.0 Pulse 113 Resp 18 B/P (MAP) 141/96 (111) Pulse Ox 98 O2 Delivery Room Air Capillary Refill : Less Than 3 Seconds Height, Weight, BMI Height: 5'9.00" Weight: 214lbs. 5.0oz. 97.222189gy; 27.00 BMI Method:Stated General Appearance: No Apparent Distress Eyes: Bilateral Eye EOMI Neck: Full Range of Motion, Non Tender Respiratory: Lungs Clear, Normal Breath Sounds, No Accessory Muscle Use, No Respiratory Distress Cardiovascular: Irregularly Irregular Gastrointestinal: Non Tender, Soft Neurologic/Psychiatric: Alert, Oriented x3, Normal Mood/Affect Skin: Rash (Cellulitis surrounding ulcers on BL LE), Other (1 large draining, ulcer over R anterior LE; 3 large, draining ulcers ~1cm deep in anterior and lateral L LE) Results Results/Procedures Labs Laboratory Tests 08/19/23 13:22 Patient resulted labs reviewed. Assessment/Plan Admission Diagnosis Sepsis 2/2 diabetic ulcers Admission Status: Inpatient Order (span 2 midnights) Reason for Inpatient Admission: Sepsis 2/2 diabetic ulcers Diagnosis/Problems Diagnosis/Problems (1) Sepsis Status: Resolved Assessment & Plan: 2/2 chronic diabetic ulcers of BL LE PLAN: Wound care consult XR NEG for osteomyelitis, will consider MRI guided by clinical picture Abx: vancomycin and zosyn Wound Cx pending Blood Cx pending IVF Qualifiers: Sepsis type: sepsis due to unspecified organism Sepsis acute organ dysfunction status: without acute organ dysfunction Qualified Codes: A41.9 - Sepsis, unspecified organism Resolution Date/Time: 08/20/23 @ 12:10 (2) Diabetic ulcer of lower leg Assessment & Plan: PLAN: See sepsis (3) Cellulitis Status: Acute Qualifiers: Site of cellulitis: extremity Site of cellulitis of extremity: lower extremity Laterality: left Qualified Codes: L03.116 - Cellulitis of left lower limb (4) Insulin dependent diabetes mellitus Status: Chronic Assessment & Plan: PLAN: Slide scale insulin Consider adding on long-acting ACHS BG (5) Atrial fibrillation with rapid ventricular response Status: Acute Assessment & Plan: PLAN: Cardiology consult Telemetry EKG FIELD GEOLOGIST Eliquis (6) Hyperglycemia Status: Acute Assessment & Plan: See insulin-dependent DM BUBBA CANADA DO 08/20/23 1348: History of Present Illness HPI/Chief Complaint CC: Draining lower extremity wounds with AF HPI: This is a 43yoWM w/h/o AF with no Carbide Operator management who is on Eliquis and Cardizem and ASA who presents with lower extremity wounds with cellulitis an d drainage. Wound care will be consulted. IV abx maintained. Cardiology consulted for AF and possible lower extremity intervention if PVD noted on USG. Source: patient Exam Limitations: no limitations Past Nagkvpn-Ybdjpe-Nwtswm Hx Patient Social History Marrital Status: single Employed/Student: unemployed Smoking Status: Unknown if Ever Smoked Past Medical History Atrial Fibrillation, High Cholesterol, Hypertension Review of Systems Constitutional: see HPI Skin: see HPI Physical Exam Physical Exam General Appearance: No Apparent Distress Eyes: Right Eye Normal Inspection, Right Eye PERRL HEENT: PERRL/EOMI, Normal ENT Inspection, Pharynx Normal, Moist Mucous Membranes Neck: Full Range of Motion, Normal Inspection, Non Tender Respiratory: Chest Non Tender, Lungs Clear, Normal Breath Sounds, No Accessory Muscle Use, No Respiratory Distress Cardiovascular: Regular Rate, Rhythm, No Edema, No Gallop, No JVD, No Murmur, Normal Peripheral Pulses Gastrointestinal: Normal Bowel Sounds, No Organomegaly, No Pulsatile Mass, Non Tender, Soft Back: Normal Inspection, No CVA Tenderness, No Vertebral Tenderness Extremity: Normal Capillary Refill, Normal Range of Motion, Non Tender, No Calf Tenderness Neurologic/Psychiatric: Alert, Oriented x3, No Motor/Sensory Deficits, Normal Mood/Affect Skin: Normal Color, Warm/Dry, Rash (Cellulitis surrounding ulcers on BL LE) Lymphatic: No Adenopathy Assessment/Plan Admission Diagnosis Assessment: Lower extremities chronic wounds appear to be vascular type with cellulitis AF Possible PVD? Venous insufficiency? HTN Plan: Monitor closely Cardiology consultation IV abx USG Wound care I personally performed the whaley portions of the visit, discussed case with resident and concur with resident documentation of history, physical exam, assessment and treatment plan unless otherwise noted. Admission Status: Inpatient Order (span 2 midnights) Reason for Inpatient Admission: cellulitis JERRY BRANDON MD,RESIDENT Aug 19, 2023 15:43 BUBBA CANADA DO Aug 20, 2023 13:48
[2023-08-19 16:00] VITALS: BP 124/77
[2023-08-19] MEDS ORDERED: ACETAMINOPHEN 325 MG TABLET PO PRN (16:30)
[2023-08-19] MEDS ORDERED: VANCOMYCIN INJECTION 0.1 MG in NS (IVPB) 250 ML 250 ML IV SCH (16:30)
[2023-08-19] MEDS ORDERED: NS IV 1000 ML 0 ML IV ONE (16:30)
[2023-08-19] MEDS ORDERED: CALCIUM CARBONATE 500 MG CHEW TABLET PO PRN (16:30)
[2023-08-19] MEDS ORDERED: ONDANSETRON 4 MG ORAL DISSOLVE TABLET PO PRN (16:30)
[2023-08-19] MEDS ORDERED: ONDANSETRON INJECTION 4 MG/2 ML (SDV) IV PRN (16:30)
[2023-08-19] MEDS ORDERED: MELATONIN 3 MG TABLET PO PRN (16:30)
[2023-08-19] MEDS ORDERED: MILK OF MAGNESIA 400 MG/5 ML 30 ML UDC PO PRN (16:30)
[2023-08-19] MEDS ORDERED: NS IV 500 ML 500 ML IV PRN (16:30)
[2023-08-19 16:48] LABS: CLARITY,URINE CLEAR; COLOR,URINE YELLOW; GLUCOSE, URINE (UA) 3+ (NEGATIVE); PROTEIN,URINE 1+ (NEGATIVE)
[2023-08-19 16:49] LABS: BILIRUBIN,URINE NEGATIVE (NEGATIVE); KETONES,URINE TRACE (NEGATIVE); LEUKOCYTE ESTERASE ,URINE NEGATIVE (NEGATIVE); NITRITE,URINE NEGATIVE (NEGATIVE); RBC,URINE RARE /HPF; SQUAMOUS EPITHELIAL CELL,UR RARE /HPF
[2023-08-19] MEDS ORDERED: VANCOMYCIN 1 GM/NS 250 ML IVPB IV ONE ×2 (17:00)
--- NOTE | 2023-08-19 17:34 | Tele-ICU Consult ---
History of Present Illness History of Present Illness Date Seen by Provider: Aug 19, 2023 Time Seen by Provider: 17:26 History of Present Illness eICU Critical Care Consult 43 yo with 2 wk Hx of draining skin wounds on both LE's, Has had off and on for more than one year. Started on IV Vanco, Zosyn Hx of CVA and on Eliquis, has a fib, rate in ED 112. Has DM on Glyburide, Metformin LA 2.10 Other PMH Graves disease. Other lab Hb 18, WBC 11.9, INR 1.4, PT 17.4 Cr 0.81, BUN 12, T Bili 2.1, ALT 19, AST 15 Allergies and Home Medications Allergies Coded Allergies: No Known Drug Allergies (Unverified , 11/12/17) Home Medications Apixaban 5 Mg Tablet, 5 MG PO BID Prescribed by: THOR SCHNEIDER on 02/02/21 1157 Aspirin 81 Mg Tablet.dr, 81 MG PO DAILY Prescribed by: BUBBA CANADA on 02/03/21618 Atorvastatin Calcium 80 Mg Tablet, 80 MG PO DAILY Prescribed by: BUBBA CANADA on 02/03/21618 Diltiazem HCl 240 Mg Cap.er.24h, 240 MG PO DAILY Prescribed by: THOR SCHNEIDER on 02/02/21 1157 Glyburide 2.5 Mg Tablet, 2.5 MG PO DAILY@0630 Prescribed by: BUBBA CANADA on 02/03/21 06 Metformin HCl 500 Mg Tablet, 500 MG PO DAILY@07 Prescribed by: BUBBA CANADA on 02/03/21618 Past Medical/Social/Family Hx Patient Social History Tobacco Use?: No Smoking Status: Never a Smoker Smokeless Tobacco Frequency: Never a User Use of E-Cig and/or Vaping dev: No Substance use?: No Alcohol Use?: No Pt stated abuse/neglect: No Immunizations Up To Date Influenza Vaccine Up-to-Date: No; Not Current Tetanus Booster (TDap): Unknown Current Status Advance Directives: No Communicates: Verbally Primary Language: Austrian Preferred Spoken Language: Austrian Is interpretation needed?: No Implanted or Applied Medical D: Orthopedic hardware Review of Systems Constitutional: see HPI EENTM: see HPI Respiratory: see HPI Cardiovascular: see HPI Gastrointestinal: see HPI Genitourinary: see HPI Musculoskeletal: see HPI Skin: see HPI Psychiatric/Neurological: See HPI Focused Exam Lactate Level 08/19/23 13:50: Lactic Acid Level 2.10*H 08/19/23 16:42: Lactic Acid Level 1.98 Height, Weight, BMI Height: 5'9.00" Weight: 214lbs. 5.0oz. 97.597233km; 33.28 BMI Method:Stated Time of Focused Exam: 15:54 Lactic Acid Level Laboratory Tests Test 08/19/23 13:50 08/19/23 16:42 Lactic Acid Level 2.10 MMOL/L (0.50-2.00) *H 1.98 MMOL/L (0.50-2.00) Exam Exam Patient acknowledged, consented, and participated in this virtual visit which was conducted using real time audio/video Vital Signs Date Time Temp Pulse Resp B/P (MAP) Pulse Ox O2 Delivery O2 Flow Rate FiO2 08/19/23 17:07 88 08/19/23 17:00 87 20 137/101 (113) 97 Room Air 08/19/23 16:24 Room Air 08/19/23 16:00 36.6 81 16 124/77 (93) 97 Room Air 08/19/23 15:54 101 18 141/96 98 08/19/23 13:22 36.0 113 18 141/96 (111) 98 Height & Weight Height: 5'9.00" Weight: 214lbs. 5.0oz. 97.736915uc; 33.28 BMI Method:Stated General Appearance: No Apparent Distress, WD/WN Respiratory: Lungs Clear, Normal Breath Sounds, No Accessory Muscle Use, No Respiratory Distress Cardiovascular: Irregularly Irregular (HR 79) Capillary Refill: Less Than 3 Seconds Peripheral Pulses: 2+ Dorsalis Pedis (R), 2+ Left Dors-Pedis (L), 2+ Radial Pulses (R), 2+ Radial Pulses (L) Gastrointestinal: normal bowel sounds, non tender, soft Skin: Other (Bilateral ulcerative LE lesions with purulent drainage) Results Lab Laboratory Tests 08/19/23 13:22 Assessment/Plan Assessment/Plan Extensive LE skin lesions, continue abx, wound care svc to see Marked elevation of Hb 18, dehydration vs chronic hypoxia with reactive polycythemia Would consider JAIR, pt says has JAIR but lost 150 lbs and has not used CPAP since 2018, DM, on meds pt says Hba1c is 6.7 Spoke with putty tinter maker: Critically Ill Patient Time spent with patient (mins): 25 NUNU LORD MD Aug 19, 2023 17:34
[2023-08-19] MEDS: PIPERACILLIN/Tazobactam 4.5 GM in NS (IVPB) 100 ML 100 ML IV SCH (19:39)
[2023-08-19] MEDS: inSUlin ASPART 1 UNIT/0.01 ML (PER UNIT) SC SCH (20:26)
[2023-08-19] MEDS ORDERED: APIXABAN 5 MG TABLET PO ONE (20:30)
[2023-08-19] MEDS: APIXABAN 5 MG TABLET PO SCH (21:03)
[2023-08-19] MEDS: ACETAMINOPHEN 500 MG TABLET PO SCH (22:14)
[2023-08-20] MEDS: VANCOMYCIN 1 GM/NS 250 ML IVPB IV SCH ×6 (01:33→17:56)
[2023-08-20] MEDS: PIPERACILLIN/Tazobactam 4.5 GM in NS (IVPB) 100 ML 100 ML IV SCH ×3 (03:27→20:02)
[2023-08-20 05:10] LABS: BASOPHILS # (AUTO) 0.1 10^3/uL (0.0-0.1); BASOPHILS % (AUTO) 1 % (0-10); EOSINOPHILS # (AUTO) 0.1 10^3/uL (0.0-0.3); EOSINOPHILS % (AUTO) 2 % (0-10); HEMATOCRIT 45 % (40-54); HEMOGLOBIN 15.6 g/dL (13.3-17.7); LYMPHOCYTES # (AUTO) 0.9 10^3/uL (1.0-4.0); LYMPHOCYTES % (AUTO) 10 % (12-44); MEAN CORPUSCULAR HEMOGLOBIN 31 pg (25-34); MEAN CORPUSCULAR HGB CONC 35 g/dL (32-36); MEAN CORPUSCULAR VOLUME 88 fL (80-99); MEAN PLATELET VOLUME 11.7 fL (9.0-12.2); MONOCYTES % (AUTO) 11 % (0-12); NEUTROPHILS # (AUTO) 6.9 10^3/uL (1.8-7.8); NEUTROPHILS % (AUTO) 77 % (42-75); PLATELET COUNT 155 10^3/uL (130-400); WHITE BLOOD COUNT 8.9 10^3/uL (4.3-11.0)
[2023-08-20 05:24] LABS: ALBUMIN 3.2 GM/DL (3.2-4.5); POTASSIUM 4.1 MMOL/L (3.6-5.0)
[2023-08-20 05:26] LABS: CALCIUM 8.7 MG/DL (8.5-10.1)
[2023-08-20 05:27] LABS: TOTAL PROTEIN 6.5 GM/DL (6.4-8.2)
[2023-08-20 05:29] LABS: BILIRUBIN,TOTAL 1.7 MG/DL (0.1-1.0)
[2023-08-20 05:30] LABS: PHOSPHORUS 3.4 MG/DL (2.3-4.7)
[2023-08-20 05:31] LABS: CREATININE SERUM 0.65 MG/DL (0.60-1.30)
[2023-08-20 05:33] LABS: MAGNESIUM 1.8 MG/DL (1.6-2.4)
[2023-08-20] MEDS ORDERED: POTASSIUM CL 10MEQ/50ML IVPB 50 ML IV SCH (06:00)
[2023-08-20] MEDS ORDERED: MAGNESIUM 1 GM/100 ML IVPB 100 ML IV SCH (06:00)
[2023-08-20] MEDS ORDERED: POTASSIUM CHLORIDE 20 MEQ TABLET PO SCH (06:00)
[2023-08-20] MEDS: ACETAMINOPHEN 500 MG TABLET PO SCH ×3 (06:29→22:00)
[2023-08-20] MEDS: inSUlin ASPART 1 UNIT/0.01 ML (PER UNIT) SC SCH ×4 (06:29→20:05)
[2023-08-20] MEDS: dilTIAZem ER 240 MG CAPSULE PO SCH (09:09)
[2023-08-20] MEDS: APIXABAN 5 MG TABLET PO SCH ×2 (09:09→20:02)
--- NOTE | 2023-08-20 10:57 | Progress Note ---
MARCELA AVERY MD, RESIDENT 08/20/23 1057: Subjective HPI/CC On Admission Date Seen by Provider: Aug 20, 2023 Time Seen by Provider: 09:40 CC: Draining BL LE wounds HPI: Pt is a 43 male with a medical history significant for T2DM and Afib, who presented to the ED due to worsening lower extremity wounds bilaterally. He r eports that he suffers from chronic diabetic wounds and that for the last 2 weeks the ones of his legs have been looking progressively worse with increased purulent drainage and pain. He reports that this has occurred intermittently over the last year. He has not taken any medication for the pain as he does not like to take pain medication. He denies fevers, chills, cough, SOB, CP, abdominal pain, N/V/D. He received zosyn and vancomycin in the ED as well as IVF. He will be admitted for further management. Subjective/Events-last exam Patient is overall doing well today. He feels that his wounds are improving, drainage is slowly decreasing. He notes that for the past couple of days when he would stop on his feet, he would have significant pain with resuming blood flow to his lower extremities. However today he states this pain is no longer present. He otherwise has no concerns today. It was noted that he does not have a access rep in the outpatient. Patient notes that Dr. Willard manages his atrial fibrillation. Review of Systems General: No Fatigue HEENT: No Head Aches, No Visual Changes Pulmonary: No Dyspnea Cardiovascular: No: Chest Pain Gastrointestinal: No: Nausea, Vomiting, Diarrhea, Constipation Genitourinary: No Dysuria Focused Exam Lactate Level 08/19/23 13:50: Lactic Acid Level 2.10*H 08/19/23 16:42: Lactic Acid Level 1.98 Time of Focused Exam: 15:54 Objective Exam Vital Signs Vital Signs Date Time Temp Pulse Resp B/P (MAP) Pulse Ox O2 Delivery O2 Flow Rate FiO2 08/20/23 12:00 90 134/91 (105) 94 Room Air 08/20/23 08:00 36.0 08/19/23 17:00 20 Capillary Refill : Less Than 3 Seconds General Appearance: No Apparent Distress HEENT: PERRL/EOMI Neck: Full Range of Motion Respiratory: Chest Non Tender, Lungs Clear, Normal Breath Sounds, No Accessory Muscle Use, No Respiratory Distress Cardiovascular: Regular Rate, Rhythm, No Edema, No Gallop, No Murmur Gastrointestinal: Normal Bowel Sounds, No Organomegaly, Non Tender, Soft Extremity: Other (Large area of erythema on the left lower extremity around the ware both anteriorly and posteriorly. Noting large open wounds on the left lower extremity with some bloody drainage and foul odor but no active drainage present at the time. Right lower extremity has a wound as well that seems to have scabbed over at this time.) Neurologic/Psychiatric: Alert, Oriented x3 Results/Procedures Lab Laboratory Tests 08/19/23 13:22 08/20/23 04:35 Patient resulted labs reviewed. Assessment/Plan Assessment and Plan Assess & Plan/Chief Complaint Sepsis secondary to cellulitis Diagnosis/Problems Diagnosis/Problems (1) Sepsis Status: Resolved Assessment & Plan: Leukocytosis has resolved, vital signs continue to be stable. Sepsis has now resolved. Qualifiers: Qualified Codes: A41.9 - Sepsis, unspecified organism Resolution Date/Time: 08/20/23 @ 12:10 (2) Cellulitis Status: Acute Assessment & Plan: Patient noted to have cellulitis on his left lower extremity. Leukocytosis has resolved as well as lactate. Cellulitis may be secondary to poorly controlled diabetes however we will do further work-up for venous stasis and arterial insufficiency given lower extremity findings and patient's expression of symptoms. Continue Vanco and Zosyn for broad-spectrum coverage Wound care consulted Continue to follow blood and wound cultures. Wound culture at this time is growing staph and group A strep Qualifiers: Qualified Codes: L03.116 - Cellulitis of left lower limb (3) Insulin dependent diabetes mellitus Status: Chronic Assessment & Plan: Continue sliding scale insulin and sugar monitoring. (4) Atrial fibrillation with rapid ventricular response Status: Acute Assessment & Plan: Well-controlled at this time. Patient likely slipped into RVR due to lower extremity infection. Continue diltiazem and apixaban Cardiology consulted for further management. Echo ordered Continue monitoring on telemetry BUBBA CANADA DO 08/20/23 1429: Subjective Subjective/Events-last exam Much improved status Cardiology consulted USG or legs ordered both venous and arterial Objective Exam General Appearance: No Apparent Distress, WD/WN Extremity: Other (Large area of erythema on the left lower extremity around the ware both anteriorly and posteriorly. Noting large open wounds on the left lower extremity with some bloody drainage and foul odor but no active drainage present at the time. Right lower extremity has a wound as well that seems to have scabbed over at this time.) Assessment/Plan Assessment and Plan Assess & Plan/Chief Complaint IV abx Monitor closely Cardiology consult I personally performed the whaley portions of the visit, discussed case with resident and concur with resident documentation of history, physical exam, assessment and treatment plan unless otherwise noted. MARCELA AVERY MD, RESIDENT Aug 20, 2023 10:57 BUBBA CANADA DO Aug 20, 2023 14:29
[2023-08-20] MEDS ORDERED: LIRA0.6P SQ (11:06)
[2023-08-20] MEDS ORDERED: EMPA10TA PO (11:13)
[2023-08-20] MEDS ORDERED: CHOL100048 PO (11:14)
[2023-08-20] MEDS ORDERED: METH-307 PO (11:16)
[2023-08-20] MEDS ORDERED: CALC200T40 PO (11:16)
--- NOTE | 2023-08-20 13:09 | Consultation-Cardiology ---
HPI-Cardiology Cardiology Consultation: Date of Consultation 08/20/23 Time Seen by a Provider: 13:00 Date of Admission Attending Physician [facility] Admitting Physician Admitting Physician: Keren Manzo DO Attending Physician: Keren Manzo DO Consulting Physician BELLA RAMIREZ MD, MA, FACP, FACC, [facility] [place], [facility] Physician requesting consult: Dr Manzo HPI: Chief Complaint: Reason for Card consult: A Fib, bilateral leg cellulitis and ulcers 43 yo man with DM II and chronic A Fib who has been hospitalized to Dr Manzo's service with increasing redness and ulcers of both legs, L > R. He denies cp or palp or syncope or shortness of breath. He does not report leg discomfort upon walking (except mild intermittent ware - not calf - discomfort). He denies fever or chills. He notes some gen malaise Review of Systems-Cardiology Review of Systems Constitutional: malaise; No weight loss, No weight gain Eyes: No vision change Ears/Nose/Throat: No ear discharge, No recent hearing loss Respiratory: As described under HPI Cardiovascular: As described under HPI Gastrointestinal: No diarrhea, No nausea, No vomiting Genitourinary: No dysuria, No hematuria, No urine frequency changes Musculoskeletal: As describe under HPI; No back pain, No joint pain Skin: As described under HPI Psychiatric/Neurological: No seizure, No focal weakness, No syncope Hematologic: No bleeding abnormalities All Other Systems Reviewed Negative Unless Noted: Yes CXV-Xfxslk-Hfbqdg Hx Patient Social History Smoking Status: Never a Smoker 2nd Hand Smoke Exposure: No Alcohol Use?: No Pt feels they are or have been: No Immunizations Up To Date Tetanus Booster (TDap): Unknown Past Medical History PMH As described under Assessment. Family Medical History Family Medical History: He does not report fam h/o early CAD or SCD Allergies and Home Medications Allergies Coded Allergies: No Known Drug Allergies (Unverified , 11/12/17) Patient Home Medication List Home Medication List Reviewed: Yes Apixaban (Eliquis) 5 Mg Tablet, 5 MG PO BID Prescribed by: THOR SCHNEIDER on 02/02/21 0064 Last Action: Reviewed Aspirin (Aspirin EC) 81 Mg Tablet., 81 MG PO DAILY Prescribed by: KEREN MANZO on 02/03/21 0619 Last Action: Reviewed Atorvastatin Calcium (Atorvastatin Calcium) 80 Mg Tablet, 80 MG PO DAILY Prescribed by: KEREN MANZO on 02/03/21618 Last Action: Reviewed Calcium Carbonate (Calcium Antacid) 200 Mg Calcium (500 Mg) Tab.chew, 1,250 MG PO DAILY, (Reported) Entered as Reported by: MILLI GARSIA on 08/20/231115 Last Action: Reviewed Cholecalciferol (Vitamin D3) (Vitamin D3) 25 Mcg (1000 Unit) Capsule, 25 MCG PO DAILY, (Reported) Entered as Reported by: MILLI GARSIA on 08/20/231113 Last Action: Reviewed Diltiazem HCl (Diltiazem 24Hr ER) 240 Mg Cap.er.24h, 240 MG PO DAILY Prescribed by: THOR SCHNEIDER on 02/02/21 115 Last Action: Reviewed Empagliflozin (Jardiance) 10 Mg Tablet, 10 MG PO DAILY, (Reported) Entered as Reported by: MILLI GARSIA on 08/20/231112 Last Action: Reviewed Liraglutide (Victoza 2-Vic) 0.6 Mg/0.1 Ml (18 Mg/3 Ml) Pen.injctr, 1.8 MG SQ DAILY, (Reported) Entered as Reported by: MILLI GARSIA on 08/20/23 1106 Last Action: Reviewed Metformin HCl (Metformin HCl) 500 Mg Tablet, 500 MG PO DAILY@07 Prescribed by: KEREN MANZO on 02/03/21618 Last Action: Reviewed Methimazole (Methimazole) 10 Mg Tab, 10 MG PO DAILY, (Reported) Entered as Reported by: MILLI GARSIA on 08/20/231115 Last Action: Reviewed Discontinued Medications Blood-Glucose Meter (Blood Glucose Meter) 1 Each Each, EACH MC DAILY, (DME) Discontinued Reason: No Longer Taking Prescribed by: KEREN MANZO on 02/03/21621 Last Action: Discontinued Glyburide (Glyburide) 2.5 Mg Tablet, 2.5 MG PO DAILY@0630 Discontinued Reason: No Longer Taking Prescribed by: KEREN AMNZO on 02/03/21618 Last Action: Discontinued Lancets/Blood Glucose Strips (Lancet 30G-Glucose Test Strip) 1 Each Combo..pkg, EACH MC DAILY, (DME) Discontinued Reason: No Longer Taking Prescribed by: KEREN MANZO on 02/03/21621 Last Action: Discontinued Physical Exam-Cardiology Physical Exam Vital Signs/I&O 08/20/23 08/20/23 08/20/23 08/20/23 03:56 04:00 04:00 07:00 Temp 36.6 Pulse 82 82 92 B/P (MAP) 128/93 (105) 128/93 (105) Pulse Ox 97 97 97 O2 Delivery Room Air Room Air Room Air 08/20/23 08/20/23 08/20/23 08/20/23 08:00 08:00 08:00 09:00 Temp 36.0 Pulse 97 109 B/P (MAP) 145/97 (113) Pulse Ox 98 96 96 O2 Delivery Room Air Room Air Room Air 08/20/23 08/20/23 08/20/23 08/20/23 10:00 11:00 12:00 12:27 Pulse 108 101 90 85 B/P (MAP) 138/94 (109) 134/91 (105) Pulse Ox 97 96 94 O2 Delivery Room Air Room Air Room Air 08/20/23 00:00 Intake Total 620 ml Balance 620 ml Capillary Refill : Less Than 3 Seconds Constitutional: AAO x 3, well-developed, well-nourished HEENT: PERRL, EOMI, hearing is well preserved; No xanthelasmas are seen Neck: carotid pulses are 2 + bilaterally, with good upstrokes Respiratory: No accessory muscle use; chest expansion is symmetric, chest is bilaterally symmetric, other (fair to good, bilateral air entry) Cardiovascular: regular rate-rhythm, S1 and S2, systolic murmur (soft SCARLET at card base) Gastrointestinal: No tender; soft; No guarding, No rebound; audible bowel sounds Extremities: swelling (mild, bilater), other (reddish brown discoloration of both lower legs); No clubbing, No cyanosis; wound (serpigionous unlcers of up to approx 4" in greatest dimension on the anterior aspects of both legs (more prominent and numerous on the L)) Skin: warm/dry; No cool, No diaphoresis; other (please see under Extremities exam above) Data Review Labs Laboratory Tests 08/19/23 13:22: White Blood Count 11.9H, Red Blood Count 6.08H, Hemoglobin 18.3H, Hematocrit 54, Mean Corpuscular Volume 89, Mean Corpuscular Hemoglobin 30, Mean Corpuscular Hemoglobin Concent 34, Red Cell Distribution Width 13.1, Platelet Count 200, Mean Platelet Volume 11.7, Immature Granulocyte % (Auto) 0, Neutrophils (%) (Auto) 83H, Lymphocytes (%) (Auto) 7L, Monocytes (%) (Auto) 10, Eosinophils (%) (Auto) 0, Basophils (%) (Auto) 0, Neutrophils # (Auto) 9.9H, Lymphocytes # (Auto) 0.8L, Monocytes # (Auto) 1.2H, Eosinophils # (Auto) 0.0, Basophils # (Auto) 0.0, Immature Granulocyte # (Auto) 0.1, Neutrophils % (Manual) 88, Lymphocytes % (Manual) 1, Monocytes % (Manual) 2, Eosinophils % (Manual) 1, Bas ophils % (Manual) 0, Band Neutrophils 0, Reactive Lymphocytes 8, Blood Morphology Comment NORMAL, Erythrocyte Sedimentation Rate 8, Prothrombin Time 17.4H, INR Comment 1.4, Activated Partial Thromboplast Time 33, Sodium Level 138, Potassium Level 4.3, Chloride Level 101, Carbon Dioxide Level 24, Anion Gap 13, Blood Urea Nitrogen 12, Creatinine 0.81, Estimat Glomerular Filtration Rate 111, BUN/Creatinine Ratio 15, Glucose Level 206H, Calcium Level 9.9, Corrected Calcium 9.9, Total Bilirubin 2.1H, Aspartate Amino Transf (AST/SGOT) 15, Alanine Aminotransferase (ALT/SGPT) 19, Alkaline Phosphatase 140H, Total Protein 7.8, Albumin 4.0 08/19/23 13:36: Glucometer 192H 08/19/23 13:50: Lactic Acid Level 2.10*H 08/19/23 16:10: Urine Color YELLOW, Urine Clarity CLEAR, Urine pH 7.0, Urine Specific [place] 1.020, Urine Protein 1+H, Urine Glucose (UA) 3+H, Urine Ketones TRACEH, Urine Nitrite NEGATIVE, Urine Bilirubin NEGATIVE, Urine Urobilinogen 2.0, Urine Leukocyte Esterase NEGATIVE, Urine RBC (Auto) TRACEH, Urine RBC RARE, Urine WBC NONE, Urine Squamous Epithelial Cells RARE, Urine Crystals NONE, Urine Bacteria NONE, Urine Casts NONE, Urine Mucus NEGATIVE, Urine Culture Indicated NO 08/19/23 16:42: Lactic Acid Level 1.98 08/19/23 20:26: Glucometer 148H 08/20/23 04:35: White Blood Count 8.9, Red Blood Count 5.11, Hemoglobin 15.6, Hematocrit 45, Mean Corpuscular Volume 88, Mean Corpuscular Hemoglobin 31, Mean Corpuscular Hemoglobin Concent 35, Red Cell Distribution Width 13.0, Platelet Count 155, Mean Platelet Volume 11.7, Immature Granulocyte % (Auto) 0, Neutrophils (%) (Auto) 77H, Lymphocytes (%) (Auto) 10L, Monocytes (%) (Auto) 11, Eosinophils (%) (Auto) 2, Basophils (%) (Auto) 1, Neutrophils # (Auto) 6.9, Lymphocytes # (Auto) 0.9L, Monocytes # (Auto) 1.0, Eosinophils # (Auto) 0.1, Basophils # (Auto) 0.1, Immature Granulocyte # (Auto) 0.0, Sodium Level 138, Potassium Level 4.1, Chloride Level 106, Carbon Dioxide Level 20L, Anion Gap 12, Blood Urea Nitrogen 11, Creatinine 0.65, Estimat Glomerular Filtration Rate 118, BUN/Creatinine Ratio 17, Glucose Level 104, Calcium Level 8.7, Corrected Calcium 9.3, Phosphorus Level 3.4, Magnesium Level 1.8, Total Bilirubin 1.7H, Aspartate Amino Transf (AST/SGOT) 10, Alanine Aminotransferase (ALT/SGPT) 13, Alkaline Phosphatase 103, Total Protein 6.5, Albumin 3.2 08/20/23 10:56: Glucometer 158H Microbiology 08/19/23 Gram Stain, Resulted Pending 08/19/23 Wound Culture - Preliminary, Resulted Strep, Beta Hemolytic Group A Staphylococcus aureus Laboratory Tests 08/19/23 13:22 08/20/23 04:35 A/P-Cardiology Assessment/Admission Diagnosis Bilat leg cellulitis and diabetic ulcers DM II - treated with oral meds and managed by is pcp CVA treated with TPA in January 2021 Chronic atrial fibrillation first diagnosed at time of presentation with CVA in January 2021 - started Eliquis on 01/27/21 and has been on it - has not followed with cardiology for A Fib Discussion and Recomendations * CT angio of arterial circulation of both legs * Wound management by Dr Manzo * Echo * Continue oral anticoag for stroke prophylaxis * Monitor labs BELLA RAMIREZ MD [facility] Aug 20, 2023 13:09
[2023-08-20 14:22] VITALS: BP 134/89
--- NOTE | 2023-08-20 14:35 | Diagnostic Imaging Report ---
PROCEDURE: US Venous Lower Ext [place]. TECHNIQUE: Multiple real-time grayscale images were obtained over the lower extremities in various projections, bilaterally. Additional duplex Doppler and color Doppler images were also obtained. Date: August 20, 2023. Indication: 43-year-old male, bilateral lower extremity swelling and pain. Comparison: None. Findings: The bilateral common femoral veins, superficial femoral veins, and popliteal veins are all compressible with normal blood flow and response to augmentation. The imaged portions of the bilateral greater saphenous veins and deep femoral veins are patent. The bilateral posterior tibial and peroneal veins are patent. Impression: 1. Negative for right or left lower extremity deep venous thrombosis. Dictated by: Dictated on workstation # [id number]
--- NOTE | 2023-08-20 14:40 | Diagnostic Imaging Report ---
PROCEDURE: US Bilateral lower extremity arterial. TECHNIQUE: Multiple real-time grayscale images are obtained through both lower extremity arterial systems with color Doppler imaging and color Doppler spectral analysis. Date: August 20, 2023. Indication: 43-year-old male, bilateral lower extremity ulcers and pain. Comparison: None. Findings: Peak systolic velocity in the right common femoral artery measures 82 cm/s with normal triphasic waveform. Peak systolic velocity in the right deep femoral artery measures 46 cm/s. Peak systolic velocity in the right proximal superficial femoral artery measures 77 cm/s, 78 cm/s the mid right superficial femoral artery, and 89 cm/s distally. Peak systolic velocity in the right popliteal artery measures 95 cm/s. Peak systolic velocity in the distal right posterior tibial artery measures 77 cm/s and 72 cm/s in the right dorsalis pedis artery. There are normal triphasic waveforms throughout their imaged right lower extremity arterial vasculature. Peak systolic velocity in left common femoral artery measures 107 cm/s with normal triphasic waveform. Peak systolic velocity in left deep femoral artery measures 56 cm/s. Peak systolic velocity in left proximal superficial femoral artery measures 93 cm/s, 116 cm/s in the mid left superficial femoral artery. Peak systolic velocity in left popliteal artery measures 123 cm/s. Peak systolic velocity in the distal left posterior tibial artery measures 75 cm/s and 65 cm/s in the left dorsalis pedis artery. There are normal triphasic waveforms throughout the imaged left lower extremity arterial vasculature. Impression: 1. Patent bilateral lower extremity arterial vasculature with normal waveforms and velocities. Dictated by: Dictated on workstation # [id number]
[2023-08-20 15:25] VITALS: BP 145/80
[2023-08-20] MEDS ORDERED: TROUGH ORDER-PHARMACY XX NR (17:00)
[2023-08-20 19:03] VITALS: BP 138/78
[2023-08-20 23:14] VITALS: BP 130/86
[2023-08-21] MEDS: VANCOMYCIN 1 GM/NS 250 ML IVPB IV SCH ×6 (02:18→17:52)
[2023-08-21 03:12] VITALS: BP 121/73
[2023-08-21] MEDS: PIPERACILLIN/Tazobactam 4.5 GM in NS (IVPB) 100 ML 100 ML IV SCH ×3 (04:12→20:01)
[2023-08-21 05:50] LABS: BASOPHILS % (AUTO) 1 % (0-10); EOSINOPHILS # (AUTO) 0.1 10^3/uL (0.0-0.3); EOSINOPHILS % (AUTO) 1 % (0-10); HEMATOCRIT 48 % (40-54); HEMOGLOBIN 16.7 g/dL (13.3-17.7); LYMPHOCYTES # (AUTO) 0.8 10^3/uL (1.0-4.0); LYMPHOCYTES % (AUTO) 10 % (12-44); MEAN CORPUSCULAR HEMOGLOBIN 31 pg (25-34); MEAN CORPUSCULAR HGB CONC 35 g/dL (32-36); MEAN CORPUSCULAR VOLUME 87 fL (80-99); MEAN PLATELET VOLUME 11.2 fL (9.0-12.2); MONOCYTES # (AUTO) 0.7 10^3/uL (0.0-1.0); MONOCYTES % (AUTO) 9 % (0-12); NEUTROPHILS # (AUTO) 6.1 10^3/uL (1.8-7.8); NEUTROPHILS % (AUTO) 78 % (42-75); PLATELET COUNT 182 10^3/uL (130-400); WHITE BLOOD COUNT 7.7 10^3/uL (4.3-11.0)
[2023-08-21] MEDS: ACETAMINOPHEN 500 MG TABLET PO SCH ×3 (06:10→20:03)
[2023-08-21 06:24] LABS: ALBUMIN 3.5 GM/DL (3.2-4.5); BILIRUBIN,TOTAL 1.2 MG/DL (0.1-1.0); CREATININE SERUM 0.67 MG/DL (0.60-1.30); MAGNESIUM 1.8 MG/DL (1.6-2.4); PHOSPHORUS 3.4 MG/DL (2.3-4.7); POTASSIUM 4.2 MMOL/L (3.6-5.0)
[2023-08-21] MEDS: inSUlin ASPART 1 UNIT/0.01 ML (PER UNIT) SC SCH ×4 (06:26→21:59)
[2023-08-21 07:48] VITALS: BP 140/89
[2023-08-21] MEDS: APIXABAN 5 MG TABLET PO SCH ×2 (08:15→20:04)
[2023-08-21] MEDS: dilTIAZem ER 240 MG CAPSULE PO SCH (08:15)
--- NOTE | 2023-08-21 08:23 | Progress Note ---
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 Wound care will be consulted. IV abx maintained. Cardiology consulted for AF and possible lower extremity intervention if PVD noted on USG. Subjective/Events-last exam No acute events overnight. Pt resting in bed. Denies pain at wound sites, CP, SOB, N/V/D. Tolerating PO, on RA. Focused Exam Lactate Level 08/19/23 13:50: Lactic Acid Level 2.10*H 08/19/23 16:42: Lactic Acid Level 1.98 Time of Focused Exam: 15:54 Objective Exam Vital Signs Vital Signs Date Time Temp Pulse Resp B/P (MAP) Pulse Ox O2 Delivery O2 Flow Rate FiO2 08/21/23 11:22 36.2 98 16 119/71 (87) 95 Room Air Capillary Refill : Less Than 3 Seconds General Appearance: No Apparent Distress Neck: Non Tender Respiratory: Lungs Clear, Normal Breath Sounds, No Accessory Muscle Use, No Respiratory Distress Cardiovascular: Regular Rate, Rhythm Gastrointestinal: Non Tender, Soft Extremity: Pedal Edema, Swelling Neurologic/Psychiatric: Alert, Oriented x3, No Motor/Sensory Deficits, Normal Mood/Affect Skin: Rash (improving cellulitis BL LE), Other (Draining ulcers on anterior aspect BL LE) Results/Procedures Lab Laboratory Tests 08/21/23 05:33 Patient resulted labs reviewed. Assessment/Plan Assessment and Plan Assess & Plan/Chief Complaint Sepsis Diagnosis/Problems Diagnosis/Problems (1) Sepsis Status: Resolved Assessment & Plan: 2/2 chronic diabetic ulcers of BL LE PLAN: Wound care consult - will f/u in 1 week outpatient XR NEG for osteomyelitis MRI BL LE: NEG for osteomyelitis Abx: vancomycin and zosyn Wound Cx - MSSA, GAS Blood Cx Prelim NEG IVF Qualifiers: Qualified Codes: A41.9 - Sepsis, unspecified organism Resolution Date/Time: 08/20/23 @ 12:10 (2) Diabetic ulcer of lower leg Assessment & Plan: PLAN: See sepsis (3) Cellulitis Status: Acute Assessment & Plan: Improved on exam 08/21 Qualifiers: Qualified Codes: L03.116 - Cellulitis of left lower limb (4) Insulin dependent diabetes mellitus Status: Chronic Assessment & Plan: PLAN: Slide scale insulin Consider adding on long-acting ACHS BG (5) Atrial fibrillation with rapid ventricular response Status: Acute Assessment & Plan: PLAN: Cardiology consult 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 Legs dressed at time of my exam, I did not evaluate his wounds today. JERRY BRANDON MD,RESIDENT Aug 21, 2023 08:23 AUNG CORDERO MD Aug 21, 2023 21:35
[2023-08-21] MEDS ORDERED: IOHEXOL 350 MG/ML 150 ML (OMNIPAQUE 350) VIAL IV ONE (10:30)
[2023-08-21] MEDS ORDERED: NS 100 ML (IVPB) BAG IV ONE (10:30)
[2023-08-21] MEDS ORDERED: HOLD METFORMIN - RECEIVED CONTRAST 20 ML VIAL IV SCH (10:30)
[2023-08-21] MEDS ORDERED: DILT240C91 PO (11:16)
[2023-08-21] MEDS ORDERED: ASPI-1238 PO (11:16)
[2023-08-21] MEDS ORDERED: APIX5TAB PO (11:16)
[2023-08-21] MEDS ORDERED: METF-397 PO (11:16)
[2023-08-21] MEDS ORDERED: ATOR80TA76 PO (11:16)
[2023-08-21] MEDS ORDERED: CALC-938 PO (11:16)
[2023-08-21 11:22] VITALS: BP 119/71
[2023-08-21] MEDS ORDERED: GADOTERATE 0.5 MMOL/ML (CLARISCAN) 20 ML VIAL IV ONE (12:30)
--- NOTE | 2023-08-21 14:15 | Diagnostic Imaging Report ---
Exam: MRI left tibia and fibula without and with intravenous contrast. Date: August 21, 2023. Indication: 43-year-old male, left lower tibia and fibula pain. Soft tissue ulcers. Comparison: Left tibia and fibular radiographs August 19, 2023. Technique: Pre and postcontrast MRI sequences were obtained at the level of the left tibia and fibula with [id number] focused on area of concern. Findings: There is nonspecific subcutaneous enhancement throughout the included [id number]. There is no identified focal fluid collection or abscess. There is normal intramuscular signal and normal muscle bulk. The imaged tendons are intact. There is no T1 marrow signal loss or bone destruction. There is no evidence of osteomyelitis. There is no acute fracture, stress reaction, or other bone marrow signal abnormality. There is limited evaluation at the level of the ankle joint relating to the large [id number] of acquisition. There is no identified tibiotalar or subtalar joint effusion. Impression: 1. Nonspecific diffuse subcutaneous edema and enhancement without focal fluid collection or abscess. 2. No evidence of osteomyelitis or other acute osseous abnormality. 3. No evidence of myositis. 5. Intact imaged tendons. Dictated by: Dictated on workstation # [id number]
--- NOTE | 2023-08-21 14:37 | Diagnostic Imaging Report ---
INDICATION: Cellulitis, sepsis, lower extremity ulcers, and vascular disease. COMPARISON: No prior arterial exam. TECHNIQUE: Post IV contrast-enhanced CT angiography of the aortoiliac and runoffs performed with 2-D and 3-D reconstructions. All CT scans use one or more of the following dose optimizing techniques: Automated exposure control, MA and/or KvP adjustment based on patient size and exam type or iterative reconstruction. FINDINGS: The takeoff of the BLUE is patent. The lower thoracic aorta is patent. Its bifurcation is patent. The bilateral common iliacs are widely patent. Internal iliac branches are unremarkable. The bilateral external iliac arteries are widely patent. Right Leg: The common femoral artery and profunda are patent. SFA is patent. The popliteal artery is patent. Common tibioperoneal trunk is patent. There is a three-vessel runoff to the ankle. Left Leg: Common femoral is patent. The profunda is patent. The SFA is patent. Popliteal artery is patent. Common tibioperoneal trunk is patent, and there is a normal widely patent three-vessel runoff to the ankle. Left leg does show some generalized subcutaneous edema and some prominent superficial venous varicosities. No abscess, gas, or drainable fluid collection. No bony destruction or findings of osteomyelitis or fracture. There are a few fat-containing lymph nodes in the left groin and distal external iliac chain, given the additional findings likely reflect some mild reactive adenopathy. IMPRESSION: 1. No hemodynamically significant stenosis in the aortoiliac system with widely patent three-vessel runoffs to the bilateral ankles. No acute or suspicious arterial pathology. 2. There is some left lower extremity subcutaneous edema and superficial venous varicosities. No acute bony pathology, gas, or visible abscess/fluid collection. 3. There is likely some mild reactive adenopathy in the left groin. Dictated by: Dictated on workstation # [id number]
[2023-08-21 15:50] VITALS: BP 120/78
--- NOTE | 2023-08-21 16:03 | Wound Care Assessment ---
Wound Care Assessment Date Seen by Provider: Aug 21, 2023 Time Seen by Provider: 11:50 Chief Complaint B/L lower extremity wounds HPI Our patient is a pleasant 43 yo M with a past medical history of sepsis, cellulitis, type II DM, atrial fibrillation, graves disease, CVA (2020) on eliqu is, and pathologic hip fracture that is being seen for bilateral lower extremity wounds. He notes that these wounds began to worsen around two weeks ago but that he has experienced similar instances intermittently for around the last two years. Notes intermittent drainage from the wound sites as well as tenderness to palpation. He is currently on zosyn and vancomycin for sepsis possibly secondary to cellulitis. 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 He denies smoking tobacco. Denies fever or chills. His last hemoglobin A1C was approximately 2 months ago at 6.3 and notes that his glucose levels tend to run between the 120's and 140's. He has no history of liver or kidney disease. No history of DVTs and had a clear venous doppler performed recently. Bilateral lower extremity arterial ultrasound was normal on 08/20. Past Medical History: Admits Diabetes Type II, Admits Heart Disease; Denies Deep Vein Thrombosis Grave's disease, h/o CVA, h/o atrial fibrillation (on chronic anticoagulation) Smoking Status: Never a Smoker Recreational Drug Use: No Alcohol Use: Denies Use Review of Systems General: No Chills Cardiovascular: Edema Musculoskeletal: leg pain (Left worse than right) Neurological: No: Confusion Exam Vital Signs Date Time Temp Pulse Resp B/P (MAP) Pulse Ox O2 Delivery O2 Flow Rate FiO2 08/21/23 11:22 36.2 98 16 119/71 (87) 95 Room Air Capillary Refill : Less Than 3 Seconds General Appearance: WD/WN, no apparent distress, obese HEENT: PERRL/EOMI Neck: normal inspection Extremities: no calf tenderness, swelling (Bilateral 1+ pitting edema of lower extremities), other (Multiple ulcerations noted on the anterior surface of bilateral shins. Left side is more severe with 3 large, distinct wound sites. Left leg wound sites show blistering, drain serosanguineous fluids, and are tender to debridement. Left leg wound site shows a diffuse maroon discoloration that surrounds the ulcerations but seems to have receeded from its previous borders indicated by marker on the skin.) Neurologic/Psychiatric: alert, normal mood/affect, oriented x 3 Skin: warm/dry Skin Problem Location: lower extremities Skin Character: drainage (serosanguineous), erythema (Maroon discoloration sandhu rrounding left ware ulcer site), lesion (Circular in shape, encroaching on other ulcer sites), patchy, tenderness Wound assessment: Bilateral anterior calves with full thickness ulcerations with heavy slough and eschar. The epithelialization is none. There is no tunneling or undermining. Drainage is large and serosanguinous. Granulation is none. Necrotic is large and slough/eschar. Margins epibole. The is bullous changes to periwound and violaceous borders with hyperemia in periwound. Results Laboratory Tests 08/20/23 16:58: Vancomycin Level Trough 10.8 08/20/23 20:02: Glucometer 168H 08/21/23 05:33: White Blood Count 7.7, Red Blood Count 5.47, Hemoglobin 16.7, Hematocrit 48, Mean Corpuscular Volume 87, Mean Corpuscular Hemoglobin 31, Mean Corpuscular Hemoglobin Concent 35, Red Cell Distribution Width 12.7, Platelet Count 182, Mean Platelet Volume 11.2, Immature Granulocyte % (Auto) 1, Neutrophils (%) (Auto) 78H, Lymphocytes (%) (Auto) 10L, Monocytes (%) (Auto) 9, Eosinophils (%) (Auto) 1, Basophils (%) (Auto) 1, Neutrophils # (Auto) 6.1, Lymphocytes # (Auto) 0.8L, Monocytes # (Auto) 0.7, Eosinophils # (Auto) 0.1, Basophils # (Auto) 0.0, Immature Granulocyte # (Auto) 0.0, Sodium Level 140, Potassium Level 4.2, Chloride Level 105, Carbon Dioxide Level 21, Anion Gap 14, Blood Urea Nitrogen 11, Creatinine 0.67, Estimat Glomerular Filtration Rate 117, BUN/Creatinine Ratio 16, Glucose Level 130H, Calcium Level 9.0, Corrected Calcium 9.4, Phosphorus Level 3.4, Magnesium Level 1.8, Total Bilirubin 1.2H, Aspartate Amino Transf (AST/SGOT) 11, Alanine Aminotransferase (ALT/SGPT) 15, Alkaline Phosphatase 103, Total Protein 7.0, Albumin 3.5 08/21/23 10:33: Glucometer 185H Microbiology 08/19/23 MRSA Screen - Final, Complete MRSA not isolated 08/19/23 Urine Culture - Final, Complete NO GROWTH 08/19/23 Blood Culture - Preliminary, Resulted 08/19/23 Gram Stain - Final, Resulted 08/19/23 Wound Culture - Preliminary, Resulted Strep, Beta Hemolytic Group A Staphylococcus aureus Microbiology 08/19/23 MRSA Screen - Final, Complete MRSA not isolated 08/19/23 Urine Culture - Final, Complete NO GROWTH Assessment/Plan/Dx Assessment: 1. Full thickness ulcers bilateral calves (non-pressure) 2. Suspected atypical ulcers (possible vasculitis) 3. Lymphedema 4. Cellulitis with GAS and MSSA Plan: 1. Cleanse daily with Vashe and gently scrub to remove remaining slough. Apply barrier ointment to periwound. Silver alginate hydrofiber to wound bed and cover with gauze/roller gauze and secure with tape 2. Would recommend MRI to rule out mono infection (unlikely with normal inflammatory labs and plain films) but will rule out due to recurrence 3. Follow up in wound care clinic on d/c home. Will consider compression if safe to do so. Would also consider biopsy to rule out atypical ulceration 4. Agree with antibiotics Supervisory-Addendum Brief Verification & Attestation Participated in pt care: history, MDM, physical Personally performed: exam, history, MDM, supervision of care Care discussed with: Medical Student Procedures: n/a Results interpretation: Verified all documentation NUNU Padron MD Aug 21, 2023 16:03 EMILIA GRULLON MD Aug 21, 2023 17:12
--- NOTE | 2023-08-21 18:15 | Progress Note - Cardiology ---
Cardiology SOAP Progress Note Subjective: No cp or palp or syncope No n/v/d No focal weakness Gen weakness present Leg discomfort better Objective: I&O/Vital Signs 08/21/23 08/21/23 08/21/23 08/21/23 07:03 07:48 08:00 11:22 Temp 36.6 36.2 Pulse 85 101 98 Resp 15 16 B/P (MAP) 140/89 (106) 119/71 (87) Pulse Ox 94 94 95 O2 Delivery Room Air Room Air Room Air 08/21/23 08/21/23 15:50 15:59 Temp 36.3 Pulse 91 88 Resp 18 B/P (MAP) 120/78 (92) Pulse Ox 96 O2 Delivery Room Air 08/21/23 00:00 Intake Total 740 ml Balance 740 ml Weight (Pounds): 214 Weight (Ounces): 5.0 Weight (Calculated Kilograms): 97.933483 Constitutional: AAO x 3, well-developed, well-nourished Respiratory: No accessory muscle use; chest expansion is symmetric, chest is bilaterally symmetric, other (fair to good, bilateral air entry) Cardiovascular: regular rate-rhythm, S1 and S2, systolic murmur (soft SCARLET at card base) Gastrointestional: No tender; soft; No guarding, No rebound; audible bowel sounds Extremities: swelling (mild, bilater), other (reddish brown discoloration of both lower legs); No clubbing, No cyanosis; wound (serpigionous unlcers of up to approx 4" in greatest dimension on the anterior aspects of both legs (more prominent and numerous on the L)) Skin: warm/dry; No cool, No diaphoresis; other (please see under Extremities exam above) Results/Procedures: Labs Laboratory Tests 08/20/23 20:02: Glucometer 168H 08/21/23 05:33: White Blood Count 7.7, Red Blood Count 5.47, Hemoglobin 16.7, Hematocrit 48, Mean Corpuscular Volume 87, Mean Corpuscular Hemoglobin 31, Mean Corpuscular Hemoglobin Concent 35, Red Cell Distribution Width 12.7, Platelet Count 182, Mean Platelet Volume 11.2, Immature Granulocyte % (Auto) 1, Neutrophils (%) (Auto) 78H, Lymphocytes (%) (Auto) 10L, Monocytes (%) (Auto) 9, Eosinophils (%) (Auto) 1, Basophils (%) (Auto) 1, Neutrophils # (Auto) 6.1, Lymphocytes # (Auto) 0.8L, Monocytes # (Auto) 0.7, Eosinophils # (Auto) 0.1, Basophils # (Auto) 0.0, Immature Granulocyte # (Auto) 0.0, Sodium Level 140, Potassium Level 4.2, Chloride Level 105, Carbon Dioxide Level 21, Anion Gap 14, Blood Urea Nitrogen 11, Creatinine 0.67, Estimat Glomerular Filtration Rate 117, BUN/Creatinine Ratio 16, Glucose Level 130H, Calcium Level 9.0, Corrected Calcium 9.4, Phosphorus Level 3.4, Magnesium Level 1.8, Total Bilirubin 1.2H, Aspartate Amino Transf (AST/SGOT) 11, Alanine Aminotransferase (ALT/SGPT) 15, Alkaline Phosphatase 103, Total Protein 7.0, Albumin 3.5 08/21/23 10:33: Glucometer 185H 08/21/23 15:57: Glucometer 181H Microbiology 08/19/23 MRSA Screen - Final, Complete MRSA not isolated 08/19/23 Urine Culture - Final, Complete NO GROWTH 08/19/23 Blood Culture - Preliminary, Resulted 08/19/23 Gram Stain - Final, Resulted 08/19/23 Wound Culture - Preliminary, Resulted Strep, Beta Hemolytic Group A Staphylococcus aureus A/P: Assessment: Bilat leg cellulitis and diabetic ulcers - No evidence of any significant vascular disease on u/s or arterial CT angio DM II - treated with oral meds and managed by is pcp CVA treated with TPA in January 2021 Chronic atrial fibrillation first diagnosed at time of presentation with CVA in January 2021 - started Eliquis on 01/27/21 and has been on it - has not followed with cardiology for A Fib - Echo on 08-21-03: LVEF 55-60%, PASP 30-35 mmHg Plan: * Arterial circulation is intact * Wound management by Dr Manzo * Continue oral anticoag for stroke prophylaxis * Monitor labs BELLA RAMIREZ MD FACP [facility] Aug 21, 2023 18:15
[2023-08-21 19:55] VITALS: BP 118/82
[2023-08-21] MEDS: HYPOCHLOROUS ACID/NaCl WOUND SOLN 250 ML IR SCH (20:04)
[2023-08-21 23:19] VITALS: BP 135/88
[2023-08-22] MEDS: VANCOMYCIN 1 GM/NS 250 ML IVPB IV SCH ×4 (02:59→09:55)
[2023-08-22 03:07] VITALS: BP 144/90
[2023-08-22] MEDS: ACETAMINOPHEN 500 MG TABLET PO SCH ×2 (04:03→13:42)
[2023-08-22] MEDS: PIPERACILLIN/Tazobactam 4.5 GM in NS (IVPB) 100 ML 100 ML IV SCH ×2 (04:03→12:10)
[2023-08-22] MEDS: inSUlin ASPART 1 UNIT/0.01 ML (PER UNIT) SC SCH ×3 (05:29→15:50)
[2023-08-22 05:48] LABS: BASOPHILS % (AUTO) 1 % (0-10); EOSINOPHILS # (AUTO) 0.1 10^3/uL (0.0-0.3); EOSINOPHILS % (AUTO) 2 % (0-10); HEMATOCRIT 46 % (40-54); HEMOGLOBIN 16.1 g/dL (13.3-17.7); LYMPHOCYTES # (AUTO) 0.6 10^3/uL (1.0-4.0); LYMPHOCYTES % (AUTO) 8 % (12-44); MEAN CORPUSCULAR HEMOGLOBIN 31 pg (25-34); MEAN CORPUSCULAR HGB CONC 35 g/dL (32-36); MEAN CORPUSCULAR VOLUME 87 fL (80-99); MEAN PLATELET VOLUME 10.9 fL (9.0-12.2); MONOCYTES # (AUTO) 0.6 10^3/uL (0.0-1.0); MONOCYTES % (AUTO) 9 % (0-12); NEUTROPHILS # (AUTO) 5.9 10^3/uL (1.8-7.8); NEUTROPHILS % (AUTO) 80 % (42-75); PLATELET COUNT 191 10^3/uL (130-400); WHITE BLOOD COUNT 7.4 10^3/uL (4.3-11.0)
[2023-08-22 06:03] LABS: ALBUMIN 3.3 GM/DL (3.2-4.5); BILIRUBIN,TOTAL 0.8 MG/DL (0.1-1.0); CALCIUM 8.8 MG/DL (8.5-10.1); CREATININE SERUM 0.69 MG/DL (0.60-1.30); MAGNESIUM 1.6 MG/DL (1.6-2.4); PHOSPHORUS 3.3 MG/DL (2.3-4.7); POTASSIUM 4.1 MMOL/L (3.6-5.0); TOTAL PROTEIN 6.7 GM/DL (6.4-8.2)
--- NOTE | 2023-08-22 07:21 | Progress Note ---
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 Wound care will be consulted. IV abx maintained. Cardiology consulted for AF and possible lower extremity intervention if PVD noted on USG. Focused Exam Lactate Level Time of Focused Exam: 15:54 Objective Exam Vital Signs Vital Signs Date Time Temp Pulse Resp B/P (MAP) Pulse Ox O2 Delivery O2 Flow Rate FiO2 08/22/23 16:27 36.8 96 18 146/97 97 Room Air Capillary Refill : Less Than 3 Seconds Results/Procedures Lab Laboratory Tests 08/22/23 05:36 Patient resulted labs reviewed. Assessment/Plan Assessment and Plan Assess & Plan/Chief Complaint Sepsis Diagnosis/Problems Diagnosis/Problems (1) Sepsis Status: Resolved Assessment & Plan: 2/2 chronic diabetic ulcers of BL LE PLAN: Wound care consult - will f/u in 1 week outpatient XR NEG for osteomyelitis MRI BL LE: NEG for osteomyelitis Abx: vancomycin and zosyn Wound Cx - MSSA, GAS Blood Cx Prelim NEG IVF Qualifiers: Qualified Codes: A41.9 - Sepsis, unspecified organism Resolution Date/Time: 08/20/23 @ 12:10 (2) Diabetic ulcer of lower leg Assessment & Plan: PLAN: See sepsis (3) Cellulitis Status: Acute Assessment & Plan: Improved on exam 08/21 Qualifiers: Qualified Codes: L03.116 - Cellulitis of left lower limb (4) Insulin dependent diabetes mellitus Status: Chronic Assessment & Plan: PLAN: Slide scale insulin Consider adding on long-acting ACHS BG (5) Atrial fibrillation with rapid ventricular response Status: Acute Assessment & Plan: PLAN: Cardiology consult Telemetry EKG CONTRACTS ATTORNEY Eliquis (6) Hyperglycemia Status: Acute Assessment & Plan: See insulin-dependent DM JERRY BRANDON MD,RESIDENT Aug 22, 2023 07:21
[2023-08-22 07:46] VITALS: BP 134/86
[2023-08-22] MEDS: APIXABAN 5 MG TABLET PO SCH (08:55)
[2023-08-22] MEDS: dilTIAZem ER 240 MG CAPSULE PO SCH (08:55)
[2023-08-22] MEDS: HYPOCHLOROUS ACID/NaCl WOUND SOLN 250 ML IR SCH (11:00)
[2023-08-22 11:18] VITALS: BP 129/83
--- NOTE | 2023-08-22 11:34 | Progress Note - Cardiology ---
Cardiology SOAP Progress Note Objective: I&O/Vital Signs 08/22/23 08/22/23 08/22/23 08/22/23 01:00 03:07 07:17 07:46 Temp 36.9 36.4 Pulse 95 100 99 97 Resp 20 16 B/P (MAP) 144/90 (108) 134/86 (102) Pulse Ox 98 95 O2 Delivery Room Air Room Air 08/22/23 08/22/23 08:00 11:18 Temp 36.5 Pulse 93 Resp 16 B/P (MAP) 129/83 (98) Pulse Ox 96 O2 Delivery Room Air Room Air 08/22/23 00:00 Intake Total 780 ml Balance 780 ml Weight (Pounds): 214 Weight (Ounces): 5.0 Weight (Calculated Kilograms): 97.784256 Constitutional: AAO x 3, well-developed, well-nourished Respiratory: No accessory muscle use; chest expansion is symmetric, chest is bilaterally symmetric, other (fair to good, bilateral air entry) Cardiovascular: regular rate-rhythm, S1 and S2, systolic murmur (soft SCARLET at card base) Gastrointestional: No tender; soft; No guarding, No rebound; audible bowel sounds Extremities: swelling (mild, bilater), other (reddish brown discoloration of both lower legs); No clubbing, No cyanosis; wound (serpigionous unlcers of up to approx 4" in greatest dimension on the anterior aspects of both legs (more promi nent and numerous on the L)) Skin: warm/dry; No cool, No diaphoresis; other (please see under Extremities exam above) Results/Procedures: Labs Laboratory Tests 08/21/23 15:57: Glucometer 181H 08/21/23 20:59: Glucometer 221H 08/22/23 04:59: Glucometer 186H 08/22/23 05:36: White Blood Count 7.4, Red Blood Count 5.28, Hemoglobin 16.1, Hematocrit 46, Mean Corpuscular Volume 87, Mean Corpuscular Hemoglobin 31, Mean Corpuscular Hemoglobin Concent 35, Red Cell Distribution Width 12.9, Platelet Count 191, Mean Platelet Volume 10.9, Immature Granulocyte % (Auto) 1, Neutrophils (%) (Auto) 80H, Lymphocytes (%) (Auto) 8L, Monocytes (%) (Auto) 9, Eosinophils (%) (Auto) 2, Basophils (%) (Auto) 1, Neutrophils # (Auto) 5.9, Lymphocytes # (Auto) 0.6L, Monocytes # (Auto) 0.6, Eosinophils # (Auto) 0.1, Basophils # (Auto) 0.0, Immature Granulocyte # (Auto) 0.0, Sodium Level 140, Potassium Level 4.1, Chloride Level 105, Carbon Dioxide Level 22, Anion Gap 13, Blood Urea Nitrogen 9, Creatinine 0.69, Estimat Glomerular Filtration Rate 116, BUN/Creatinine Ratio 13, Glucose Level 168H, Calcium Level 8.8, Corrected Calcium 9.4, Phosphorus Level 3.3, Magnesium Level 1.6, Total Bilirubin 0.8, Aspartate Amino Transf (AST/SGOT) 12, Alanine Aminotransferase (ALT/SGPT) 16, Alkaline Phosphatase 102, Total Protein 6.7, Albumin 3.3 08/22/23 10:36: Glucometer 207H Microbiology 08/19/23 MRSA Screen - Final, Complete MRSA not isolated 08/19/23 Urine Culture - Final, Complete NO GROWTH 08/19/23 Blood Culture - Preliminary, Resulted 08/19/23 Gram Stain - Final, Resulted 08/19/23 Wound Culture - Preliminary, Resulted Streptococcus pyogenes Grp A See Comments Staphylococcus aureus Procedures NAME: EMILY [facility] REC#: [id number] PT STATUS: ADM IN : 1980 PHYSICIAN: BELLA RAMIREZ MD, MA, FACP, FACC, FSCAI, CCDS ADMIT DATE: 08/19/23 Signed Date of Exam:08/21/23 CT ANGIO EXT LOWER BILAT W INDICATION: Cellulitis, sepsis, lower extremity ulcers, and vascular disease. COMPARISON: No prior arterial exam. TECHNIQUE: Post IV contrast-enhanced CT angiography of the aortoiliac and runoffs performed with 2-D and 3-D reconstructions. All CT scans use one or more of the following dose optimizing techniques: Automated exposure control, MA and/or KvP adjustment based on patient size and exam type or iterative reconstruction. FINDINGS: The takeoff of the BLUE is patent. The lower thoracic aorta is patent. Its bifurcation is patent. The bilateral common iliacs are widely patent. Internal iliac branches are unremarkable. The bilateral external iliac arteries are widely patent. Right Leg: The common femoral artery and profunda are patent. SFA is patent. The popliteal artery is patent. Common tibioperoneal trunk is patent. There is a three-vessel runoff to the ankle. Left Leg: Common femoral is patent. The profunda is patent. The SFA is patent. Popliteal artery is patent. Common tibioperoneal trunk is patent, and there is a normal widely patent three-vessel runoff to the ankle. Left leg does show some generalized subcutaneous edema and some prominent superficial venous varicosities. No abscess, gas, or drainable fluid collection. No bony destruction or findings of osteomyelitis or fracture. There are a few fat-containing lymph nodes in the left groin and distal external iliac chain, given the additional findings likely reflect some mild reactive adenopathy. IMPRESSION: 1. No hemodynamically significant stenosis in the aortoiliac system with widely patent three-vessel runoffs to the bilateral ankles. No acute or suspicious arterial pathology. 2. There is some left lower extremity subcutaneous edema and superficial venous varicosities. No acute bony pathology, gas, or visible abscess/fluid collection. 3. There is likely some mild reactive adenopathy in the left groin. Dictated by: Dictated on workstation # [id number] Dict: 08/21/230 Trans: 08/21/231612 [id number] Interpreted by: PARK MORENO Electronically signed by: PARK MORENO 08/21/231612 NAME: EMILY [facility]A [facility] REC#: [id number] PT STATUS: ADM IN : 1980 PHYSICIAN: EMILIA GRULLON MD ADMIT DATE: 08/19/23 Draft Date of Exam:08/21/23 MRI LT LOWER EXT W/WO CON Exam: MRI left tibia and fibula without and with intravenous contrast. Date: August 21, 2023. Indication: 43-year-old male, left lower tibia and fibula pain. Soft tissue ulcers. Comparison: Left tibia and fibular radiographs August 19, 2023. Technique: Pre and postcontrast MRI sequences were obtained at the level of the left tibia and fibula with [id number] focused on area of concern. Findings: There is nonspecific subcutaneous enhancement throughout the included [id number]. There is no identified focal fluid collection or abscess. There is normal intramuscular signal and normal muscle bulk. The imaged tendons are intact. There is no T1 marrow signal loss or bone destruction. There is no evidence of osteomyelitis. There is no acute fracture, stress reaction, or other bone marrow signal abnormality. There is limited evaluation at the level of the ankle joint relating to the large [id number] of acquisition. There is no identified tibiotalar or subtalar joint effusion. Impression: 1. Nonspecific diffuse subcutaneous edema and enhancement without focal fluid collection or abscess. 2. No evidence of osteomyelitis or other acute osseous abnormality. 3. No evidence of myositis. 5. Intact imaged tendons. Dictated on workstation # [id number] Dict: 08/21/23 1334 Trans: 08/21/23 1414 CVB [id number] Interpreted by: SILVIO ANAYA MD Electronically signed by: A/P: Assessment: Bilat leg cellulitis and diabetic ulcers - No evidence of any significant vascular disease on u/s or arterial CT angio DM II - treated with oral meds and managed by is pcp CVA treated with TPA in January 2021 Chronic atrial fibrillation first diagnosed at time of presentation with CVA in January 2021 - started Eliquis on 01/27/21 and has been on it - has not followed with cardiology for A Fib - Echo on 08-21-03: LVEF 55-60%, PASP 30-35 mmHg Plan: * Arterial circulation is intact * Wound management by Dr Manzo * Continue oral anticoag for stroke prophylaxis * Monitor labs THOR SCHNEIDER Aug 22, 2023 11:34
[2023-08-22] MEDS ORDERED: CEPH500T PO (13:04)
--- NOTE | 2023-08-22 13:05 | Discharge Summary ---
Discharge [facility] Discharge Medications New, Converted or Re-Newed RX: Transmitted to Pharmacy New Medications: Cephalexin (Cephalexin) 500 Mg Tablet 500 MG PO TID for 11 Days, #33 TAB 0 Refills Continued Medications: Apixaban (Eliquis) 5 Mg Tablet 5 MG PO BID, TAB Aspirin (Aspirin EC) 81 Mg Tablet.dr 81 MG PO DAILY, TAB Atorvastatin Calcium (Atorvastatin Calcium) 80 Mg Tablet 80 MG PO DAILY, TAB Calcium Carbonate (Calcium Carbonate) 300 Mg Calcium (750 Mg) Tab.chew 750 MG PO DAILY, TAB TAKES 2 TABLETS Cholecalciferol (Vitamin D3) (Vitamin D3) 25 Mcg (1000 Unit) Capsule 25 MCG PO DAILY, CAP Diltiazem HCl (Diltiazem 24Hr ER) 240 Mg Cap.er.24h 240 MG PO DAILY, CAP Empagliflozin (Jardiance) 10 Mg Tablet 10 MG PO DAILY, TAB Liraglutide (Victoza 2-Vic) 0.6 Mg/0.1 Ml (18 Mg/3 Ml) Pen.injctr 1.8 MG SQ DAILY, EA Metformin HCl (Metformin HCl) 500 Mg Tablet 500 MG PO DAILY, TAB Methimazole (Methimazole) 10 Mg Tab 10 MG PO DAILY, TAB Patient Instructions Goal/Follow Up Appt: Follow up with primary physician within a week. Follow up with wound care clinic as directed. Patient Instructions: Cleanse wounds daily with Vashe and gently scrub to remove remaining slough. Apply barrier ointment to periwound. Silver alginate hydrofiber to wound bed and cover with gauze/roller gauze and secure with tape. Return to The Hospital For: Fever, worsening redness of legs, uncontrolled pain Activity & Diet Discharge Diet: AUNG Grider MD Aug 22, 2023 13:05
[2023-08-22 16:00] VITALS: BP 146/97
[2023-08-22 16:27] VITALS: BP 146/97
--- NOTE | 2023-08-22 20:54 | Discharge Summary ---
JERRY BRANDON MD,RESIDENT 08/22/232050: Discharge Summary Hospital Course Hospital Course Date of Admission: Aug 19, 2023 at 15:53 Admission Diagnosis : Family Physician/Provider: [facility] Date of Discharge: 08/22/23 Discharge Diagnosis: Cellulitis, diabetic ulcers Hospital Course: Pt admitted for sepsis 2/2 cellulitis and full thickness diabetic ulcers on BL anterior lower leg. XR and MRI of BL LE were negative for osteomyelitis. He was started on IV zosyn and vancomycin. Wound care was consulted. Blood cultures were negative, wound cultures grew GAS and MSSA. Pt was stable for discharge after 48hr IV abx. He was discharged on Keflex with a close wound care f/u. Labs and Pending Lab Test: Laboratory Tests 08/21/23 20:59: Glucometer 221H 08/22/23 04:59: Glucometer 186H 08/22/23 05:36: White Blood Count 7.4, Red Blood Count 5.28, Hemoglobin 16.1, Hematocrit 46, Mean Corpuscular Volume 87, Mean Corpuscular Hemoglobin 31, Mean Corpuscular Hemoglobin Concent 35, Red Cell Distribution Width 12.9, Platelet Count 191, Mean Platelet Volume 10.9, Immature Granulocyte % (Auto) 1, Neutrophils (%) (Auto) 80H, Lymphocytes (%) (Auto) 8L, Monocytes (%) (Auto) 9, Eosinophils (%) (Auto) 2, Basophils (%) (Auto) 1, Neutrophils # (Auto) 5.9, Lymphocytes # (Auto) 0.6L, Monocytes # (Auto) 0.6, Eosinophils # (Auto) 0.1, Basophils # (Auto) 0.0, Immature Granulocyte # (Auto) 0.0, Sodium Level 140, Potassium Level 4.1, Chloride Level 105, Carbon Dioxide Level 22, Anion Gap 13, Blood Urea Nitrogen 9, Creatinine 0.69, Estimat Glomerular Filtration Rate 116, BUN/Creatinine Ratio 13, Glucose Level 168H, Calcium Level 8.8, Corrected Calcium 9.4, Phosphorus Level 3.3, Magnesium Level 1.6, Total Bilirubin 0.8, Aspartate Amino Transf (AST/SGOT) 12, Alanine Aminotransferase (ALT/SGPT) 16, Alkaline Phosphatase 102, Total Protein 6.7, Albumin 3.3 08/22/23 10:36: Glucometer 207H 08/22/23 15:49: Glucometer 225H Microbiology 08/19/23 MRSA Screen - Final, Complete MRSA not isolated 08/19/23 Urine Culture - Final, Complete NO GROWTH 08/19/23 Blood Culture - Preliminary, Resulted 08/19/23 Gram Stain - Final, Resulted 08/19/23 Wound Culture - Preliminary, Resulted Streptococcus pyogenes Grp A See Comments Staphylococcus aureus Susceptibility To Follow Home Meds Active Cephalexin 500 Mg Tablet 500 Mg PO TID 11 Days Reported Calcium Carbonate 300 Mg Calcium (750 Mg) Tab.chew 750 Mg PO DAILY TAKES 2 TABLETS Eliquis (Apixaban) 5 Mg Tablet 5 Mg PO BID Aspirin EC (Aspirin) 81 Mg Tablet.dr 81 Mg PO DAILY Diltiazem 24Hr ER (Diltiazem HCl) 240 Mg Cap.er.24h 240 Mg PO DAILY Atorvastatin Calcium 80 Mg Tablet 80 Mg PO DAILY Metformin HCl 500 Mg Tablet 500 Mg PO DAILY Methimazole 10 Mg Tab 10 Mg PO DAILY Vitamin D3 (Cholecalciferol (Vitamin D3)) 25 Mcg (1000 Unit) Capsule 25 Mcg PO DAILY Jardiance (Empagliflozin) 10 Mg Tablet 10 Mg PO DAILY Victoza 2-Vic (Liraglutide) 0.6 Mg/0.1 Ml (18 Mg/3 Ml) Pen.injctr 1.8 Mg SQ DAILY Assessment/Pt DC Instructions Sepsis 2/2 full thickness diabetic ulcers Discharge Physical Examination Allergies: Coded Allergies: No Known Drug Allergies (Unverified , 11/12/17) General Appearance: No Apparent Distress Respiratory: Lungs Clear, Normal Breath Sounds, No Accessory Muscle Use, No Respiratory Distress Cardiovascular: Regular Rate, Rhythm Gastrointestinal: Non Tender, Soft Skin: Warm/Dry Neurologic/Psychiatric: Alert, Oriented x3, Normal Mood/Affect AUNG CORDERO MD 08/22/232057: Discharge Summary Discharge Physical Examination Allergies: Coded Allergies: No Known Drug Allergies (Unverified , 11/12/17) General Appearance: No Apparent Distress Skin: Other (bilateral lower leg erythema, left greater than right, has receded from lines drawn, has large central ulceration left lower leg/ware) Neurologic/Psychiatric: Alert, Normal Mood/Affect Supervisory-Addendum Brief Supervisory Addendum I personally performed the whaley portions of the visit, discussed case with resident and concur with resident documentation of history, physical exam, assessment and treatment plan unless otherwise noted. Pt also had CTA of legs that showed no significant blockage. Will follow up with wound care outpatient. JERRY BRANDON MD,RESIDENT Aug 22, 2023 20:51 AUNG CORDERO MD Aug 22, 2023 20:58
== END 2023-08-22 16:25 | disposition home or self-care (01) | DRG 872 ==
LOC: EDUNIT# 13:12 → ER 13:15 → OBSVTOIN 15:53 → 4TH 15:53 → ICU 16:30 → 4TH 08-20 13:51
PROVIDERS: ADMIT Internal Medicine; ATTEND Family Medicine
DX: A41.9 Sepsis, unspecified organism (principal); L03.116 Cellulitis of left lower limb; L97.829 Non-pressure chronic ulcer of other part of left lower leg with unspecified severity; L97.819 Non-pressure chronic ulcer of other part of right lower leg with unspecified severity; L03.115 Cellulitis of right lower limb; I48.20 Chronic atrial fibrillation, unspecified; E11.622 Type 2 diabetes mellitus with other skin ulcer; E05.00 Thyrotoxicosis with diffuse goiter without thyrotoxic crisis or storm; G47.33 Obstructive sleep apnea (adult) (pediatric); I10 Essential (primary) hypertension; E11.65 Type 2 diabetes mellitus with hyperglycemia; B95.61 Methicillin susceptible Staphylococcus aureus infection as the cause of diseases classified elsewhere; B95.0 Streptococcus, group A, as the cause of diseases classified elsewhere; Z79.01 Long term (current) use of anticoagulants; Z79.84 Long term (current) use of oral hypoglycemic drugs; Z79.82 Long term (current) use of aspirin; Z79.899 Other long term (current) drug therapy; Z86.73 Personal history of transient ischemic attack (TIA), and cerebral infarction without residual deficits
CPT/HCPCS: 36415; 71045; 73590; 73720; 80053; 80202; 81000; 82947; 83605; 83735; 84100; 85007; 85025; 85027; 85610; 85652; 85730; 87040; 87070; 87077; 87081; 87088; 87205; 93306; 93925; 93970